=== PATIENT | male | born 1945 | race Caucasian/White ===

== ENCOUNTER 2018-12-06 07:23 | Day surgery (SDC) | payer MEDICARE, BC ==
[~2018-12-06 07:23] MED LIST: Acetaminophen TAB* 325 MG PO PRN
[2018-12-06] MEDS ORDERED: Midazolam* 1 MG/ML 2 ML VIAL (2 MG) ONE (08:48)
[2018-12-06 09:33] VITALS: BP 118/61
[2018-12-06] MEDS ORDERED: Ketorolac 0.5% OPHTH (NF) 0.5 % 5 ML BTL ONE (10:26)
[2018-12-06] MEDS ORDERED: Povidone Iodine 5% OPTH* 30 ML BTL ONE (10:26)
[2018-12-06] MEDS ORDERED: Neomycin/Polymy/Dex OPHTH.OIN* 3.5 GM ONE (10:26)
[2018-12-06] MEDS ORDERED: Lidocaine 1%* 5 ML VIAL ONE (10:26)
[2018-12-06] MEDS ORDERED: Tropicamide 1% OPTH.SOL* BTL ONE (10:26)
[2018-12-06] MEDS ORDERED: acetaZOLAMIDE TAB* 250 MG ONE (10:26)
[2018-12-06] MEDS ORDERED: Phenylephrine 2.5% OPTH.SOL* 2 ML BTL ONE (10:26)
[2018-12-06] MEDS ORDERED: Tetracaine 0.5% OPTH.SOL 4 ML* 1 DROP BTL ONE (10:26)
[2018-12-06] MEDS ORDERED: Cyclopentolate 1% OPTH.SOL* 2 ML BTL ONE (10:26)
--- NOTE | 2018-12-06 10:45 | OP ---
DATE OF OPERATION: 12/06/18 - [facility] DATE OF : 41 SURGEON: William Scherer MD ANESTHESIA: Monitored anesthesia care. PREOPERATIVE DIAGNOSIS: Cataract, left eye. POSTOPERATIVE DIAGNOSIS: Cataract, left eye. OPERATIVE PROCEDURE: Extracapsular cataract extraction of the left eye with intraocular lens implant. IMPLANT: SN60WF 22.5 diopter lens to the left eye. COMPLICATIONS: None. DESCRIPTION OF PROCEDURE: The patient was given phenylephrine 2.5 % and cyclopentolate 1% eye drops to the operative eye in the preoperative area. The patient was taken to the operating room where a time-out was taken to identify the correct patient, site, and side of surgery. The patient's left eye was prepped and draped in the usual sterile fashion with 5% Betadine. A second time- out was taken to verify the correct patient, side, and site of surgery, as well as the correct lens implant. A lid speculum was placed to the left eye. A 1mm paracentesis blade was used to make a clear corneal incision. Preservative-free 1% lidocaine was injected into the anterior chamber. DisCoVisc was then injected into the anterior chamber. A 2.75 mm keratome blade was used to make a triplanar incision. A cystotome initiated a capsulorrhexis, which was completed with Utrata forceps in a continuous and curvilinear manner. Hydrodissection of the lens was performed with BSS on a cannula. The lens could be spun in a capsular bag. The phacoemulsification handpiece was used with a divide-and- conquer technique to remove the nucleus. The I/A handpiece then removed the residual cortical lens material. DisCoVisc was injected to inflate the capsular bag. The planned SN60WF 22.5 Diopter lens was injected into the capsular bag. The residual DisCoVisc was removed from the eye with the I/A handpiece. The corneal incisions were hydrated and no leaks occurred at physiologic pressure around 20 mmHg per palpation. The lid speculum was removed and drapes were removed. Maxitrol ointment was placed to the surface of the operative eye. An adhesive patch and shield was then placed on the operative eye. The patient was taken to the postoperative area in stable condition. [id number]/[facility] #: [id number] MTDD
== END 2018-12-06 09:40 | disposition home or self-care (01) ==
LOC: OREAST 07:23
PROVIDERS: ATTEND Student in an Organized Health Care Education/Training Program
DX: H25.12 Age-related nuclear cataract, left eye (principal); I10 Essential (primary) hypertension; E78.00 Pure hypercholesterolemia, unspecified; Z87.891 Personal history of nicotine dependence; I48.91 Unspecified atrial fibrillation; Z79.01 Long term (current) use of anticoagulants; E78.2 Mixed hyperlipidemia; I35.0 Nonrheumatic aortic (valve) stenosis; I25.10 Atherosclerotic heart disease of native coronary artery without angina pectoris; M19.90 Unspecified osteoarthritis, unspecified site; J45.909 Unspecified asthma, uncomplicated
CPT/HCPCS: A9270-GY; J2250; V2632

== ENCOUNTER 2018-12-13 06:15 | Day surgery (SDC) | payer MEDICARE, BC ==
[2018-12-13] MEDS ORDERED: Midazolam* 1 MG/ML 2 ML VIAL (2 MG) ONE (07:29)
[2018-12-13 08:08] VITALS: BP 121/57
[2018-12-13] MEDS ORDERED: Lidocaine 1%* 5 ML VIAL ONE ×2 (08:11→14:09)
[2018-12-13] MEDS ORDERED: Ketorolac 0.5% OPHTH (NF) 0.5 % 5 ML BTL ONE (08:11)
[2018-12-13] MEDS ORDERED: Phenylephrine 2.5% OPTH.SOL* 2 ML BTL ONE (08:11)
[2018-12-13] MEDS ORDERED: Neomycin/Polymy/Dex OPHTH.OIN* 3.5 GM ONE (08:11)
[2018-12-13] MEDS ORDERED: Tropicamide 1% OPTH.SOL* BTL ONE (08:11)
[2018-12-13] MEDS ORDERED: Tetracaine 0.5% OPTH.SOL 4 ML* 1 DROP BTL ONE (08:11)
[2018-12-13] MEDS ORDERED: acetaZOLAMIDE TAB* 250 MG ONE (08:11)
[2018-12-13] MEDS ORDERED: Povidone Iodine 5% OPTH* 30 ML BTL ONE (08:11)
[2018-12-13] MEDS ORDERED: Cyclopentolate 1% OPTH.SOL* 2 ML BTL ONE (08:11)
--- NOTE | 2018-12-13 08:22 | OP ---
DATE OF OPERATION: 12/13/18 - [facility] DATE OF : 41 SURGEON: William Scherer MD ANESTHESIA: Monitored anesthesia care. PREOPERATIVE DIAGNOSIS: Cataract, right eye. POSTOPERATIVE DIAGNOSIS: Cataract, right eye. OPERATIVE PROCEDURE: Extracapsular cataract extraction of the right eye with intraocular lens implant. IMPLANT: SN60WF 23.0 diopter lens to the right eye. COMPLICATIONS: None. DESCRIPTION OF PROCEDURE: The patient was given phenylephrine 2.5 % and cyclopentolate 1% eye drops to the operative eye in the preoperative area. The patient was taken to the operating room where a time-out was taken to identify the correct patient, site, and side of surgery. The patient's right eye was prepped and draped in the usual sterile fashion with 5% Betadine. A second time- out was taken to verify the correct patient, side, and site of surgery, as well as the correct lens implant. A lid speculum was placed to the right eye. A 1mm paracentesis blade was used to make a clear corneal incision. Preservative-free 1% lidocaine was injected into the anterior chamber. DisCoVisc was then injected into the anterior chamber. A 2.75 mm keratome blade was used to make a triplanar incision. A cystotome initiated a capsulorrhexis, which was completed with Utrata forceps in a continuous and curvilinear manner. Hydrodissection of the lens was performed with BSS on a cannula. The lens could be spun in a capsular bag. The phacoemulsification handpiece was used with a divide-and- conquer technique to remove the nucleus. The I/A handpiece then removed the residual cortical lens material. DisCoVisc was injected to inflate the capsular bag. The planned SN60WF 23.0 diopter lens was injected into the capsular bag. The residual DisCoVisc was removed from the eye with the I/A handpiece. The corneal incisions were hydrated and no leaks occurred at physiologic pressure around 20 mmHg per palpation. The lid speculum was removed and drapes were removed. Maxitrol ointment was placed to the surface of the operative eye. An adhesive patch and shield was then placed on the operative eye. The patient was taken to the post-operative area in stable condition. [id number]/[facility] #: [id number] [facility]
== END 2018-12-13 08:12 | disposition home or self-care (01) ==
LOC: OREAST 06:15
PROVIDERS: ATTEND Student in an Organized Health Care Education/Training Program
DX: H25.11 Age-related nuclear cataract, right eye (principal); Z87.891 Personal history of nicotine dependence; I10 Essential (primary) hypertension; E78.00 Pure hypercholesterolemia, unspecified; I25.10 Atherosclerotic heart disease of native coronary artery without angina pectoris
CPT/HCPCS: A9270-GY; J2250; V2632

== ENCOUNTER 2019-01-25 18:47 | Inpatient (IN) | payer MEDICARE, BC ==
--- NOTE | 2019-01-25 19:09 | ED ---
Shortness of Breath - HPI Summary HPI Summary: A 73 y/o M presents to ED with c/o sudden-onset SOB onset [id number]. He says he was walking his dog and all of sudden got SOB. Associated sx: weakness, cough. He has had pedal edema for a few weeks. Denies fever, n/v/d, sore throat. He is on O2 at bedside, which he says is helping. He is not on home O2. 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 Denies CHF, COPD, mesothelioma. 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 He sees Dr. Nickerson, pulmonary. - History of Current Complaint Chief Complaint: EDShortnessOfBreath Hx Obtained From: Patient Onset/Duration: Sudden Onset, Still Present Timing: Constant Current Severity: Moderate Dyspnea At: Rest Alleviating Factors: Oxygen - Allergy/Home Medications Allergies/Adverse Reactions: Allergies Allergy/AdvReac Type Severity Reaction Status Date / Time atorvastatin Allergy Intermediate Muscle Ache Verified 12/13/18 06:35 gemfibrozil AdvReac Intermediate Muscle Ache Verified 12/13/18 06:35 PMH/Surg Hx/FS Hx/Imm Hx Previously Healthy: No Endocrine/Hematology History: Reports: Hx Anticoagulant Therapy Denies: Hx Diabetes, Hx Thyroid Disease Cardiovascular History: Reports: Hx Angina, Hx Coronary Artery Disease, Hx Hypercholesterolemia, Hx Hypertension - CONTROL WITH MEDS, Other Cardiovascular Problems/Disorders - CHOLESTEROL CONTROL WITH MEDS Denies: Hx Pacemaker/ICD Respiratory History: Reports: Hx Asthma - 1 ACUTE EPISODE THIS SPRING RELATED TO DUST, Other Respiratory Problems/Disorders Denies: Hx Chronic Obstructive Pulmonary Disease (COPD) GI History: Reports: Hx Gastroesophageal Reflux Disease - ,very seldom History: Reports: Other Problems/Disorders - HX OF BPH, ACCORDING TO H&P Denies: Hx Renal Disease Sensory History: Reports: Hx Cataracts - both eyes, Hx Contacts or Glasses - READING GLASSES Denies: Hx Hearing Aid Opthamlomology History: Reports: Hx Cataracts - both eyes, Hx Contacts or Glasses - READING GLASSES Neurological History: Denies: Hx Dementia, Hx Seizures Psychiatric History: Reports: Hx Anxiety - CONTROL OF MED Denies: Hx Substance Abuse - Surgical History Surgery Procedure, Year, and Place: left knee scoping, [place] rt shoulder =may 2016 for fx. 1969'[place]COPY[place] [facility] [place]OTAL [place]NEE REPLACEMENT, [facility]. 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 left endarectomy at [facility] 10/11/18 Hx Anesthesia Reactions: No - Immunization History Date of Tetanus Vaccine: 2 YEARS AGO Infectious Disease History: No Infectious Disease History: Denies: Hx Clostridium Difficile, Hx Hepatitis, Hx Human Immunodeficiency Virus (HIV), Hx of Known/Suspected MRSA, Hx Shingles, Hx Tuberculosis, Hx Known/ Suspected VRE, Hx Known/Suspected VRSA, History Other Infectious Disease, Traveled Outside the [place] in Last 30 Days - Family History Known Family History: Positive: Cardiac Disease - CAD - Social History Occupation: Retired Lives: With Family Alcohol Use: Daily Alcohol Amount: 1-2 BEERS Substance Use Type: Reports: None Smoking Status (MU): Former Smoker Type: Cigarettes Amount Used/How Often: 1/2 PPD Have You Smoked in the Last Year: No Review of Systems Negative: Fever Negative: Sore Throat Positive: Shortness Of Breath, Cough Negative: Vomiting, Diarrhea, Nausea Positive: Weakness All Other Systems Reviewed And Are Negative: Yes Physical Exam - Summary Physical Exam Summary: Constitutional: Well-developed, Well-nourished, Alert. (-) Distressed Skin: Warm, Dry HENT: Normocephalic; Atraumatic Eyes: Conjunctiva normal Neck: Musculoskeletal ROM normal neck. (-) JVD, (-) Stridor, (-) Tracheal deviation Cardio: Rhythm regular, rate normal, Heart sounds normal; Intact distal pulses; The pedal pulses are 2+ and symmetric. Radial pulses are 2+ and symmetric. (-) Murmur Pulmonary/Chest wall: (-) Wheezes, Coarse crackles on Left. Abd: Soft, (-) tenderness, (-) Distension, (-) Guarding, (-) Rebound Musculoskeletal: 2+ pitting edema in bilat LE Lymph: (-) Cervical adenopathy Neuro: Alert, Oriented x3 Psych: Mood and affect Normal Triage Information Reviewed: Yes Vital Signs On Initial Exam: Initial Vitals Temp Pulse Resp BP Pulse Ox 98.7 F 153 20 126/55 60 01/25/19 18:51 01/25/19 18:51 01/25/19 18:51 01/25/19 18:51 01/25/19 18:51 Vital Signs Reviewed: Yes Diagnostics - Vital Signs Vital Signs Temp Pulse Resp BP Pulse Ox 01/25/19 18:51 98.7 F 153 20 126/55 60 - Laboratory Result Diagrams: 01/25/19 19:34 01/25/19 19:34 Lab Statement: Any lab studies that have been ordered have been reviewed, and results considered in the medical decision making process. - Radiology CXR Radiology Interpretation Completed By: ED Physician Summary of Radiographic Findings: R perihiler nodular lesion, likely asbestos, otherwise unremarkable. - CT CHEST/THORAX CTA CT Interpretation Completed By: Radiologist Summary of CT Findings: IMPRESSION: 1. Multifocal pneumonia. 2. No pulmonary emboli. 3. Right adrenal adenoma. 4. Cholelithiasis. ED provider has reviewed this report. - EKG 1919 EKG Rhythm: Atrial Fibrillation - at 108 bpm Summary of EKG Findings: Atrial fib at 108 bpm, ST depressed in V4-V5. Overall atrial fibrillation at 108 bpm. Re-Evaluation - Re-Evaluation 1 Re-Evaluation Time: 19:34 Change: Improved 2 Re-Evaluation Time: 21:03 Change: Improved Comment: Breathing better, feeling improved. Course/Dx - Course Course Of Treatment: Pt is a 73 y/o M presenting with sudden-onset SOB onset [id number] while walking his dog. Associated sx: weakness, cough. He has had pedal edema for a few weeks. He is on O2 at bedside, which he says is helping. 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 Denies CHF, COPD, mesothelioma. 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 He sees Dr. Nickerson, pulmonary. EKG shows overall atrial fibrillation at 108 bpm. Critical lab values: lactic acid: 2.4. CXR shows a R perihiler nodular lesion, likely asbestos, otherwise unremarkable. Chest/Thorax CTA shows "1. Multifocal pneumonia. 2. No pulmonary emboli. 3. Right adrenal adenoma. 4. Cholelithiasis.". Pt given Azithromycin, Ceftriaxone, Mg Sulfate in ED. Consulted with Dr. Sahni, hospitalist, who will admit patient. - Diagnoses Provider Diagnoses: PNA (pneumonia) - Physician Notifications Discussed Care of Patient With: Addison Sahni - hospitalist Time Discussed With Above Provider: 22:00 - Critical Care Time Critical Care Time: 30-74 min - 45 mins CCT Discharge - Sign-Out/Discharge Documenting (check all that apply): Patient Departure - ADMIT All imaging exams completed and their final reports reviewed: Yes Patient Received Moderate/Deep Sedation with Procedure: No - Discharge Plan Condition: Improved Disposition: ADMITTED TO [facility] - Billing Disposition and Condition Condition: IMPROVED Disposition: Admitted to [facility] - Attestation Statements Document Initiated by Scribe: Yes Documenting Scribe: Rizwana Madrigal Provider For Whom Scribe is Documenting (Include Credential): Dr. Gertrude Marinelli MD Scribe Attestation: Rizwana Conte scribed for Dr. Gertrude Marinelli MD on at 2322. Scribe Documentation Reviewed: Yes Provider Attestation: The documentation as recorded by the Rizwana yip accurately reflects the service I personally performed and the decisions made by me, Dr. Gertrude Marinelli MD Status of Scribe Document: Viewed
--- OUTSIDE RECORDS SUMMARY | 2019-01-25 19:27 | XMS REPORT | Continuity of Care Document ---
:1945 External Reference #:[id number] Author Name RoseJosephine Care Team Providers Name Role Phone Biju Collins MD Primary Care Physician Unavailable Payers Date Identification Numbers Payment Provider Subscriber Effective: 2008 Policy Number: [id number] Medicare Leo Ortega PayID: [id number] [address] [place] [address] Policy Number: [id number] [facility] Leo Ortega Group Name: [id number] [address] [address] PayID: [id number] [place] [id number] Advance Directives Description No Information Available Problems Date Description Provider Status Onset: 03/17/2017 Coronary atherosclerosis Biju Collins M.D.,BETINA Active Note: abnormal stress/myoview 03/24, suspect CAD Onset: 06/09/2018 Carotid artery stenosis Biju Collins M.D.,BETINA Active Note: LT CEA Onset: 12/22/2007 Mixed hyperlipidemia Carley Mcnair M.D., FACP Onset: 12/22/2007 Benign essential hypertension Carley Mcnair M.D., FACP Onset: 12/04/2008 Osteoarthritis of knee Carley Mcnair M.D.,BETINA Onset: 07/02/2009 Benign neoplasm of adrenal gland Carley Mcnair M.D.,BETINA Note: right Onset: 07/02/2009 Microscopic hematuria Carley Mcnair M.D.,FACP Onset: 03/04/2012 Pure hypercholesterolemia Carley Figueroa M.D. Onset: 01/04/2013 Generalized anxiety disorder Karen Chandler N.P. Active Onset: 02/05/2016 Asthma without status asthmaticus Carley Mcnair M.D.,FACP Onset: 02/05/2016 Asbestos-induced pleural plaque Carley Mcnair M.D.,FACP Onset: 02/19/2018 Knee pain Ganesh Shipman MD Active Onset: 02/19/2018 Arthroplasty of knee Ganesh Shipman MD Active Onset: 03/01/2018 Periprosthetic osteolysis Karina Bhardwaj M.D. 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 Recreational Drug Use Denies Drug Use Tobacco Use Start: Unknown End: Patient is a former Unknown smoker Smoking Status Reviewed: 01/17/19 Patient is a former smoker Exercise Type/Frequency Exercises regularly walks outside most days, weather permitting. uses indoor bicycle if unable to walk. Walks 2 dogs as well. Exercise Limitations Limited Due To Right Knee Pain Allergies, Adverse Reactions, Alerts Date Description Reaction Status Severity Comments 05/03/2008 Gemfibrozil Active muscle aches in legs 07/28/2013 Lipitor myalgias Active Medications Medication Date Status Form Strength Qnty SIG Indications Ordering Provider Eliquis 08/13/20 Active Tablets 5mg 180ta 1 by Fili 18 bs melvi Childress, twice a M.D. day - restarted 11/17/18 by surgeon Amlodipine 05/18/20 Active Tablets 10mg 90tab 1 tabs by Fili Besylate 18 s melvi Childress, daily in M.D. in the morning Shingrix 05/18/20 Active Suspension 50mcg 2unit 0.5 Biju 18 Rec s millilite Kaila Collins, rs M.D.,FACP intramusc ular now and 2-3 months later repeat Received 1st injection Crestor 05/01/20 Active Tablets 5mg 90tab 1 by Biju 17 s mouth Kaila Collins, every M.D.,FACP evening Nitroglycerin 04/01/20 Active Patches 0.2mg/HR 90uni apply one R94.30 Fili 16 24HR ts to chest barbara Harvey in M.DRochelle the morning and remove prior to bedtime Aspirin 07/09/[address] 81mg 90tab 1 po qd Fili 10 solis Childress M.D. Folic Acid Active Tablets 800mcg 30tab 1 po qd Unknown 00 s Ventolin HFA Active Aerosol 108(90Bas as needed Unknown 00 e) mcg/Act Lubricant Eye Active Solution 0.4-0.3% 1 gtt Unknown Drops 00 each eye qd as needed Citalopram Active Tablets 10mg 90tab take one Biju Hydrobromide 00 s tablet by Kaila Collins, mouth M.D.,FACP once daily Doxazosin Active Tablets 4mg 90tab 1 by I10 Biju Mesylate 00 s melvi Collins, every day M.D.,FACP Vitamin D 00/00/00 Active Capsules 2000Unit 1 by Unknown (Ergocalcifero 00 mouth l) every day Pravastatin 04/30/20 Hx Tablets 10mg 1 by Fili Sodium 17 - mouth F. Mauser, 05/01/20 every day M.D. 17 Pravastatin 03/30/20 Hx Tablets 20mg 1 tablet Fili Sodium 17 - by mouth F. Mauser, 03/30/20 once M.D. 17 daily at bedtime Pravastatin 03/30/20 Hx Tablets 20mg 90tab 1 tablet Fili Sodium 17 - s by mouth F. Mauser, 04/30/20 once M.D. 17 daily at bedtime Medrol 09/04/20 Hx TBPK 4mg 21uni take as S42.201D Ganesh 16 - ts directed MD Umberto 10/09/20 by 16 packaging Azithromycin 06/17/20 Hx Tablets 250mg 6tabs 2 tabs by J20.9 Jah 16 - mouth on Maldivian, TURNER OFF 06/24/20 day 1; 1 16 tab by mouth every day on days 2-5 Cephalexin 05/20/20 Hx Capsules 500mg 28cap 1 by Ann 16 - s mouth Bordoni, 05/27/20 four TURNER OFF 16 times a day for 7 days Oxycodone-Acet 05/14/20 Hx Tablets 5-325mg 60tab 1 or 2 by S42.201D Dirk aminophen 16 - s mouth Jesus, 06/03/20 every 4 M.D. 16 hours as needed pain Metoprolol 04/01/20 Hx Tablets ER 25mg 45tab Take R94.30 Biju Succinate ER 16 - 24HR s One-Half D. [place], 09/12/20 Tablet By Chrystal,FACP 18 Mouth Once Daily In The Evening Metoprolol 01/21/20 Hx Tablets ER 25mg 30tab Take Lambert Succinate ER 16 - 24HR s One-Half Dillon, 03/11/20 Tablet By Chrystal 16 Mouth 1/2 of a 25 mg tablet on 02/27/16 and 02/28 and 03/02 and then discontin ue. Avapro 08/07/20 Hx Tablets 150mg 90tab 1 by Fili 14 - s mouth F. Mauser, 01/15/20 every day M.D. 16 Lisinopril 07/28/20 Hx Tablets 20mg 1 tab PO Fili 14 - bid F. Mauser, 07/28/20 M.D. 14 Benicar 07/28/20 Hx Tablets 20mg 30tab 1 by Fili 14 - s mouth F. Mauser, 08/06/20 every day M.D. 14 Triamcinolone 11/14/19 Hx Cream 0.1% 80g apply qd 300.02 Biju Acetonide 14 - prn Kaila Collins, 07/27/20 M.D.,FACP 14 Turmeric 07/28/20 Hx Capsules 400mg 1 po qd Other 13 - Ordering 02/26/20 Provider 16 Co Q-10 07/28/20 Hx Capsules 100mg 1 po qd Other 13 - Ordering 01/01/20 Provider 15 Glucosamine 07/28/20 Hx Capsules 500mg 2 po qd Other 13 - Ordering 11/14/19 Provider 14 Pravastatin 07/28/20 Hx Tablets 10mg 90tab take Biju Sodium 13 - s tablet by Kaila Collins, 03/30/20 mouth M.D.,FACP 17 once daily Citalopram 03/02/20 Hx Tablets 10mg 90tab take one 296.82 Biju Hydrobromide 13 - s tablet by Kaila Collins, 06/03/20 mouth M.D.,FACP 16 every day Pravastatin 02/25/20 Hx Tablets 10mg 90tab 1/2 po Fili Sodium 13 - s qd Kirk. Monroe, 07/28/20 M.D. 13 Lisinopril 02/25/20 Hx Tablets 10mg 180ta 2 po bid Fili 13 - bs Zoie Childress, 07/28/20 M.D. 14 Pravachol 12/29/19 Hx Tablets 10mg 100ta 1/2 po qd Fili 13 - bs Zoie Janeuselyudmila, 07/28/20 M.D. 13 Lipitor 09/13/20 Hx Tablets 10mg 90tab 1/2 tab Fili 12 - s po qhs Zoie Childress, 12/29/19 M.D. 13 Toprol XL 09/03/20 Hx Tablets ER 25mg 45tab 1/2 by Lambert 12 - 24HR s mouth Dillon, 02/26/20 every day M.D. 16 Norvasc 09/03/20 Hx Tablets 5mg 180ta 2 tabs by Biju Arbams - bs mouth D. [place], 05/18/20 daily M.Kaila,FACP 18 Celexa 08/18/20 Hx Tablets 10mg 90tab 1qd - 296.82 Biju 12 - s Take One D. [place], 03/02/20 Tablet By Chrystal,FACP 13 Mouth Every Day Toprol XL 03/22/20 Hx Tablets ER 25mg 90tab 1 po qd Fili 12 - 24HR s F. Buckuselyudmila, 09/03/20 M.D. 12 Toprol XL 03/04/20 Hx Tablets ER 25mg 100ta 1/2 po qd Fili 12 - 24HR bs Zoie Childress, 03/22/20 M.D. 12 Norvasc 11/18/19 Hx Tablets 10mg 100ta 1 po qd Fili 12 - bs FRochelle Childress, 09/03/20 M.D. 12 Lisinopril 10/27/20 Hx Tablets 20mg 90tab 1/2 tab Fili 11 - s po qd F. Mauselyudmila, 02/25/20 M.D. 13 Lipitor 10/23/20 Hx Tablets 20mg 90tab one tab Fili 11 - s po qhs FRochelle Childress, 09/13/20 hold as M.D. 12 of 09.03.12 Amlodipine 10/23/20 Hx Tablets 2.5mg 200ta 3 po qd 401.1 Fili Besylate 11 - bs F. Mauselyudmila, 11/18/19 M.D. 12 Toprol XL 10/23/20 Hx Tablets ER 50mg 100ta 1/2 po qd Fili 11 - 24HR bs Zoie Childress, 03/04/20 M.D. 12 Amlodipine 04/09/20 Hx Tablets 2.5mg 90tab 1 po qd 401.1 Biju Besdarion 11 - s Jimbo. Ainsley, 10/23/20 M.D.,FACP 11 Citalopram 04/09/20 Hx Tablets 10mg 90tab Take One 296.82 Biju Hydrobromide 11 - s Tablet By Kaila Collins, 07/01/20 Mouth MJose,FACP 12 Every Day Celexa 12/16/19 Hx Tablets 10mg 90tab 1qd - 296.82 Biju 11 - s Take One Kaila Collins, 04/09/20 Tablet By Chrystal,FACP 11 Mouth Every Day Finasteride 10/08/20 Hx Tablets 5mg 90tab Take One Biju 10 - s Tablet By Kaila Collins, 07/28/20 Mouth MJose,FACP 13 Every Day Toprol XL 08/19/20 Hx Tablets ER 50mg 90tab 1 po qd Fili 10 - 24HR s Zoie Childress, 10/23/20 MRochelleDRochelle 11 Toprol XL 08/06/20 Hx Tablets ER 25mg 180ta 2 po qd Fili 10 - 24HR bs Zoie Childress, 08/19/20 MJose 10 Avodart 07/09/20 Hx Capsules 0.5mg 1 po qd Biju 10 - Kaila Collins, 10/08/20 Chyrstal,FACP 10 Norvasc 07/09/20 Hx Tablets 2.5mg 4tabs 2 po qd Fili 10 - The Day Zoie Childress, 04/09/20 Before M.DRochelle 11 And The Day Of The Stress Test Lisinopril/Hyd 03/30/20 Hx Tablets 20-12.5mg 90tab Take One Biju rochlorothiazi 10 - s Tablet By Moses 10/27/20 Mouth MJose,FACP 11 Every Day Iron 01/19/20 Hx Tablets 65mg 90tab 1 po qd Fili 09 - s Zoie Childress, Unknown Bernadette.DRochelle Toprol XL 12/12/19 Hx TB24 25mg 90uni 1qd - Biju 09 - ts Take One Kaila Collins, 08/06/20 Tablet By Chrystal,FACP 10 Mouth Every Day Prilosec OTC 12/04/[address] 20mg 30tab 1 po qd Biju 09 - s Kaila Collins, 01/19/20 M.D.,FACP 09 Citalopram 12/04/19 Hx Tablets 10mg 90tab 1 po qd 296.82 Biju Hydrobromide 09 - s DRochelle Collins, 12/16/19 M.D.,FACP 11 Mobic 09/18/20 Hx Tablets 15mg 30tab 1 qd prn 719.46 Biju 08 - s pain D. [place], 01/19/20 M.D.,FACP 09 Vicodin 09/18/20 Hx Tablets 5-500mg 45tab 1 q 4-6 719.46 Biju 08 - s hours prn D. Ainsley, 12/04/19 M.D.,FACP 09 Simcor 05/22/20 Hx Tablets ER 1000-20 90tab 1 po qhs 272.2 Biju 08 - 24HR s Kaila Collins, 05/25/20 M.D.,FACP 08 Aspirin 05/03/[address] 325mg 30tab 1 PO qd Fili 08 - s FRochelle Childress, 01/19/20 M.D. 09 Naprosyn 05/03/20 Hx Tablets 500mg 1 PO bid Biju 08 - prn D. Ainsley, 05/03/20 M.D.,FACP 08 Glucosamine 05/03/20 Hx Capsules 500mg 1 PO bid Fili 08 - FRochelle Childress, 07/09/20 M.D. 10 Fish Oil 05/03/20 Hx Capsules 1000mg 90cap 1 PO bid Fili 08 - s FRochelle Childress, 07/01/20 M.D. 12 Vitamins E 05/03/20 Hx tablet qod Fili 08 - F. Buckuselyudmila, 01/19/20 M.D. 09 Folic Acid 05/03/20 Hx Capsules 1 PO qd Fili 08 - FRochelle Childress, 07/09/20 M.D. 10 Calcium 05/03/20 Hx Tablets 1 PO qd Fili 08 - F. Buckuser, 01/19/20 M.D. 09 Niaspan 03/21/20 Hx Tablets ER 1000mg 90tab 1qd - 272.2 Biju 08 - s Take One DRochelle Collins, 04/09/20 Tablet By Chrystal,FACP 11 Mouth Every Day Niaspan 12/22/19 Hx Tablets ER 500mg 90tab 1 po qhs 272.2 Biju 08 - s Kaila Collins, 03/21/20 M.D.,FACP 08 Simvastatin 12/22/19 Hx Tablets 20mg 90tab Take One 272.2 Biju 08 - s Tablet By Kaila Collins, 10/23/20 Mouth AT M.D.,FACP 11 Bedtime Doxazosin 12/22/19 Hx Tablets 2mg 90tab Take One I10 Mario Mesylate 08 - s Tablet By Vazquez, 10/14/20 Mouth M.D. 18 Twice Daily Avodart 12/13/19 Hx 0.500Each 90uni 1qd - Biju 08 - ts Take One Kaila Collins, 07/09/20 Capsule M.D.,FACP 10 By Mouth Every Day Lisinopril/Hyd Hx Tablets 20-12.5 90tab 1 PO qd Biju hardenlorothiazi 00 - s Kaila Collins, de 03/30/20 M.D.,FACP 10 Cardura Hx Tablets 1mg 401.1 Biju 00 - Kaila Collins, 12/22/19 M.D.,FACP 08 Naprosyn Hx Tablets 500mg 1 PO 3X Biju 00 - Weekly Kaila Collins, 05/03/20 M.D.,FACP 08 Aggrenox Hx Caps ER 25-200mg 1 PO bid Biju 00 - 12HR Kaila Collins, 12/22/19 M.D.,FACP 08 Vytorin Hx Tablets 10-20mg 1 PO qd 272.2 Biju 00 Marv Collins, 12/22/19 M.D.,FACP 08 Glucosamine Hx Capsules 500mg 2 po bid Unknown - 03/04/20 12 Vitamin D Hx Capsules 1000Unit 30cap po qd Unknown 00 - s during 12/28/19 winter 19 months Pravastatin Hx Tablets 10mg 90tab 1/2 po Qutaybeh Sodium 00 - s qd S. 02/25/20 Maghaydah, 13 M.D. Fish Oil Hx Capsules 1000mg 90cap 1 PO bid Unknown 00 - s 11/14/19 14 Prednisone Hx Tablets 50mg Unknown - 02/25/20 16 Tamiflu Hx Capsules 75mg Unknown - 01/16/20 16 Irbesartan Hx Tablets 150mg 45tab take 1/2 Biju 00 - s tablet by Kaila Collins, 05/18/20 mouth M.DRochelle,FACP 18 once daily Acetaminophen Hx Tablets 325mg 2 tablets Unknown 00 - by mouth 10/14/20 every 6 18 hours as needed for pain/feve r Plavix Hx Tablets 75mg 1 by Unknown 00 - mouth 11/16/19 every day 19 (for 9 days Hospital D/C) Immunizations CPT Code Status Date Vaccine Reaction Lot # [id number] Given 08/04/2018 Influenza Virus Vaccine, [id number] Quadrivalent, Split, Preservative Free 30895 Given 09/10/2017 Influenza Virus Vaccine, [id number] Quadrivalent, Split, Preservative Free 76296 Given 09/04/2016 Influ Virus Vaccine, no immediate reaction [id number] Quadrivalent, Split Virus, noted .. [place] [address] Given 03/11/2016 Pneumococcal Conjugate [id number] Vaccine 13 Valent For Intramuscular Use 34345 Given 08/29/2015 Influenza Virus Vaccine, [id number] Quadrivalent, Split, Preservative Free 23998 Given 09/13/2014 Flu Vaccine Split Virus [id number] Preservative Free For Indiv 3Yr Older 42466 Given 09/19/2013 Flu Vaccine Split Virus Preservative Free For Indiv 3Yr Older [id number] Given 09/17/2012 Fluvirin Im 3Yrs And Older [id number] 85772 Given 07/01/2012 Tdap - [id number] Tetanus/Diptheria/Acellula r Pertussis 93319 Given 12/10/2009 Administration Swine Flu Shot 45395 Given 12/10/2009 Influenza Virus Vaccine, [id number] Pandemic Formulation 14294 Given 08/29/2009 Influenza Virus 3Yrs & [id number] Over 27184 Given 07/02/2009 Pneumonia Vaccine [id number] 06997 Given 08/15/2008 Influenza Virus 3Yrs & [id number] Over 32198 Given 12/22/2007 Zoster (Zostavax) 17422 Given 12/22/2007 Zoster (Zostavax) 26941 Given 12/22/2007 Zoster (Zostavax) [id number] 83888 Given 09/13/2007 Influenza Virus 3Yrs & Over 64346 Given 09/13/2007 Influenza Virus 3Yrs & Over 22908 Given 09/13/2007 Influenza Virus 3Yrs & [id number] Over Vital Signs Date Vital Result Comment 01/17/2019 8:52am Height 66.5 inches 5'6.50" Weight 182.25 lb Heart Rate 92 /min BP Systolic Sitting 142 mmHg BP Diastolic Sitting 78 mmHg Respiratory Rate 14 /min O2 % BldC Oximetry 99 % BMI (Body Mass Index) 29.0 kg/m2 12/29/2018 1:06pm Height 66.5 inches 5'6.50" Weight 179.12 lb with shoes Heart Rate 64 /min BP Systolic Sitting 140 mmHg left arm BP Diastolic Sitting 72 mmHg left arm BP Systolic Standing 150 mmHg left arm BP Diastolic Standing 78 mmHg left arm BMI (Body Mass Index) 28.5 kg/m2 Ejection Fraction 60-65% Echocardiogram 09/10/2018 11/26/2018 11:00am Height 66.5 inches 5'6.50" Weight 179.00 lb Heart Rate 75 /min BP Systolic 139 mmHg BP Diastolic 75 mmHg Body Temperature 98.0 F oral O2 % BldC Oximetry 99 % BMI (Body Mass Index) 28.5 kg/m2 10/14/2018 3:00pm Height 65.75 inches 5'5.75" Weight 174.00 lb Heart Rate 93 /min BP Systolic Sitting 126 mmHg BP Diastolic Sitting 78 mmHg Body Temperature 97.8 F O2 % BldC Oximetry 98 % BMI (Body Mass Index) 28.3 kg/m2 09/16/2018 9:29am Height 65.75 inches 5'5.75" Weight 175.00 lb with shoes Heart Rate 88 /min BP Systolic Sitting 156 mmHg BP Diastolic Sitting 88 mmHg BP Systolic Standing 142 mmHg la repeat sitting BP Diastolic Standing 72 mmHg la repeat sitting BMI (Body Mass Index) 28.5 kg/m2 Ejection Fraction 60-65% echocardiogram 09/10/18 08/12/2018 2:18pm Height 65.75 inches 5'5.75" Weight 175.38 lb with shoes Heart Rate 60 /min BP Systolic Sitting 120 mmHg Left arm BP Diastolic Sitting 78 mmHg Left arm BMI (Body Mass Index) 28.5 kg/m2 Ejection Fraction 55-60% stress echo 03/03/18 07/19/2018 8:31am Height 65.75 inches 5'5.75" Weight 177.00 lb Heart Rate 56 /min BP Systolic Sitting 118 mmHg BP Diastolic Sitting 68 mmHg Respiratory Rate 14 /min O2 % BldC Oximetry 98 % BMI (Body Mass Index) 28.8 kg/m2 05/18/2018 4:27pm Height 65.75 inches 5'5.75" Weight 169.00 lb Heart Rate 63 /min BP Systolic Sitting 146 mmHg BP Diastolic Sitting 70 mmHg BP Systolic Recheck 146 mmHg BP Diastolic Recheck 80 mmHg Body Temperature 97.6 F O2 % BldC Oximetry 98 % BMI (Body Mass Index) 27.5 kg/m2 03/01/2018 8:42am Height 67 inches 5'7" Weight 170.00 lb BP Systolic 146 mmHg BP Diastolic 76 mmHg Body Temperature 97.8 F Pain Level 4 BMI (Body Mass Index) 26.6 kg/m2 02/22/2018 7:55am Height 67 inches 5'7" Weight 170.00 lb Heart Rate 60 /min BP Systolic 138 mmHg BP Diastolic 82 mmHg BMI (Body Mass Index) 26.6 kg/m2 02/19/2018 8:23am Height 66 inches 5'6" Weight 171.00 lb Heart Rate 78 /min BP Systolic 130 mmHg BP Diastolic 74 mmHg Respiratory Rate 12 /min Body Temperature 97.5 F Pain Level 4 BMI (Body Mass Index) 27.6 kg/m2 12/29/2017 1:07pm Height 66 inches 5'6" Weight 175.00 lb with shoes Heart Rate 60 /min BP Systolic Sitting 130 mmHg Lue reg cuff BP Diastolic Sitting 70 mmHg Lue reg cuff BP Systolic Standing 136 mmHg Lue reg cuff BP Diastolic Standing 78 mmHg Lue reg cuff Respiratory Rate 16 /min BMI (Body Mass Index) 28.2 kg/m2 Ejection Fraction 55-60% date 03/20/16 echo 11/24/2017 10:58am Height 66 inches 5'6" Weight 177.12 lb with shoes Heart Rate 68 /min BP Systolic Sitting 148 mmHg LA, l cuff BP Diastolic Sitting 74 mmHg LA, l cuff BMI (Body Mass Index) 28.6 kg/m2 Ejection Fraction 60%-65% stress test 06/01/17 03/30/2017 2:27pm Height 66 inches 5'6" Weight 179.50 lb w/shoes Heart Rate 62 /min BP Systolic Sitting 122 mmHg LA reg cuff BP Diastolic Sitting 80 mmHg LA reg cuff BMI (Body Mass Index) 29.0 kg/m2 Ejection Fraction 55-60% Echo 03/20/16 03/17/2017 8:55am Height 66 inches 5'6" Weight 178.00 lb Heart Rate 68 /min BP Systolic 124 mmHg BP Diastolic 70 mmHg O2 % BldC Oximetry 98 % BMI (Body Mass Index) 28.7 kg/m2 01/28/2017 10:24am Height 67 inches 5'7" Weight 170.00 lb Heart Rate 62 /min BP Systolic 132 mmHg BP Diastolic 70 mmHg Respiratory Rate 14 /min O2 % BldC Oximetry 98 % BMI (Body Mass Index) 26.6 kg/m2 01/01/2017 2:29pm Height 67 inches 5'7" Weight 170.00 lb Respiratory Rate 16 /min Pain Level 3 BMI (Body Mass Index) 26.6 kg/m2 11/04/2016 9:12am Height 67 inches 5'7" Weight 170.00 lb Respiratory Rate 16 /min Pain Level 0 BMI (Body Mass Index) 26.6 kg/m2 10/22/2016 9:34am Height 67 inches 5'7" Weight 170.00 lb Heart Rate 78 /min BP Systolic 128 mmHg BP Diastolic 78 mmHg Respiratory Rate 14 /min O2 % BldC Oximetry 98 % BMI (Body Mass Index) 26.6 kg/m2 09/04/2016 8:44am Height 67 inches 5'7" Weight 170.00 lb Respiratory Rate 16 /min Pain Level 0 BMI (Body Mass Index) 26.6 kg/m2 07/11/2016 8:53am Height 67 inches 5'7" Weight 170.00 lb w/ shoes Heart Rate 64 /min reg BP Systolic Sitting 140 mmHg Rue, reg cuff BP Diastolic Sitting 76 mmHg Rue, reg cuff BP Systolic Standing 136 mmHg Rue BP Diastolic Standing 76 mmHg Rue Respiratory Rate 16 /min BMI (Body Mass Index) 26.6 kg/m2 Ejection Fraction 55-60% as of 03/20/16 echo 07/04/2016 9:57am Height 67 inches 5'7" Weight 171.00 lb Pain Level 2 BMI (Body Mass Index) 26.8 kg/m2 06/25/2016 12:49pm Height 67 inches 5'7" Weight 171.75 lb with shoes Heart Rate 64 /min BP Systolic Sitting 160 mmHg La reg cuff BP Diastolic Sitting 90 mmHg La reg cuff Respiratory Rate 18 /min BMI (Body Mass Index) 26.9 kg/m2 Ejection Fraction 55-60% date 03/20/16 ECHO 06/17/2016 1:10pm Height 67 inches 5'7" Weight 171.19 lb Heart Rate 64 /min BP Systolic 118 mmHg BP Diastolic 72 mmHg Body Temperature 98.0 F O2 % BldC Oximetry 94 % BMI (Body Mass Index) 26.8 kg/m2 06/10/2016 11:35am Height 67 inches 5'7" Weight 173.00 lb Heart Rate 64 /min Respiratory Rate 16 /min Body Temperature 97.2 F Pain Level 3 BMI (Body Mass Index) 27.1 kg/m2 06/03/2016 10:52am Weight 173.50 lb Heart Rate 63 /min BP Systolic 160 mmHg BP Diastolic 60 mmHg Body Temperature 98.4 F O2 % BldC Oximetry 99 % 05/16/2016 3:23pm Weight 174.00 lb Heart Rate 75 /min BP Systolic Sitting 138 mmHg BP Diastolic Sitting 76 mmHg O2 % BldC Oximetry 98 % 05/16/2016 1:32pm Height 67 inches 5'7" Weight 178.00 lb with sandals Heart Rate 60 /min BP Systolic Sitting 140 mmHg LA reg cuff BP Diastolic Sitting 70 mmHg LA reg cuff BP Systolic Standing 134 mmHg LA reg cuff BP Diastolic Standing 66 mmHg LA reg cuff Respiratory Rate 16 /min BMI (Body Mass Index) 27.9 kg/m2 05/15/2016 10:00am Height 67 inches 5'7" Weight 180.00 lb Pain Level 6 BMI (Body Mass Index) 28.2 kg/m2 05/14/2016 1:19pm Height 67 inches 5'7" Weight 175.00 lb Heart Rate 67 /min BP Systolic 125 mmHg BP Diastolic 70 mmHg BMI (Body Mass Index) 27.4 kg/m2 05/13/2016 3:34pm Height 67 inches 5'7" Weight 175.00 lb Heart Rate 75 /min BP Systolic 116 mmHg BP Diastolic 74 mmHg BMI (Body Mass Index) 27.4 kg/m2 04/21/2016 11:28am Height 66 inches 5'6" Weight 177.25 lb Heart Rate 71 /min BP Systolic 170 mmHg BP Diastolic 98 mmHg BP Systolic Sitting 170 mmHg BP Diastolic Sitting 90 mmHg Respiratory Rate 14 /min O2 % BldC Oximetry 98 % BMI (Body Mass Index) 28.6 kg/m2 04/15/2016 1:57pm Height 66 inches 5'6" Weight 178.00 lb w/shoes Heart Rate 58 /min BP Systolic Sitting 150 mmHg LA reg cuff BP Diastolic Sitting 82 mmHg LA reg cuff BMI (Body Mass Index) 28.7 kg/m2 Ejection Fraction 55-60% Echo 03/20/16 04/01/2016 8:09am Height 66 inches 5'6" Weight 178.00 lb Heart Rate 76 /min BP Systolic Sitting 142 mmHg Ra reg cuff BP Diastolic Sitting 74 mmHg Ra reg cuff BP Systolic Standing 140 mmHg BP Diastolic Standing 76 mmHg Respiratory Rate 15 /min BMI (Body Mass Index) 28.7 kg/m2 Ejection Fraction 55-60% 03/20/16 03/11/2016 1:42pm Height 66 inches 5'6" Weight 177.00 lb Heart Rate 74 /min BP Systolic Sitting 128 mmHg BP Diastolic Sitting 84 mmHg Respiratory Rate 14 /min Body Temperature 98.4 F O2 % BldC Oximetry 98 % BMI (Body Mass Index) 28.6 kg/m2 02/26/2016 8:46am Height 66 inches 5'6" Weight 176.25 lb with shoes Heart Rate 60 /min BP Systolic 158 mmHg LA reg cuff BP Diastolic 82 mmHg LA reg cuff BMI (Body Mass Index) 28.4 kg/m2 Ejection Fraction 55% - 60% Echo 02/19/15 01/16/2016 3:44pm Height 66 inches 5'6" Weight 175.00 lb Heart Rate 74 /min BP Systolic Sitting 130 mmHg BP Diastolic Sitting 80 mmHg O2 % BldC Oximetry 92 % BMI (Body Mass Index) 28.2 kg/m2 01/14/2016 11:38am Height 66 inches 5'6" Weight 175.00 lb Heart Rate 77 /min BP Systolic Sitting 152 mmHg BP Diastolic Sitting 80 mmHg Body Temperature 97.2 F O2 % BldC Oximetry 96 % BMI (Body Mass Index) 28.2 kg/m2 03/05/2015 8:20am Height 66 inches 5'6" Weight 175.00 lb w/shoes Heart Rate 74 /min BP Systolic Sitting 150 mmHg LA reg cuff BP Diastolic Sitting 78 mmHg LA reg cuff BP Systolic Standing 139 mmHg repeat sitting BP Diastolic Standing 79 mmHg repeat sitting Respiratory Rate 12 /min BMI (Body Mass Index) 28.2 kg/m2 Ejection Fraction 55-60 echo 08/26/13 01/01/2015 9:26am Height 66 inches 5'6" Weight 178.50 lb Heart Rate 70 /min BP Systolic Sitting 134 mmHg BP Diastolic Sitting 78 mmHg Body Temperature 96.6 F O2 % BldC Oximetry 99 % BMI (Body Mass Index) 28.8 kg/m2 08/31/2014 11:36am Height 66 inches 5'6" Weight 172.25 lb Heart Rate 66 /min BP Systolic 148 mmHg Pt home cuff BP Diastolic 88 mmHg Pt home cuff BP Systolic Sitting 142 mmHg LA reg cuff BP Diastolic Sitting 72 mmHg LA reg cuff BMI (Body Mass Index) 27.8 kg/m2 07/28/2014 2:14pm Height 66 inches 5'6" Weight 172.75 lb Heart Rate 72 /min BP Systolic 182 mmHg LA reg BP Diastolic 80 mmHg LA reg BMI (Body Mass Index) 27.9 kg/m2 11/14/2013 8:18am Height 66 inches 5'6" Weight 176.50 lb Heart Rate 82 /min BP Systolic Sitting 164 mmHg BP Diastolic Sitting 88 mmHg BMI (Body Mass Index) 28.5 kg/m2 07/28/2013 3:14pm Height 67 inches 5'7" Weight 170.00 lb Heart Rate 52 /min BP Systolic 142 mmHg BP Diastolic 82 mmHg Respiratory Rate 16 /min BMI (Body Mass Index) 26.6 kg/m2 01/04/2013 9:11am Height 67 inches 5'7" Weight 175.75 lb Heart Rate 82 /min BP Systolic Sitting 130 mmHg BP Diastolic Sitting 72 mmHg BMI (Body Mass Index) 27.5 kg/m2 12/29/2012 11:57am Height 67 inches 5'7" Weight 173.00 lb Heart Rate 60 /min BP Systolic 150 mmHg BP Diastolic 82 mmHg BMI (Body Mass Index) 27.1 kg/m2 09/03/2012 3:22pm Height 67 inches 5'7" Weight 167.25 lb Heart Rate 76 /min Regular BP Systolic Sitting 150 mmHg BP Diastolic Sitting 82 mmHg BMI (Body Mass Index) 26.2 kg/m2 07/01/2012 8:18am Height 67 inches 5'7" Weight 172.00 lb Heart Rate 60 /min BP Systolic Sitting 116 mmHg BP Diastolic Sitting 78 mmHg Respiratory Rate 16 /min Body Temperature 97.8 F lt ear BMI (Body Mass Index) 26.9 kg/m2 03/04/2012 3:14pm Height 67 inches 5'7" Weight 180.00 lb Heart Rate 58 /min BP Systolic Sitting 142 mmHg L home unit-148/88 BP Diastolic Sitting 80 mmHg L home unit-148/88 BMI (Body Mass Index) 28.2 kg/m2 03/04/2012 3:10pm Height 67 inches 5'7" Weight 180.00 lb BMI (Body Mass Index) 28.2 kg/m2 10/23/2011 1:14pm Height 67 inches 5'7" Weight 178.00 lb Heart Rate 54 /min BP Systolic Sitting 148 mmHg BP Diastolic Sitting 82 mmHg BMI (Body Mass Index) 27.9 kg/m2 06/09/2011 9:02am Weight 170.00 lb Heart Rate 74 /min BP Systolic Sitting 128 mmHg BP Diastolic Sitting 60 mmHg 04/09/2011 2:02pm Height 67.25 inches 5'7.25" Weight 171.00 lb Heart Rate 62 /min BP Systolic Sitting 160 mmHg BP Diastolic Sitting 84 mmHg BMI (Body Mass Index) 26.6 kg/m2 07/09/2010 9:31am Height 67.25 inches 5'7.25" Weight 180.00 lb Heart Rate 69 /min BP Systolic 180 mmHg BP Diastolic 80 mmHg Respiratory Rate 16 /min BMI (Body Mass Index) 28.0 kg/m2 01/30/2010 3:25pm Height 67.25 inches 5'7.25" Weight 182.00 lb Heart Rate 76 /min BP Systolic 166 mmHg BP Diastolic 84 mmHg Respiratory Rate 16 /min BMI (Body Mass Index) 28.3 kg/m2 07/02/2009 8:44am Height 67 inches 5'7" Weight 174.00 lb Heart Rate 68 /min BP Systolic Sitting 134 mmHg BP Diastolic Sitting 82 mmHg Body Temperature 98.4 F BMI (Body Mass Index) 27.2 kg/m2 03/13/2009 2:28pm Height 67 inches 5'7" Weight 178.00 lb Heart Rate 68 /min BP Systolic Standing 180 mmHg BP Diastolic Standing 84 mmHg BMI (Body Mass Index) 27.9 kg/m2 03/05/2009 1:01pm Height 67 inches 5'7" Weight 153.00 lb Heart Rate 76 /min BP Systolic Sitting 144 mmHg BP Diastolic Sitting 64 mmHg BMI (Body Mass Index) 24.0 kg/m2 01/18/2009 9:23am Weight 168.00 lb Heart Rate 66 /min BP Systolic Sitting 180 mmHg BP Diastolic Sitting 80 mmHg Respiratory Rate 16 /min 12/04/2008 11:46am Height 67 inches 5'7" Weight 179.00 lb Heart Rate 76 /min BP Systolic Sitting 168 mmHg BP Diastolic Sitting 82 mmHg BMI (Body Mass Index) 28.0 kg/m2 09/18/2008 8:29am Height 67 inches 5'7" Weight 182.00 lb Heart Rate 68 /min BP Systolic Sitting 196 mmHg BP Diastolic Sitting 100 mmHg BMI (Body Mass Index) 28.5 kg/m2 05/22/2008 8:59am Height 67 inches 5'7" Weight 176.00 lb Heart Rate 76 /min BP Systolic Sitting 142 mmHg BP Diastolic Sitting 90 mmHg BMI (Body Mass Index) 27.6 kg/m2 05/03/2008 1:32pm Height 67 inches 5'7" Weight 177.00 lb Heart Rate 70 /min BP Systolic Sitting 210 mmHg left arm, right arm 200/100 BP Diastolic Sitting 100 mmHg left arm, right arm 200/100 BP Systolic Standing 190 mmHg 10 minutes later: 200/100 BP Diastolic Standing 100 mmHg 10 minutes later: 200/100 BMI (Body Mass Index) 27.7 kg/m2 03/21/2008 11:32am Height 67 inches 5'7" Weight 179.00 lb Heart Rate 78 /min BP Systolic Sitting 140 mmHg BP Diastolic Sitting 88 mmHg BMI (Body Mass Index) 28.0 kg/m2 03/20/2008 8:54am Height 67 inches 5'7" Weight 179.00 lb Heart Rate 78 /min BP Systolic Sitting 140 mmHg BP Diastolic Sitting 88 mmHg BMI (Body Mass Index) 28.0 kg/m2 12/22/2007 3:06pm Height 67 inches 5'7" Weight 177.00 lb Heart Rate 74 /min BP Systolic Sitting 162 mmHg BP Diastolic Sitting 80 mmHg Respiratory Rate 20 /min Body Temperature 98.6 F oral BMI (Body Mass Index) 27.7 kg/m2 Results Test Date Facility Test Result H/L Range Note CBC Auto Diff 01/03/2019 [facility] White Blood 7.9 10^3/uL N 3.5-10.[address] [place] [address] [phone] Red Blood Count 4.50 10^6/uL N 4.00-5.40 Hemoglobin 14.6 g/dL N 14.0-18.0 Hematocrit 43 % N 42-52 Mean Corpuscular Volume 95 fL High 80-94 Mean Corpuscular Hemoglobin 33 pg High 27-31 Mean Corpuscular HGB Conc 34 g/dL N 31-36 Red Cell Distribution Width 14 % N 10.5-15 Platelet Count 229 10^3/uL N 150-450 Mean Platelet Volume 8.9 fL N 7.4-10.4 Abs Neutrophils 5.5 10^3/uL N 1.5-7.7 Abs Lymphocytes 1.3 10^3/uL N 1.0-4.8 Abs Monocytes 0.8 10^3/uL N 0-0.8 Abs Eosinophils 0.2 10^3/uL N 0-0.6 Abs Basophils 0.1 10^3/uL N 0-0.2 Abs Nucleated RBC 0 10^3/uL Granulocyte % 70.2 % Lymphocyte % 16.6 % Monocyte % 9.8 % Eosinophil % 2.5 % Basophil % 0.9 % Nucleated Red Blood Cells % 0.1 Lipid Panel - 01/03/2019 [facility] Creatine 123 U/L N 10-[address] Kinase(CK) [place] [address] [phone] Comp Metabolic 01/03/2019 [facility] Sodium 137 N 135-[address] mmol/[place] [address] [phone] Potassium 4.3 mmol/L N 3.5-5.0 Chloride 101 mmol/L N 101-111 Co2 Carbon Dioxide 29 mmol/L N 22-32 Anion Gap 7 mmol/L N 2-11 Glucose 87 mg/dL N 70-100 Blood Urea Nitrogen 8 mg/dL N 6-24 Creatinine 0.83 mg/dL N 0.67-1.17 BUN/Creatinine Ratio 9.6 N 8-20 Calcium 9.4 mg/dL N 8.6-10.3 Total Protein 7.4 g/dL N 6.4-8.9 Albumin 4.3 g/dL N 3.2-5.2 Globulin 3.1 g/dL N 2-4 Albumin/Globulin Ratio 1.4 N 1-3 Total Bilirubin 1.40 mg/dL High 0.2-1.0 Alkaline Phosphatase 88 U/L N 34-104 Alt 18 U/L N 7-52 Ast 24 U/L N 13-39 Egfr Non- 90.3 >60 Egfr 109.3 >60 1 Lipid Profile 01/03/2019 [facility] Triglycerides 81 mg/dL 2 (Trig/Chol/HDL) [address] [place] [address] [phone] Cholesterol 115 mg/dL 3 HDL Cholesterol 38.2 mg/dL 4 LDL Cholesterol 61 mg/dL 5 Laboratory test 01/03/2019 [facility] B-Type 222 pg/mL High <= [address] [place] [address] Peptide BNP [phone] Magnesium 1.9 mg/dL N 1.9-2.7 TSH (Thyroid Stim Horm) 3.60 mcIU/mL N 0.34-5.60 PSA Diagnostic 0.974 ng/mL 0-4.0 6 CBC Auto Diff 02/19/2018 [facility] White Blood 5.8 10^3/uL N 3.5-10.[address] [place] [address] [phone] Red Blood Count 4.54 10^6/uL N 4.0-5.4 Hemoglobin 14.9 g/dL N 14.0-18.0 Hematocrit 43 % N 42-52 Mean Corpuscular Volume 95 fL High 80-94 Mean Corpuscular Hemoglobin 33 pg High 27-31 Mean Corpuscular HGB Conc 35 g/dL N 31-36 Red Cell Distribution Width 13 % N 10.5-15 Platelet Count 207 10^3/uL N 150-450 Mean Platelet Volume 8.4 um3 N 7.4-10.4 Abs Neutrophils 4.6 10^3/uL N 1.5-7.7 Abs Lymphocytes 0.7 10^3/uL Low 1.0-4.8 Abs Monocytes 0.4 10^3/uL N 0-0.8 Abs Eosinophils 0.1 10^3/uL N 0-0.6 Abs Basophils 0 10^3/uL N 0-0.2 Abs Nucleated RBC 0 10^3/uL Granulocyte % 78.2 % N 38-83 Lymphocyte % 12.5 % Low 25-47 Monocyte % 7.3 % High 0-7 Eosinophil % 1.2 % N 0-6 Basophil % 0.8 % N 0-2 Nucleated Red Blood Cells % 0.1 Laboratory test 02/19/2018 [facility] Erythrocyte Sed 20 mm/Hr N 0-[address] [place] [address] [phone] C Reactive Protein 2.00 mg/L N < 5.00 7 Basic Metabolic 01/22/2018 [facility] Sodium 130 mmol/L Low 133-[address] [place] [address] [phone] Potassium 4.1 mmol/L N 3.5-5.0 Chloride 97 mmol/L Low 101-111 Co2 Carbon Dioxide 26 mmol/L N 22-32 Anion Gap 7 mmol/L N 2-11 Glucose 101 mg/dL High 70-100 Blood Urea Nitrogen 11 mg/dL N 6-24 Creatinine 0.94 mg/dL N 0.67-1.17 BUN/Creatinine Ratio 11.7 N 8-20 Calcium 9.3 mg/dL N 8.6-10.3 Egfr Non- 78.4 >60 Egfr 100.9 >60 8 Basic Metabolic 12/23/2017 [facility] Sodium 129 mmol/L Low 133-[address] [place] [address] [phone] Potassium 4.4 mmol/L N 3.5-5.0 Chloride 98 mmol/L Low 101-111 Co2 Carbon Dioxide 24 mmol/L N 22-32 Anion Gap 7 mmol/L N 2-11 Glucose 100 mg/dL N 70-100 Blood Urea Nitrogen 9 mg/dL N 6-24 Creatinine 0.78 mg/dL N 0.67-1.17 BUN/Creatinine Ratio 11.5 N 8-20 Calcium 9.1 mg/dL N 8.6-10.3 Egfr Non- 97.3 >60 Egfr 125.1 >60 9 CBC Auto Diff 11/27/2017 [facility] White Blood 5.2 10^3/uL N 3.5-10.[address] [place] [address] [phone] Red Blood Count 4.05 10^6/uL N 4.0-5.4 Hemoglobin 13.7 g/dL Low 14.0-18.0 Hematocrit 39 % Low 42-52 Mean Corpuscular Volume 95 fL High 80-94 Mean Corpuscular Hemoglobin 34 pg High 27-31 Mean Corpuscular HGB Conc 36 g/dL N 31-36 Red Cell Distribution Width 13 % N 10.5-15 Platelet Count 222 10^3/uL N 150-450 Mean Platelet Volume 8 um3 N 7.4-10.4 Abs Neutrophils 3.4 10^3/uL N 1.5-7.7 Abs Lymphocytes 0.8 10^3/uL Low 1.0-4.8 Abs Monocytes 0.8 10^3/uL N 0-0.8 Abs Eosinophils 0.2 10^3/uL N 0-0.6 Abs Basophils 0.1 10^3/uL N 0-0.2 Abs Nucleated RBC 0 10^3/uL Granulocyte % 65.3 % N 38-83 Lymphocyte % 15.4 % Low 25-47 Monocyte % 14.4 % High 1-9 Eosinophil % 3.8 % N 0-6 Basophil % 1.1 % N 0-2 Nucleated Red Blood Cells % 0.1 Lipid Panel - 11/27/2017 [facility] Creatine 105 U/L N 10-223 [address] Kinase(CK) [place] [address] [phone] Comp Metabolic 11/27/2017 [facility] Sodium 131 Low 133-[address] mmol/[place] [address] [phone] Potassium 4.4 mmol/L N 3.5-5.0 Chloride 99 mmol/L Low 101-111 Co2 Carbon Dioxide 28 mmol/L N 22-32 Anion Gap 4 mmol/L N 2-11 Glucose 94 mg/dL N 70-100 Blood Urea Nitrogen 9 mg/dL N 6-24 Creatinine 0.79 mg/dL N 0.67-1.17 BUN/Creatinine Ratio 11.4 N 8-20 Calcium 9.2 mg/dL N 8.6-10.3 Total Protein 7.3 g/dL N 6.4-8.9 Albumin 4.3 g/dL N 3.2-5.2 Globulin 3.0 g/dL N 2-4 Albumin/Globulin Ratio 1.4 N 1-3 Total Bilirubin 2.20 mg/dL High 0.2-1.0 Alkaline Phosphatase 98 U/L N 34-104 Alt 22 U/L N 7-52 Ast 25 U/L N 13-39 Egfr Non- 95.9 >60 Egfr 123.3 >60 11 Lipid Profile 11/27/2017 [facility] Triglycerides 88 mg/dL 12 (Trig/Chol/HDL) [address] [place] [address] [phone] Cholesterol 101 mg/dL 13 HDL Cholesterol 31.8 mg/dL 14 LDL Cholesterol 52 mg/dL 15 Laboratory test 09/10/2017 [facility] PSA Screening 0.751 ng/mL N 0-4.0 16 finding [address] [place] [address] [phone] Lipid Profile 05/29/2017 [facility] Triglycerides 80 mg/dL N 17 (Trig/Chol/HDL) [address] [place] [address] [phone] Cholesterol 97 mg/dL N 18 HDL Cholesterol 32.2 mg/dL N 19 LDL Cholesterol 49 mg/dL N 20 Comp Metabolic Panel 05/29/2017 [facility] Sodium 131 mmol/L Low 133-145 [address] [place] [address] [phone] Potassium 4.2 mmol/L N 3.5-5.0 Chloride 99 mmol/L Low 101-111 Co2 Carbon Dioxide 25 mmol/L N 22-32 Anion Gap 7 mmol/L N 2-11 Glucose 121 mg/dL High 70-100 Blood Urea Nitrogen 11 mg/dL N 6-24 Creatinine 0.84 mg/dL N 0.67-1.17 BUN/Creatinine Ratio 13.1 N 8-20 Calcium 8.9 mg/dL N 8.6-10.3 Total Protein 7.0 g/dL N 6.4-8.9 Albumin 4.0 g/dL N 3.2-5.2 Globulin 3.0 g/dL N 2-4 Albumin/Globulin Ratio 1.3 N 1-3 Total Bilirubin 1.30 mg/dL High 0.2-1.0 Alkaline Phosphatase 85 U/L N 34-104 Alt 19 U/L N 7-52 Ast 26 U/L N 13-39 Egfr Non- 89.3 N >60 Egfr 114.9 N >60 21 Lipid Panel - 05/29/2017 [facility] Creatine 197 U/L N 10-[address] Kinase(CK) [place] [address] [phone] Lipid Panel - 12/11/2016 [facility] Creatine 118 U/L N 10-223 [address] Kinase(CK) [place] [address] [phone] Comp Metabolic 12/11/2016 [facility] Sodium 132 Low 133-[address] mmol/[place] [address] [phone] Potassium 4.0 mmol/L N 3.5-5.0 Chloride 99 mmol/L Low 101-111 Co2 Carbon Dioxide 28 mmol/L N 22-32 Anion Gap 5 mmol/L N 2-11 Glucose 94 mg/dL N 70-100 Blood Urea Nitrogen 8 mg/dL N 6-24 Creatinine 0.86 mg/dL N 0.67-1.17 BUN/Creatinine Ratio 9.3 N 8-20 Calcium 9.0 mg/dL N 8.6-10.3 Total Protein 7.5 g/dL N 6.4-8.9 Albumin 4.3 g/dL N 3.2-5.2 Globulin 3.2 g/dL N 2-4 Albumin/Globulin Ratio 1.3 N 1-3 Total Bilirubin 1.20 mg/dL High 0.2-1.0 Alkaline Phosphatase 85 U/L N 34-104 Alt 18 U/L N 7-52 Ast 23 U/L N 13-39 Egfr Non- 87.2 N >60 Egfr 112.1 N >60 23 Lipid Profile 12/11/2016 [facility] Triglycerides 86 mg/dL N 24 (Trig/Chol/HDL) [address] [place] [address] [phone] Cholesterol 148 mg/dL N 25 HDL Cholesterol 37.6 mg/dL N 26 LDL Cholesterol 93 mg/dL N 27 CBC Auto Diff 12/11/2016 [facility] White Blood 6.9 10^3/uL N 3.5-10.[address] [place] [address] [phone] Red Blood Count 4.39 10^6/uL N 4.0-5.4 Hemoglobin 14.7 g/dL N 14.0-18.0 Hematocrit 42 % N 42-52 Mean Corpuscular Volume 96 fL High 80-94 Mean Corpuscular Hemoglobin 33 pg High 27-31 Mean Corpuscular HGB Conc 35 g/dL N 31-36 Red Cell Distribution Width 13 % N 10.5-15 Platelet Count 214 10^3/uL N 150-450 Mean Platelet Volume 9 um3 N 7.4-10.4 Abs Neutrophils 4.6 10^3/uL N 1.5-7.7 Abs Lymphocytes 1.3 10^3/uL N 1.0-4.8 Abs Monocytes 0.6 10^3/uL N 0-0.8 Abs Eosinophils 0.2 10^3/uL N 0-0.6 Abs Basophils 0.1 10^3/uL N 0-0.2 Abs Nucleated RBC 0.01 10^3/uL N Granulocyte % 67.4 % N 38-83 Lymphocyte % 19.0 % Low 25-47 Monocyte % 8.9 % N 1-9 Eosinophil % 3.6 % N 0-6 Basophil % 1.1 % N 0-2 Nucleated Red Blood Cells % 0.1 N Basic Metabolic 06/17/2016 [facility] Sodium 132 mmol/L Low 133-[address] [place] [address] [phone] Potassium 4.1 mmol/L N 3.5-5.0 Chloride 99 mmol/L Low 101-111 Co2 Carbon Dioxide 25 mmol/L N 22-32 Anion Gap 8 mmol/L N 2-11 Glucose 99 mg/dL N 70-100 Blood Urea Nitrogen 21 mg/dL N 6-24 Creatinine 1.17 mg/dL N 0.67-1.17 BUN/Creatinine Ratio 17.9 N 8-20 Calcium 8.9 mg/dL N 8.6-10.3 Egfr Non- 61.1 N >60 Egfr 78.6 N >60 28 Laboratory test 06/17/2016 [facility] Osmolality 277 mOsm/kg N 275 - [address] Serum [address] [place] [address] [phone] CBC Auto Diff 06/17/2016 [facility] White Blood 8.8 10^3/uL N 3.5-10.[address] [place] [address] [phone] Red Blood Count 3.78 10^6/uL Low 4.0-5.4 Hemoglobin 12.4 g/dL Low 14.0-18.0 Hematocrit 37 % Low 42-52 Mean Corpuscular Volume 97 fL High 80-94 Mean Corpuscular Hemoglobin 33 pg High 27-31 Mean Corpuscular HGB Conc 34 g/dL N 31-36 Red Cell Distribution Width 14 % N 10.5-15 Platelet Count 173 10^3/uL N 150-450 Mean Platelet Volume 10 um3 N 7.4-10.4 Abs Neutrophils 7.9 10^3/uL High 1.5-7.7 Abs Lymphocytes 0.3 10^3/uL Low 1.0-4.8 Abs Monocytes 0.5 10^3/uL N 0-0.8 Abs Eosinophils 0 10^3/uL N 0-0.6 Abs Basophils 0 10^3/uL N 0-0.2 Abs Nucleated RBC 0.01 10^3/uL N Granulocyte % 90.1 % High 38-83 Lymphocyte % 3.5 % Low 25-47 Monocyte % 5.8 % N 1-9 Eosinophil % 0.1 % N 0-6 Basophil % 0.5 % N 0-2 Nucleated Red Blood Cells % 0.1 N Laboratory test 05/21/2016 [facility] Methylmalonic 0.22 N <= 0.40 [address] Acid Mma nmol/[place] [address] [phone] Homocysteine 13 mcmol/L N 31 Haptoglobin 202 mg/dL Abnormal 30 - 200 32 Laboratory test 05/19/2016 [facility] HIV (1&2) Nonreactive N Nonreactive finding [address] [place] [address] [phone] Hepatitis C Antibody Nonreactive N Nonreactive CBC Auto Diff 05/16/2016 [facility] White Blood 7.8 10^3/uL N 3.5-10.[address] [place] [address] [phone] Red Blood Count 3.32 10^6/uL Low 4.0-5.4 Hemoglobin 11.0 g/dL Low 14.0-18.0 Hematocrit 32 % Low 42-52 Mean Corpuscular Volume 97 fL High 80-94 Mean Corpuscular Hemoglobin 33 pg High 27-31 Mean Corpuscular HGB Conc 34 g/dL N 31-36 Red Cell Distribution Width 13 % N 10.5-15 Platelet Count 183 10^3/uL N 150-450 Mean Platelet Volume 9 um3 N 7.4-10.4 Abs Neutrophils 6.3 10^3/uL N 1.5-7.7 Abs Lymphocytes 0.8 10^3/uL Low 1.0-4.8 Abs Monocytes 0.7 10^3/uL N 0-0.8 Abs Eosinophils 0 10^3/uL N 0-0.6 Abs Basophils 0 10^3/uL N 0-0.2 Abs Nucleated RBC 0 10^3/uL N Granulocyte % 80.7 % N 38-83 Lymphocyte % 9.9 % Low 25-47 Monocyte % 8.3 % N 1-9 Eosinophil % 0.5 % N 0-6 Basophil % 0.6 % N 0-2 Nucleated Red Blood Cells % 0 N Comp Metabolic Panel 05/16/2016 [facility] Sodium 131 mmol/L Low 133-[address] [place] [address] [phone] Potassium 4.4 mmol/L N 3.5-5.0 Chloride 95 mmol/L Low 101-111 Co2 Carbon Dioxide 30 mmol/L N 22-32 Anion Gap 6 mmol/L N 2-11 Glucose 137 mg/dL High 70-100 Blood Urea Nitrogen 17 mg/dL N 6-24 Creatinine 0.95 mg/dL N 0.67-1.17 BUN/Creatinine Ratio 17.9 N 8-20 Calcium 8.8 mg/dL N 8.6-10.3 Total Protein 6.8 g/dL N 6.4-8.9 Albumin 3.8 g/dL N 3.2-5.2 Globulin 3.0 g/dL N 2-4 Albumin/Globulin Ratio 1.3 N 1-3 Total Bilirubin 2.20 mg/dL High 0.2-1.0 Alkaline Phosphatase 69 U/L N 34-104 Alt 19 U/L N 7-52 Ast 27 U/L N 13-39 Egfr Non- 77.7 N >60 Egfr 99.9 N >60 33 Inr/Protime 05/16/2016 [facility] Inr 0.98 N 0.89-1.[address] [place] [address] [phone] Type & Screen 05/16/2016 [facility] Patient Blood A Positive [address] [place] [address] [phone] Antibody Screen NEGATIVE N Order 03/20/2016 [facility] Echocardiogram <pending > [address] [place] [address] [phone] Retic Count 02/28/2016 [facility] Retic Count 1.9 % High 0.5- 1 [address] [place] [address] [phone] Corrected Retic Count 1.7 % High 0.5-1.5 Maturation Factor Retic 1.0 N Retic Index 1.70 N Mean Retic Volume 113.0 N Immature Retic Fraction 0.39 N RBC Retic Count 4.14 10^6/uL Low 4.6-6.2 Hematocrit for Retic CNT 41 % Low 42-52 Laboratory test 02/28/2016 [facility] Ferritin 201.8 ng/mL N 24-336 finding [address] [place] [address] [phone] Vitamin B12 357 pg/mL N 180-914 34 Iron & Iron Binding 02/28/2016 [facility] Iron 76 g/dL N 50- 212 [address] [place] [address] [phone] Unsaturated Iron Binding 322 g/dL N Total Iron Binding Capacity 398 g/dL N 250-450 % Iron Saturation 19 % N 15-55 Laboratory test 01/15/2016 [facility] PSA Screening 0.853 N 0- 4.0 35 finding 101 [facility] ng/[place] [address] [phone] Lipid Panel - 01/15/2016 [facility] Creatine 59 U/L N 10-223 36 J[facility] [address] Kinase(CK) [place] [address] [phone] Comp Metabolic 01/15/2016 [facility] Sodium 130 mmol/L Low 133 -145 Panel [address] [place] [address] [phone] Potassium 4.5 mmol/L N 3.5-5.0 Chloride 96 mmol/L Low 101-111 Co2 Carbon Dioxide 26 mmol/L N 22-32 Anion Gap 8 mmol/L N 2-11 Glucose 109 mg/dL High 70-100 Blood Urea Nitrogen 11 mg/dL N 6-24 Creatinine 0.74 mg/dL N 0.67-1.17 BUN/Creatinine Ratio 14.9 N 8-20 Calcium 9.2 mg/dL N 8.6-10.3 Total Protein 7.6 g/dL N 6.4-8.9 Albumin 4.5 g/dL N 3.2-5.2 Globulin 3.1 g/dL N 2-4 Albumin/Globulin Ratio 1.5 N 1-3 Total Bilirubin 1.00 mg/dL N 0.2-1.0 Alkaline Phosphatase 81 U/L N 34-104 Alt 20 U/L N 7-52 Ast 20 U/L N 13-39 Egfr Non- 104.0 N >60 Egfr 133.7 N >60 37 Lipid Profile 01/15/2016 [facility] Triglycerides 133 mg/dL N 38 (Trig/Chol/HDL) [address] [place] [address] [phone] Cholesterol 140 mg/dL N 39 HDL Cholesterol 28.2 mg/dL N 40 LDL Cholesterol 85 mg/dL N 41 CBC Auto Diff 01/15/2016 [facility] White Blood 7.2 10^3/uL N 3.5-10.[address] [place] [address] [phone] Red Blood Count 4.17 10^6/uL N 4.0-5.4 Hemoglobin 14.1 g/dL N 14.0-18.0 Hematocrit 40 % Low 42-52 Mean Corpuscular Volume 97 fL High 80-94 Mean Corpuscular Hemoglobin 34 pg High 27-31 Mean Corpuscular HGB Conc 35 g/dL N 31-36 Red Cell Distribution Width 12 % N 10.5-15 Platelet Count 212 10^3/uL N 150-450 Mean Platelet Volume 8 um3 N 7.4-10.4 Abs Neutrophils 5.7 10^3/uL N 1.5-7.7 Abs Lymphocytes 0.9 10^3/uL Low 1.0-4.8 Abs Monocytes 0.6 10^3/uL N 0-0.8 Abs Eosinophils 0 10^3/uL N 0-0.6 Abs Basophils 0 10^3/uL N 0-0.2 Abs Nucleated RBC 0.01 10^3/uL N Granulocyte % 79.9 % N 38-83 Lymphocyte % 12.0 % Low 25-47 Monocyte % 7.9 % N 1-9 Eosinophil % 0.1 % N 0-6 Basophil % 0.1 % N 0-2 Nucleated Red Blood Cells % 0.1 N Surgical 02/19/2015 [facility] S RUN DATE: [address] 02/21/ <[place] [address] NOTE> [phone] CBC Auto Diff 08/15/2014 White Blood 6.2 10^3/uL N 4.8-10. 43 Count 8 Red Blood Count 4.11 10^6/uL N 4.0-5.4 Hemoglobin 14.4 g/dL N 14.0-18.0 Hematocrit 41 % Low 42-52 Mean Corpuscular Volume 99 fL High 80-94 Mean Corpuscular Hemoglobin 35 pg High 27-31 Mean Corpuscular HGB Conc 36 g/dL N 31-36 Red Cell Distribution Width 12 % N 10.5-15 Platelet Count 216 10^3/uL N 150-450 Mean Platelet Volume 8 um3 N 7.4-10.4 Abs Neutrophils 4.3 10^3/uL N 1.5-7.7 Abs Lymphocytes 1.1 10^3/uL N 1.0-4.8 Abs Monocytes 0.6 10^3/uL N 0-0.8 Abs Eosinophils 0.3 10^3/uL N 0-0.6 Abs Basophils 0.1 10^3/uL N 0-0.2 Abs Nucleated RBC 0 10^3/uL N Granulocyte % 68.7 % N 38-83 Lymphocyte % 17.2 % Low 25-47 Monocyte % 9.1 % High 1-9 Eosinophil % 4.0 % N 0-6 Basophil % 1.0 % N 0-2 Nucleated Red Blood Cells % 0.1 N Lipid Panel - JFM 08/15/2014 Creatine Kinase 82 U/L N 10-223 44 Comp Metabolic Panel 08/15/2014 Sodium 131 mmol/L Low 133-145 Potassium 4.2 mmol/L N 3.7-5.6 Chloride 96 mmol/L Low 101-111 Co2 Carbon Dioxide 29 mmol/L N 22-32 Anion Gap 6 mmol/L N 2-11 Glucose 97 mg/dL N 70-100 Blood Urea Nitrogen 10 mg/dL N 6-24 Creatinine 0.94 mg/dL N 0.67-1.17 BUN/Creatinine Ratio 10.6 N 8-20 Calcium 8.9 mg/dL N 8.6-10.3 Total Protein 7.2 g/dL N 6.4-8.9 Albumin 4.2 g/dL N 3.2-5.2 Globulin 3.0 g/dL N 2-4 Albumin/Globulin Ratio 1.4 N 1-3 Total Bilirubin 1.20 mg/dL High 0.2-1.0 Alkaline Phosphatase 77 U/L N 34-104 Alt 24 U/L N 7-52 Ast 27 U/L N 13-39 Egfr Non- 79.1 N >60 Egfr 101.7 N >60 45 Lipid Profile (Trig/Chol/HDL) 08/15/2014 Triglycerides 131 mg/dL N 46 Cholesterol 132 mg/dL N 47 HDL Cholesterol 38.1 mg/dL N 48 LDL Cholesterol 68 mg/dL N 49 Laboratory test finding 08/15/2014 TSH (Thyroid 3.40 IU/mL N 0.34-5.60 50 Stimulating Horm) PSA Screening 0.802 ng/mL N 0-4.0 51 Basic Metabolic 09/30/2013 [facility] Sodium 132 mmol/L Low 133-145 Panel [address] [place] [address] [phone] Potassium 4.0 mmol/L 3.5-5.0 Chloride 102 mmol/L 101-111 Co2 Carbon Dioxide 26.0 mmol/L 22-32 Anion Gap 4.0 mmol/L 2-11 Glucose 127 mg/dL High 70-100 Blood Urea Nitrogen 10 mg/dL 6-24 Creatinine 1.10 mg/dL 0.50-1.40 BUN/Creatinine Ratio 9.1 8-20 Calcium 9.1 mg/dL 8.1-9.9 Egfr Non- 66.2 >60 Egfr 85.1 >60 52 Laboratory test 08/31/2013 [facility] PSA Screening 0.62 ng/mL 0-4.[address] [place] [address] [phone] Comp Metabolic 08/31/2013 [facility] Sodium 131 mmol/L Low 133 -[address] [place] [address] [phone] Potassium 4.5 mmol/L 3.5-5.0 Chloride 99 mmol/L Low 101-111 Co2 Carbon Dioxide 27.0 mmol/L 22-32 Anion Gap 5.0 mmol/L 2-11 Glucose 86 mg/dL 70-100 Blood Urea Nitrogen 6 mg/dL 6-24 Creatinine 0.70 mg/dL 0.50-1.40 BUN/Creatinine Ratio 8.6 8-20 Calcium 8.9 mg/dL 8.1-9.9 Total Protein 6.9 g/dL 6.2-8.1 Albumin 4.0 g/dL 3.2-5.2 Globulin 2.9 g/dL 2-4 Albumin/Globulin Ratio 1.4 1-3 Total Bilirubin 1.1 mg/dL 0.4-1.5 Alkaline Phosphatase 80 U/L 30-110 Alt 26 U/L 14-54 Ast 31 U/L 12-42 Egfr Non- 111.5 >60 Egfr 143.4 >60 53 Lipid Profile 08/31/2013 [facility] Triglycerides 166 mg/dL 40-200 (Trig/Chol/HDL) [address] [place] [address] [phone] Cholesterol 146 mg/dL Less than 200 HDL Cholesterol 33 mg/dL Low 40-60 54 Cholesterol/HDL Ratio 4.4 Average 1-4.44 LDL Cholesterol 79.8 Less Than 100 55 Laboratory test 08/31/2013 [facility] Creatine 150 U/L 0-[address] [place] [address] [phone] CBC Auto Diff 08/31/2013 [facility] White Blood 7.0 4.8-10.[address] Count 10^3/[place] [address] [phone] Red Blood Count 4.30 10^6/uL 4.0-5.4 Hemoglobin 14.6 g/dL 14.0-18.0 Hematocrit 43 % 42-52 Mean Corpuscular Volume 99 fL High 80-94 Mean Corpuscular Hemoglobin 34 pg High 27-31 Mean Corpuscular HGB Conc 34 g/dL 31-36 Red Cell Distribution Width 13 % 10.5-15 Platelet Count 201 10^3/uL 150-450 Mean Platelet Volume 8 um3 7.4-10.4 Abs Neutrophils 4.3 10^3/uL 1.5-7.7 Abs Lymphocytes 1.4 10^3/uL 1.0-4.8 Abs Monocytes 0.7 10^3/uL 0-0.8 Abs Eosinophils 0.5 10^3/uL 0-0.6 Abs Basophils 0.1 10^3/uL 0-0.2 Abs Nucleated RBC 0.01 10^3/uL Granulocyte % 61.8 % 38-83 Lymphocyte % 20.3 % Low 25-47 Monocyte % 9.9 % High 1-9 Eosinophil % 7.0 % High 0-6 Basophil % 1.0 % 0-2 Nucleated Red Blood Cells % 0.1 Lipid Profile 02/17/2013 [facility] Triglycerides 88 mg/dL 40 -200 (Trig/Chol/HDL) [address] [place] [address] [phone] Cholesterol 170 mg/dL Less than 200 HDL Cholesterol 39 mg/dL Low 40-60 57 Cholesterol/HDL Ratio 4.4 Average 1-4.44 LDL Cholesterol 113.4 mg/dL High Less Than 100 58 Comp Metabolic Panel 02/17/2013 [facility] Sodium 134 mmol/L 133-145 [address] [place] [address] [phone] Potassium 4.3 mmol/L 3.5-5.0 Chloride 100 mmol/L Low 101-111 Co2 Carbon Dioxide 27.0 mmol/L 22-32 Anion Gap 7.0 mmol/L 2-11 Glucose 92 mg/dL 70-100 Blood Urea Nitrogen 7 mg/dL 6-24 Creatinine 0.70 mg/dL 0.50-1.40 BUN/Creatinine Ratio 10.0 8-20 Calcium 9.5 mg/dL 8.1-9.9 Total Protein 7.5 g/dL 6.2-8.1 Albumin 4.0 g/dL 3.2-5.2 Globulin 3.5 g/dL 2-4 Albumin/Globulin Ratio 1.1 1-3 Total Bilirubin 1.4 mg/dL 0.4-1.5 Alkaline Phosphatase 100 U/L 30-110 Alt 26 U/L 14-54 Ast 32 U/L 12-42 Egfr Non- 111.8 >60 Egfr 143.8 >60 59 Lipid Panel - 02/17/2013 [facility] Creatine Kinase 96 U/L 0- 200 [address] [place] [address] [phone] CBC With 01/04/2013 [facility] White Blood 7.0 4.8-10.8 Manual Diff [address] Count 10^3/[place] [address] [phone] Red Blood Count 4.40 10^6/uL 4.0-5.4 Hemoglobin 14.0 g/dL 14.0-18.0 Hematocrit 41 % Low 42-52 Mean Corpuscular Volume 93 fL 80-94 Mean Corpuscular Hemoglobin 32 pg High 27-31 Mean Corpuscular HGB Conc 34 g/dL 31-36 Red Cell Distribution Width 15 % 10.5-15 Platelet Count 217 10^3/uL 150-450 Mean Platelet Volume 8 um3 7.4-10.4 Abs Neutrophils 5.1 10^3/uL 1.5-7.7 Abs Lymphocytes 1.0 10^3/uL 1.0-4.8 Abs Monocytes 0.7 10^3/uL 0-0.8 Abs Eosinophils 0.2 10^3/uL 0-0.6 Abs Basophils 0.1 10^3/uL 0-0.2 Abs Nucleated RBC 0.01 10^3/uL Neutrophil % 74 % 38-83 Band % 1 % 0-8 Lymphocytes % 17 % Low 25-47 Monocytes % 4 % 0-13 Eosinophils % 3 % 0-6 Reactive Lymph % 1 % 0-6 RBC Morphology Normal Normal Basic Metabolic Panel 01/04/2013 [facility] Sodium 133 mmol/L 133-[address] [place] [address] [phone] Potassium 4.3 mmol/L 3.5-5.0 Chloride 99 mmol/L Low 101-111 Co2 Carbon Dioxide 27.0 mmol/L 22-32 Anion Gap 7.0 mmol/L 2-11 Glucose 94 mg/dL 70-100 Blood Urea Nitrogen 9 mg/dL 6-24 Creatinine 0.70 mg/dL 0.50-1.40 BUN/Creatinine Ratio 12.9 8-20 Calcium 9.1 mg/dL 8.1-9.9 Egfr Non- 111.8 >60 Egfr 143.8 >60 61 Laboratory test 11/05/2012 [facility] TSH (Thyroid 2.54 0.34- 5.[address] Stimulating Horm) miu/[place] [address] [phone] Lipid Profile 11/05/2012 [facility] Triglycerides 101 mg/dL 40-200 (Trig/Chol/HDL) [address] [place] [address] [phone] Cholesterol 126 mg/dL Less than 200 HDL Cholesterol 32 mg/dL Low 40-60 62 Cholesterol/HDL Ratio 3.9 Average 1-4.44 LDL Cholesterol 73.8 mg/dL Less Than 100 63 Comp Metabolic Panel 11/05/2012 [facility] Sodium 135 mmol/L 133-[address] [place] [address] [phone] Potassium 4.3 mmol/L 3.5-5.0 Chloride 100 mmol/L Low 101-111 Co2 Carbon Dioxide 28.0 mmol/L 22-32 Anion Gap 7.0 mmol/L 2-11 Glucose 91 mg/dL 70-100 Blood Urea Nitrogen 7 mg/dL 6-24 Creatinine 0.70 mg/dL 0.50-1.40 BUN/Creatinine Ratio 10.0 8-20 Calcium 9.2 mg/dL 8.1-9.9 Total Protein 7.1 g/dL 6.2-8.1 Albumin 3.8 g/dL 3.2-5.2 Globulin 3.3 g/dL 2-4 Albumin/Globulin Ratio 1.2 1-3 Total Bilirubin 1.0 mg/dL 0.4-1.5 Alkaline Phosphatase 106 U/L 30-110 Alt 37 U/L 14-54 Ast 41 U/L 12-42 Egfr Non- 111.8 >60 Egfr 143.8 >60 64 Lipid Panel - 11/05/2012 [facility] Creatine Kinase 89 U/L 0- [address] [place] [address] [phone] Laboratory test 11/05/2012 [facility] PSA Diagnostic 0.41 0- 4.[address] ng/[place] [address] [phone] Comp Metabolic 06/25/2012 [facility] Sodium 133 Low 135-[address] mmol/[place] [address] [phone] Potassium 4.3 mmol/L 3.5-5.0 Chloride 100 mmol/L Low 101-111 Co2 (Carbon Dioxide) 27.0 mmol/L 22-32 Anion Gap 6.0 mmol/L 2-11 66 Glucose 87 mg/dL 70-100 BUN 9 mg/dL 6-24 Creatinine 0.9 mg/dL 0.50-1.40 One Over Creatinine 1.11 BUN/Creatinine Ratio 10.0 8-20 Calcium 9.1 mg/dL 8.1-9.9 Total Protein 7.4 GM/DL 6.2-8.1 Albumin 4.1 GM/DL 3.2-5.2 Globulin 3.3 GM/DL 2-4 Albumin/Globulin Ratio 1.2 1-3 Bilirubin Total 1.7 mg/dL High 0.4-1.5 67 Alkaline Phosphatase 91 U/L 39-117 Alt (SGPT) 25 U/L 17-63 Ast (Sgot) 33 U/L 12-42 eGFR Non- 83.7 > 60 eGFR 107.6 > 60 68 Lipid Profile 06/25/2012 [facility] Triglyceride 156 mg/dL 40 -200 (Trig/Chol/HDL) [address] [place] [address] [phone] Cholesterol 122 mg/dL Less Than 200 69 High Density Lipoprotein 35 mg/dL Low 40-60 70 Cholesterol/HDL Ratio 3.49 AVERAGE 1-4.97 Low Density Lipoprotein 56 mg/dL Less Than 100 71 Laboratory test 06/25/2012 [facility] CPK (Creatine 190 U/L 0 -[address] Kinase) [place] [address] [phone] Comp Metabolic 12/19/2011 [facility] Sodium 133 Low 135-[address] mmol/[place] [address] [phone] Potassium 4.3 mmol/L 3.5-5.0 Chloride 98 mmol/L Low 101-111 Co2 (Carbon Dioxide) 30.0 mmol/L 22-32 Anion Gap 5.0 mmol/L 2-11 72 Glucose 102 mg/dL High 70-100 BUN 14 mg/dL 6-24 Creatinine 1.0 mg/dL 0.50-1.40 One Over Creatinine 1.00 BUN/Creatinine Ratio 14.0 8-20 Calcium 9.0 mg/dL 8.1-9.9 Total Protein 7.1 GM/DL 6.2-8.1 Albumin 3.9 GM/DL 3.2-5.2 Globulin 3.2 GM/DL 2-4 Albumin/Globulin Ratio 1.2 1-3 Bilirubin Total 1.4 mg/dL 0.4-1.5 73 Alkaline Phosphatase 89 U/L 39-117 Alt (SGPT) 46 U/L 17-63 Ast (Sgot) 37 U/L 12-42 eGFR Non- 74.3 > 60 eGFR 95.6 > 60 74 Lipid Profile 12/19/2011 [facility] Triglyceride 116 mg/dL 40 -200 (Trig/Chol/HDL) [address] [place] [address] [phone] Cholesterol 114 mg/dL Less Than 200 75 High Density Lipoprotein 29 mg/dL Low 40-60 76 Cholesterol/HDL Ratio 3.93 AVERAGE 1-4.97 Low Density Lipoprotein 62 mg/dL Less Than 100 77 Laboratory test 12/19/2011 [facility] CPK (Creatine 137 U/L 0 -[address] Kinase) [place] [address] [phone] TSH 2.12 MIU/ML 0.34-5.60 CBC Auto Diff 12/19/2011 [facility] White Blood 7.6 CUMM 4.8- 10.[address] [place] [address] [phone] Red Cell Count 3.93 CUMM Low 4.6-6.2 Hemoglobin 13.6 g/dL Low 14.0-18.0 Hematocrit 38 % Low 42-52 Mean Corpuscular Volume 98 um3 High 80-94 Mean Corpuscular Hemoglob 35 pg High 27-31 Mean Corpuscular HGB Cone 36 g/dL 32-36 Redcell Distribution WDTH 13 % 10.5-15 Platelet Count 258 CUMM 150-450 Mean Platelet Volume 7.8 um3 7.4-10.4 Gran % 71.3 % 38-83 Lymph % 16.6 % Low 25-47 Mononuclear % 7.8 % 1-9 Eosinophil % 3.7 % 0-6 Basophil % 0.6 % 0-2 Abs Lymphs 1.3 1.0-4.8 Abs Mononuclear 0.6 0-0.8 Absolute Neutrophil Count 5.4 1.5-7.7 Abs Eosinophils 0.3 0-0.6 Abs Basophils 0 0-0.2 78 Iron & Iron Binding 12/19/2011 [facility] Iron Total 116 g/dL 45-182 [address]acity [address] [place] [address] [phone] Unsaturated Iron Binding 254 g/dL Total Iron Binding Capacity 370 g/dL 250-450 % Iron Saturation 31 % 15-55 Laboratory test 12/19/2011 [facility] Vitamin B12 371 pg/mL 180-914 finding [address] [place] [address] [phone] Folic Acid 23.9 NG/ML See Below 79 Basic Metabolic Panel 11/12/2011 [facility] Sodium 135 mmol/L 135-145 [address] [place] [address] [phone] Potassium 4.1 mmol/L 3.5-5.0 Chloride 99 mmol/L Low 101-111 Co2 (Carbon Dioxide) 29.0 mmol/L 22-32 Anion Gap 7.0 mmol/L 2-11 80 Glucose 115 mg/dL High 70-100 BUN 13 mg/dL 6-24 Creatinine 1.0 mg/dL 0.50-1.40 One Over Creatinine 1.00 BUN/Creatinine Ratio 13.0 8-20 Calcium 9.1 mg/dL 8.1-9.9 eGFR Non- 74.3 > 60 eGFR 95.6 > 60 81 Urinalysis W/Microscopic 11/01/2011 [facility] Ua Color LOY Yellow [address] [place] [address] [phone] Appearance-Urine CLEAR Clear Specific Elizabeth-Ur 1.028 1.010-1.030 Esterase-Urine NEGATIVE Negative Nitrite NEGATIVE Negative [id number] NEGATIVE Negative Protein-Urine 1+ Abnormal Negative PH-Urine 7.5 5-9 Blood-Urine NEGATIVE Negative Ketones-Urine NEGATIVE Negative Bilirubin-Ur NEGATIVE Negative Glucose-Urine NEGATIVE Negative WBC-Urine RARE 0-5 RBC-Urine 3-6 0-2 Mucus Urine SMALL None Epith Cells-Ur RARE None Bacteria-Urine RARE None Amorphous Sed-U FEW None Lipid Profile 10/24/2011 [facility] Triglyceride 111 mg/dL 40 -200 (Trig/Chol/HDL) [address] [place] [address] [phone] Cholesterol 134 mg/dL Less Than 200 82 High Density Lipoprotein 35 mg/dL Low 40-60 83 Cholesterol/HDL Ratio 3.83 AVERAGE 1-4.97 Low Density Lipoprotein 77 mg/dL Less Than 100 84 Laboratory test 10/24/2011 [facility] CPK (Creatine 141 U/L 0 -[address] Kinase) [place] [address] [phone] TSH 2.30 MIU/ML 0.34-5.60 Comp Metabolic Panel 10/24/2011 [facility] Sodium 128 mmol/L Low 135-[address] [place] [address] [phone] Potassium 4.0 mmol/L 3.5-5.0 Chloride 92 mmol/L Low 101-111 Co2 (Carbon Dioxide) 31.0 mmol/L 22-32 Anion Gap 5.0 mmol/L 2-11 85 Glucose 102 mg/dL High 70-100 BUN 11 mg/dL 6-24 Creatinine 0.8 mg/dL 0.50-1.40 One Over Creatinine 1.25 BUN/Creatinine Ratio 13.8 8-20 Calcium 9.1 mg/dL 8.1-9.9 Total Protein 7.6 GM/DL 6.2-8.1 Albumin 4.2 GM/DL 3.2-5.2 Globulin 3.4 GM/DL 2-4 Albumin/Globulin Ratio 1.2 1-3 Bilirubin Total 2.0 mg/dL High 0.4-1.5 86 Alkaline Phosphatase 69 U/L 39-117 Alt (SGPT) 26 U/L 17-63 Ast (Sgot) 33 U/L 12-42 eGFR Non- 96.1 > 60 eGFR 123.6 > 60 87 CBC Auto Diff 10/24/2011 [facility] White Blood 6.6 CUMM 4.8- 10.[address] [place] [address] [phone] Red Cell Count 4.16 CUMM Low 4.6-6.2 Hemoglobin 14.4 g/dL 14.0-18.0 Hematocrit 40 % Low 42-52 Mean Corpuscular Volume 97 um3 High 80-94 Mean Corpuscular Hemoglob 35 pg High 27-31 Mean Corpuscular HGB Cone 36 g/dL 32-36 Redcell Distribution WDTH 12 % 10.5-15 Platelet Count 192 CUMM 150-450 Mean Platelet Volume 8.8 um3 7.4-10.4 Gran % 70.8 % 38-83 Lymph % 16.8 % Low 25-47 Mononuclear % 8.3 % 1-9 Eosinophil % 3.4 % 0-6 Basophil % 0.7 % 0-2 Abs Lymphs 1.1 1.0-4.8 Abs Mononuclear 0.5 0-0.8 Absolute Neutrophil Count 4.7 1.5-7.7 Abs Eosinophils 0.2 0-0.6 Abs Basophils 0 0-0.2 88 Lipid Panel 06/05/2011 [facility] Triglyceride 82 mg/dL 40- 200 [address] [place] [address] [phone] Cholesterol 126 mg/dL Less Than 200 89 High Density Lipoprotein 37 mg/dL Low 40-60 90 Cholesterol/HDL Ratio 3.41 AVERAGE 1-4.97 Low Density Lipoprotein 73 mg/dL Less Than 100 91 Comp Metabolic Panel 06/05/2011 [facility] Sodium 131 mmol/L Low 135-145 [address] [place] [address] [phone] Potassium 4.3 mmol/L 3.5-5.0 Chloride 98 mmol/L Low 101-111 Co2 (Carbon Dioxide) 29.0 mmol/L 22-32 Anion Gap 4.0 mmol/L 2-11 92 Glucose 101 mg/dL High 70-100 BUN 10 mg/dL 6-24 Creatinine 0.90 mg/dL 0.50-1.40 One Over Creatinine 1.10 BUN/Creatinine Ratio 11.1 8-20 Calcium 9.3 mg/dL 8.1-9.9 Total Protein 7.2 GM/DL 6.2-8.1 Albumin 4.2 GM/DL 3.2-5.2 Globulin 3.0 GM/DL 2-4 Albumin/Globulin Ratio 1.4 1-3 Bilirubin Total 1.7 mg/dL High 0.4-1.5 93 Alkaline Phosphatase 72 U/L 39-117 Alt (SGPT) 34 U/L 17-63 Ast (Sgot) 40 U/L 12-42 eGFR Non- 83.9 > 60 eGFR 107.9 > 60 94 Laboratory test 06/05/2011 [facility] CPK (Creatine 204 U/L High 0-[address] Kinase) [place] [address] [phone] Laboratory test 03/21/2011 [facility] Bilirubin 0.3 0.1-0.5 95 finding 101 [facility] Direct mg/[place] [address] [phone] Indirect Bilirubin 1.7 mg/dL High 0.3-1.0 96 Lipid Profile 03/21/2011 [facility] Triglyceride 60 mg/dL 40- 200 (Trig/Chol/HDL) [address] [place] [address] [phone] Cholesterol 133 mg/dL Less Than 200 97 High Density Lipoprotein 42 mg/dL 40-60 98 Cholesterol/HDL Ratio 3.17 AVERAGE 1-4.97 Low Density Lipoprotein 79 mg/dL Less Than 100 99 Comp Metabolic Panel 03/21/2011 [facility] Sodium 129 mmol/L Low 135-[address] [place] [address] [phone] Potassium 4.0 mmol/L 3.5-5.0 Chloride 94 mmol/L Low 101-111 Co2 (Carbon Dioxide) 29.0 mmol/L 22-32 Anion Gap 6.0 mmol/L 2-11 100 Glucose 92 mg/dL 70-100 BUN 11 mg/dL 6-24 Creatinine 0.80 mg/dL 0.50-1.40 One Over Creatinine 1.20 BUN/Creatinine Ratio 13.8 8-20 Calcium 9.0 mg/dL 8.1-9.9 Total Protein 7.1 GM/DL 6.2-8.1 Albumin 4.2 GM/DL 3.2-5.2 Globulin 2.9 GM/DL 2-4 Albumin/Globulin Ratio 1.4 1-3 Bilirubin Total 2.0 mg/dL High 0.4-1.5 101 Alkaline Phosphatase 73 U/L 39-117 Alt (SGPT) 32 U/L 17-63 Ast (Sgot) 42 U/L 12-42 eGFR Non- 96.4 > 60 eGFR 124.0 > 60 102 Lipid Panel - 03/21/2011 [facility] CPK (Creatine 262 U/L High 0-[address] Kinase) [place] [address] [phone] Comp Metabolic 07/23/2010 [facility] Sodium 133 Low 135-[address] mmol/[place] [address] [phone] Potassium 4.4 mmol/L 3.5-5.0 Chloride 99 mmol/L Low 101-111 Co2 (Carbon Dioxide) 30.0 mmol/L 22-32 Anion Gap 4.0 mmol/L 2-11 103 Glucose 121 mg/dL High 70-100 104 BUN 18 mg/dL 6-24 Creatinine 1.10 mg/dL 0.50-1.40 One Over Creatinine 0.90 BUN/Creatinine Ratio 16.4 8-20 Calcium 9.0 mg/dL 8.1-9.9 Total Protein 6.5 GM/DL 6.2-8.1 Albumin 4.2 GM/DL 3.2-5.2 Globulin 2.3 GM/DL 2-4 Albumin/Globulin Ratio 1.8 1-3 Bilirubin Total 1.9 mg/dL High 0.4-1.5 105 Alkaline Phosphatase 62 U/L 39-117 Alt (SGPT) 24 U/L 17-63 Ast (Sgot) 29 U/L 12-42 eGFR Non- 71.0 > 60 eGFR 85.9 > 60 106 Lipid Profile 07/23/2010 [facility] Triglyceride 88 mg/dL 40- 200 (Trig/Chol/HDL) [address] [place] [address] [phone] Cholesterol 121 mg/dL Less Than 200 107 High Density Lipoprotein 34 mg/dL Low 40-60 108 Cholesterol/HDL Ratio 3.56 AVERAGE 1-4.97 Low Density Lipoprotein 69 mg/dL Less Than 100 109 Laboratory test 07/23/2010 [facility] CPK (Creatine 103 U/L 0 -[address] Kinase) [place] [address] [phone] CBC With 07/23/2010 [facility] White Blood 7.4 CUMM 4.8-10.8 Electronic Diff [address] [place] [address] [phone] Red Cell Count 4.08 CUMM Low 4.6-6.2 Hemoglobin 14.3 g/dL 14.0-18.0 Hematocrit 40 % Low 42-52 Mean Corpuscular Volume 98 um3 High 80-94 Mean Corpuscular Hemoglob 35 pg High 27-31 Mean Corpuscular HGB Cone 36 g/dL 32-36 Redcell Distribution WDTH 13 % 10.5-15 Platelet Count 205 CUMM 150-450 Mean Platelet Volume 7.4 um3 7.4-10.4 Gran % 74.3 % 38-83 Lymph % 15.6 % Low 25-47 Mononuclear % 7.0 % 1-9 Eosinophil % 2.8 % 0-6 Basophil % 0.3 % 0-2 Abs Lymphs 1.2 1.0-4.8 Abs Mononuclear 0.5 0-0.8 Absolute Neutrophil Count 5.5 1.5-7.7 Abs Eosinophils 0.2 0-0.6 Abs Basophils 0 0-0.2 110 Basic Metabolic 01/22/2010 [facility] Sodium 130 mmol/L Low 135-145 Panel [address] [place] [address] [phone] Potassium 4.7 mmol/L 3.5-5.0 Chloride 97 mmol/L Low 101-111 Co2 (Carbon Dioxide) 29.0 mmol/L 22-32 Anion Gap 4.0 mmol/L 2-11 111 Glucose 104 mg/dL High 70-100 112 BUN 11 mg/dL 6-24 Creatinine 0.80 mg/dL 0.50-1.40 One Over Creatinine 1.20 BUN/Creatinine Ratio 13.8 8-20 Calcium 9.2 mg/dL 8.1-9.9 113 eGFR Non- 102.8 > 60 eGFR 124.4 > 60 114 Lipid Profile 01/22/2010 [facility] Triglyceride 57 mg/dL 40- 200 (Trig/Chol/HDL) [address] [place] [address] [phone] Cholesterol 123 mg/dL Less Than 200 115 High Density Lipoprotein 36 mg/dL Low 40-60 116 Cholesterol/HDL Ratio 3.42 AVERAGE 1-4.97 Low Density Lipoprotein 76 mg/dL Less Than 100 117 Laboratory test 01/22/2010 [facility] CPK (Creatine 125 U/L 0 -[address] Kinase) [place] [address] [phone] Basic Metabolic 08/06/2009 [facility] Sodium 133 Low 135-[address] mmol/[place] [address] [phone] Potassium 4.6 mmol/L 3.5-5.0 Chloride 100 mmol/L Low 101-111 Co2 (Carbon Dioxide) 28.0 mmol/L 22-32 Anion Gap 5.0 mmol/L 2-11 118 Glucose 90 mg/dL 70-100 119 BUN 7 mg/dL 6-24 Creatinine 0.90 mg/dL 0.50-1.40 One Over Creatinine 1.10 BUN/Creatinine Ratio 7.8 Low 8-20 Calcium 9.3 mg/dL 8.1-9.9 120 eGFR Non- 89.7 > 60 eGFR 108.6 > 60 121 Urinalysis W/Microscopic Stat 06/24/2009 [facility] Ua Color YELLOW [address] [place] [address] [phone] Appearance-Urine CLEAR Specific Elizabeth-Ur 1.016 1.010-1.030 Esterase-Urine NEGATIVE Negative Nitrite NEGATIVE Negative [id number] POSITIVE Negative Protein-Urine NEGATIVE Negative PH-Urine 6.0 5-9 Blood-Urine 2+ Abnormal Negative Ketones-Urine NEGATIVE Negative Bilirubin-Ur NEGATIVE Negative Glucose-Urine NEGATIVE Negative WBC-Urine 0-2 0-5 RBC-Urine 0-2 0-2 Mucus Urine SMALL Ua Stat 06/24/2009 [facility] Ua Color YELLOW [address] [place] [address] [phone] Appearance-Urine CLEAR Specific Elizabeth-Ur 1.016 1.010-1.030 Esterase-Urine NEGATIVE Negative Nitrite NEGATIVE Negative [id number] POSITIVE Negative Protein-Urine NEGATIVE Negative PH-Urine 6.0 5-9 Blood-Urine 2+ Abnormal Negative Ketones-Urine NEGATIVE Negative Bilirubin-Ur NEGATIVE Negative Glucose-Urine NEGATIVE Negative CBC With Manual 06/24/2009 [facility] White Blood 9.4 CUMM 4.8-10.[address] [place] [address] [phone] Red Cell Count 4.21 CUMM Low 4.6-6.2 Hemoglobin 14.5 g/dL 14.0-18.0 Hematocrit 41 % Low 42-52 Mean Corpuscular Volume 97 um3 High 80-94 Mean Corpuscular Hemoglob 35 pg High 27-31 Mean Corpuscular HGB Cone 36 g/dL 32-36 Redcell Distribution WDTH 14 % 10.5-15 Platelet Count 211 CUMM 150-450 Mean Platelet Volume 7.1 um3 Low 7.4-10.4 Polysegmented Neutrophil 90 % High 38-83 Band Neutrophil 7 % 0-8 Lymphocyte 1 % Low 25-47 Monocyte 1 % 0-13 Basophil 1 % 0-2 Absolute Neutrophil Count 9.1 Anisocytosis SLIGHT CMP Panel Stat 06/24/2009 [facility] Sodium 123 mmol/L Low 135 -[address] [place] [address] [phone] Potassium 3.9 mmol/L 3.5-5.0 Chloride 88 mmol/L Low 101-111 Co2 (Carbon Dioxide) 25.0 mmol/L 22-32 Anion Gap 10.0 mmol/L 2-11 122 Glucose 118 mg/dL High 70-100 123 BUN 11 mg/dL 6-24 Creatinine 1.00 mg/dL 0.50-1.40 One Over Creatinine 1.00 BUN/Creatinine Ratio 11.0 8-20 Calcium 9.1 mg/dL 8.1-9.9 124 Total Protein 8.5 GM/DL High 6.2-8.1 Albumin 4.5 GM/DL 3.2-5.2 Globulin 4.0 GM/DL 2-4 Albumin/Globulin Ratio 1.1 1-3 Bilirubin Total 2.5 mg/dL High 0.4-1.5 125 Alkaline Phosphatase 113 U/L 39-117 Alt (SGPT) 34 U/L 17-63 Ast (Sgot) 43 U/L High 12-42 eGFR Non- 79.5 > 60 eGFR 96.1 > 60 126 Bcaer-2 06/24/2009 [facility] Clindamycin 1 I [address] [place] [address] [phone] Ciprofloxacin <=0.5 S Erythromycin 4 I Nitrofurantoin <=16 S Gentamicin <=0.5 S Levofloxacin 0.25 S Linezolid 4 S Oxacillin 0.5 S Rifampin <=0.5 S Trimeth-Sulfa <=10 S Tetracycline <=1 S Tigecycline <=0.12 S Vancomycin 1 S Anaerobic 06/24/2009 [facility] Anaerobic NG5 128 Culture Bottle [address] Culture Bottle [place], [place] [id number] [phone] Laboratory test 06/24/2009 [facility] Aerobic Culture GPC [address] Bottle CL^[place] [address] POS <SEE [phone] NOTE> Laboratory test 03/15/2009 [facility] CPK (Creatine 113 U/L 0 -[address] Kinase) [place], [place] [id number] [phone] Basic Metabolic 03/15/2009 [facility] Sodium 132 Low 135-[address] mmol/L 5 [place] [address] [phone] Potassium 4.3 mmol/L 3.5-5.0 Chloride 98 mmol/L Low 101-111 Co2 (Carbon Dioxide) 29.0 mmol/L 22-32 Anion Gap 5.0 mmol/L 2-11 130 Glucose 65 mg/dL Low 70-100 131 BUN 14 mg/dL 6-24 Creatinine 0.80 mg/dL 0.50-1.40 One Over Creatinine 1.20 BUN/Creatinine Ratio 17.5 8-20 Calcium 9.2 mg/dL 8.1-9.9 132 Laboratory test 03/15/2009 [facility] Magnesium 2.0 mg/dL 1.7 -2.[address] [place] [address] [phone] Basic Metabolic 11/27/2008 [facility] Sodium 133 mmol/L Low 135-[address] [place] [address] [phone] Potassium 4.4 mmol/L 3.5-5.0 Chloride 100 mmol/L Low 101-235 Co2 (Carbon Dioxide) 27.0 mmol/L 22-32 Anion Gap 6.0 mmol/L 2-11 133 Glucose 105 mg/dL High 70-100 134 BUN 11 mg/dL 6-24 Creatinine 1.00 mg/dL 0.50-1.40 One Over Creatinine 1.00 BUN/Creatinine Ratio 11.0 8-20 Calcium 9.1 mg/dL 8.1-9.9 135 Lipid Profile 11/27/2008 [facility] Triglyceride 79 mg/dL 40- 200 (Trig/Chol/HDL) [address] [place] [address] [phone] Cholesterol 123 mg/dL Less Than 200 136 High Density Lipoprotein 36 mg/dL Low 40-60 137 Cholesterol/HDL Ratio 3.42 AVERAGE 1-4.97 Low Density Lipoprotein 71 mg/dL Less Than 100 138 Laboratory test 11/27/2008 [facility] PSA Screening 0.33 NG/ML 0-4 [address] [place] [address] [phone] CBC With 11/20/2008 [facility] White Blood 10.3 CUMM 4.8- 10.8 Electronic Diff [address] [place] [address] [phone] Red Cell Count 4.48 CUMM Low 4.6-6.2 Hemoglobin 15.1 g/dL 14.0-18.0 Hematocrit 43 % 42-52 Mean Corpuscular Volume 96 um3 High 80-94 Mean Corpuscular Hemoglob 34 pg High 27-31 Mean Corpuscular HGB Cone 35 g/dL 32-36 Redcell Distribution WDTH 12 % 10.5-15 Platelet Count 246 CUMM 150-450 Mean Platelet Volume 7.4 um3 7.4-10.4 Gran % 72.1 % 38-83 Lymph % 13.1 % Low 25-47 Mononuclear % 7.6 % 1-9 Eosinophil % 6.7 % High 0-6 Basophil % 0.5 % 0-2 Abs Lymphs 1.3 1.0-4.8 Abs Mononuclear 0.8 0-0.8 Absolute Neutrophil Count 7.4 1.5-7.7 Abs Eosinophils 0.7 High 0-0.6 Abs Basophils 0.1 0-0.2 Laboratory test 11/20/2008 [facility] BNP Evaluatr 60.87 pg/mL 7.5-[address] [place] [address] [phone] P33S 11/20/2008 [facility] Sodium 131 mmol/L Low 135-[address] [place] [address] [phone] Potassium 3.9 mmol/L 3.5-5.0 Chloride 97 mmol/L Low 101-111 Co2 (Carbon Dioxide) 26.0 mmol/L 22-32 Anion Gap 8.0 mmol/L 2-11 140 Glucose 123 mg/dL High 70-100 141 BUN 16 mg/dL 6-24 Creatinine 0.90 mg/dL 0.50-1.40 One Over Creatinine 1.10 BUN/Creatinine Ratio 17.8 8-20 Calcium 9.4 mg/dL 8.1-9.9 142 Total Protein 7.3 GM/DL 6.2-8.1 Albumin 4.3 GM/DL 3.2-5.2 Globulin 3.0 GM/DL 2-4 Albumin/Globulin Ratio 1.4 1-3 Bilirubin Total 1.2 mg/dL 0.4-1.5 Alkaline Phosphatase 76 U/L 39-117 Alt (SGPT) 31 U/L 17-63 Ast (Sgot) 42 U/L 12-42 Laboratory test 11/20/2008 [facility] Troponin-I (TnI) 0.01 NG/ ML 0-0.06 143 finding [address] [place] [address] [phone] Lipid Profile 04/27/2008 [facility] Triglyceride 79 mg/dL 40- 200 144 (Trig/Chol/HDL) [address] [place] [address] [phone] Cholesterol 117 mg/dL Less Than 200 145 High Density Lipoprotein 34 mg/dL Low 40-60 146 Cholesterol/HDL Ratio 3.44 AVERAGE 1-4.97 Low Density Lipoprotein 67 mg/dL Less Than 100 147 Laboratory test 04/27/2008 [facility] CPK (Creatine 141 U/L 0 -200 finding Kinase) [place] [address] [phone] Basic Metabolic 04/27/2008 [facility] Sodium 135 135-145 Panel 101 mmol/L [place], [place] [id number] [phone] Potassium 4.7 mmol/L 3.5-5.0 Chloride 101 mmol/L 101-111 Co2 (Carbon Dioxide) 29.0 mmol/L 22-32 Anion Gap 5.0 mmol/L 2-11 148 Glucose 104 mg/dL 70-105 BUN 15 mg/dL 6-24 Creatinine 1.0 mg/dL 0.5-1.4 One Over Creatinine 1.00 BUN/Creatinine Ratio 15.0 8-20 Calcium 8.6 mg/dL 8.1-9.9 149 Liver Function 04/27/2008 [facility] Total Protein 7.0 GM/DL 6.2-8.[address] [place] [address] [phone] Albumin 3.9 GM/DL 3.2-5.2 Globulin 3.1 GM/DL 2-4 Albumin/Globulin Ratio 1.3 1-3 Bilirubin Total 1.3 mg/dL 0.4-1.5 Bilirubin Direct 0.2 mg/dL 0.1-0.5 Indirect Bilirubin 1.1 mg/dL High 0.1-0.75 Alkaline Phosphatase 84 U/L 39-117 Alt (SGPT) 28 U/L 17-63 Ast (Sgot) 30 U/L 12-42 Comp Metabolic Panel 03/15/2008 [facility] Sodium 130 mmol/L Low 135-[address] [place] [address] [phone] Potassium 4.6 mmol/L 3.5-5.0 Chloride 96 mmol/L Low 101-111 Co2 (Carbon Dioxide) 28.0 mmol/L 22-32 Anion Gap 6.0 mmol/L 2-11 150 Glucose 103 mg/dL 70-105 BUN 22 mg/dL 6-24 Creatinine 1.0 mg/dL 0.5-1.4 One Over Creatinine 1.00 BUN/Creatinine Ratio 22.0 High 8-20 Calcium 9.0 mg/dL 8.7-10.2 Total Protein 7.6 GM/DL 6.2-8.1 Albumin 4.2 GM/DL 3.2-5.2 Globulin 3.4 GM/DL 2-4 Albumin/Globulin Ratio 1.2 1-3 Bilirubin Total 2.2 mg/dL High 0.4-1.5 Alkaline Phosphatase 80 U/L 39-117 Alt (SGPT) 26 U/L 17-63 Ast (Sgot) 34 U/L 12-42 Lipid Panel - 03/15/2008 [facility] CPK (Creatine 213 U/L High 0-[address] Kin[place]) [place] [address] [phone] Lipid Profile 03/15/2008 [facility] Triglyceride 92 mg/dL 40- 200 (Trig/Chol/HD [address]) [place] [address] [phone] Cholesterol 143 mg/dL Less Than 200 151 High Density Lipoprotein 35 mg/dL Low 40-60 152 Cholesterol/HDL Ratio 4.09 AVERAGE 1-4.97 Low Density Lipoprotein 90 mg/dL Less Than 100 153 Laboratory test 10/27/2007 [facility] PSA Screening 0.29 NG/ML 0-[address] [place] [address] [phone] Homocysteine 12 umol/L () 155 Lipid Profile 10/27/2007 [facility] Cholesterol/HDL 3.13 1- 4.97 (Trig/Chol/HDL) [address] [place] [address] [phone] Cholesterol 100 mg/dL Less Than 200 156 Triglyceride 80 mg/dL 40-200 High Density Lipoprotein 32 mg/dL Low 40-60 157 Low Density Lipoprotein 52 mg/dL Less Than 100 158 Liver Function 10/27/2007 [facility] Albumin/Globulin Ratio 1.5 1-[address] [place] [address] [phone] Albumin 4.2 GM/DL 3.2-5.2 Alkaline Phosphatase 64 U/L 39-117 Alt (SGPT) 30 U/L 17-63 Ast (Sgot) 30 U/L 12-42 Bilirubin Direct 0.3 mg/dL 0.1-0.5 Globulin 2.8 GM/DL 2-4 Indirect Bilirubin 1.7 mg/dL High 0.1-0.75 Bilirubin Total 2.0 mg/dL High 0.4-1.5 Total Protein 7.0 GM/DL 6.2-8.1 Basic Metabolic 10/27/2007 [facility] One Over Creatinine 1.[address] [place] [address] [phone] Anion Gap 7.0 mmol/L 2-11 159 BUN 9 mg/dL 6-24 Calcium 9.3 mg/dL 8.7-10.2 Chloride 100 mmol/L Low 101-111 Co2 (Carbon Dioxide) 28.0 mmol/L 22-32 Glucose 92 mg/dL 70-105 Potassium 4.4 mmol/L 3.5-5.0 Sodium 135 mmol/L 135-145 BUN/Creatinine Ratio 9.0 8-20 Creatinine 1.0 mg/dL 0.5-1.4 Laboratory test 10/27/2007 [facility] CPK (Creatine 142 U/L 0 -[address] Kinase) [place] [address] [phone] Lipid Profile 07/21/2007 [facility] Cholesterol 165 Less Than 160 (Trig/Chol/HDL) [address] mg/dL 200 [place] [address] [phone] Triglyceride 48 mg/dL 40-200 High Density Lipoprotein 32 mg/dL Low 40-60 161 Low Density Lipoprotein 123 mg/dL High Less Than 100 162 Cholesterol/HDL Ratio 5.16 AVERAGE High 1-4.97 Liver Function 07/21/2007 [facility] Albumin/Globulin Ratio 1.4 1-[address] [place] [address] [phone] Albumin 4.1 GM/DL 3.2-5.2 Alkaline Phosphatase 79 U/L 39-117 Alt (SGPT) 20 U/L 17-63 Ast (Sgot) 29 U/L 12-42 Bilirubin Direct 0.2 mg/dL 0.1-0.5 Globulin 3.0 GM/DL 2-4 Indirect Bilirubin 1.6 mg/dL High 0.1-0.75 Bilirubin Total 1.8 mg/dL High 0.4-1.5 Total Protein 7.1 GM/DL 6.2-8.1 Basic Metabolic 07/21/2007 [facility] One Over Creatinine 1.11 Panel [address] [place] [address] [phone] Anion Gap 5.0 mmol/L 2-11 163 BUN 12 mg/dL 6-24 Calcium 8.2 mg/dL Low 8.7-10.2 Chloride 97 mmol/L Low 101-111 Co2 (Carbon Dioxide) 26.0 mmol/L 22-32 Glucose 95 mg/dL 70-105 Potassium 4.6 mmol/L 3.5-5.0 Sodium 128 mmol/L Low 135-145 BUN/Creatinine Ratio 13.3 8-20 Creatinine 0.9 mg/dL 0.5-1.4 Laboratory test 07/21/2007 [facility] CPK (Creatine 160 U/L 0 -[address] Kin[place]) [place] [address] [phone] 1 Because ethnic data is not always readily available, this report includes an eGFR for both -Americans and non- Americans. The National Kidney Disease Education Program (NKDEP) does not endorse the use of the MDRD equation for patients that are not between the ages of 18 and 70, are , have extremes of body size, muscle mass, or nutritional status, or are non- or non-. According to the National Kidney Foundation, irrespective of diagnosis, the stage of the disease is based on the level of kidney function: Stage Description GFR(mL/min/1.73 m(2)) 1 Kidney damage with normal or decreased GFR 90 2 Kidney damage with mild decrease in GFR 60-89 3 Moderate decrease in GFR 30-59 4 Severe decrease in GFR 15-29 5 Kidney failure <15 (or dialysis) 2 Desirable: <150 Borderline High: 150-199 High: 200-499 Very High: >500 3 Desirable: <200 Borderline High: 200-239 High: >239 4 Low: <40 Desirable: 40-60 High: >60 5 Desirable: <100 Near Optimal: 100-129 Borderline High: 130-159 High: 160-189 Very High: >189 6 Serum levels of PSA measured using the [employer] D[employer] immunoassay should not be interpreted as absolute evidence of the presence or absence of disease. The PSA value should be used in conjunction with other pertinent clinical diagnostic procedures. The values obtained with different assay methods or kits cannot be used interchangeably. 7 Acute inflammation: >10.00 8 Because ethnic data is not always readily available, this report includes an eGFR for both -Americans and non- Americans. The National Kidney Disease Education Program (NKDEP) does not endorse the use of the MDRD equation for patients that are not between the ages of 18 and 70, are , have extremes of body size, muscle mass, or nutritional status, or are non- or non-. According to the National Kidney Foundation, irrespective of diagnosis, the stage of the disease is based on the level of kidney function: Stage Description GFR(mL/min/1.73 m(2)) 1 Kidney damage with normal or decreased GFR 90 2 Kidney damage with mild decrease in GFR 60-89 3 Moderate decrease in GFR 30-59 4 Severe decrease in GFR 15-29 5 Kidney failure <15 (or dialysis) 9 Because ethnic data is not always readily available, this report includes an eGFR for both -Americans and non- Americans. The National Kidney Disease Education Program (NKDEP) does not endorse the use of the MDRD equation for patients that are not between the ages of 18 and 70, are , have extremes of body size, muscle mass, or nutritional status, or are non- or non-. According to the National Kidney Foundation, irrespective of diagnosis, the stage of the disease is based on the level of kidney function: Stage Description GFR(mL/min/1.73 m(2)) 1 Kidney damage with normal or decreased GFR 90 2 Kidney damage with mild decrease in GFR 60-89 3 Moderate decrease in GFR 30-59 4 Severe decrease in GFR 15-29 5 Kidney failure <15 (or dialysis) 10 FASTING Copy Result to: OSORIO COLLINS ([id number]) 11 Because ethnic data is not always readily available, this report includes an eGFR for both -Americans and non- Americans. The National Kidney Disease Education Program (NKDEP) does not endorse the use of the MDRD equation for patients that are not between the ages of 18 and 70, are , have extremes of body size, muscle mass, or nutritional status, or are non- or non-. According to the National Kidney Foundation, irrespective of diagnosis, the stage of the disease is based on the level of kidney function: Stage Description GFR(mL/min/1.73 m(2)) 1 Kidney damage with normal or decreased GFR 90 2 Kidney damage with mild decrease in GFR 60-89 3 Moderate decrease in GFR 30-59 4 Severe decrease in GFR 15-29 5 Kidney failure <15 (or dialysis) 12 Desirable: <150 Borderline High: 150-199 High: 200-499 Very High: >500 13 Desirable: <200 Borderline High: 200-239 High: >239 14 Low: <40 Desirable: 40-60 High: >60 15 Desirable: <100 Near Optimal: 100-129 Borderline High: 130-159 High: 160-189 Very High: >189 16 Serum levels of PSA measured using the [employer] DXI Hybritech immunoassay should not be interpreted as absolute evidence of the presence or absence of disease. The PSA value should be used in conjunction with other pertinent clinical diagnostic procedures. The values obtained with different assay methods or kits cannot be used interchangeably. 17 Desirable <150 Borderline high 150-199 High 200-499 Very High >500 18 Desirable <200 Borderline high 200-239 High >239 19 Low <40 Desirable: 40-60 High: >60 20 Desirable: <100 mg/dL Near Optimal: 100-129 mg/dL Borderline High: 130-159 mg/dL High: 160-189 mg/dL Very High: >189 mg/dL 21 Because ethnic data is not always readily available, this report includes an eGFR for both -Americans and non- Americans. The National Kidney Disease Education Program (NKDEP) does not endorse the use of the MDRD equation for patients that are not between the ages of 18 and 70, are , have extremes of body size, muscle mass, or nutritional status, or are non- or non-. According to the National Kidney Foundation, irrespective of diagnosis, the stage of the disease is based on the level of kidney function: Stage Description GFR(mL/min/1.73 m(2)) 1 Kidney damage with normal or decreased GFR 90 2 Kidney damage with mild decrease in GFR 60-89 3 Moderate decrease in GFR 30-59 4 Severe decrease in GFR 15-29 5 Kidney failure <15 (or dialysis) 22 FASTING cc pmd 23 Because ethnic data is not always readily available, this report includes an eGFR for both -Americans and non- Americans. The National Kidney Disease Education Program (NKDEP) does not endorse the use of the MDRD equation for patients that are not between the ages of 18 and 70, are , have extremes of body size, muscle mass, or nutritional status, or are non- or non-. According to the National Kidney Foundation, irrespective of diagnosis, the stage of the disease is based on the level of kidney function: Stage Description GFR(mL/min/1.73 m(2)) 1 Kidney damage with normal or decreased GFR 90 2 Kidney damage with mild decrease in GFR 60-89 3 Moderate decrease in GFR 30-59 4 Severe decrease in GFR 15-29 5 Kidney failure <15 (or dialysis) 24 Desirable <150 Borderline high 150-199 High 200-499 Very High >500 25 Desirable <200 Borderline high 200-239 High >239 26 Low <40 Desirable: 40-60 High: >60 27 Desirable: <100 mg/dL Near Optimal: 100-129 mg/dL Borderline High: 130-159 mg/dL High: 160-189 mg/dL Very High: >189 mg/dL 28 Because ethnic data is not always readily available, this report includes an eGFR for both -Americans and non- Americans. The National Kidney Disease Education Program (NKDEP) does not endorse the use of the MDRD equation for patients that are not between the ages of 18 and 70, are , have extremes of body size, muscle mass, or nutritional status, or are non- or non-. According to the National Kidney Foundation, irrespective of diagnosis, the stage of the disease is based on the level of kidney function: Stage Description GFR(mL/min/1.73 m(2)) 1 Kidney damage with normal or decreased GFR 90 2 Kidney damage with mild decrease in GFR 60-89 3 Moderate decrease in GFR 30-59 4 Severe decrease in GFR 15-29 5 Kidney failure <15 (or dialysis) 29 Test Performed by: [place] [address] Customer Support Coordinator: Andi Mendosa II, M.D., Ph.D. 30 Test Performed by: [place] [address] Customer Support Coordinator: Andi Mendosa II, M.D., Ph.D. 31 REFERENCE VALUE <=13 (Fasting) Test Performed by: [place] [address] Customer Support Coordinator: Andi Mendosa II, M.D., Ph.D. 32 Test Performed by: [place] [address] Customer Support Coordinator: Andi Mendosa II, M.D., Ph.D. 33 Because ethnic data is not always readily available, this report includes an eGFR for both -Americans and non- Americans. The National Kidney Disease Education Program (NKDEP) does not endorse the use of the MDRD equation for patients that are not between the ages of 18 and 70, are , have extremes of body size, muscle mass, or nutritional status, or are non- or non-. According to the National Kidney Foundation, irrespective of diagnosis, the stage of the disease is based on the level of kidney function: Stage Description GFR(mL/min/1.73 m(2)) 1 Kidney damage with normal or decreased GFR 90 2 Kidney damage with mild decrease in GFR 60-89 3 Moderate decrease in GFR 30-59 4 Severe decrease in GFR 15-29 5 Kidney failure <15 (or dialysis) 34 Normal Range 180 to 914 Indeterminate Range 145 to 180 Deficient Range <145 35 Serum levels of PSA measured using the [employer] D[employer] immunoassay should not be interpreted as absolute evidence of the presence or absence of disease. The PSA value should be used in conjunction with other pertinent clinical diagnostic procedures. The values obtained with different assay methods or kits cannot be used interchangeably. 36 FASTING cc pmd 37 Because ethnic data is not always readily available, this report includes an eGFR for both -Americans and non- Americans. The National Kidney Disease Education Program (NKDEP) does not endorse the use of the MDRD equation for patients that are not between the ages of 18 and 70, are , have extremes of body size, muscle mass, or nutritional status, or are non- or non-. According to the National Kidney Foundation, irrespective of diagnosis, the stage of the disease is based on the level of kidney function: Stage Description GFR(mL/min/1.73 m(2)) 1 Kidney damage with normal or decreased GFR 90 2 Kidney damage with mild decrease in GFR 60-89 3 Moderate decrease in GFR 30-59 4 Severe decrease in GFR 15-29 5 Kidney failure <15 (or dialysis) 38 Desirable <150 Borderline high 150-199 High 200-499 Very High >500 39 Desirable <200 Borderline high 200-239 High >239 40 Low <40 Desirable: 40-60 High: >60 41 Desirable: <100 mg/dL Near Optimal: 100-129 mg/dL Borderline High: 130-159 mg/dL High: 160-189 mg/dL Very High: >189 mg/dL 42 RUN DATE: 02/21/15 [facility] LAB LIVE PAGE 1 RUN TIME: [address] [place] [id number] Specimen Inquiry Name: LEO ORTEGA : [address]: Malachi Oliveira MD Acct: [id number] Unit: [id number] AGE: 69 Location: [facility] Re02/19/15 SEX: M Status: REG REF SPEC: [id number] DESTINY: 02/19/15-[address] [facility] [address]: Malachi Oliveira MD REQ: [id number] RECD: 02/19/15 STATUS: SEAN ESPINAL DR: Biju Collins MD _ ORDERED: LEVEL IV FINAL DIAGNOSIS Colon, rectum, biopsies: -- Tubular adenoma. -- No high grade dysplasia or malignancy. -- Hyperplastic polyps. CLINICAL HISTORY Screening colonoscopy POST-OPERATIVE DIAGNOSIS Screening colonoscopy into terminal ileum, prep good - diffuse diverticulosis , 2 small polyps removed GROSS DESCRIPTION The specimen is received in formalin labeled, Biopsy Rectal Polyps, and consists of three karimi irregular soft tissue fragments ranging from 0.2 x 0.2 x 0.1 cm to 0.5 x 0.4 x 0.2 cm, which are submitted entirely in one cassette. Signed (signature on file) Ann Warren MD 1051 END OF REPORT * ML=Testing performed at Main Lab DEPARTMENT OF PATHOLOGY, [address] [place] [address] Jovan Olivares M.D. Director [facility] # [id number] 43 FASTING~fasting cc pmd in 2-4 weeks 44 FASTING fasting cc pmd in 2-4 weeks 45 Because ethnic data is not always readily available, this report includes an eGFR for both -Americans and non- Americans. The National Kidney Disease Education Program (NKDEP) does not endorse the use of the MDRD equation for patients that are not between the ages of 18 and 70, are , have extremes of body size, muscle mass, or nutritional status, or are non- or non-. According to the National Kidney Foundation, irrespective of diagnosis, the stage of the disease is based on the level of kidney function: Stage Description GFR(mL/min/1.73 m(2)) 1 Kidney damage with normal or decreased GFR 90 2 Kidney damage with mild decrease in GFR 60-89 3 Moderate decrease in GFR 30-59 4 Severe decrease in GFR 15-29 5 Kidney failure <15 (or dialysis) 46 Desirable <150 Borderline high 150-199 High 200-499 Very High >500 47 Desirable <200 Borderline high 200-239 High >239 48 Low <40 Desirable: 40-60 High: >60 49 Desirable <100 Near Optimal 100-129 Borderline high 130-159 High 160-189 Very High >189 50 FASTING fasting cc pmd in 2-4 weeks 51 Serum levels of PSA measured using the [employer] DXI Hybritech immunoassay should not be interpreted as absolute evidence of the presence or absence of disease. The PSA value should be used in conjunction with other pertinent clinical diagnostic procedures. The values obtained with different assay methods or kits cannot be used interchangeably. 52 Because ethnic data is not always readily available, this report includes an eGFR for both -Americans and non- Americans. The National Kidney Disease Education Program (NKDEP) does not endorse the use of the MDRD equation for patients that are not between the ages of 18 and 70, are , have extremes of body size, muscle mass, or nutritional status, or are non- or non-. According to the National Kidney Foundation, irrespective of diagnosis, the stage of the disease is based on the level of kidney function: Stage Description GFR(mL/min/1.73 m(2)) 1 Kidney damage with normal or decreased GFR 90 2 Kidney damage with mild decrease in GFR 60-89 3 Moderate decrease in GFR 30-59 4 Severe decrease in GFR 15-29 5 Kidney failure <15 (or dialysis) 53 Because ethnic data is not always readily available, this report includes an eGFR for both -Americans and non- Americans. The National Kidney Disease Education Program (NKDEP) does not endorse the use of the MDRD equation for patients that are not between the ages of 18 and 70, are , have extremes of body size, muscle mass, or nutritional status, or are non- or non-. According to the National Kidney Foundation, irrespective of diagnosis, the stage of the disease is based on the level of kidney function: Stage Description GFR(mL/min/1.73 m(2)) 1 Kidney damage with normal or decreased GFR 90 2 Kidney damage with mild decrease in GFR 60-89 3 Moderate decrease in GFR 30-59 4 Severe decrease in GFR 15-29 5 Kidney failure <15 (or dialysis) 54 HDL Interpretation: Undesirable: High Risk: Less than 40 mg/dL Desirable: Low Risk: Greater than 60 mg/dL 55 LDL Interpretation: Low Risk Optimal Level: LDL Less than 100 mg/dL Near or Above Optimal: LDL 100-129 mg/dL Borderline High Risk: LDL 130-159 mg/dL High Risk: LDL 160-189 mg/dL Very High Risk: LDL Greater than 189 mg/dL 56 labs to be drawn around 08/27/13 57 HDL Interpretation: Undesirable: High Risk: Less than 40 MG/DL Desirable: Low Risk: Greater than 60 MG/DL 58 LDL Interpretation: Low Risk Optimal Level: LDL Less than 100 MG/DL Near or Above Optimal: LDL 100-129 MG/DL Borderline High Risk: LDL 130-159 MG/DL High Risk: LDL 160-189 MG/DL Very High Risk: LDL Greater than 189 MG/DL 59 Because ethnic data is not always readily available, this report includes an eGFR for both -Americans and non- Americans. The National Kidney Disease Education Program (NKDEP) does not endorse the use of the MDRD equation for patients that are not between the ages of 18 and 70, are , have extremes of body size, muscle mass, or nutritional status, or are non- or non-. According to the National Kidney Foundation, irrespective of diagnosis, the stage of the disease is based on the level of kidney function: Stage Description GFR(mL/min/1.73 m(2)) 1 Kidney damage with normal or decreased GFR 90 2 Kidney damage with mild decrease in GFR 60-89 3 Moderate decrease in GFR 30-59 4 Severe decrease in GFR 15-29 5 Kidney failure <15 (or dialysis) 60 PT IS FASTING 61 Because ethnic data is not always readily available, this report includes an eGFR for both -Americans and non- Americans. The National Kidney Disease Education Program (NKDEP) does not endorse the use of the MDRD equation for patients that are not between the ages of 18 and 70, are , have extremes of body size, muscle mass, or nutritional status, or are non- or non-. According to the National Kidney Foundation, irrespective of diagnosis, the stage of the disease is based on the level of kidney function: Stage Description GFR(mL/min/1.73 m(2)) 1 Kidney damage with normal or decreased GFR 90 2 Kidney damage with mild decrease in GFR 60-89 3 Moderate decrease in GFR 30-59 4 Severe decrease in GFR 15-29 5 Kidney failure <15 (or dialysis) 62 HDL Interpretation: Undesirable: High Risk: Less than 40 MG/DL Desirable: Low Risk: Greater than 60 MG/DL 63 LDL Interpretation: Low Risk Optimal Level: LDL Less than 100 MG/DL Near or Above Optimal: LDL 100-129 MG/DL Borderline High Risk: LDL 130-159 MG/DL High Risk: LDL 160-189 MG/DL Very High Risk: LDL Greater than 189 MG/DL 64 Because ethnic data is not always readily available, this report includes an eGFR for both -Americans and non- Americans. The National Kidney Disease Education Program (NKDEP) does not endorse the use of the MDRD equation for patients that are not between the ages of 18 and 70, are , have extremes of body size, muscle mass, or nutritional status, or are non- or non-. According to the National Kidney Foundation, irrespective of diagnosis, the stage of the disease is based on the level of kidney function: Stage Description GFR(mL/min/1.73 m(2)) 1 Kidney damage with normal or decreased GFR 90 2 Kidney damage with mild decrease in GFR 60-89 3 Moderate decrease in GFR 30-59 4 Severe decrease in GFR 15-29 5 Kidney failure <15 (or dialysis) 65 Serum levels of PSA measured using the [employer] immunoassay should not be interpreted as absolute evidence of the presence or absence of disease. The PSA value should be used in conjunction with other pertinent clinical diagnostic procedures. A PSA value in the range of 0.1 to 0.6 ng/ml is indeterminate if being used as an indicator of recurrent or residual disease. The values obtained with different assay methods or kits cannot be used interchangeably. 66 Anion gap measurement may be of limited value in the presence of any alkalosis, especially in a combined acid base disorder. . 67 A metabolite of Naproxen, O-desmethylnaproxen, has been shown to interfere with the Jendrassik-Olvin method for measuring total bilirubin. Samples from patients who have taken Naproxen have shown spurious elevation in total bilirubin levels. 68 Because ethnic data is not always readily available, this report includes an eGFR for both -Americans and non- Americans. The National Kidney Disease Education Program (NKDEP) does not endorse the use of the MDRD equation for patients that are not between the ages of 18 and 70, are , have extremes of body size, muscle mass, or nutritional status, or are non- or non-. According to the National Kidney Foundation, irrespective of diagnosis, the stage of the disease is based on the level of kidney function: Stage Description GFR(mL/min/1.73 m(2)) 1 Kidney damage with normal or decreased GFR 90 2 Kidney damage with mild decrease in GFR 60-89 3 Moderate decrease in GFR 30-59 4 Severe decrease in GFR 15-29 5 Kidney failure <15 (or dialysis) 69 CHOLESTEROL INTERPRETATION: Desirable: Less than 200 MG/DL Borderline-High Risk: 200-239 MG/DL High-Risk: 240 MG/DL and over 70 HDL INTERPRETATION: Undesirable: High Risk: Less than 40 MG/DL Desirable: Low Risk: Greater than 60 MG/DL 71 LDL INTERPRETATION: Low Risk Optimal Level: LDL Less than 100 MG/DL Near or Above Optimal: LDL 100-129 MG/DL Borderline High Risk: LDL 130-159 MG/DL High Risk: LDL 160-189 MG/DL Very High Risk: LDL Greater than 189 MG/DL 72 Anion gap measurement may be of limited value in the presence of any alkalosis, especially in a combined acid base disorder. . 73 A metabolite of Naproxen, O-desmethylnaproxen, has been shown to interfere with the [place] method for measuring total bilirubin. Samples from patients who have taken Naproxen have shown spurious elevation in total bilirubin levels. 74 Because ethnic data is not always readily available, this report includes an eGFR for both -Americans and non- Americans. The National Kidney Disease Education Program (NKDEP) does not endorse the use of the MDRD equation for patients that are not between the ages of 18 and 70, are , have extremes of body size, muscle mass, or nutritional status, or are non- or non-. According to the National Kidney Foundation, irrespective of diagnosis, the stage of the disease is based on the level of kidney function: Stage Description GFR(mL/min/1.73 m(2)) 1 Kidney damage with normal or decreased GFR 90 2 Kidney damage with mild decrease in GFR 60-89 3 Moderate decrease in GFR 30-59 4 Severe decrease in GFR 15-29 5 Kidney failure <15 (or dialysis) 75 CHOLESTEROL INTERPRETATION: Desirable: Less than 200 MG/DL Borderline-High Risk: 200-239 MG/DL High-Risk: 240 MG/DL and over 76 HDL INTERPRETATION: Undesirable: High Risk: Less than 40 MG/DL Desirable: Low Risk: Greater than 60 MG/DL 77 LDL INTERPRETATION: Low Risk Optimal Level: LDL Less than 100 MG/DL Near or Above Optimal: LDL 100-129 MG/DL Borderline High Risk: LDL 130-159 MG/DL High Risk: LDL 160-189 MG/DL Very High Risk: LDL Greater than 189 MG/DL 78 Lymphopenia % 79 Please note: New reference range, effective 10/30/11 NORMAL REFERENCE RANGE: GREATER THAN 4.1 NG/ML 80 Anion gap measurement may be of limited value in the presence of any alkalosis, especially in a combined acid base disorder. . 81 Because ethnic data is not always readily available, this report includes an eGFR for both -Americans and non- Americans. The National Kidney Disease Education Program (NKDEP) does not endorse the use of the MDRD equation for patients that are not between the ages of 18 and 70, are , have extremes of body size, muscle mass, or nutritional status, or are non- or non-. According to the National Kidney Foundation, irrespective of diagnosis, the stage of the disease is based on the level of kidney function: Stage Description GFR(mL/min/1.73 m(2)) 1 Kidney damage with normal or decreased GFR 90 2 Kidney damage with mild decrease in GFR 60-89 3 Moderate decrease in GFR 30-59 4 Severe decrease in GFR 15-29 5 Kidney failure <15 (or dialysis) 82 CHOLESTEROL INTERPRETATION: Desirable: Less than 200 MG/DL Borderline-High Risk: 200-239 MG/DL High-Risk: 240 MG/DL and over 83 HDL INTERPRETATION: Undesirable: High Risk: Less than 40 MG/DL Desirable: Low Risk: Greater than 60 MG/DL 84 LDL INTERPRETATION: Low Risk Optimal Level: LDL Less than 100 MG/DL Near or Above Optimal: LDL 100-129 MG/DL Borderline High Risk: LDL 130-159 MG/DL High Risk: LDL 160-189 MG/DL Very High Risk: LDL Greater than 189 MG/DL 85 Anion gap measurement may be of limited value in the presence of any alkalosis, especially in a combined acid base disorder. . 86 A metabolite of Naproxen, O-desmethylnaproxen, has been shown to interfere with the [place] method for measuring total bilirubin. Samples from patients who have taken Naproxen have shown spurious elevation in total bilirubin levels. 87 Because ethnic data is not always readily available, this report includes an eGFR for both -Americans and non- Americans. The National Kidney Disease Education Program (NKDEP) does not endorse the use of the MDRD equation for patients that are not between the ages of 18 and 70, are , have extremes of body size, muscle mass, or nutritional status, or are non- or non-. According to the National Kidney Foundation, irrespective of diagnosis, the stage of the disease is based on the level of kidney function: Stage Description GFR(mL/min/1.73 m(2)) 1 Kidney damage with normal or decreased GFR 90 2 Kidney damage with mild decrease in GFR 60-89 3 Moderate decrease in GFR 30-59 4 Severe decrease in GFR 15-29 5 Kidney failure <15 (or dialysis) 88 Lymphopenia % 89 CHOLESTEROL INTERPRETATION: Desirable: Less than 200 MG/DL Borderline-High Risk: 200-239 MG/DL High-Risk: 240 MG/DL and over 90 HDL INTERPRETATION: Undesirable: High Risk: Less than 40 MG/DL Desirable: Low Risk: Greater than 60 MG/DL 91 LDL INTERPRETATION: Low Risk Optimal Level: LDL Less than 100 MG/DL Near or Above Optimal: LDL 100-129 MG/DL Borderline High Risk: LDL 130-159 MG/DL High Risk: LDL 160-189 MG/DL Very High Risk: LDL Greater than 189 MG/DL 92 Anion gap measurement may be of limited value in the presence of any alkalosis, especially in a combined acid base disorder. . 93 A metabolite of Naproxen, O-desmethylnaproxen, has been shown to interfere with the [place] method for measuring total bilirubin. Samples from patients who have taken Naproxen have shown spurious elevation in total bilirubin levels. 94 Because ethnic data is not always readily available, this report includes an eGFR for both -Americans and non- Americans. The National Kidney Disease Education Program (NKDEP) does not endorse the use of the MDRD equation for patients that are not between the ages of 18 and 70, are , have extremes of body size, muscle mass, or nutritional status, or are non- or non-. According to the National Kidney Foundation, irrespective of diagnosis, the stage of the disease is based on the level of kidney function: Stage Description GFR(mL/min/1.73 m(2)) 1 Kidney damage with normal or decreased GFR 90 2 Kidney damage with mild decrease in GFR 60-89 3 Moderate decrease in GFR 30-59 4 Severe decrease in GFR 15-29 5 Kidney failure <15 (or dialysis) 95 TOTAL BILIRUBIN=2.0 96 TOTAL BILIRUBIN=2.0 Please note updated reference range, effective 05/30/10 97 CHOLESTEROL INTERPRETATION: Desirable: Less than 200 MG/DL Borderline-High Risk: 200-239 MG/DL High-Risk: 240 MG/DL and over 98 HDL INTERPRETATION: Undesirable: High Risk: Less than 40 MG/DL Desirable: Low Risk: Greater than 60 MG/DL 99 LDL INTERPRETATION: Low Risk Optimal Level: LDL Less than 100 MG/DL Near or Above Optimal: LDL 100-129 MG/DL Borderline High Risk: LDL 130-159 MG/DL High Risk: LDL 160-189 MG/DL Very High Risk: LDL Greater than 189 MG/DL 100 Anion gap measurement may be of limited value in the presence of any alkalosis, especially in a combined acid base disorder. . 101 A metabolite of Naproxen, O-desmethylnaproxen, has been shown to interfere with the [place] method for measuring total bilirubin. Samples from patients who have taken Naproxen have shown spurious elevation in total bilirubin levels. 102 Because ethnic data is not always readily available, this report includes an eGFR for both -Americans and non- Americans. The National Kidney Disease Education Program (NKDEP) does not endorse the use of the MDRD equation for patients that are not between the ages of 18 and 70, are , have extremes of body size, muscle mass, or nutritional status, or are non- or non-. According to the National Kidney Foundation, irrespective of diagnosis, the stage of the disease is based on the level of kidney function: Stage Description GFR(mL/min/1.73 m(2)) 1 Kidney damage with normal or decreased GFR 90 2 Kidney damage with mild decrease in GFR 60-89 3 Moderate decrease in GFR 30-59 4 Severe decrease in GFR 15-29 5 Kidney failure <15 (or dialysis) 103 Anion gap measurement may be of limited value in the presence of any alkalosis, especially in a combined acid base disorder. . 104 Note change in reference range as of 06/29/08. The change was based on recommendations from the [place] [employer]. 105 A metabolite of Naproxen, O-desmethylnaproxen, has been shown to interfere with the [place] method for measuring total bilirubin. Samples from patients who have taken Naproxen have shown spurious elevation in total bilirubin levels. 106 Because ethnic data is not always readily available, this report includes an eGFR for both -Americans and non- Americans. The National Kidney Disease Education Program (NKDEP) does not endorse the use of the MDRD equation for patients that are not between the ages of 18 and 70, are , have extremes of body size, muscle mass, or nutritional status, or are non- or non-. According to the National Kidney Foundation, irrespective of diagnosis, the stage of the disease is based on the level of kidney function: Stage Description GFR(mL/min/1.73 m(2)) 1 Kidney damage with normal or decreased GFR 90 2 Kidney damage with mild decrease in GFR 60-89 3 Moderate decrease in GFR 30-59 4 Severe decrease in GFR 15-29 5 Kidney failure <15 (or dialysis) 107 CHOLESTEROL INTERPRETATION: Desirable: Less than 200 MG/DL Borderline-High Risk: 200-239 MG/DL High-Risk: 240 MG/DL and over 108 HDL INTERPRETATION: Undesirable: High Risk: Less than 40 MG/DL Desirable: Low Risk: Greater than 60 MG/DL 109 LDL INTERPRETATION: Low Risk Optimal Level: LDL Less than 100 MG/DL Near or Above Optimal: LDL 100-129 MG/DL Borderline High Risk: LDL 130-159 MG/DL High Risk: LDL 160-189 MG/DL Very High Risk: LDL Greater than 189 MG/DL 110 Lymphopenia % H H Check Failed 111 Anion gap measurement may be of limited value in the presence of any alkalosis, especially in a combined acid base disorder. . 112 Note change in reference range as of 06/29/08. The change was based on recommendations from the [place] [employer]. 113 Please note change in reference range effective 08 . 114 Because ethnic data is not always readily available, this report includes an eGFR for both -Americans and non- Americans. The National Kidney Disease Education Program (NKDEP) does not endorse the use of the MDRD equation for patients that are not between the ages of 18 and 70, are , have extremes of body size, muscle mass, or nutritional status, or are non- or non-. According to the National Kidney Foundation, irrespective of diagnosis, the stage of the disease is based on the level of kidney function: Stage Description GFR(mL/min/1.73 m(2)) 1 Kidney damage with normal or decreased GFR 90 2 Kidney damage with mild decrease in GFR 60-89 3 Moderate decrease in GFR 30-59 4 Severe decrease in GFR 15-29 5 Kidney failure <15 (or dialysis) 115 CHOLESTEROL INTERPRETATION: Desirable: Less than 200 MG/DL Borderline-High Risk: 200-239 MG/DL High-Risk: 240 MG/DL and over 116 HDL INTERPRETATION: Undesirable: High Risk: Less than 40 MG/DL Desirable: Low Risk: Greater than 60 MG/DL 117 LDL INTERPRETATION: Low Risk Optimal Level: LDL Less than 100 MG/DL Near or Above Optimal: LDL 100-129 MG/DL Borderline High Risk: LDL 130-159 MG/DL High Risk: LDL 160-189 MG/DL Very High Risk: LDL Greater than 189 MG/DL 118 Anion gap measurement may be of limited value in the presence of any alkalosis, especially in a combined acid base disorder. . 119 Note change in reference range as of 06/29/08. The change was based on recommendations from the [place] [employer]. 120 Please note change in reference range effective 08 . 121 Because ethnic data is not always readily available, this report includes an eGFR for both -Americans and non- Americans. The National Kidney Disease Education Program (NKDEP) does not endorse the use of the MDRD equation for patients that are not between the ages of 18 and 70, are , have extremes of body size, muscle mass, or nutritional status, or are non- or non-. According to the National Kidney Foundation, irrespective of diagnosis, the stage of the disease is based on the level of kidney function: Stage Description GFR(mL/min/1.73 m(2)) 1 Kidney damage with normal or decreased GFR 90 2 Kidney damage with mild decrease in GFR 60-89 3 Moderate decrease in GFR 30-59 4 Severe decrease in GFR 15-29 5 Kidney failure <15 (or dialysis) 122 Anion gap measurement may be of limited value in the presence of any alkalosis, especially in a combined acid base disorder. . 123 Note change in reference range as of 06/29/08. The change was based on recommendations from the [place] [employer]. 124 Please note change in reference range effective 08 . 125 A metabolite of Naproxen, O-desmethylnaproxen, has been shown to interfere with the [place] method for measuring total bilirubin. Samples from patients who have taken Naproxen have shown spurious elevation in total bilirubin levels. 126 Because ethnic data is not always readily available, this report includes an eGFR for both -Americans and non- Americans. The National Kidney Disease Education Program (NKDEP) does not endorse the use of the MDRD equation for patients that are not between the ages of 18 and 70, are , have extremes of body size, muscle mass, or nutritional status, or are non- or non-. According to the National Kidney Foundation, irrespective of diagnosis, the stage of the disease is based on the level of kidney function: Stage Description GFR(mL/min/1.73 m(2)) 1 Kidney damage with normal or decreased GFR 90 2 Kidney damage with mild decrease in GFR 60-89 3 Moderate decrease in GFR 30-59 4 Severe decrease in GFR 15-29 5 Kidney failure <15 (or dialysis) 127 VERBAL TO DARCY/ED BY RKP at 0830 on 06/25/09. Results read back accurately. 128 NO GROWTH AFTER 5 DAYS 129 STAPHYLOCOCCUS AUREUS 130 Anion gap measurement may be of limited value in the presence of any alkalosis, especially in a combined acid base disorder. . 131 Note change in reference range as of 06/29/08. The change was based on recommendations from the [place] [employer]. 132 Please note change in reference range effective 08 . 133 Anion gap measurement may be of limited value in the presence of any alkalosis, especially in a combined acid base disorder. . 134 Note change in reference range as of 06/29/08. The change was based on recommendations from the [place] [employer]. 135 Please note change in reference range effective 08 . 136 CHOLESTEROL INTERPRETATION: Desirable: Less than 200 MG/DL Borderline-High Risk: 200-239 MG/DL High-Risk: 240 MG/DL and over 137 HDL INTERPRETATION: Undesirable: High Risk: Less than 40 MG/DL Desirable: Low Risk: Greater than 60 MG/DL 138 LDL INTERPRETATION: Low Risk Optimal Level: LDL Less than 100 MG/DL Near or Above Optimal: LDL 100-129 MG/DL Borderline High Risk: LDL 130-159 MG/DL High Risk: LDL 160-189 MG/DL Very High Risk: LDL Greater than 189 MG/DL 139 * SERUM LEVELS OF PSA MEASURED USING THE [employer] ACCESS HYBRITECH IMMUNOASSAY SHOULD NOT BE INTERPRETED ABSOLUTE EVIDENCE OF THE PRESENCE OR ABSENCE OF DISEASE. THE PSA VALUE SHOULD BE USED IN CONJUNCTION WITH OTHER PERTINENT CLINICAL DIAGNOSTIC PROCEDURES. A PSA value in the range of 0.1 to 0.6 ng/ml is indeterminate if being used as an indicator of recurrent or residual disease. . 140 Anion gap measurement may be of limited value in the presence of any alkalosis, especially in a combined acid base disorder. . 141 Note change in reference range as of 06/29/08. The change was based on recommendations from the [place] [employer]. 142 Please note change in reference range effective 08 . 143 New Reference Range and Interpretation effective 08/12/02 TnI (ng/ml) INTERPRETATION <0.06 ng/ml NOT SUPPORTIVE OF DIAGNOSIS OF HI 0.06 - 0.50 ng/ml INDETERMINATE: SUGGEST SERIAL STUDIES IF CLINICALLY INDICATED. > 0.5 ng/ml CONSISTENT WITH DIAGNOSIS OF HI . 144 FASTING 145 CHOLESTEROL INTERPRETATION: Desirable: Less than 200 MG/DL Borderline-High Risk: 200-239 MG/DL High-Risk: 240 MG/DL and over 146 HDL INTERPRETATION: Undesirable: High Risk: Less than 40 MG/DL Desirable: Low Risk: Greater than 60 MG/DL 147 LDL INTERPRETATION: Low Risk Optimal Level: LDL Less than 100 MG/DL Near or Above Optimal: LDL 100-129 MG/DL Borderline High Risk: LDL 130-159 MG/DL High Risk: LDL 160-189 MG/DL Very High Risk: LDL Greater than 189 MG/DL 148 Anion gap measurement may be of limited value in the presence of any alkalosis, especially in a combined acid base disorder. . 149 Please note change in reference range effective 08 . 150 Anion gap measurement may be of limited value in the presence of any alkalosis, especially in a combined acid base disorder. . 151 CHOLESTEROL INTERPRETATION: Desirable: Less than 200 MG/DL Borderline-High Risk: 200-239 MG/DL High-Risk: 240 MG/DL and over 152 HDL INTERPRETATION: Undesirable: High Risk: Less than 40 MG/DL Desirable: Low Risk: Greater than 60 MG/DL 153 LDL INTERPRETATION: Low Risk Optimal Level: LDL Less than 100 MG/DL Near or Above Optimal: LDL 100-129 MG/DL Borderline High Risk: LDL 130-159 MG/DL High Risk: LDL 160-189 MG/DL Very High Risk: LDL Greater than 189 MG/DL 154 * SERUM LEVELS OF PSA MEASURED USING THE [employer] ACCESS HYBRITECH IMMUNOASSAY SHOULD NOT BE INTERPRETED ABSOLUTE EVIDENCE OF THE PRESENCE OR ABSENCE OF DISEASE. THE PSA VALUE SHOULD BE USED IN CONJUNCTION WITH OTHER PERTINENT CLINICAL DIAGNOSTIC PROCEDURES. A PSA value in the range of 0.1 to 0.6 ng/ml is indeterminate if being used as an indicator of recurrent or residual disease. . 155 -- REFERENCE VALUE -- <=13 (Fasting) Test Performed by: [facility] of Lab Med [facility] Pathology [address] [place] [address] Customer Support Coordinator: Jas Shay III, M.D. 156 Classification: Desirable . 157 Classification: Low . 158 CALCULATED LDL APPROXIMATES THE VALUE OF A DIRECT LDL MEASUREMENT. Classification: Optimal Level . 159 Anion gap measurement may be of limited value in the presence of any alkalosis, especially in a combined acid base disorder. . 160 Classification: Desirable . 161 Classification: Low . 162 CALCULATED LDL APPROXIMATES THE VALUE OF A DIRECT LDL MEASUREMENT. Classification: Near or above optimal . 163 Anion gap measurement may be of limited value in the presence of any alkalosis, especially in a combined acid base disorder. . Procedures Date Code Description Status 12/29/2018 52715 EKG Tracing & Interpretation Completed 11/24/2018 [id number] Diabetic Retinal Eye Exam Completed 09/16/2018 83119 EKG Tracing & Interpretation Completed 09/16/2018 26245 Holter Monitor Review (24 hr)dr review & interp only Completed 09/14/2018 15891 ECG Monitor/Recording W/Visual Superimposition Completed Scanning 09/14/2018 48151 ECG Monitor/Recording W/Visual Superimposition Completed Scanning 09/10/2018 24664 ECHO Transthoracic, Real-Time 2D With Doppler And Completed Color Flow 09/10/2018 32992 ECHO Transthoracic, Real-Time 2D With Doppler And Completed Color Flow 08/12/2018 09897 EKG Tracing & Interpretation Completed 03/03/2018 58791 ECHO Stress Test Incl Perf Contiuous ekg Monitoring Completed W/Phys Superv 01/06/2018 51018 ECHO Transthoracic, Real-Time 2D With Doppler And Completed Color Flow 01/06/2018 62305 ECHO Transthoracic, Real-Time 2D With Doppler And Completed Color Flow 11/24/2017 42954 EKG Tracing & Interpretation Completed 06/01/2017 31718 ECHO Stress Test Incl Perf Contiuous ekg Monitoring Completed W/Phys Superv 06/01/2017 25784 ECHO Stress Test Incl Perf Contiuous ekg Monitoring Completed W/Phys Superv 03/30/2017 40518 EKG Tracing & Interpretation Completed 06/25/2016 92320 EKG Tracing & Interpretation Completed 05/19/2016 85105 Open TX Proximal Humeral FX Incl Fixation When Completed Performed 05/19/2016 89169 Open TX Proximal Humeral FX Incl Fixation When Completed Performed 05/16/2016 81115 EKG Tracing & Interpretation Completed 03/28/2016 46614 Treadmill Interp/Report Only Completed 03/28/2016 94441 Stress Test Supervsn W/Out I/R Completed 03/20/2016 01063 ECHO Transthoracic, Real-Time 2D With Doppler And Completed Color Flow 02/26/2016 92328 EKG Tracing & Interpretation Completed 02/01/2016 03087 Diffusing Capacity Completed 02/01/2016 50647 Plethysmography Determination Lung Volumes & Per Completed Airway Resist 02/01/2016 18699 Pulmonary Function><Bronchodil Completed 03/05/2015 27495 EKG Tracing & Interpretation Completed 02/19/2015 [id number] Colonoscopy Completed 07/28/2014 03971 EKG Tracing & Interpretation Completed 08/26/2013 18089 ECHO Transthoracic, Real-Time 2D With Doppler And Completed Color Flow 07/28/2013 11465 EKG Tracing & Interpretation Completed 12/29/2012 86904 EKG Tracing & Interpretation Completed 09/03/2012 35448 EKG Tracing & Interpretation Completed 03/04/2012 62283 EKG Tracing & Interpretation Completed 10/23/2011 78438 EKG Tracing & Interpretation Completed 08/02/2010 63757 Treadmill Interp/Report Only Completed 08/02/2010 14347 Stress Test Supervsn W/Out I/R Completed 07/09/2010 84446 EKG Tracing & Interpretation Completed 01/18/2009 76774 EKG Tracing & Interpretation Completed 06/12/2008 76530 Color Doppler Completed 06/12/2008 72063 Color Doppler Completed 06/12/2008 57820 Pulse Doppler & Continuous Wave Completed 06/12/2008 36714 Pulse Doppler & Continuous Wave Completed 06/12/2008 60884 Pulse Doppler & Continuous Wave Completed 06/12/2008 11685 Echocardiogram Completed 06/12/2008 91938 Echocardiogram Completed 05/15/2008 33989 Stress Test Supervsn W/Out I/R Completed 05/15/2008 03189 Treadmill Interp/Report Only Completed 05/15/2008 80129 Treadmill Interp/Report Only Completed 05/03/2008 78122 EKG Tracing & Interpretation Completed 11/10/2006 78025 Color Flow Doppler/Interp & Reprt Completed 11/10/2006 75554 Echocardiography, Transesophageal, Real Time W/Image Completed 2D W/W/O M-M 11/10/2006 54515 Echocardiography, Transesophageal, Real Time W/Image Completed 2D W/W/O M-M 11/04/2006 00577 Color Doppler Completed 11/04/2006 88211 Color Doppler Completed 11/04/2006 49822 Pulse Doppler & Continuous Wave Completed 11/04/2006 17910 Echocardiogram Completed 11/04/2006 33474 Echocardiogram Completed 09/09/2004 [id number] Colonoscopy Completed Encounters Type Date Location Provider Dx Diagnosis Office Visit 12/29/2018 [facility] Fili Lino I10 Essential ( primary) 1:30p Chrystal Childress hypertension 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 I48.2 Chronic atrial fibrillation I35.0 Nonrheumatic aortic (valve) stenosis I34.0 Nonrheumatic mitral (valve) insufficiency E78.00 Pure hypercholesterolemia, unspecified R06.00 Dyspnea, unspecified Office Visit 11/26/2018 10:40a [facility] Emmanuel Reginald, Z01.818 Encounter for other Medicine - TURNER OFF preprocedural Pilot examination H26.9 Unspecified cataract I10 Essential (primary) hypertension 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 I48.91 Unspecified atrial fibrillation Office Visit 10/14/2018 3:00p [facility] Internal Biju Bright I65.22 Occlusion and Maria Del Rosario Collins M.D.,FACP stenosis of left [address] carotid artery I10 Essential (primary) hypertension Office Visit 09/16/2018 9:40a [place] Fili Lino I34.0 Nonrheumatic mitral Cardiology Chrystal Childress (valve) insufficiency I48.91 Unspecified atrial fibrillation E78.00 Pure hypercholesterolemia, unspecified 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 Office Visit 08/12/2018 2:00p [facility] Fili Lino I65.23 Occlusion and Chrystal Childress stenosis of bilateral carotid arteries E78.00 Pure hypercholesterolemia, unspecified I10 Essential (primary) hypertension I48.0 Paroxysmal atrial fibrillation 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 Office Visit 07/19/2018 9:00a Pulmonology And Mansi J98.4 Other disorders [facility] Liya of lung [facility] J45.909 Unspecified asthma, uncomplicated 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 prosthetic heart valve 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 I10 Essential (primary) hypertension E78.00 Pure hypercholesterolemia, unspecified I35.0 Nonrheumatic aortic (valve) stenosis Office Visit 11/24/2017 11:00a [facility] Fili Lino I25.10 Athscl heart Chrystal Childress disease of [place] coronary artery w/o ang pctrs I10 Essential (primary) hypertension E78.00 Pure hypercholesterolemia, unspecified R94.31 Abnormal electrocardiogram [ECG] [EKG] I35.0 Nonrheumatic aortic (valve) stenosis Office Visit 03/30/2017 2:20p [facility] Fili Lino I10 Essential (primary) Chrystal Childress hypertension 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 E78.00 Pure hypercholesterolemia, unspecified Office Visit 01/28/2017 Pulmonology And Mansi J45.909 Unspecified asthma , 10:45a Sleep Services Of MD Liya uncomplicated Plastics Repairer 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 humerus, subs for fx w routn heal Z09 Encntr for f/u exam aft trtmt for cond oth than malig neoplm Z87.81 Personal history of (healed) traumatic fracture Office Visit 11/04/2016 9:30a Orthopedic Ganesh Shipman, S42.201D Unsp fx upper Services Of end of r C.M.A. 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 for fx w routn heal Office Visit 07/11/2016 [facility] Tere Ash, I10 Essential 9:15a Cardiology Of [place] (primary) [facility] hypertension 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 D64.9 Anemia, unspecified Office Visit 06/25/2016 1:00p [facility] Fili Lino I10 Essential (primary) Chrystal Childress hypertension D64.9 Anemia, unspecified 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 Office Visit 06/17/2016 1:00p [facility] Internal aJh Easton, J20.9 Acute bronchitis, Medicine - [place] TURNER OFF unspecified Rd Office Visit 06/03/2016 11:10a [facility] Biju Bright D64.9 Anemia, Medicine - [place], unspecified Pilot Chrystal,FACP E87.1 Hypo-osmolality and hyponatremia Office Visit 05/16/2016 3:20p [facility] Internal Emmanuel Montelongo, Z01.818 Encounter for other Medicine - TURNER OFF preprocedural Pilot examination S42.201A Unsp fracture of upper end of right humerus, init I10 Essential (primary) hypertension J45.909 Unspecified asthma, uncomplicated 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 neck of right humerus, init S42.251A Disp fx of greater tuberosity of right humerus, init W16.622A Jump/div in natrl body of wtr strk botm cause oth inj, init Office Visit 05/13/2016 3:20p Orthopedic Nathanael Lee, W16.622A Jump/div in Services Of Chrystal barney body of Vinod wtr strk botm cause oth inj, init S42.291A Oth disp fx of upper end of right humerus, init for clos fx Office Visit 04/21/2016 11:30a Pulmonology And Mansi J92.0 Pleural plaque Sleep Services Of MD Liya with presence Plastics Repairer of asbestos J45.909 Unspecified asthma, uncomplicated Office Visit 04/15/2016 2:00p [facility] Tere Ash, I10 Essential (primary) [place] hypertension R94.30 Abnormal result of cardiovascular function study, unsp E78.0 Pure hypercholesterolemia Office Visit 04/01/2016 8:30a [facility] Tere Ash, I10 Essential (primary) Of Plastics Repairer [place] hypertension R94.30 Abnormal result of cardiovascular function study, unsp R06.00 Dyspnea, unspecified E78.0 Pure hypercholesterolemia Office Visit 03/11/2016 1:20p [facility] Internal Biju Bright Z00.00 Encntr for Maria Del Rosario Collins M.D.,FACP general adult Pilot medical exam w/o abnormal findings I10 Essential (primary) hypertension J45.20 Mild intermittent asthma, uncomplicated D64.9 Anemia, unspecified Z23 Encounter for immunization Office Visit 02/26/2016 9:00a [facility] Fili Lino R06.00 Dyspnea, Chrystal Childress unspecified 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 E78.0 Pure hypercholesterolemia I10 Essential (primary) hypertension R01.1 Cardiac murmur, unspecified Office Visit 01/16/2016 4:00p [facility] Internal Bjiu Bright J92.0 Pleural plaque Maria Del Rosario Collins M.D.,FACP with presence Rd of asbestos R06.02 Shortness of breath D50.8 Other iron deficiency anemias Office Visit 01/14/2016 11:50a [facility] Internal Biju Bright R91.1 Solitary Maria Del Rosario Collins M.D.,FACP pulmonary nodule Rd J11.00 Flu due to unidentified flu virus w unsp type of pneumonia Office 03/05/2015 [place] Fili Lino 272.0 Hypercholesterolemia Pure Visit 8:40a Cardiology Chrystal Childress 401.1 Hypertension Benign Office Visit 08/31/2014 11:30a [facility] GABRIEL Cali 424.0 Mitral Valve Disorder 424.2 Tricuspid Valve Disorder Spec as Nonrheumatic 401.1 Hypertension Benign Office Visit 07/28/2014 2:00p [facility] Fili Lino 401.1 Hypertension Chrystal Childress Benign 300.02 Anxiety Disorder Generalized 424.0 Mitral Valve Disorder 424.2 Tricuspid Valve Disorder Spec as Nonrheumatic 272.0 Hypercholesterolemia Pure Office Visit 11/14/2013 8:30a [facility] Internal Biju Bright V70.0 Examination Medicine Marv Collins M.D.,[facility] Routine AT Health Care Facility 401.1 Hypertension Benign 300.02 Anxiety Disorder Generalized 433.10 Occlusion & Stenosis Carotid Artery W/O Cerebral Infarction Office Visit 07/28/2013 2:40p [facility] Fili Lino 401.1 Natividad Childress M.D. Benign 272.0 Hypercholesterolemia Pure 440.0 Atherosclerosis Aorta Office Visit 01/04/2013 9:00a [facility] Internal Karen Chandler, V72.84 Examination Medicine - N.P. Preoperative Pilot Unspec 401.1 Hypertension Benign 272.0 Hypercholesterolemia Pure 433.10 Occlusion & Stenosis Carotid Artery W/O Cerebral Infarction 300.02 Anxiety Disorder Generalized Office Visit 12/29/2012 11:40a [facility] Fili Lino 401.1 Natividad Childress M.D. Benign 272.0 Hypercholesterolemia Pure Office Visit 09/03/2012 3:20p [facility] Fili Lino 401.1 Natividad Childress M.D. Benign 272.0 Hypercholesterolemia Pure 780.4 Dizziness & Giddiness Office Visit 08/06/2012 11:00a [facility] Nurse Visit 401.1 Hypertension Benign cc Office Visit 07/01/2012 8:30a [facility] Internal Biju Bright V70.0 Examination [facility] Maria Del Rosario Collins, Medical Routine AT [facility] 433.10 Occlusion & Stenosis Carotid Artery W/O Cerebral Infarction 401.1 Hypertension Benign 272.0 Hypercholesterolemia Pure 790.21 Impaired Fasting Glucose 300.02 Anxiety Disorder Generalized V06.1 Exegsuipag-Zmuddjk-Mgqjgxul Combined (DTaP) Office 03/04/2012 [place] Fili Lino 272.0 Hypercholesterolemia Pure Visit 3:40p Cardiology Chrystal Childress 401.1 Hypertension Benign Office Visit 10/23/2011 1:40p [facility] Fili Lino 401.1 Hypertension Chrystal Childress Benign 272.0 Hypercholesterolemia Pure Office Visit 06/09/2011 9:00a DO Not Use Plastics Repairer Karen Chandler, 401.1 Hypertension AT [facility] Benign 599.72 Microscopic Hematuria 433.10 Occlusion & Stenosis Carotid Artery W/O Cerebral Infarction Office Visit 04/09/2011 2:00p DO Not Use Plastics Repairer iBju Bright V70.0 Examination AT Howard Collins M.D.,FACP General Medical Routine AT Health Care Facility 401.1 Hypertension Benign 433.10 Occlusion & Stenosis Carotid Artery W/O Cerebral Infarction 599.72 Microscopic Hematuria Office Visit 07/09/2010 9:00a [facility] Fili Lino 401.1 Hypertension Chrystal Childress Benign 729.5 Pain In Limb 440.0 Atherosclerosis Aorta Office Visit 01/30/2010 3:00p DO Not Use Plastics Repairer Biju Bright 790.21 Impaired AT Albanymary Collins M.D.,FAC Fasting Glucose 276.1 Hyposmolality & Or Hyponatremia 401.1 Hypertension Benign 433.11 Occlusion & Stenosis Carotid Artery Cerebral Infarction Office Visit 07/02/2009 DO Not Use Plastics Repairer Biju Bright 482.49 Staphylococcus 8:40a AT Howard Collins M.D.,FAC Pneumonia 401.1 Hypertension Benign 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 276.1 Hyposmolality & Or Hyponatremia 599.72 Microscopic Hematuria V03.82 Streptococcus Pneumoniae Vaccination Spec Other Office Visit 03/13/2009 2:40p DO Not Use Plastics Repairer AT Biju Collins, 729.5 Pain In Limb Albanymary Jarrell,FACP 728.88 Rhabdomyolysis Office Visit 03/05/2009 1:00p DO Not Use Plastics Repairer Nancy Ramirez PA 733.99 Bone & Cartilage AT [facility] Disorder Other 401.1 Hypertension Benign 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 Office Visit 01/18/2009 9:20a [facility] Fili Lino 401.1 Hypertension Chrystal Childress Benign 272.2 Hyperlipidemia Mixed 440.0 Atherosclerosis Aorta Office Visit 09/18/2008 DO Not Use Nancy Ramirez PA 719.46 Pain Joint Lower 8:30a Plastics Repairer AT [facility] Office Visit 05/22/2008 DO Not Use Biju Collins, 401.1 Hypertension 9:20a Plastics Repairer AT Chrystal,[facility] Benign [facility] 272.2 Hyperlipidemia Mixed Office Visit 05/03/2008 1:40p [facility] Fili Lino 401.0 Hypertension Chrystal Childress Malignant 272.2 Hyperlipidemia Mixed 440.0 Atherosclerosis Aorta Office Visit 03/21/2008 DO Not Use Plastics Repairer Nancy Ramirez PA 272.2 Hyperlipidemia Mixed 9:00a AT [facility] 401.1 Hypertension Benign 440.0 Atherosclerosis Aorta Office Visit 12/22/2007 3:00p DO Not Use Greg Bright V70.0 Examination AT [facility] Chrystal Collins,[facility] General Medical Routine AT Health Care Facility 433.10 Occlusion & Stenosis Carotid Artery W/O Cerebral Infarction 272.2 Hyperlipidemia Mixed 401.1 Hypertension Benign V05.8 Single Disease Spec Other Vaccination & Inoculation Plan of Treatment Future Appointment(s):02/11/2019 8:30 am - Fili Childress M.D. at [facility]05/23/2019 1:40 pm - Ronna Borges MD at [facility] Internal Medicine [facility]01/17/2019 - Mansi Nickerson MDJ43.9 Emphysema, unspecifiedFollow up:1 year , CT chest itlwsV04.4 Other disorders of lungJ45.20 Mild intermittent asthma, uncomplicated
--- OUTSIDE RECORDS SUMMARY | 2019-01-25 19:28 | XMS REPORT | Continuity of Care Document ---
:1945 External Reference #:[id number] Author Name William Scherer M.D. Address [address] [facility] [address] Care Team Providers Name Role Phone Tung Schmitz M.D. Primary Care Physician Unavailable Payers Date Identification Numbers Payment Provider Subscriber Policy Number: [id number] Medicare - NGS Karson Ortega PayID: [id number] [place] [address] Policy Number: [id number] [facility] Karson Jordan PayID: [id number] [place] [address] Advance Directives Description No Information Available Problems Date Description Provider Status Onset: Essential hypertension Active Onset: Hypercholesterolemia Active Onset: Anxiety Active Onset: Vitamin D deficiency Active Onset: 09/03/2017 Nuclear senile cataract William Scherer M.D. Active Onset: 09/03/2017 Chronic allergic conjunctivitis William Scherer M.D. Active Onset: 09/03/2017 Tear film insufficiency William Scherer M.D. Active Onset: 09/03/2017 Trichiasis of left eye William Scherer M.D. 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 eye one times a day, start the day before surgery Prednisolone 12/01/ Active Suspension 1% 10ml 1 drops William Acetate 2019 right eye Mayai, one times M.D. a day. taper as directed Eliquis 11/23/ Active Tablets 5mg 2 tablet Unknown 2019 daily Olopatadine HCL 09/03/ Active Solution 0.1% 10ml use one H10.45 William 2016 drop to Niesha, both M.D. eyes, once a day when itchy Norvasc / Active Tablets 5mg 2 tablets Unknown 0000 daily Irbesartan / Active Tablets 150mg Unknown 0000 Doxazosin / Active Tablets 4mg 1 tablet Unknown Mesylate 0000 daily Rosuvastatin / Active Tablets 5mg Unknown Calcium 0000 Citalopram / Active Tablets 10mg Unknown Hydrobromide 0000 Aspirin / Active Tablets DR 81mg Unknown 0000 Folic Acid / Active Tablets 800mcg Unknown 0000 Nitroglycerin / Active Capsules ER 2mg Unknown ER 0000 Vitamin D3 / Active Capsules 2000Unit 1 tablet Unknown 0000 daily in the winter Vigamox 12/01/ Hx Solution 0.5% 3ml one drop William 2018 - left eye Niesha, 12/17/ three M.D. 2019 times a day, start the day before surgery Toprol XL / Hx Tablets ER 5mg Unknown 0000 - 24HR 2018 Clear Eyes / Hx Solution 0.012-0.2- Unknown Seasonal Relief 0000 - 0.25% 2018 Immunizations Description No Information Available Vital Signs Description No Information Available Results Description No Information Available Procedures Date Code Description Status 12/13/2018 24697 Extracapsular Cataract Extraction W/Intraocular Lens Completed 12/06/2018 95993 Extracapsular Cataract Extraction W/Intraocular Lens Completed 12/01/2018 86399 Ophthalmic Biometry Completed 12/01/2018 92887 Ophthalmic Biometry Completed 12/01/2018 23454 Est Patient Intermediate Exam Completed 11/24/2018 67181 Est Patient Comprehensive Exam Completed 09/03/2017 86098 Determination Of Refractive State Completed 09/03/2017 14604 New Patient Comprehensive Exam Completed Encounters Description No Information Available Plan of Treatment 12/28/2018 - William Scherer M.D.Z96.1 Presence of intraocular lensComments: Smoking can increase the risk of developing or worsening any eye related disease , as well as affect your overall health. If you are a smoker, we strongly recommend that you quit.If you are not a smoker, we strongly recommend that you do not start. Your lens implant looks stable in both eyes at this time. You should be done, or almost done with your drops at this time according to your surgical calendar. I have given you a prescription for glasses. If you have any questions, please feel free to call our office at .Follow up: 1 Year Follow Up DFE You can expect to have your eyes dilated at your next visit. If Dr. Scherer orders any additional testing, it may require extra time. We recommend that you bring sunglasses, as dilation drops often make you light sensitive until they wear off. We always recommend you bring someone to drive you home if you are uncomfortable driving with your eyes dilated. If you have any questions before your next visit, feel free to call our office at [phone].
--- OUTSIDE RECORDS SUMMARY | 2019-01-25 19:28 | XMS REPORT | Continuity of Care Document ---
:1945 External Reference #:[id number] Author Name DarshanRex roberts Care Team Providers Name Role Phone Biju Collins MD Primary Care Physician Unavailable Payers Date Identification Numbers Payment Provider Subscriber Effective: 2008 Policy Number: [id number] Medicare Leo Ortega PayID: [id number] [address] [place] [address] Policy Number: [id number] [facility] Leo Ortega Group Name: [id number] [address] [address] PayID: [id number] [place] [address] Advance Directives Description No Information Available Problems [...] right Onset: 07/02/2009 Microscopic hematuria Carley Mcnair M.D., FACP Onset: 03/04/2012 Pure hypercholesterolemia Carley Figueroa M.D. 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 Recreational Drug Use Denies Drug Use Tobacco Use Start: Unknown End: Patient is a former Unknown smoker Smoking Status Reviewed: 12/29/18 Patient is a former smoker Exercise Type/Frequency [...] 08/13/20 Active Tablets 5mg 180ta 1 by Fiil Villegas bs melvi Childress, twice a M.D. day [...] one Biju Hydrobromide 00 s tablet by aKila Collins, mouth M.D.,FACP once daily Doxazosin Active Tablets 4mg 90tab 1 by I10 Biju Mesylate 00 s mouth Kaila Collins, every day M.D.,FACP Vitamin D Active Capsules 2000Unit 1 by Unknown (Ergocalcifero [...] by J20.9 Jah 16 - mouth on Georgian, SPECIMEN COLLECTOR 06/24/20 day 1; 1 16 tab by mouth every day on days 2-5 Cephalexin 05/20/20 Hx Capsules 500mg 28cap 1 by Ann 16 - s mouth Bordoni, 05/27/20 four SPECIMEN COLLECTOR 16 times a day for 7 days Oxycodone-Acet 05/14/20 Hx Tablets 5-325mg 60tab 1 or 2 by S42.201D Dirk aminophen 16 - s mouth Jesus, 06/03/20 every 4 M.D. 16 hours as needed pain Metoprolol 04/01/20 Hx Tablets ER 25mg 45tab Take R94.30 Biju Succinate ER 16 - 24HR s One-Half D. Tignall, 09/12/20 Tablet By Chrystal,FACP 18 Mouth Once [...] tab PO Fili 14 - bid F. Monroe, 07/28/20 M.D. 14 Benicar 07/28/20 Hx Tablets 20mg 30tab 1 by Fili 14 - s mouth FRochelle Childress, 08/06/20 every day M.D. 14 Triamcinolone 11/14/19 [...] po Fili Sodium 13 - s qd Zoie Childress, 07/28/20 M.D. 13 Lisinopril 02/25/20 Hx Tablets 10mg 180ta 2 po bid Fili 13 - bs Zoie Childress, 07/28/20 M.D. 14 Pravachol 12/29/19 Hx Tablets 10mg 100ta 1/2 po qd Fili 13 - bs Zoie Childress, 07/28/20 M.D. 13 Lipitor 09/13/20 Hx Tablets 10mg 90tab 1/2 tab Fili 12 - s po qhs Zoie Childress, 12/29/19 M.D. 13 Toprol XL 09/03/20 Hx Tablets ER 25mg 45tab 1/2 by Lambert 12 - 24HR s mouth Dillon, 02/26/20 every day M.D. 16 Norvasc 09/03/20 Hx Tablets 5mg 180ta 2 tabs by Biju 12 - bs mouth D. Tignall, 05/18/20 daily M.Kaila,FACP 18 Celexa 08/18/20 Hx Tablets 10mg 90tab 1qd - 296.82 Biju 12 - s Take One D. Tignall, 03/02/20 Tablet By Chrystal,FACP 13 Mouth Every Day Toprol XL 03/22/20 Hx Tablets ER 25mg 90tab 1 po qd Fili 12 - 24HR s Zoie Childress, 09/03/20 M.D. 12 Toprol XL 03/04/20 Hx [...] tab Fili 11 - s po qhs Zoie Childress, 09/13/20 hold as M.D. 12 of 09.03.12 Amlodipine 10/23/20 Hx Tablets 2.5mg 200ta 3 po qd 401.1 Fili Besylate 11 - bs FRochelle Mauselyudmila, 11/18/19 M.D. 12 Toprol XL 10/23/20 Hx Tablets ER 50mg 100ta 1/2 po qd Fili 11 - 24HR bs Zoie Childress, 03/04/20 M.D. 12 Amlodipine 04/09/20 Hx Tablets 2.5mg 90tab 1 po qd 401.1 Biju Besdarion 11 - s Kaila Collins, 10/23/20 M.D.,FACP 11 Citalopram 06/01/20 Hx Tablets 10mg 90tab Take One 296.82 [...] s Tablet By Kaila Collins, 07/28/20 Mouth Chrystal,FACP 13 Every Day Toprol XL 08/19/20 Hx Tablets ER 50mg 90tab 1 po qd Fili 10 - 24HR s Zoie Childress, 10/23/20 M.DRochelle 11 Toprol XL 08/06/20 Hx Tablets ER 25mg 180ta 2 po qd Fili 10 - 24HR bs Zoie Childress, 08/19/20 M.DRochelle 10 Avodart 07/09/20 Hx Capsules 0.5mg 1 po qd Biju 10 - Kaila Collins, 10/08/20 Chrystal,FACP 10 Norvasc 07/09/20 Hx Tablets 2.5mg 4tabs 2 po qd Fili 10 - The Day Zoie Childress, 04/09/20 Before M.DRochelle 11 And The Day Of The Stress Test Lisinopril/Hyd 03/30/20 Hx Tablets 20-12.5mg 90tab Take One Biju rochlorothiazi 10 - s Tablet By Moses 10/27/20 Mouth M.Kaila,FACP 11 Every Day Iron 01/19/20 Hx Tablets [...] 719.46 Biju 08 - s pain D. Tignall, 01/19/20 M.D.,FACP 09 Vicodin 09/18/20 Hx Tablets 5-500mg 45tab 1 q 4-6 719.46 Biju 08 - s hours prn D. Ainsley, 12/04/19 M.D.,FACP 09 Simcor 05/22/20 Hx Tablets ER 1000-20 90tab 1 po qhs 272.2 Biju 08 - 24HR s Kaila Collins, 05/25/20 M.D.,FACP 08 Aspirin 05/03/[address] 325mg 30tab 1 PO qd Fili 08 - s Zoie Childress, 01/19/20 M.D. 09 Naprosyn 05/03/20 Hx Tablets 500mg 1 PO bid Biju 08 - prn Kaila Collins, 05/03/20 M.D.,FACP 08 Glucosamine 05/03/20 Hx Capsules 500mg 1 PO bid Fili 08 - FRochelle Childress, 07/09/20 M.D. 10 Fish Oil 05/03/20 Hx Capsules 1000mg 90cap 1 PO bid Fili 08 - s Zoie Childress, 07/01/20 M.D. 12 Vitamins E 05/03/20 Hx tablet qod Fili - FRochelle Childress, 01/19/20 M.D. 09 Folic Acid 05/03/20 Hx Capsules 1 PO qd Fili 08 - FRochelle Childress, 07/09/20 M.D. 10 Calcium 05/03/20 Hx Tablets 1 PO qd Fili 08 - FRochelle Childress, 01/19/20 M.D. 09 Niaspan 03/21/20 Hx Tablets [...] Hx Tablets 2mg 90tab Take One I10 [place] Mesylate 08 - s Tablet By Vazquez, 10/14/20 Mouth M.D. 18 Twice Daily Avodart 12/13/19 Hx 0.500Each 90uni 1qd - Biju 08 - ts Take One Kaila Collins, 07/09/20 Capsule M.D.,FACP 10 By Mouth Every Day Lisinopril/Hyd Hx Tablets 20-12.5 90tab 1 PO qd Biju rochlorothiazi 00 - s Kaila Collins, de 03/30/20 [...] Sodium 00 - s qd S. 02/25/20 Magharichard, 13 M.D. Fish Oil Hx Capsules 1000mg [...] Code Status Date Vaccine Reaction Lot # [id number] Given 08/04/2018 Influenza Virus Vaccine, [id number] Quadrivalent, Split, Preservative Free 95628 Given 09/10/2017 Influenza Virus Vaccine, [id number] Quadrivalent, Split, Preservative Free 28720 Given 09/04/2016 Influ Virus Vaccine, no immediate reaction [id number] Quadrivalent, Split Virus, noted [place] [address] Given 03/11/2016 Pneumococcal Conjugate [id number] Vaccine 13 Valent For Intramuscular Use 38014 Given 08/29/2015 Influenza Virus Vaccine, [id number] Quadrivalent, Split, Preservative Free 17149 Given 09/13/2014 Flu Vaccine Split Virus [id number] Preservative Free For Indiv 3Yr Older 53038 Given 09/19/2013 Flu Vaccine Split Virus Preservative Free For Indiv 3Yr Older Q2037 Given 09/17/2012 Fluvirin Im 3Yrs And Older [id number] 99905 Given 07/01/2012 Tdap - [id number] Tetanus/Diptheria/Acellula r Pertussis 41828 Given 12/10/2009 Administration Swine Flu Shot 76285 Given 12/10/2009 Influenza Virus Vaccine, [id number] Pandemic Formulation 83699 Given 08/29/2009 Influenza Virus 3Yrs & [id number] Over 00993 Given 07/02/2009 Pneumonia Vaccine [id number] 15246 Given 08/15/2008 Influenza Virus 3Yrs & [id number] Over 08442 Given 12/22/2007 Zoster (Zostavax) 02893 Given 12/22/2007 Zoster (Zostavax) 48297 Given 12/22/2007 Zoster (Zostavax) [id number] 14639 Given 09/13/2007 Influenza Virus 3Yrs & Over 62201 Given 09/13/2007 Influenza Virus 3Yrs & Over 21460 Given 09/13/2007 Influenza Virus 3Yrs & [id number] Over Vital Signs Date Vital Result Comment 12/29/2018 1:06pm Height 66.5 inches 5'6.50" Weight [...] Result H/L Range Note CBC Auto Diff 02/19/2018 [facility] White Blood 5.8 10^3/uL N 3.5-10.[address] [place] [address] [phone] Red Blood Count 4.54 10^6/uL N 4.0-5.4 [...] Blood Cells % 0.1 Laboratory test 02/19/2018 [facility] Erythrocyte Sed 20 mm/Hr N 0-[address] [place] [address] [phone] C Reactive Protein 2.00 mg/L N < 5.00 1 Basic Metabolic 01/22/2018 [facility] Sodium 130 mmol/L Low 133-[address] [place] [address] [phone] Potassium 4.1 mmol/L N 3.5-5.0 Chloride 97 mmol/L Low 101-111 Co2 Carbon Dioxide 26 mmol/L N 22-32 Anion Gap 7 mmol/L N 2-11 Glucose 101 mg/dL High 70-100 Blood Urea Nitrogen 11 mg/dL N 6-24 Creatinine 0.94 mg/dL N 0.67-1.17 BUN/Creatinine Ratio 11.7 N 8-20 Calcium 9.3 mg/dL N 8.6-10.3 Egfr Non- 78.4 >60 Egfr 100.9 >60 2 Basic Metabolic 12/23/2017 [facility] Sodium 129 mmol/L Low 133-[address] [place] [address] [phone] Potassium 4.4 mmol/L N 3.5-5.0 Chloride 98 mmol/L Low 101-111 Co2 Carbon Dioxide 24 mmol/L N 22-32 Anion Gap 7 mmol/L N 2-11 Glucose 100 mg/dL N 70-100 Blood Urea Nitrogen 9 mg/dL N 6-24 Creatinine 0.78 mg/dL N 0.67-1.17 BUN/Creatinine Ratio 11.5 N 8-20 Calcium 9.1 mg/dL N 8.6-10.3 Egfr Non- 97.3 >60 Egfr 125.1 >60 3 Lipid Profile 11/27/2017 [facility] Triglycerides 88 mg/dL 4 (Trig/Chol/HDL) [address] [place] [address] [phone] Cholesterol 101 mg/dL 5 HDL Cholesterol 31.8 mg/dL 6 LDL Cholesterol 52 mg/dL 7 Comp Metabolic Panel 11/27/2017 [facility] Sodium 131 mmol/L Low 133-145 [address] [place] [address] [phone] Potassium 4.4 mmol/L N 3.5-5.0 Chloride 99 [...] Egfr Non- 95.9 >60 Egfr 123.3 >60 8 Lipid Panel - 11/27/2017 [facility] Creatine 105 U/L N 10-223 [address] Kinase(CK) [place] [address] [phone] CBC Auto Diff 11/27/2017 [facility] White Blood Count 5.2 N 3.5-10.[address] 10^3/[place] [address] [phone] Red Blood Count 4.05 10^6/uL N 4.0-5.4 [...] Red Blood Cells % 0.1 Laboratory test 09/10/2017 [facility] PSA Screening 0.751 ng/mL N 0-4.[address] [place] [address] [phone] Lipid Profile 05/29/2017 [facility] Triglycerides 80 mg/dL N 11 (Trig/Chol/HDL) [address] [place] [address] [phone] Cholesterol 97 mg/dL N 12 HDL Cholesterol 32.2 mg/dL N 13 LDL Cholesterol 49 mg/dL N 14 Comp Metabolic Panel 05/29/2017 [facility] Sodium 131 mmol/L Low 133-[address] [place] [address] [phone] Potassium 4.2 mmol/L N 3.5-5.0 Chloride 99 [...] 89.3 N >60 Egfr 114.9 N >60 15 Lipid Panel - 05/29/2017 [facility] Creatine 197 U/L N 10-[address] Kinase(CK) [place] [address] [phone] Lipid Panel - 12/11/2016 [facility] Creatine 118 U/L N 10-223 [address] Kinase(CK) [place] [address] [phone] Comp Metabolic 12/11/2016 [facility] Sodium 132 Low 133-[address] mmol/[place] [address] [phone] Potassium 4.0 mmol/L N 3.5-5.0 Chloride 99 [...] 87.2 N >60 Egfr 112.1 N >60 17 Lipid Profile 12/11/2016 [facility] Triglycerides 86 mg/dL N 18 (Trig/Chol/HDL) [address] [place] [address] [phone] Cholesterol 148 mg/dL N 19 HDL Cholesterol 37.6 mg/dL N 20 LDL Cholesterol 93 mg/dL N 21 CBC Auto Diff 12/11/2016 [facility] White Blood 6.9 10^3/uL N 3.5-10.[address] [place] [address] [phone] Red Blood Count 4.39 10^6/uL N 4.0-5.4 [...] Cells % 0.1 N Basic Metabolic 06/17/2016 [facility] Sodium 132 mmol/L Low 133-[address] [place] [address] [phone] Potassium 4.1 mmol/L N 3.5-5.0 Chloride 99 mmol/L Low 101-111 Co2 Carbon Dioxide 25 mmol/L N 22-32 Anion Gap 8 mmol/L N 2-11 Glucose 99 mg/dL N 70-100 Blood Urea Nitrogen 21 mg/dL N 6-24 Creatinine 1.17 mg/dL N 0.67-1.17 BUN/Creatinine Ratio 17.9 N 8-20 Calcium 8.9 mg/dL N 8.6-10.3 Egfr Non- 61.1 N >60 Egfr 78.6 N >60 22 Laboratory test 06/17/2016 [facility] Osmolality 277 mOsm/kg N 275 - [address] Serum [address] [place] [address] [phone] CBC Auto Diff 06/17/2016 [facility] White Blood 8.8 10^3/uL N 3.5-10.[address] [place] [address] [phone] Red Blood Count 3.78 10^6/uL Low 4.0-5.4 [...] Cells % 0.1 N Laboratory test 05/21/2016 [facility] Methylmalonic 0.22 N <= 0.40 [address] Acid Mma nmol/[place] [address] [phone] Homocysteine 13 mcmol/L N 25 Haptoglobin 202 mg/dL Abnormal 30 - 200 26 Laboratory test 05/19/2016 [facility] HIV (1&2) Nonreactive N Nonreactive finding [address] [place] [address] [phone] Hepatitis C Antibody Nonreactive N Nonreactive Type & Screen 05/16/2016 [facility] Patient Blood Type A Positive N [address] [place] [address] [phone] Antibody Screen NEGATIVE N Inr/Protime 05/16/2016 [facility] Inr 0.98 N 0.89-1.[address] [place] [address] [phone] CBC Auto Diff 05/16/2016 [facility] White Blood 7.8 10^3/uL N 3.5-10.[address] [place] [address] [phone] Red Blood Count 3.32 10^6/uL Low 4.0-5.4 [...] % 0 N Comp Metabolic Panel 05/16/2016 [facility] Sodium 131 mmol/L Low 133-[address] [place] [address] [phone] Potassium 4.4 mmol/L N 3.5-5.0 Chloride 95 [...] 77.7 N >60 Egfr 99.9 N >60 27 Order 03/20/2016 [facility] Echocardiogram <pending > [address] [place] [address] [phone] Iron & Iron 02/28/2016 [facility] Iron 76 g/dL N 50-[address] 2 [place] [address] [phone] Unsaturated Iron Binding 322 g/dL N Total Iron Binding Capacity 398 g/dL N 250-450 % Iron Saturation 19 % N 15-55 Laboratory test 02/28/2016 [facility] Ferritin 201.8 ng/mL N 24-[address] [place] [address] [phone] Vitamin B12 357 pg/mL N 180-914 28 Retic Count 02/28/2016 [facility] Retic Count 1.9 % High 0.5- 1.[address] [place] [address] [phone] Corrected Retic Count 1.7 % High 0.5-1.5 Maturation Factor Retic 1.0 N Retic Index 1.70 N Mean Retic Volume 113.0 N Immature Retic Fraction 0.39 N RBC Retic Count 4.14 10^6/uL Low 4.6-6.2 Hematocrit for Retic CNT 41 % Low 42-52 Lipid Panel - 01/15/2016 [facility] Creatine 59 U/L N 10-223 [address] Kinase([place]) [place] [address] [phone] Laboratory test 01/15/2016 [facility] PSA Screening 0.853 N 0- 4.0 [address] ng/[place] [address] [phone] Comp Metabolic 01/15/2016 [facility] Sodium 130 Low 133-[address] mmol/[place] [address] [phone] Potassium 4.5 mmol/L N 3.5-5.0 Chloride 96 [...] 104.0 N >60 Egfr 133.7 N >60 31 Lipid Profile 01/15/2016 [facility] Triglycerides 133 mg/dL N 32 (Trig/Chol/HDL) [address] [place] [address] [phone] Cholesterol 140 mg/dL N 33 HDL Cholesterol 28.2 mg/dL N 34 LDL Cholesterol 85 mg/dL N 35 CBC Auto Diff 01/15/2016 [facility] White Blood 7.2 10^3/uL N 3.5-10.[address] [place] [address] [phone] Red Blood Count 4.17 10^6/uL N 4.0-5.4 [...] Blood Cells % 0.1 N Surgical 02/19/2015 [facility] S RUN DATE: [address] 02/21/ <[place] [address] NOTE> [phone] Laboratory test 08/15/2014 TSH (Thyroid 3.40 IU/mL N 0.34- 37, 38 finding Stimulating 5.60 Horm) PSA Screening 0.802 ng/mL N 0-4.0 39 Lipid Profile (Trig/Chol/HDL) 08/15/2014 Triglycerides 131 mg/dL N 40 Cholesterol 132 mg/dL N 41 HDL Cholesterol 38.1 mg/dL N 42 LDL Cholesterol 68 mg/dL N 43 Comp Metabolic Panel 08/15/2014 Sodium 131 mmol/L [...] 79.1 N >60 Egfr 101.7 N >60 44 Lipid Panel - [facility] 08/15/2014 Creatine Kinase 82 U/L N 10-223 45 CBC Auto Diff 08/15/2014 White Blood Count 6.2 10^3/uL N 4.8-10.8 Red Blood Count 4.11 10^6/uL N 4.0-5.4 [...] Blood Cells % 0.1 N Basic Metabolic 09/30/2013 [facility] Sodium 132 mmol/L Low 133-[address] [place] [address] [phone] Potassium 4.0 mmol/L 3.5-5.0 Chloride 102 mmol/L 101-111 Co2 Carbon Dioxide 26.0 mmol/L 22-32 Anion Gap 4.0 mmol/L 2-11 Glucose 127 mg/dL High 70-100 Blood Urea Nitrogen 10 mg/dL 6-24 Creatinine 1.10 mg/dL 0.50-1.40 BUN/Creatinine Ratio 9.1 8-20 Calcium 9.1 mg/dL 8.1-9.9 Egfr Non- 66.2 >60 Egfr 85.1 >60 46 Laboratory test 08/31/2013 [facility] PSA Screening 0.62 ng/mL 0-4.0 finding [address] [place] [address] [phone] Comp Metabolic 08/31/2013 [facility] Sodium 131 mmol/L Low 133 -145 Panel [address] [place] [address] [phone] Potassium 4.5 mmol/L 3.5-5.0 Chloride 99 mmol/L [...] Egfr Non- 111.5 >60 Egfr 143.4 >60 47 Lipid Profile 08/31/2013 [facility] Triglycerides 166 mg/dL 40-200 (Trig/Chol/HDL) [address] [place] [address] [phone] Cholesterol 146 mg/dL Less than 200 HDL Cholesterol 33 mg/dL Low 40-60 48 Cholesterol/HDL Ratio 4.4 Average 1-4.44 LDL Cholesterol 79.8 Less Than 100 49 Laboratory test 08/31/2013 [facility] Creatine 150 U/L 0-200 [address] Kinase [place], [place] [address] [phone] CBC Auto Diff 08/31/2013 [facility] White Blood 7.0 4.8-10.[address] Count 10^3/[place] [address] [phone] Red Blood Count 4.30 10^6/uL 4.0-5.4 Hemoglobin [...] Blood Cells % 0.1 Lipid Panel - 02/17/2013 [facility] Creatine Kinase 96 U/L 0- 200 [address] [place] [address] [phone] Comp Metabolic 02/17/2013 [facility] Sodium 134 133-[address] mmol/[place] [address] [phone] Potassium 4.3 mmol/L 3.5-5.0 Chloride 100 mmol/L [...] Egfr Non- 111.8 >60 Egfr 143.8 >60 52 Lipid Profile 02/17/2013 [facility] Triglycerides 88 mg/dL 40 -200 (Trig/Chol/HDL) [address] [place] [address] [phone] Cholesterol 170 mg/dL Less than 200 HDL Cholesterol 39 mg/dL Low 40-60 53 Cholesterol/HDL Ratio 4.4 Average 1-4.44 LDL Cholesterol 113.4 mg/dL High Less Than 100 54 CBC With 01/04/2013 [facility] White Blood 7.0 10^3/uL 4.8- 10.8 Manual Diff [address] [place] [address] [phone] Red Blood Count 4.40 10^6/uL 4.0-5.4 Hemoglobin [...] Morphology Normal Normal Basic Metabolic Panel 01/04/2013 [facility] Sodium 133 mmol/L 133-145 [address] [place] [address] [phone] Potassium 4.3 mmol/L 3.5-5.0 Chloride 99 mmol/L Low 101-111 Co2 Carbon Dioxide 27.0 mmol/L 22-32 Anion Gap 7.0 mmol/L 2-11 Glucose 94 mg/dL 70-100 Blood Urea Nitrogen 9 mg/dL 6-24 Creatinine 0.70 mg/dL 0.50-1.40 BUN/Creatinine Ratio 12.9 8-20 Calcium 9.1 mg/dL 8.1-9.9 Egfr Non- 111.8 >60 Egfr 143.8 >60 55 Laboratory test 11/05/2012 [facility] PSA Diagnostic 0.41 ng/mL 0-4.0 56 finding [address] [place] [address] [phone] Lipid Panel - 11/05/2012 [facility] Creatine Kinase 89 U/L 0- 200 JFM [address] [place] [address] [phone] Comp Metabolic 11/05/2012 [facility] Sodium 135 mmol/L 133- 145 Panel [address] [place] [address] [phone] Potassium 4.3 mmol/L 3.5-5.0 Chloride 100 mmol/L [...] Egfr Non- 111.8 >60 Egfr 143.8 >60 57 Lipid Profile 11/05/2012 [facility] Triglycerides 101 mg/dL 40-200 (Trig/Chol/HDL) [address] [place] [address] [phone] Cholesterol 126 mg/dL Less than 200 HDL Cholesterol 32 mg/dL Low 40-60 58 Cholesterol/HDL Ratio 3.9 Average 1-4.44 LDL Cholesterol 73.8 mg/dL Less Than 100 59 Laboratory test 11/05/2012 [facility] TSH (Thyroid 2.54 0.34- 5.[address] Stimulating miu/[place] [address] Horm) [phone] Laboratory test 06/25/2012 [facility] CPK (Creatine 190 U/L 0 -200 finding [facility] Kinase) [place], [place] [phone] Lipid Profile 06/25/2012 [facility] Triglyceride 156 mg/dL 40 -200 (Trig/Chol/HDL) [address] [place], [place] [phone] Cholesterol 122 mg/dL Less Than 200 60 High Density Lipoprotein 35 mg/dL Low 40-60 61 Cholesterol/HDL Ratio 3.49 AVERAGE 1-4.97 Low Density Lipoprotein 56 mg/dL Less Than 100 62 Comp Metabolic Panel 06/25/2012 [facility] Sodium 133 mmol/L Low 135-145 [address] [place], [place] [phone] Potassium 4.3 mmol/L 3.5-5.0 Chloride 100 mmol/L Low 101-111 Co2 (Carbon Dioxide) 27.0 mmol/L 22-32 Anion Gap 6.0 mmol/L 2-11 63 Glucose 87 mg/dL 70-100 BUN 9 mg/dL 6-24 Creatinine 0.9 mg/dL 0.50-1.40 One Over Creatinine 1.11 BUN/Creatinine Ratio 10.0 8-20 Calcium 9.1 mg/dL 8.1-9.9 Total Protein 7.4 GM/DL 6.2-8.1 Albumin 4.1 GM/DL 3.2-5.2 Globulin 3.3 GM/DL 2-4 Albumin/Globulin Ratio 1.2 1-3 Bilirubin Total 1.7 mg/dL High 0.4-1.5 64 Alkaline Phosphatase 91 U/L 39-117 Alt (SGPT) 25 U/L 17-63 Ast (Sgot) 33 U/L 12-42 eGFR Non- 83.7 > 60 eGFR 107.6 > 60 65 Laboratory test 12/19/2011 [facility] Vitamin B12 371 pg/mL 180-[address] [place] [address] [phone] Folic Acid 23.9 NG/ML See Below 66 Iron & Iron Binding 12/19/2011 [facility] Iron Total 116 g/dL 45-[address] [place] [address] [phone] Unsaturated Iron Binding 254 g/dL Total Iron Binding Capacity 370 g/dL 250-450 % Iron Saturation 31 % 15-55 CBC Auto Diff 12/19/2011 [facility] White Blood 7.6 CUMM 4.8- 10.[address] [place] [address] [phone] Red Cell Count 3.93 CUMM Low 4.6-6.2 [...] Eosinophils 0.3 0-0.6 Abs Basophils 0 0-0.2 67 Laboratory test 12/19/2011 [facility] CPK (Creatine 137 U/L 0 -[address] Kinase) [place] [address] [phone] TSH 2.12 MIU/ML 0.34-5.60 Lipid Profile 12/19/2011 [facility] Triglyceride 116 mg/dL 40 -200 (Trig/Chol/HDL) [address] [place] [address] [phone] Cholesterol 114 mg/dL Less Than 200 68 High Density Lipoprotein 29 mg/dL Low 40-60 69 Cholesterol/HDL Ratio 3.93 AVERAGE 1-4.97 Low Density Lipoprotein 62 mg/dL Less Than 100 70 Comp Metabolic Panel 12/19/2011 [facility] Sodium 133 mmol/L Low 135-145 [address] [place] [address] [phone] Potassium 4.3 mmol/L 3.5-5.0 Chloride 98 mmol/L Low 101-111 Co2 (Carbon Dioxide) 30.0 mmol/L 22-32 Anion Gap 5.0 mmol/L 2-11 71 Glucose 102 mg/dL High 70-100 BUN 14 mg/dL 6-24 Creatinine 1.0 mg/dL 0.50-1.40 One Over Creatinine 1.00 BUN/Creatinine Ratio 14.0 8-20 Calcium 9.0 mg/dL 8.1-9.9 Total Protein 7.1 GM/DL 6.2-8.1 Albumin 3.9 GM/DL 3.2-5.2 Globulin 3.2 GM/DL 2-4 Albumin/Globulin Ratio 1.2 1-3 Bilirubin Total 1.4 mg/dL 0.4-1.5 72 Alkaline Phosphatase 89 U/L 39-117 Alt (SGPT) 46 U/L 17-63 Ast (Sgot) 37 U/L 12-42 eGFR Non- 74.3 > 60 eGFR 95.6 > 60 73 Basic Metabolic Panel 11/12/2011 [facility] Sodium 135 mmol/L 135-145 [address] [place] [address] [phone] Potassium 4.1 mmol/L 3.5-5.0 Chloride 99 mmol/L Low 101-111 Co2 (Carbon Dioxide) 29.0 mmol/L 22-32 Anion Gap 7.0 mmol/L 2-11 74 Glucose 115 mg/dL High 70-100 BUN 13 mg/dL 6-24 Creatinine 1.0 mg/dL 0.50-1.40 One Over Creatinine 1.00 BUN/Creatinine Ratio 13.0 8-20 Calcium 9.1 mg/dL 8.1-9.9 eGFR Non- 74.3 > 60 eGFR 95.6 > 60 75 Urinalysis W/Microscopic 11/01/2011 [facility] Ua Color LOY Yellow [address] [place] [address] [phone] Appearance-Urine CLEAR Clear Specific [place]-Ur 1.028 1.010-1.030 Esterase-Urine NEGATIVE Negative Nitrite NEGATIVE Negative Imvqguamvevg-Ij-LDS NEGATIVE Negative Protein-Urine 1+ Abnormal Negative PH-Urine 7.5 5-9 Blood-Urine NEGATIVE Negative Ketones-Urine NEGATIVE Negative Bilirubin-Ur NEGATIVE Negative Glucose-Urine NEGATIVE Negative WBC-Urine RARE 0-5 RBC-Urine 3-6 0-2 Mucus Urine SMALL None Epith Cells-Ur RARE None Bacteria-Urine RARE None Amorphous Sed-U FEW None Comp Metabolic Panel 10/24/2011 [facility] Sodium 128 mmol/L Low 135-145 [address] [place] [address] [phone] Potassium 4.0 mmol/L 3.5-5.0 Chloride 92 mmol/L Low 101-111 Co2 (Carbon Dioxide) 31.0 mmol/L 22-32 Anion Gap 5.0 mmol/L 2-11 76 Glucose 102 mg/dL High 70-100 BUN 11 mg/dL 6-24 Creatinine 0.8 mg/dL 0.50-1.40 One Over Creatinine 1.25 BUN/Creatinine Ratio 13.8 8-20 Calcium 9.1 mg/dL 8.1-9.9 Total Protein 7.6 GM/DL 6.2-8.1 Albumin 4.2 GM/DL 3.2-5.2 Globulin 3.4 GM/DL 2-4 Albumin/Globulin Ratio 1.2 1-3 Bilirubin Total 2.0 mg/dL High 0.4-1.5 77 Alkaline Phosphatase 69 U/L 39-117 Alt (SGPT) 26 U/L 17-63 Ast (Sgot) 33 U/L 12-42 eGFR Non- 96.1 > 60 eGFR 123.6 > 60 78 Lipid Profile 10/24/2011 [facility] Triglyceride 111 mg/dL 40 -200 (Trig/Chol/HDL) [address] [place] [address] [phone] Cholesterol 134 mg/dL Less Than 200 79 High Density Lipoprotein 35 mg/dL Low 40-60 80 Cholesterol/HDL Ratio 3.83 AVERAGE 1-4.97 Low Density Lipoprotein 77 mg/dL Less Than 100 81 Laboratory test 10/24/2011 [facility] CPK (Creatine 141 U/L 0 -[address] [place]) [place] [address] [phone] TSH 2.30 MIU/ML 0.34-5.60 CBC Auto Diff 10/24/2011 [facility] White Blood 6.6 CUMM 4.8- 10.[address] [place] [address] [phone] Red Cell Count 4.16 CUMM Low 4.6-6.2 [...] Eosinophils 0.2 0-0.6 Abs Basophils 0 0-0.2 82 Laboratory test 06/05/2011 [facility] CPK (Creatine 204 U/L High 0-[address] [place]) [place] [address] [phone] Lipid Panel 06/05/2011 [facility] Triglyceride 82 mg/dL 40- [address] [place] [address] [phone] Cholesterol 126 mg/dL Less Than 200 83 High Density Lipoprotein 37 mg/dL Low 40-60 84 Cholesterol/HDL Ratio 3.41 AVERAGE 1-4.97 Low Density Lipoprotein 73 mg/dL Less Than 100 85 Comp Metabolic Panel 06/05/2011 [facility] Sodium 131 mmol/L Low 135-[address] [place] [address] [phone] Potassium 4.3 mmol/L 3.5-5.0 Chloride 98 mmol/L Low 101-111 Co2 (Carbon Dioxide) 29.0 mmol/L 22-32 Anion Gap 4.0 mmol/L 2-11 86 Glucose 101 mg/dL High 70-100 BUN 10 mg/dL 6-24 Creatinine 0.90 mg/dL 0.50-1.40 One Over Creatinine 1.10 BUN/Creatinine Ratio 11.1 8-20 Calcium 9.3 mg/dL 8.1-9.9 Total Protein 7.2 GM/DL 6.2-8.1 Albumin 4.2 GM/DL 3.2-5.2 Globulin 3.0 GM/DL 2-4 Albumin/Globulin Ratio 1.4 1-3 Bilirubin Total 1.7 mg/dL High 0.4-1.5 87 Alkaline Phosphatase 72 U/L 39-117 Alt (SGPT) 34 U/L 17-63 Ast (Sgot) 40 U/L 12-42 eGFR Non- 83.9 > 60 eGFR 107.9 > 60 88 Lipid Panel - 03/21/2011 [facility] CPK (Creatine 262 U/L High 0-[address] Kinase) [place] [address] [phone] Comp Metabolic 03/21/2011 [facility] Sodium 129 Low 135-[address] mmol/[place] [address] [phone] Potassium 4.0 mmol/L 3.5-5.0 Chloride 94 mmol/L Low 101-111 Co2 (Carbon Dioxide) 29.0 mmol/L 22-32 Anion Gap 6.0 mmol/L 2-11 89 Glucose 92 mg/dL 70-100 BUN 11 mg/dL 6-24 Creatinine 0.80 mg/dL 0.50-1.40 One Over Creatinine 1.20 BUN/Creatinine Ratio 13.8 8-20 Calcium 9.0 mg/dL 8.1-9.9 Total Protein 7.1 GM/DL 6.2-8.1 Albumin 4.2 GM/DL 3.2-5.2 Globulin 2.9 GM/DL 2-4 Albumin/Globulin Ratio 1.4 1-3 Bilirubin Total 2.0 mg/dL High 0.4-1.5 90 Alkaline Phosphatase 73 U/L 39-117 Alt (SGPT) 32 U/L 17-63 Ast (Sgot) 42 U/L 12-42 eGFR Non- 96.4 > 60 eGFR 124.0 > 60 91 Lipid Profile 03/21/2011 [facility] Triglyceride 60 mg/dL 40- 200 (Trig/Chol/HDL) [address] [place] [address] [phone] Cholesterol 133 mg/dL Less Than 200 92 High Density Lipoprotein 42 mg/dL 40-60 93 Cholesterol/HDL Ratio 3.17 AVERAGE 1-4.97 Low Density Lipoprotein 79 mg/dL Less Than 100 94 Laboratory test 03/21/2011 [facility] Bilirubin 0.3 mg/dL 0.1 -0.5 95 finding 101 [facility] [place] [address] [phone] Indirect Bilirubin 1.7 mg/dL High 0.3-1.0 96 Comp Metabolic Panel 07/23/2010 [facility] Sodium 133 mmol/L Low 135-145 [address] [place] [address] [phone] Potassium 4.4 mmol/L 3.5-5.0 Chloride 99 mmol/L Low 101-111 Co2 (Carbon Dioxide) 30.0 mmol/L 22-32 Anion Gap 4.0 mmol/L 2-11 97 Glucose 121 mg/dL High 70-100 98 BUN 18 mg/dL 6-24 Creatinine 1.10 mg/dL 0.50-1.40 One Over Creatinine 0.90 BUN/Creatinine Ratio 16.4 8-20 Calcium 9.0 mg/dL 8.1-9.9 Total Protein 6.5 GM/DL 6.2-8.1 Albumin 4.2 GM/DL 3.2-5.2 Globulin 2.3 GM/DL 2-4 Albumin/Globulin Ratio 1.8 1-3 Bilirubin Total 1.9 mg/dL High 0.4-1.5 99 Alkaline Phosphatase 62 U/L 39-117 Alt (SGPT) 24 U/L 17-63 Ast (Sgot) 29 U/L 12-42 eGFR Non- 71.0 > 60 eGFR 85.9 > 60 100 Lipid Profile 07/23/2010 [facility] Triglyceride 88 mg/dL 40- 200 (Trig/Chol/HDL) 101 [facility] [place] [address] [phone] Cholesterol 121 mg/dL Less Than 200 101 High Density Lipoprotein 34 mg/dL Low 40-60 102 Cholesterol/HDL Ratio 3.56 AVERAGE 1-4.97 Low Density Lipoprotein 69 mg/dL Less Than 100 103 Laboratory test 07/23/2010 [facility] CPK (Creatine 103 U/L 0 -[address] Kin[place]) [place] [address] [phone] CBC With 07/23/2010 [facility] White Blood 7.4 CUMM 4.8-10.8 Electronic Diff [address] [place] [address] [phone] Red Cell Count 4.08 CUMM Low 4.6-6.2 [...] Eosinophils 0.2 0-0.6 Abs Basophils 0 0-0.2 104 Basic Metabolic 01/22/2010 [facility] Sodium 130 mmol/L Low 135-[address] [place] [address] [phone] Potassium 4.7 mmol/L 3.5-5.0 Chloride 97 mmol/L Low 101-111 Co2 (Carbon Dioxide) 29.0 mmol/L 22-32 Anion Gap 4.0 mmol/L 2-11 105 Glucose 104 mg/dL High 70-100 106 BUN 11 mg/dL 6-24 Creatinine 0.80 mg/dL 0.50-1.40 One Over Creatinine 1.20 BUN/Creatinine Ratio 13.8 8-20 Calcium 9.2 mg/dL 8.1-9.9 107 eGFR Non- 102.8 > 60 eGFR 124.4 > 60 108 Lipid Profile 01/22/2010 [facility] Triglyceride 57 mg/dL 40- 200 (Trig/Chol/HDL) [address] [place] [address] [phone] Cholesterol 123 mg/dL Less Than 200 109 High Density Lipoprotein 36 mg/dL Low 40-60 110 Cholesterol/HDL Ratio 3.42 AVERAGE 1-4.97 Low Density Lipoprotein 76 mg/dL Less Than 100 111 Laboratory test 01/22/2010 [facility] CPK (Creatine 125 U/L 0 -[address] Kin[place]) [place] [address] [phone] Basic Metabolic 08/06/2009 [facility] Sodium 133 Low 135-[address] mmol/[place] [address] [phone] Potassium 4.6 mmol/L 3.5-5.0 Chloride 100 mmol/L Low 101-111 Co2 (Carbon Dioxide) 28.0 mmol/L 22-32 Anion Gap 5.0 mmol/L 2-11 112 Glucose 90 mg/dL 70-100 113 BUN 7 mg/dL 6-24 Creatinine 0.90 mg/dL 0.50-1.40 One Over Creatinine 1.10 BUN/Creatinine Ratio 7.8 Low 8-20 Calcium 9.3 mg/dL 8.1-9.9 114 eGFR Non- 89.7 > 60 eGFR 108.6 > 60 115 Ua Stat 06/24/2009 [facility] Ua Color YELLOW [address] [place] [address] [phone] Appearance-Urine CLEAR Specific [place]-Ur 1.016 1.010-1.030 Esterase-Urine NEGATIVE Negative Nitrite NEGATIVE Negative [id number] POSITIVE Negative Protein-Urine NEGATIVE Negative PH-Urine 6.0 5-9 Blood-Urine 2+ Abnormal Negative Ketones-Urine NEGATIVE Negative Bilirubin-Ur NEGATIVE Negative Glucose-Urine NEGATIVE Negative Urinalysis W/Microscopic Stat 06/24/2009 [facility] Ua Color [place]LLOW [address] [place] [address] [phone] Appearance-Urine CLEAR Specific [place]-Ur 1.016 1.010-1.030 Esterase-Urine NEGATIVE Negative Nitrite NEGATIVE Negative Aekfkkqycifo-Rt-HYU POSITIVE Negative Protein-Urine NEGATIVE Negative PH-Urine 6.0 5-9 Blood-Urine 2+ Abnormal Negative Ketones-Urine NEGATIVE Negative Bilirubin-Ur NEGATIVE Negative Glucose-Urine NEGATIVE Negative WBC-Urine 0-2 0-5 RBC-Urine 0-2 0-2 Mucus Urine SMALL Laboratory test 06/24/2009 [facility] Aerobic Culture GPC CL^ GRAM 116, [address] Bottle [place] [address] NOTE> [phone] Anaerobic 06/24/2009 [facility] Anaerobic NG5 118 Culture Bottle [address] [place] [address] [phone] Bcaer-2 06/24/2009 [facility] Clindamycin [address] [place] [address] [phone] Ciprofloxacin <=0.5 S Erythromycin 4 I Nitrofurantoin <=16 S Gentamicin <=0.5 S Levofloxacin 0.25 S Linezolid 4 S Oxacillin 0.5 S Rifampin <=0.5 S Trimeth-Sulfa <=10 S Tetracycline <=1 S Tigecycline <=0.12 S Vancomycin 1 S CBC With Manual 06/24/2009 [facility] White Blood 9.4 CUMM 4.8-10.8 Diff Stat [address] [place] [address] [phone] Red Cell Count 4.21 CUMM Low 4.6-6.2 [...] 9.1 Anisocytosis SLIGHT CMP Panel Stat 06/24/2009 [facility] Sodium 123 mmol/L Low 135 -[address] [place] [address] [phone] Potassium 3.9 mmol/L 3.5-5.0 Chloride 88 mmol/L Low 101-111 Co2 (Carbon Dioxide) 25.0 mmol/L 22-32 Anion Gap 10.0 mmol/L 2-11 119 Glucose 118 mg/dL High 70-100 120 BUN 11 mg/dL 6-24 Creatinine 1.00 mg/dL 0.50-1.40 One Over Creatinine 1.00 BUN/Creatinine Ratio 11.0 8-20 Calcium 9.1 mg/dL 8.1-9.9 121 Total Protein 8.5 GM/DL High 6.2-8.1 Albumin 4.5 GM/DL 3.2-5.2 Globulin 4.0 GM/DL 2-4 Albumin/Globulin Ratio 1.1 1-3 Bilirubin Total 2.5 mg/dL High 0.4-1.5 122 Alkaline Phosphatase 113 U/L 39-117 Alt (SGPT) 34 U/L 17-63 Ast (Sgot) 43 U/L High 12-42 eGFR Non- 79.5 > 60 eGFR 96.1 > 60 123 Basic Metabolic 03/15/2009 [facility] Sodium 132 mmol/L Low 135-145 Panel [address] [place] [address] [phone] Potassium 4.3 mmol/L 3.5-5.0 Chloride 98 mmol/L Low 101-111 Co2 (Carbon Dioxide) 29.0 mmol/L 22-32 Anion Gap 5.0 mmol/L 2-11 124 Glucose 65 mg/dL Low 70-100 125 BUN 14 mg/dL 6-24 Creatinine 0.80 mg/dL 0.50-1.40 One Over Creatinine 1.20 BUN/Creatinine Ratio 17.5 8-20 Calcium 9.2 mg/dL 8.1-9.9 126 Laboratory test 03/15/2009 [facility] CPK (Creatine 113 U/L 0 -200 finding [address] [facility] [place]ase) [place] [address] [phone] Laboratory test 03/15/2009 [facility] Magnesium 2.0 mg/dL 1.7 -2.6 finding [address] [place] [address] [phone] Basic Metabolic 11/27/2008 [facility] Sodium 133 Low 135-[address] mmol/[place] [address] [phone] Potassium 4.4 mmol/L 3.5-5.0 Chloride 100 mmol/L Low 101-111 Co2 (Carbon Dioxide) 27.0 mmol/L 22-32 Anion Gap 6.0 mmol/L 2-11 127 Glucose 105 mg/dL High 70-100 128 BUN 11 mg/dL 6-24 Creatinine 1.00 mg/dL 0.50-1.40 One Over Creatinine 1.00 BUN/Creatinine Ratio 11.0 8-20 Calcium 9.1 mg/dL 8.1-9.9 129 Lipid Profile 11/27/2008 [facility] Triglyceride 79 mg/dL 40- 200 (Trig/Chol/HDL) [address] [place] [address] [phone] Cholesterol 123 mg/dL Less Than 200 130 High Density Lipoprotein 36 mg/dL Low 40-60 131 Cholesterol/HDL Ratio 3.42 AVERAGE 1-4.97 Low Density Lipoprotein 71 mg/dL Less Than 100 132 Laboratory test 11/27/2008 [facility] PSA Screening 0.33 NG/ML 0-4 [address] [place] [address] [phone] CBC With 11/20/2008 [facility] White Blood 10.3 CUMM 4.8- 10.8 Electronic Diff [address] [place] [address] [phone] Red Cell Count 4.48 CUMM Low 4.6-6.2 [...] Abs Basophils 0.1 0-0.2 Laboratory test 11/20/2008 [facility] BNP Evaluatr 60.87 pg/mL 7.5-100 finding [address] [place] [address] [phone] P33S 11/20/2008 [facility] Sodium 131 mmol/L Low 135-145 [place] [address] [phone] Potassium 3.9 mmol/L 3.5-5.0 Chloride 97 mmol/L Low 101-111 Co2 (Carbon Dioxide) 26.0 mmol/L 22-32 Anion Gap 8.0 mmol/L 2-11 134 Glucose 123 mg/dL High 70-100 135 BUN 16 mg/dL 6-24 Creatinine 0.90 mg/dL 0.50-1.40 One Over Creatinine 1.10 BUN/Creatinine Ratio 17.8 8-20 Calcium 9.4 mg/dL 8.1-9.9 136 Total Protein 7.3 GM/DL 6.2-8.1 Albumin 4.3 GM/DL 3.2-5.2 Globulin 3.0 GM/DL 2-4 Albumin/Globulin Ratio 1.4 1-3 Bilirubin Total 1.2 mg/dL 0.4-1.5 Alkaline Phosphatase 76 U/L 39-117 Alt (SGPT) 31 U/L 17-63 Ast (Sgot) 42 U/L 12-42 Laboratory test 11/20/2008 [facility] Troponin-I 0.01 NG/ML 0 -0.06 137 finding 101 (TnI) [place] [address] [phone] Liver Function 04/27/2008 [facility] Total Protein 7.0 GM/DL 6.2-8.[address] [place] [address] [phone] Albumin 3.9 GM/DL 3.2-5.2 Globulin 3.1 GM/DL 2-4 Albumin/Globulin Ratio 1.3 1-3 Bilirubin Total 1.3 mg/dL 0.4-1.5 Bilirubin Direct 0.2 mg/dL 0.1-0.5 Indirect Bilirubin 1.1 mg/dL High 0.1-0.75 Alkaline Phosphatase 84 U/L 39-117 Alt (SGPT) 28 U/L 17-63 Ast (Sgot) 30 U/L 12-42 Lipid Profile 04/27/2008 [facility] Triglyceride 79 mg/dL 40- 200 (Trig/Chol/HDL) [address] [place] [address] [phone] Cholesterol 117 mg/dL Less Than 200 139 High Density Lipoprotein 34 mg/dL Low 40-60 140 Cholesterol/HDL Ratio 3.44 AVERAGE 1-4.97 Low Density Lipoprotein 67 mg/dL Less Than 100 141 Laboratory test 04/27/2008 [facility] CPK (Creatine 141 U/L 0 -[address] Kin[place]) [place] [address] [phone] Basic Metabolic 04/27/2008 [facility] Sodium 135 135-[address] mmol/[place] [address] [phone] Potassium 4.7 mmol/L 3.5-5.0 Chloride 101 mmol/L 101-111 Co2 (Carbon Dioxide) 29.0 mmol/L 22-32 Anion Gap 5.0 mmol/L 2-11 142 Glucose 104 mg/dL 70-105 BUN 15 mg/dL 6-24 Creatinine 1.0 mg/dL 0.5-1.4 One Over Creatinine 1.00 BUN/Creatinine Ratio 15.0 8-20 Calcium 8.6 mg/dL 8.1-9.9 143 Lipid Panel - 03/15/2008 [facility] CPK (Creatine 213 U/L High 0-[address] Kin[place]) [place] [address] [phone] Comp Metabolic 03/15/2008 [facility] Sodium 130 Low 135-[address] mmol/[place] [address] [phone] Potassium 4.6 mmol/L 3.5-5.0 Chloride 96 mmol/L Low 101-111 Co2 (Carbon Dioxide) 28.0 mmol/L 22-32 Anion Gap 6.0 mmol/L 2-11 144 Glucose 103 mg/dL 70-105 BUN 22 mg/dL [...] 17-63 Ast (Sgot) 34 U/L 12-42 Lipid Profile 03/15/2008 [facility] Triglyceride 92 mg/dL 40- 200 (Trig/Chol/HDL) [address] [place] [address] [phone] Cholesterol 143 mg/dL Less Than 200 145 High Density Lipoprotein 35 mg/dL Low 40-60 146 Cholesterol/HDL Ratio 4.09 AVERAGE 1-4.97 Low Density Lipoprotein 90 mg/dL Less Than 100 147 Laboratory test 10/27/2007 [facility] CPK (Creatine 142 U/L 0 -[address] Kinase) [place] [address] [phone] Basic Metabolic 10/27/2007 [facility] One Over 1.[address] [place] [address] [phone] Anion Gap 7.0 mmol/L 2-11 148 BUN 9 mg/dL 6-24 Calcium 9.3 mg/dL 8.7-10.2 Chloride 100 mmol/L Low 101-111 Co2 (Carbon Dioxide) 28.0 mmol/L 22-32 Glucose 92 mg/dL 70-105 Potassium 4.4 mmol/L 3.5-5.0 Sodium 135 mmol/L 135-145 BUN/Creatinine Ratio 9.0 8-20 Creatinine 1.0 mg/dL 0.5-1.4 Liver Function 10/27/2007 [facility] Albumin/Globulin Ratio 1.5 1-[address] [place] [address] [phone] Albumin 4.2 GM/DL 3.2-5.2 Alkaline Phosphatase 64 U/L 39-117 Alt (SGPT) 30 U/L 17-63 Ast (Sgot) 30 U/L 12-42 Bilirubin Direct 0.3 mg/dL 0.1-0.5 Globulin 2.8 GM/DL 2-4 Indirect Bilirubin 1.7 mg/dL High 0.1-0.75 Bilirubin Total 2.0 mg/dL High 0.4-1.5 Total Protein 7.0 GM/DL 6.2-8.1 Lipid Profile 10/27/2007 [facility] Cholesterol/HDL 3.13 1- 4.97 (Trig/Chol/HDL) [address] Ratio AVERAGE [place], [place] [phone] Cholesterol 100 mg/dL Less Than 200 149 Triglyceride 80 mg/dL 40-200 High Density Lipoprotein 32 mg/dL Low 40-60 150 Low Density Lipoprotein 52 mg/dL Less Than 100 151 Laboratory test 10/27/2007 [facility] PSA Screening 0.29 NG/ML 0-4 [address] [place], [place] [address] [phone] Homocysteine 12 umol/L () 153 Lipid Profile 07/21/2007 [facility] Cholesterol 165 mg/dL Less 154 (Trig/Chol/HDL) [address] Than 200 [place], [place] [address] [phone] Triglyceride 48 mg/dL 40-200 High Density Lipoprotein 32 mg/dL Low 40-60 155 Low Density Lipoprotein 123 mg/dL High Less Than 100 156 Cholesterol/HDL Ratio 5.16 AVERAGE High 1-4.97 Liver Function 07/21/2007 [facility] Albumin/Globulin Ratio 1.4 1-[address] [place], [place] [phone] Albumin 4.1 GM/DL 3.2-5.2 Alkaline Phosphatase 79 U/L 39-117 Alt (SGPT) 20 U/L 17-63 Ast (Sgot) 29 U/L 12-42 Bilirubin Direct 0.2 mg/dL 0.1-0.5 Globulin 3.0 GM/DL 2-4 Indirect Bilirubin 1.6 mg/dL High 0.1-0.75 Bilirubin Total 1.8 mg/dL High 0.4-1.5 Total Protein 7.1 GM/DL 6.2-8.1 Laboratory test 07/21/2007 [facility] CPK (Creatine 160 U/L 0 -[address] Kin[place]) [place] [address] [phone] Basic Metabolic 07/21/2007 [facility] One Over 1.[address] [place] [address] [phone] Anion Gap 5.0 mmol/L 2-11 157 BUN 12 mg/dL 6-24 Calcium 8.2 mg/dL Low 8.7-10.2 Chloride 97 mmol/L Low 101-111 Co2 (Carbon Dioxide) 26.0 mmol/L 22-32 Glucose 95 mg/dL 70-105 Potassium 4.6 mmol/L 3.5-5.0 Sodium 128 mmol/L Low 135-145 BUN/Creatinine Ratio 13.3 8-20 Creatinine 0.9 mg/dL 0.5-1.4 1 Acute inflammation: >10.00 2 Because ethnic data is not always readily [...] 15-29 5 Kidney failure <15 (or dialysis) 3 Because ethnic data is not always readily [...] 15-29 5 Kidney failure <15 (or dialysis) 4 Desirable: <150 Borderline High: 150-199 High: 200-499 Very High: >500 5 Desirable: <200 Borderline High: 200-239 High: >239 6 Low: <40 Desirable: 40-60 High: >60 7 Desirable: <100 Near Optimal: 100-129 Borderline High: 130-159 High: 160-189 Very High: >189 8 Because ethnic data is not always [...] 5 Kidney failure <15 (or dialysis) 9 FASTING Copy Result to: OSORIO COLLINS ([id number]) 10 Serum levels of PSA measured using the [employer] DXI Hybritech immunoassay should not be interpreted as absolute evidence of the presence or absence of disease. The PSA value should be used in conjunction with other pertinent clinical diagnostic procedures. The values obtained with different assay methods or kits cannot be used interchangeably. 11 Desirable <150 Borderline high 150-199 High 200-499 Very High >500 12 Desirable <200 Borderline high 200-239 High >239 13 Low <40 Desirable: 40-60 High: >60 14 Desirable: <100 mg/dL Near Optimal: 100-129 mg/dL Borderline High: 130-159 mg/dL High: 160-189 mg/dL Very High: >189 mg/dL 15 Because ethnic data is not always readily [...] 15-29 5 Kidney failure <15 (or dialysis) 16 FASTING cc pmd 17 Because ethnic data is not always readily [...] 15-29 5 Kidney failure <15 (or dialysis) 18 Desirable <150 Borderline high 150-199 High 200-499 Very High >500 19 Desirable <200 Borderline high 200-239 High >239 20 Low <40 Desirable: 40-60 High: >60 21 Desirable: <100 mg/dL Near Optimal: 100-129 mg/dL Borderline High: 130-159 mg/dL High: 160-189 mg/dL Very High: >189 mg/dL 22 Because ethnic data is not always readily [...] 15-29 5 Kidney failure <15 (or dialysis) 23 Test Performed by: [place] [address] Zoning Engineer: Andi Mendosa II, M.D., Ph.D. 24 Test Performed by: [place] [address] [employer]oning Engineer: Andi Mendosa II, M.D., Ph.D. 25 REFERENCE VALUE <=13 (Fasting) Test Performed by: [place] [address] Zoning Engineer: Andi Mendosa II, M.D., Ph.D. 26 Test Performed by: [place] [address] Zoning Engineer: Andi Mendosa II, M.D., Ph.D. 27 Because ethnic data is not always readily [...] 15-29 5 Kidney failure <15 (or dialysis) 28 Normal Range 180 to 914 Indeterminate Range 145 to 180 Deficient Range <145 29 FASTING cc pmd 30 Serum levels of PSA measured using the [employer] DXI Hybritech immunoassay should not be interpreted as absolute evidence of the presence or absence of disease. The PSA value should be used in conjunction with other pertinent clinical diagnostic procedures. The values obtained with different assay methods or kits cannot be used interchangeably. 31 Because ethnic data is not always readily [...] 15-29 5 Kidney failure <15 (or dialysis) 32 Desirable <150 Borderline high 150-199 High 200-499 Very High >500 33 Desirable <200 Borderline high 200-239 High >239 34 Low <40 Desirable: 40-60 High: >60 35 Desirable: <100 mg/dL Near Optimal: 100-129 mg/dL Borderline High: 130-159 mg/dL High: 160-189 mg/dL Very High: >189 mg/dL 36 RUN DATE: 02/21/15 [facility] LAB LIVE PAGE 1 RUN TIME: 1051 [address] [place], [place] [address] Specimen Inquiry Name: LEO ORTEGA Bernadette : [address]: Malachi Oliveira MD Acct: [id number] Unit: [id number] AGE: 69 Location: [facility] Re02/19/15 SEX: M Status: REG REF SPEC: [id number] DESTINY: 02/19/15-12[address] [facility] [address]: Malachi Oliveira MD REQ: [id number] RECD: 02/19/15 STATUS: SEAN ESPINAL DR: Biju [...] performed at Main Lab DEPARTMENT OF PATHOLOGY, [address] [place] [address] Jovan Olivares M.D. Director [facility] # [id number] 37 FASTING~fasting cc pmd in 2-4 weeks 38 FASTING fasting cc pmd in 2-4 weeks 39 Serum levels of PSA measured using the [employer] DXI Hybritech immunoassay should not be interpreted as absolute evidence of the presence or absence of disease. The PSA value should be used in conjunction with other pertinent clinical diagnostic procedures. The values obtained with different assay methods or kits cannot be used interchangeably. 40 Desirable <150 Borderline high 150-199 High 200-499 Very High >500 41 Desirable <200 Borderline high 200-239 High >239 42 Low <40 Desirable: 40-60 High: >60 43 Desirable <100 Near Optimal 100-129 Borderline high 130-159 High 160-189 Very High >189 44 Because ethnic data is not always readily [...] 15-29 5 Kidney failure <15 (or dialysis) 45 FASTING fasting cc pmd in 2-4 weeks 46 Because ethnic data is not always readily [...] 15-29 5 Kidney failure <15 (or dialysis) 47 Because ethnic data is not always readily [...] 15-29 5 Kidney failure <15 (or dialysis) 48 HDL Interpretation: Undesirable: High Risk: Less than 40 mg/dL Desirable: Low Risk: Greater than 60 mg/dL 49 LDL Interpretation: Low Risk Optimal Level: LDL Less than 100 mg/dL Near or Above Optimal: LDL 100-129 mg/dL Borderline High Risk: LDL 130-159 mg/dL High Risk: LDL 160-189 mg/dL Very High Risk: LDL Greater than 189 mg/dL 50 labs to be drawn around 08/27/13 51 PT IS FASTING 52 Because ethnic data is not always [...] 5 Kidney failure <15 (or dialysis) 53 HDL Interpretation: Undesirable: High Risk: Less than 40 MG/DL Desirable: Low Risk: Greater than 60 MG/DL 54 LDL Interpretation: Low Risk Optimal Level: LDL Less than 100 MG/DL Near or Above Optimal: LDL 100-129 MG/DL Borderline High Risk: LDL 130-159 MG/DL High Risk: LDL 160-189 MG/DL Very High Risk: LDL Greater than 189 MG/DL 55 Because ethnic data is not always readily [...] 15-29 5 Kidney failure <15 (or dialysis) 56 Serum levels of PSA measured using the [employer] DXI Hybritech immunoassay should not be interpreted [...] methods or kits cannot be used interchangeably. 57 Because ethnic data is not always readily [...] 15-29 5 Kidney failure <15 (or dialysis) 58 HDL Interpretation: Undesirable: High Risk: Less than 40 MG/DL Desirable: Low Risk: Greater than 60 MG/DL 59 LDL Interpretation: Low Risk Optimal Level: LDL Less than 100 MG/DL Near or Above Optimal: LDL 100-129 MG/DL Borderline High Risk: LDL 130-159 MG/DL High Risk: LDL 160-189 MG/DL Very High Risk: LDL Greater than 189 MG/DL 60 CHOLESTEROL INTERPRETATION: Desirable: Less than 200 MG/DL Borderline-High Risk: 200-239 MG/DL High-Risk: 240 MG/DL and over 61 HDL INTERPRETATION: Undesirable: High Risk: Less than 40 MG/DL Desirable: Low Risk: Greater than 60 MG/DL 62 LDL INTERPRETATION: Low Risk Optimal Level: LDL Less than 100 MG/DL Near or Above Optimal: LDL 100-129 MG/DL Borderline High Risk: LDL 130-159 MG/DL High Risk: LDL 160-189 MG/DL Very High Risk: LDL Greater than 189 MG/DL 63 Anion gap measurement may be of limited value in the presence of any alkalosis, especially in a combined acid base disorder. . 64 A metabolite of Naproxen, O-desmethylnaproxen, has been shown to interfere with the Jendrassik-Olvin method for measuring total bilirubin. Samples from patients who have taken Naproxen have shown spurious elevation in total bilirubin levels. 65 Because ethnic data is not always readily [...] 15-29 5 Kidney failure <15 (or dialysis) 66 Please note: New reference range, effective 10/30/11 NORMAL REFERENCE RANGE: GREATER THAN 4.1 NG/ML 67 Lymphopenia % 68 CHOLESTEROL INTERPRETATION: Desirable: Less than 200 MG/DL Borderline-High Risk: 200-239 MG/DL High-Risk: 240 MG/DL and over 69 HDL INTERPRETATION: Undesirable: High Risk: Less than 40 MG/DL Desirable: Low Risk: Greater than 60 MG/DL 70 LDL INTERPRETATION: Low Risk Optimal Level: LDL Less than 100 MG/DL Near or Above Optimal: LDL 100-129 MG/DL Borderline High Risk: LDL 130-159 MG/DL High Risk: LDL 160-189 MG/DL Very High Risk: LDL Greater than 189 MG/DL 71 Anion gap measurement may be of limited value in the presence of any alkalosis, especially in a combined acid base disorder. . 72 A metabolite of Naproxen, O-desmethylnaproxen, has been shown to interfere with the Jendrassik-Hartleton method for measuring total bilirubin. Samples from patients who have taken Naproxen have shown spurious elevation in total bilirubin levels. 73 Because ethnic data is not always readily [...] 15-29 5 Kidney failure <15 (or dialysis) 74 Anion gap measurement may be of limited value in the presence of any alkalosis, especially in a combined acid base disorder. . 75 Because ethnic data is not always readily [...] 15-29 5 Kidney failure <15 (or dialysis) 76 Anion gap measurement may be of limited value in the presence of any alkalosis, especially in a combined acid base disorder. . 77 A metabolite of Naproxen, O-desmethylnaproxen, has been shown to interfere with the Jendrassik-Olvin method for measuring total bilirubin. Samples from patients who have taken Naproxen have shown spurious elevation in total bilirubin levels. 78 Because ethnic data is not always readily [...] 15-29 5 Kidney failure <15 (or dialysis) 79 CHOLESTEROL INTERPRETATION: Desirable: Less than 200 MG/DL Borderline-High Risk: 200-239 MG/DL High-Risk: 240 MG/DL and over 80 HDL INTERPRETATION: Undesirable: High Risk: Less than 40 MG/DL Desirable: Low Risk: Greater than 60 MG/DL 81 LDL INTERPRETATION: Low Risk Optimal Level: LDL Less than 100 MG/DL Near or Above Optimal: LDL 100-129 MG/DL Borderline High Risk: LDL 130-159 MG/DL High Risk: LDL 160-189 MG/DL Very High Risk: LDL Greater than 189 MG/DL 82 Lymphopenia % 83 CHOLESTEROL INTERPRETATION: Desirable: Less than 200 MG/DL Borderline-High Risk: 200-239 MG/DL High-Risk: 240 MG/DL and over 84 HDL INTERPRETATION: Undesirable: High Risk: Less than 40 MG/DL Desirable: Low Risk: Greater than 60 MG/DL 85 LDL INTERPRETATION: Low Risk Optimal Level: LDL Less than 100 MG/DL Near or Above Optimal: LDL 100-129 MG/DL Borderline High Risk: LDL 130-159 MG/DL High Risk: LDL 160-189 MG/DL Very High Risk: LDL Greater than 189 MG/DL 86 Anion gap measurement may be of limited value in the presence of any alkalosis, especially in a combined acid base disorder. . 87 A metabolite of Naproxen, O-desmethylnaproxen, has been shown to interfere with the Jendrassik-Hartleton method for measuring total bilirubin. Samples from patients who have taken Naproxen have shown spurious elevation in total bilirubin levels. 88 Because ethnic data is not always readily [...] 15-29 5 Kidney failure <15 (or dialysis) 89 Anion gap measurement may be of limited value in the presence of any alkalosis, especially in a combined acid base disorder. . 90 A metabolite of Naproxen, O-desmethylnaproxen, has been shown to interfere with the Jendrassik-Hartleton method for measuring total bilirubin. Samples from patients who have taken Naproxen have shown spurious elevation in total bilirubin levels. 91 Because ethnic data is not always readily [...] 15-29 5 Kidney failure <15 (or dialysis) 92 CHOLESTEROL INTERPRETATION: Desirable: Less than 200 MG/DL Borderline-High Risk: 200-239 MG/DL High-Risk: 240 MG/DL and over 93 HDL INTERPRETATION: Undesirable: High Risk: Less than 40 MG/DL Desirable: Low Risk: Greater than 60 MG/DL 94 LDL INTERPRETATION: Low Risk Optimal Level: LDL Less than 100 MG/DL Near or Above Optimal: LDL 100-129 MG/DL Borderline High Risk: LDL 130-159 MG/DL High Risk: LDL 160-189 MG/DL Very High Risk: LDL Greater than 189 MG/DL 95 TOTAL BILIRUBIN=2.0 96 TOTAL BILIRUBIN=2.0 Please note updated reference range, effective 05/30/10 97 Anion gap measurement may be of limited value in the presence of any alkalosis, especially in a combined acid base disorder. . 98 Note change in reference range as of 06/29/08. The change was based on recommendations from the [place] [employer]. 99 A metabolite of Naproxen, O-desmethylnaproxen, has been shown to interfere with the Jendrassik-Olvin method for measuring total bilirubin. Samples from patients who have taken Naproxen have shown spurious elevation in total bilirubin levels. 100 Because ethnic data is not always readily [...] 15-29 5 Kidney failure <15 (or dialysis) 101 CHOLESTEROL INTERPRETATION: Desirable: Less than 200 MG/DL Borderline-High Risk: 200-239 MG/DL High-Risk: 240 MG/DL and over 102 HDL INTERPRETATION: Undesirable: High Risk: Less than 40 MG/DL Desirable: Low Risk: Greater than 60 MG/DL 103 LDL INTERPRETATION: Low Risk Optimal Level: LDL Less than 100 MG/DL Near or Above Optimal: LDL 100-129 MG/DL Borderline High Risk: LDL 130-159 MG/DL High Risk: LDL 160-189 MG/DL Very High Risk: LDL Greater than 189 MG/DL 104 Lymphopenia % H H Check Failed 105 Anion gap measurement may be of limited value in the presence of any alkalosis, especially in a combined acid base disorder. . 106 Note change in reference range as of 06/29/08. The change was based on recommendations from the [place] [employer]. 107 Please note change in reference range effective 08 . 108 Because ethnic data is not always readily [...] 15-29 5 Kidney failure <15 (or dialysis) 109 CHOLESTEROL INTERPRETATION: Desirable: Less than 200 MG/DL Borderline-High Risk: 200-239 MG/DL High-Risk: 240 MG/DL and over 110 HDL INTERPRETATION: Undesirable: High Risk: Less than 40 MG/DL Desirable: Low Risk: Greater than 60 MG/DL 111 LDL INTERPRETATION: Low Risk Optimal Level: LDL Less than 100 MG/DL Near or Above Optimal: LDL 100-129 MG/DL Borderline High Risk: LDL 130-159 MG/DL High Risk: LDL 160-189 MG/DL Very High Risk: LDL Greater than 189 MG/DL 112 Anion gap measurement may be of limited value in the presence of any alkalosis, especially in a combined acid base disorder. . 113 Note change in reference range as of 06/29/08. The change was based on recommendations from the [place] [employer]. 114 Please note change in reference range effective 08 . 115 Because ethnic data is not always readily [...] 15-29 5 Kidney failure <15 (or dialysis) 116 VERBAL TO DARCY/ED BY RKP at 0830 on 06/25/09. Results read back accurately. 117 STAPHYLOCOCCUS AUREUS 118 NO GROWTH AFTER 5 DAYS 119 Anion gap measurement may be of limited value in the presence of any alkalosis, especially in a combined acid base disorder. . 120 Note change in reference range as of 06/29/08. The change was based on recommendations from the [place] [employer]. 121 Please note change in reference range effective 08 . 122 A metabolite of Naproxen, O-desmethylnaproxen, has been shown to interfere with the Jendrassik-Olvin method for measuring total bilirubin. Samples from patients who have taken Naproxen have shown spurious elevation in total bilirubin levels. 123 Because ethnic data is not always readily [...] 15-29 5 Kidney failure <15 (or dialysis) 124 Anion gap measurement may be of limited value in the presence of any alkalosis, especially in a combined acid base disorder. . 125 Note change in reference range as of 06/29/08. The change was based on recommendations from the [place] [employer]. 126 Please note change in reference range effective 08 . 127 Anion gap measurement may be of limited value in the presence of any alkalosis, especially in a combined acid base disorder. . 128 Note change in reference range as of 06/29/08. The change was based on recommendations from the [place] [employer]. 129 Please note change in reference range effective 08 . 130 CHOLESTEROL INTERPRETATION: Desirable: Less than 200 MG/DL Borderline-High Risk: 200-239 MG/DL High-Risk: 240 MG/DL and over 131 HDL INTERPRETATION: Undesirable: High Risk: Less than 40 MG/DL Desirable: Low Risk: Greater than 60 MG/DL 132 LDL INTERPRETATION: Low Risk Optimal Level: LDL Less than 100 MG/DL Near or Above Optimal: LDL 100-129 MG/DL Borderline High Risk: LDL 130-159 MG/DL High Risk: LDL 160-189 MG/DL Very High Risk: LDL Greater than 189 MG/DL 133 * SERUM LEVELS OF PSA MEASURED USING THE [employer] ACCESS HYBRITECH IMMUNOASSAY SHOULD NOT BE INTERPRETED ABSOLUTE EVIDENCE OF THE PRESENCE OR ABSENCE OF DISEASE. THE PSA VALUE SHOULD BE USED IN CONJUNCTION WITH OTHER PERTINENT CLINICAL DIAGNOSTIC PROCEDURES. A PSA value in the range of 0.1 to 0.6 ng/ml is indeterminate if being used as an indicator of recurrent or residual disease. . 134 Anion gap measurement may be of limited value in the presence of any alkalosis, especially in a combined acid base disorder. . 135 Note change in reference range as of 06/29/08. The change was based on recommendations from the [place] [employer]. 136 Please note change in reference range effective 08 . 137 New Reference Range and Interpretation effective 08/12/02 TnI (ng/ml) INTERPRETATION <0.06 ng/ml NOT SUPPORTIVE OF DIAGNOSIS OF ME 0.06 - 0.50 ng/ml INDETERMINATE: SUGGEST SERIAL STUDIES IF CLINICALLY INDICATED. > 0.5 ng/ml CONSISTENT WITH DIAGNOSIS OF ME . 138 FASTING 139 CHOLESTEROL INTERPRETATION: Desirable: Less than 200 MG/DL Borderline-High Risk: 200-239 MG/DL High-Risk: 240 MG/DL and over 140 HDL INTERPRETATION: Undesirable: High Risk: Less than 40 MG/DL Desirable: Low Risk: Greater than 60 MG/DL 141 LDL INTERPRETATION: Low Risk Optimal Level: LDL Less than 100 MG/DL Near or Above Optimal: LDL 100-129 MG/DL Borderline High Risk: LDL 130-159 MG/DL High Risk: LDL 160-189 MG/DL Very High Risk: LDL Greater than 189 MG/DL 142 Anion gap measurement may be of limited value in the presence of any alkalosis, especially in a combined acid base disorder. . 143 Please note change in reference range effective 08 . 144 Anion gap measurement may be of limited value in the presence of any alkalosis, especially in a combined acid base disorder. . 145 CHOLESTEROL INTERPRETATION: Desirable: Less than 200 [...] a combined acid base disorder. . 149 Classification: Desirable . 150 Classification: Low . 151 CALCULATED LDL APPROXIMATES THE VALUE OF A DIRECT LDL MEASUREMENT. Classification: Optimal Level . 152 * SERUM LEVELS OF PSA MEASURED USING THE SUJATHA ARNOLDO ACCESS HYBRITECH IMMUNOASSAY SHOULD NOT BE INTERPRETED ABSOLUTE EVIDENCE OF THE PRESENCE OR ABSENCE OF DISEASE. THE PSA VALUE SHOULD BE USED IN CONJUNCTION WITH OTHER PERTINENT CLINICAL DIAGNOSTIC PROCEDURES. A PSA value in the range of 0.1 to 0.6 ng/ml is indeterminate if being used as an indicator of recurrent or residual disease. . 153 -- REFERENCE VALUE -- <=13 (Fasting) Test Performed by: [facility] D[facility] of Lab Med and Pathology [address] [place] [address] Zoning Engineer: Jas Shay III, M.D. 154 Classification: Desirable . 155 Classification: Low . 156 CALCULATED LDL APPROXIMATES THE VALUE OF A DIRECT LDL MEASUREMENT. Classification: Near or above optimal . 157 Anion gap measurement may be of limited value in the presence of any alkalosis, especially in a combined acid base disorder. . Procedures Date Code Description Status 12/29/2018 39110 EKG Tracing & Interpretation Completed 11/24/2018 [id number] Diabetic Retinal Eye Exam Completed 09/16/2018 90805 EKG Tracing & Interpretation Completed 09/16/2018 67265 Holter Monitor Review (24 hr)dr review & interp only Completed 09/14/2018 20934 ECG Monitor/Recording W/Visual Superimposition Completed Scanning 09/14/2018 28788 ECG Monitor/Recording W/Visual Superimposition Completed Scanning 09/10/2018 69603 ECHO Transthoracic, Real-Time 2D With Doppler And Completed Color Flow 09/10/2018 61417 ECHO Transthoracic, Real-Time 2D With Doppler And Completed Color Flow 08/12/2018 79810 EKG Tracing & Interpretation Completed 03/03/2018 29769 ECHO Stress Test Incl Perf Contiuous ekg Monitoring Completed W/Phys Superv 01/06/2018 51352 ECHO Transthoracic, Real-Time 2D With Doppler And Completed Color Flow 01/06/2018 10306 ECHO Transthoracic, Real-Time 2D With Doppler And Completed Color Flow 11/24/2017 46424 EKG Tracing & Interpretation Completed 06/01/2017 70988 ECHO Stress Test Incl Perf Contiuous ekg Monitoring Completed W/Phys Superv 06/01/2017 25418 ECHO Stress Test Incl Perf Contiuous ekg Monitoring Completed W/Phys Superv 03/30/2017 77610 EKG Tracing & Interpretation Completed 06/25/2016 81069 EKG Tracing & Interpretation Completed 05/19/2016 94787 Open TX Proximal Humeral FX Incl Fixation When Completed Performed 05/19/2016 20945 Open TX Proximal Humeral FX Incl Fixation When Completed Performed 05/16/2016 50433 EKG Tracing & Interpretation Completed 03/28/2016 68634 Treadmill Interp/Report Only Completed 03/28/2016 58898 Stress Test Supervsn W/Out I/R Completed 03/20/2016 88073 ECHO Transthoracic, Real-Time 2D With Doppler And Completed Color Flow 02/26/2016 88346 EKG Tracing & Interpretation Completed 02/01/2016 50668 Diffusing Capacity Completed 02/01/2016 32061 Plethysmography Determination Lung Volumes & Per Completed Airway Resist 02/01/2016 28355 Pulmonary Function><Bronchodil Completed 03/05/2015 03499 EKG Tracing & Interpretation Completed 02/19/2015 [id number] Colonoscopy Completed 07/28/2014 73166 EKG Tracing & Interpretation Completed 08/26/2013 53096 ECHO Transthoracic, Real-Time 2D With Doppler And Completed Color Flow 07/28/2013 78498 EKG Tracing & Interpretation Completed 12/29/2012 01962 EKG Tracing & Interpretation Completed 09/03/2012 11142 EKG Tracing & Interpretation Completed 03/04/2012 87773 EKG Tracing & Interpretation Completed 10/23/2011 66483 EKG Tracing & Interpretation Completed 08/02/2010 40096 Treadmill Interp/Report Only Completed 08/02/2010 46130 Stress Test Supervsn W/Out I/R Completed 07/09/2010 46966 EKG Tracing & Interpretation Completed 01/18/2009 59255 EKG Tracing & Interpretation Completed 06/12/2008 44233 Color Doppler Completed 06/12/2008 30123 Color Doppler Completed 06/12/2008 05536 Pulse Doppler & Continuous Wave Completed 06/12/2008 87494 Pulse Doppler & Continuous Wave Completed 06/12/2008 20007 Pulse Doppler & Continuous Wave Completed 06/12/2008 98048 Echocardiogram Completed 06/12/2008 88973 Echocardiogram Completed 05/15/2008 07843 Stress Test Supervsn W/Out I/R Completed 05/15/2008 89874 Treadmill Interp/Report Only Completed 05/15/2008 53196 Treadmill Interp/Report Only Completed 05/03/2008 82005 EKG Tracing & Interpretation Completed 11/10/2006 47528 Color Flow Doppler/Interp & Reprt Completed 11/10/2006 85309 Echocardiography, Transesophageal, Real Time W/Image Completed 2D W/W/O M-M 11/10/2006 47404 Echocardiography, Transesophageal, Real Time W/Image Completed 2D W/W/O M-M 11/04/2006 00836 Color Doppler Completed 11/04/2006 91548 Color Doppler Completed 11/04/2006 09018 Pulse Doppler & Continuous Wave Completed 11/04/2006 33083 Echocardiogram Completed 11/04/2006 60325 Echocardiogram Completed 09/09/2004 19110963 Colonoscopy Completed Encounters Type Date Location Provider Dx Diagnosis Office Visit 12/29/2018 [facility] Fili Lino I10 Essential ( primary) 1:30p Chrystal Childress hypertension I25.10 Athscl heart disease of [place] coronary artery w/o ang pctrs I48.2 Chronic atrial fibrillation I35.0 Nonrheumatic aortic (valve) stenosis I34.0 Nonrheumatic mitral (valve) insufficiency E78.00 Pure hypercholesterolemia, unspecified R06.00 Dyspnea, unspecified Office Visit 11/26/2018 10:40a [facility] Internal Emmanuel Montelongo, Z01.818 Encounter for other Medicine - SPECIMEN COLLECTOR preprocedural [place] examination H26.9 Unspecified cataract I10 Essential (primary) hypertension I25.10 Athscl heart disease of [place] coronary artery w/o ang pctrs I48.91 Unspecified atrial fibrillation Office Visit 10/14/2018 3:00p [facility] Internal Biju Bright I65.22 Occlusion and Medicine - Chrystal Collins,FACP stenosis of left [address] carotid artery I10 Essential (primary) hypertension Office Visit 09/16/2018 9:40a [facility] F[facility] Lino I34.0 Nonrheumatic mitral Cardiology Chrystal Childress (valve) insufficiency I48.91 Unspecified atrial fibrillation E78.00 Pure hypercholesterolemia, unspecified 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 Office Visit 08/12/2018 2:00p [facility] Fili Lino I65.23 Occlusion and Chrystal Childress stenosis of bilateral carotid arteries E78.00 Pure hypercholesterolemia, unspecified I10 Essential (primary) hypertension I48.0 Paroxysmal atrial fibrillation I25.10 Athscl heart disease of [place] coronary artery w/o ang pctrs Office Visit 07/19/2018 9:00a Pulmonology And Mansi J98.4 Other disorders Sleep Services Of MD Liya of lung Dental Aide J45.909 Unspecified asthma, uncomplicated 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 Office Visit 03/01/2018 9:15a Orthopedic Karina Bhardwaj, Z96.651 Presence of right Services Of [place] artificial knee C.MRochelleARochelle joint M25.561 Pain in right knee M25.461 Effusion, right knee 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 I10 Essential (primary) hypertension E78.00 Pure hypercholesterolemia, unspecified I35.0 Nonrheumatic aortic (valve) stenosis Office Visit 11/24/2017 11:00a [facility] Fili Lino I25.10 Athscl heart Chrystal Childress disease of [place] coronary artery w/o ang pctrs I10 Essential (primary) hypertension E78.00 Pure hypercholesterolemia, unspecified R94.31 Abnormal electrocardiogram [ECG] [EKG] I35.0 Nonrheumatic aortic (valve) stenosis Office Visit 03/30/2017 2:20p [facility] Fili Lino I10 Essential (primary) Chrystal Childress hypertension I25.10 Athscl heart disease of [place] coronary artery w/o ang pctrs E78.00 Pure hypercholesterolemia, unspecified Office Visit 01/28/2017 Pulmonology And Mansi J45.909 Unspecified asthma , 10:45a [facility] uncomplicated Dental Aide 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 for fx w routn heal Office Visit 07/11/2016 Claudia Ash, I10 Essential 9:15a Cardiology Of [place] (primary) [facility] hypertension I25.10 Athscl heart disease of [place] coronary artery w/o ang pctrs D64.9 Anemia, unspecified Office Visit 06/25/2016 1:00p [facility] Fili Lino I10 Essential (primary) Chrystal Childress hypertension D64.9 Anemia, unspecified I25.10 Athscl heart disease of [place] coronary artery w/o ang pctrs Office Visit 06/17/2016 1:00p [facility] Internal Jah Georgian, J20.9 Acute bronchitis, Medicine - [place] SPECIMEN COLLECTOR unspecified Rd Office Visit 06/03/2016 11:10a [facility] Internal Biju Bright D64.9 Anemia, Medicine - [place], unspecified Glendy Jarrell,FACP E87.1 Hypo-osmolality and hyponatremia Office Visit 05/16/2016 3:20p [facility] Internal Emmanuel Montelongo, Z01.818 Encounter for other Medicine - SPECIMEN COLLECTOR preprocedural [place] examination S42.201A Unsp fracture of upper end of right humerus, init I10 Essential (primary) hypertension J45.909 Unspecified asthma, uncomplicated 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 wtr strk botm cause oth inj, init S42.291A Oth disp fx of upper end of right humerus, init for clos fx Office Visit 04/21/2016 11:30a Pulmonology And Mansi J92.0 Pleural plaque Sleep Services Of [facility] with presence Dental Aide of asbestos J45.909 Unspecified asthma, uncomplicated Office Visit 04/15/2016 2:00p [facility] Tere Ash, I10 Essential (primary) [place] hypertension R94.30 Abnormal result of cardiovascular function study, unsp E78.0 Pure hypercholesterolemia Office Visit 04/01/2016 8:30a [facility] Tere Ash, I10 Essential (primary) Of [facility] GABRIEL hypertension R94.30 Abnormal result of cardiovascular function study, [facility] R06.00 Dyspnea, unspecified E78.0 Pure hypercholesterolemia Office Visit 03/11/2016 1:20p [facility] Internal Biju Bright Z00.00 Encntr for Maria Del Rosario Collins M.D.,FACP general [facility] medical exam w/o abnormal findings I10 Essential (primary) hypertension J45.20 Mild intermittent asthma, uncomplicated D64.9 Anemia, unspecified Z23 Encounter for immunization Office Visit 02/26/2016 9:00a [facility] Fili Lino R06.00 Dyspnea, Chrystal Childress unspecified 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 E78.0 Pure hypercholesterolemia I10 Essential (primary) hypertension R01.1 Cardiac murmur, unspecified Office Visit 01/16/2016 4:00p [facility] Osman Bright J92.0 Pleural plaque Maria Del Rosario Collins M.D.,FAC with presence Rd of asbestos R06.02 Shortness of breath D50.8 Other iron deficiency anemias Office Visit 01/14/2016 11:50a [facility] Internal Biju Brihgt R91.1 Solitary Maria Del Rosario Collins M.D.,[facility] pulmonary nodule Rd J11.00 Flu due to unidentified flu virus w [facility] type of pneumonia Office 03/05/2015 [facility] F[facility] Lino 272.0 Hypercholesterolemia Pure Visit 8:40a Cardiology Chrystal Childress 401.1 Hypertension Benign Office Visit 08/31/2014 11:30a [facility] GABRIEL Cali 424.0 Mitral Valve Disorder 424.2 Tricuspid Valve Disorder Spec as Nonrheumatic 401.1 Hypertension Benign Office Visit 07/28/2014 2:00p [facility] Fili Lino 401.1 Hypertension Chrystal Childress Benign 300.02 Anxiety Disorder Generalized 424.0 Mitral Valve Disorder 424.2 Tricuspid Valve Disorder Spec as Nonrheumatic 272.0 Hypercholesterolemia Pure Office Visit 11/14/2013 8:30a [facility] Internal Biju Bright V70.0 Examination [facility] M.D.,[facility] Routine AT Health Care Facility 401.1 Hypertension Benign 300.02 Anxiety Disorder Generalized 433.10 Occlusion & Stenosis Carotid Artery W/O Cerebral Infarction Office Visit 07/28/2013 2:40p [facility] Fili Lino 401.1 Hypertension Chrystal Childress Benign 272.0 Hypercholesterolemia Pure 440.0 Atherosclerosis Aorta Office Visit 01/04/2013 9:00a [facility] Internal Karen Chandler, V72.84 Examination Medicine - N.P. Preoperative [place] Unspec 401.1 Hypertension Benign 272.0 Hypercholesterolemia Pure 433.10 Occlusion & Stenosis Carotid Artery W/O Cerebral Infarction 300.02 Anxiety Disorder Generalized Office Visit 12/29/2012 11:40a [facility] Fili Lino 401.1 Hypertension Chrystal Childress Benign 272.0 Hypercholesterolemia Pure Office Visit 09/03/2012 3:20p [facility] Fili Lino 401.1 Hypertension Chrystal Childress Benign 272.0 Hypercholesterolemia Pure 780.4 Dizziness & Giddiness Office Visit 08/06/2012 11:00a [facility] Nurse Visit 401.1 Hypertension Benign cc Office Visit 07/01/2012 8:30a [facility] Internal Biju Bright V70.0 Examination General Medicine [facility], Medical Routine AT [facility] 433.10 Occlusion & Stenosis Carotid Artery W/O Cerebral Infarction 401.1 Hypertension Benign 272.0 Hypercholesterolemia Pure 790.21 Impaired Fasting Glucose 300.02 Anxiety Disorder Generalized 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 401.1 Hypertension Benign Office Visit 10/23/2011 1:40p [facility] Fili Lino 401.1 Hypertension Chrystal Childress Benign 272.0 Hypercholesterolemia Pure Office Visit 06/09/2011 9:00a DO Not Use Greg [place], 401.1 Hypertension AT [facility] Benign 599.72 Microscopic Hematuria 433.10 Occlusion & Stenosis Carotid Artery W/O Cerebral Infarction Office Visit 04/09/2011 2:00p DO Not Use Greg Bright V70.0 Examination AT [facility] Chrystal Collins,[facility] General Medical Routine AT Health Care Facility 401.1 Hypertension Benign 433.10 Occlusion & Stenosis Carotid Artery W/O Cerebral Infarction 599.72 Microscopic Hematuria Office Visit 07/09/2010 9:00a [facility] Fili Lino 401.1 Hypertension Chrystal Childress Benign 729.5 Pain In Limb 440.0 Atherosclerosis Aorta Office Visit 01/30/2010 3:00p DO Not Use Dental Aide Biju Bright 790.21 Impaired AT [facility] Chrystal Collins,[facility] Fasting Glucose 276.1 Hyposmolality & Or Hyponatremia 401.1 Hypertension Benign 433.11 Occlusion & Stenosis Carotid Artery Cerebral Infarction Office Visit 07/02/2009 DO Not Use Dental Aide Biju Bright 482.49 Staphylococcus 8:40a AT [facility] Chrystal Collins,[facility] Pneumonia 401.1 Hypertension Benign 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 276.1 Hyposmolality & Or Hyponatremia 599.72 Microscopic Hematuria V03.82 Streptococcus Pneumoniae Vaccination Spec Other Office Visit 03/13/2009 2:40p DO Not Use Dental Aide AT Biju Collins, 729.5 Pain In Limb [facility] Chrystal,FACP 728.88 Rhabdomyolysis Office Visit 03/05/2009 1:00p DO Not Use Dental Aide Nancy Ramirez PA 733.99 Bone & Cartilage AT [facility] Disorder Other 401.1 Hypertension Benign 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 Office Visit 01/18/2009 9:20a [facility] Fili Lino 401.1 Hypertension Chrystal Childress Benign 272.2 Hyperlipidemia Mixed 440.0 Atherosclerosis Aorta Office Visit 09/18/2008 DO Not Use Nancy Ramirez PA 719.46 Pain Joint Lower 8:30a Dental Aide AT Leg [facility] Office Visit 05/22/2008 DO Not Use Biju Collins, 401.1 Hypertension 9:20a Dental Aide AT Jose,[facility] Benign [facility] 272.2 Hyperlipidemia Mixed Office Visit 05/03/2008 1:40p [facility] Fili Lino 401.0 Hypertension Chrystal Childress Malignant 272.2 Hyperlipidemia Mixed 440.0 Atherosclerosis Aorta Office Visit 03/21/2008 DO Not Use Dental Aide Nancy Ramirez PA 272.2 Hyperlipidemia Mixed 9:00a AT [facility] 401.1 Hypertension Benign 440.0 Atherosclerosis Aorta Office Visit 12/22/2007 3:00p DO Not Use [facility] Biju Bright V70.0 Examination AT Howard Collins M.D.,FACP General Medical Routine AT Health Care Facility 433.10 Occlusion & Stenosis Carotid Artery W/O Cerebral Infarction 272.2 Hyperlipidemia Mixed 401.1 Hypertension Benign V05.8 Single Disease Spec Other Vaccination & Inoculation Plan of Treatment Future Appointment(s):02/11/2019 8:30 am - Fili Childress M.D. at [facility]05/23/2019 1:40 pm - Ronna Borges MD at [facility] Internal Medicine - [address]01/12/2019 2:00 pm - Biju Collins M.D.,FACP [facility]17/2019 9:15 am - Mansi Nickerson MD at [facility]12/29/2018 - Fili Childress M.D.I10 Essential (primary ) fxxmanregcynC06.10 Atherosclerotic heart disease of [place] coronary artery withFollow up:ov 6mI48.2 Chronic atrial cwgjzevskuneT71.0 Nonrheumatic aortic ( valve) xsgpcbioM59.0 Nonrheumatic mitral (valve) xafqfvhazmtcyM16.00 Pure hypercholesterolemia, falvfjvixruA49.00 Dyspnea, unspecifiedNew Orders:Stress Test, Exercise Nuclear, Ordered: 12/29/18
[2019-01-25 19:50] LABS: ABS Basophils 0 10^3/ul (0-0.2); ABS Eosinophils 0.1 10^3/ul (0-0.6); ABS Lymphocytes 0.7 10^3/ul (1.0-4.8); ABS Monocytes 0.7 10^3/ul (0-0.8); ABS Nucleated RBC 0 10^3/ul; Eosinophil % 0.4 %; Hematocrit 44 % (36-46); Hemoglobin 14.5 g/dL (14.0-18.0); Lymphocyte % 4.7 %; Mean Corpuscular HGB Conc 33 g/dL (31-36); Mean Corpuscular Hemoglobin 32 pg (27-31); Mean Corpuscular Volume 95 fL (80-94); Mean Platelet Volume 7.9 fL (7.4-10.4); Nucleated Red Blood Cells % 0; Platelet Count 223 10^3/uL (150-450); Red Blood Count 4.56 10^6 /uL (4.18-5.48); Red Cell Distribution Width 14 % (10.5-15); White Blood Count 15.5 10^3/uL (3.5-10.8)
[2019-01-25 19:59] LABS: INR 1.01 (0.77-1.02)
[2019-01-25 20:01] LABS: Albumin 4.5 g/dL (3.2-5.2); Albumin/Globulin Ratio 1.4 (1-3); BUN/Creatinine Ratio 15.3 (8-20); EGFR African American 106.3 (>60); EGFR Non-African American 87.9 (>60); Globulin 3.2 g/dL (2-4); Magnesium 1.7 mg/dL (1.9-2.7); Potassium 3.9 mmol/L (3.5-5.0); Total Bilirubin 1.3 mg/dL (0.2-1.0); Total Protein 7.7 g/dL (6.4-8.9)
[2019-01-25] MEDS ORDERED: Iodixanol* (CONTRAST) 320 MG/ML 100 ML SDV IV ONE (20:47)
[2019-01-25] MEDS ORDERED: Magnesium Sulfate 1 GM IV* 1 GM/100 ML BAG IV ONE (21:01)
[2019-01-25] MEDS ORDERED: Azithromycin IV(*) 500 MG in NS 0.9% 250 ML* 250 ML IVPB ONE (21:49)
[2019-01-25] MEDS ORDERED: cefTRIAXone(*) 1 GM in NS 0.9% 50 ML* 50 ML IVPB ONE (21:49)
[2019-01-25] MEDS ORDERED: NS 0.9% 250 ML* 250 ML ONE (21:54)
[2019-01-25] MEDS ORDERED: Magnesium Sulfate 2 GM IV* 2 GM/50 ML BAG IVPB ONE (23:02)
[2019-01-25] MEDS ORDERED: Acetaminophen TAB* 325 MG PO PRN (23:02)
[2019-01-25] MEDS ORDERED: FOLIC ACID 800 MCG PO SCH (23:15)
[2019-01-25] MEDS ORDERED: Albuterol/Ipratropium NEB.SOL* Albuterol 2.5 MG/Ipratropium 0.5 MG 3 ML INH PRN (23:25)
[2019-01-25 23:29] LABS: Influenza A Molecular NEGATIVE (Negative); Influenza B Molecular NEGATIVE (Negative)
[2019-01-25 23:32] LABS: C Reactive Protein 2.97 mg/L (<8.01)
[2019-01-25] MEDS ORDERED: Folic Acid TAB* 1 MG PO SCH (23:45)
[2019-01-26] MEDS ORDERED: predniSONE TAB* 20 MG PO SCH ×2 (00:15→18:00)
[2019-01-26] MEDS: Aspirin EC TAB* 81 MG TAB.EC PO SCH ×2 (00:17→20:12)
[2019-01-26] MEDS: Citalopram TAB* 10 MG PO SCH ×2 (00:17→20:12)
[2019-01-26] MEDS: Apixaban* 5 MG TAB PO SCH ×3 (00:18→20:12)
[2019-01-26] MEDS: CMCS: Rosuvastatin (NF) 5 MG TAB PO SCH ×2 (00:18→21:24)
--- NOTE | 2019-01-26 01:36 | HP ---
HISTORY AND PHYSICAL: DATE OF ADMISSION: 01/25/19 ADMITTING PROVIDER: Addison Sahni MD PRIMARY CARE PROVIDER: Until recently Dr. Biju Schmitz. Plans to establish with Dr. Ronna Borges. OUTPATIENT PHARMACY OPERATIONS MANAGER: Dr. Fili Childress. OUTPATIENT ANTENNA ENGINEER: Dr. Mansi Nickerson. CHIEF COMPLAINT: Acute shortness of breath, coughing. 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 He has been in his usual state of health. At 4 p.m. the day of admission, he was out walking his dogs when he started to feel dyspneic on exertion - he found himself panting. He developed a nonproductive cough. Upon return from the walk, he sat down and he was evaluated by his daughter, Tiffanie, who is a family nurse practitioner who thought he had decreased breath sounds diffusely. He attempted to use his Ventolin inhaler, but it was over 2 years old and they are not sure if it was effective. He denies any fevers , sick contacts, or chest pains. He was referred to [facility] emergency room and was recorded Satting between 60% (EMR) and 71% (per ED physician Dr. Marinelli) on room air. He was put on oxy mask but still was sat'ing only 87% and then was placed on high flow nasal cannula to get up to sat'ing in the mid 90s. He got a CT chest angiogram, which did not show any signs of pulmonary embolism, but showed concern for multifocal pneumonia. He was referred to the hospitalist service for admission for acute hypoxic respiratory failure in setting of sepsis ( tachypnea, tachycardia, leukocytosis 15.5,lactic acidosis of 2.4) caused by bilateral pneumonia. His BNP was 206 had some trace lower extremity edema and crackles at the lower left lung so was not given sepsis 30cc/kg fluid bolus. He was in atrial fibrillation with heart rates in the mid 90s to low 100s. Blood pressure initially was 126/55, dipped down to low of 97/59 but has since improved again. Initially, he was afebrile but has since spiked a fever up to 101.6. Blood cultures were obtained and he was started on Ceftriaxone and Azithromycin. His weight has been gradually increasing and he has had no drenching night sweats. He had just been seen by Dr. Nickerson for 6-month followup the week prior (on 01/17/19) and there were no changes in medications - they reviewed recent CT chest from 12/28/18 with stable calcified pleural plaques, scarred rounded atelectasis. PAST MEDICAL HISTORY: Asthma, concern for asbestosis with bilateral pleural calcified plaques, had been stable on outpatient imaging. Hypertension, BPH, hyperlipidemia, GERD, OA, anxiety, depression, atrial fibrillation, CAD (never [facility]) and left severe carotid artery stenosis, status post CEA. PAST SURGICAL HISTORY: Includes left CAA 10/11/18 in [place], bilateral cataract disease within the last month, right knee surgery, right shoulder surgery. MEDICATIONS: Include: 1. Eliquis 5 mg p.o. b.i.d. 2. Amlodipine 5 mg at bedtime. 3. Crestor 5 mg at bedtime. 4. Nitroglycerin 0.2 mg patch per hour patch between a.m. and p.m. daily. 5. Doxazosin 4 mg p.o. at bedtime. 6. Citalopram 10 mg p.o. at bedtime. 7. Cholecalciferol 1000 units p.o. daily. 8. Aspirin 81 mg at bedtime. ALLERGIES: ATORVASTATIN, causes muscle aches; GEMFIBROZIL, causes muscle aches. FAMILY HISTORY: Mother of CVA at age 85. She also had leukemia and breast cancer. Father at age 49 of cerebral aneurysm and was an alcoholic. He has 3 sisters, 2 of them , one from an [place], the other one had breast cancer, mental retardation and aspiration. He has 3 brothers that are alive. SOCIAL HISTORY: The patient is a former smoker between ages 13 and 28, less than 1 pack per day. He does drink alcohol approximately 2 to 3 beers daily. Denies any history of alcohol withdrawal or seizures. Denies other drug use. 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 REVIEW OF SYSTEMS: Complete 14-point review of systems negative except as per HPI. PHYSICAL EXAMINATION GENERAL APPEARANCE: No acute distress but on Vapotherm. VITAL SIGNS: T-max now 101.6; heart rate initially 100; respiratory rate between 23 and 40; blood pressure initially 126/55, low of 97/59. He was sat' ing reportedly between 60% and 71% on room air, currently 98% on high flow nasal cannula HEENT: Normocephalic, atraumatic. Pupils are equal, round, and reactive to light. Extraocular motions are intact. No scleral icterus. NECK: Supple. No cervical lymphadenopathy. LUNGS: Reduced air exchange bilaterally and some fine crackles at the right> left base. No rhonchi. CARDIOVASCULAR: Irregularly irregular, tachycardic. No murmurs, rubs, or gallop. ABDOMEN: Soft, nontender, nondistended. EXTREMITIES: Warm, well perfused. Trace pitting edema bilaterally. NEUROLOGIC: Cranial nerves II through XII intact. Hip flexion 5/5. Dorsi and plantar flexion 5/5, hip strength 5/5. SKIN: No lesions, no rashes. DIAGNOSTIC STUDIES/LAB DATA: White count 15.5, hemoglobin 14.5, hematocrit 44 , platelets 223. INR 1.01. Sodium 133, potassium 3.9, chloride 98, carbon dioxide 24, BUN 13, creatinine 0.85, glucose 114, lactic acid 2.4, calcium 9.0, magnesium 1.7. Total bilirubin 1.30, AST 26, ALT 18, alk phos 86. Troponin 0.00 followed by 0.01. BNP 206. Total protein 7.7, albumin 4.5. Imaging: CT chest angiogram with contrast showed: 1. Multifocal pneumonia. 2. No pulmonary embolism. 3. Right adrenal adenoma (2.5 cm unchanged from prior study). 4. Cholelithiasis. EKG showed AFib, heart rate 108. No ST elevations or depressions. Normal axis , normal intervals, normal QRS. 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 1) acute hypoxic respiratory failure and sepsis secondary to bilateral pneumonia. We are adding on flu swab, obtain sputum cultures, strep and legionella urine antigens. We will follow up on blood cultures. Continue on ceftriaxone, azithromycin for now. Continue DuoNeb q.4 hours p.r.n. I am going to wait for his flu swab result and if it is negative, we will likely start him on some steroids given his reduced air exchange and history of asthma. Wean O2 as tolerated. 2) high blood pressure: I am going to hold his antihypertensives, the Cardura and the amlodipine in the setting of sepsis. He is normotensive here with one brief dip down. He does have modestly elevated BNP and some trace lower extremity edema. Therefore, he was not given sepsis fluid bolus of 30cc/kg. If he gets hypotensive then bolus of IVF indicated. His ECHO from 09/10/18 showed EF 60-65%, mild-mod TR, mod MR, mild-mod . 3) coronary artery disease, continue his aspirin. Of note, he was stopped off beta-blockers with history of bradycardia. Continue on his nitro patch and his Crestor or formulary substitute(though listed allergy to atorvastatin). 4) atrial fibrillation, continue Eliquis. telemetry. Replete Mg>2, K>4. 5) history of near daily alcohol use of 2-3 beers, continue his folic acid. Never history of seizures or withdrawals but if agitation develops or other signs of withdrawal then benzodiazapines would be indicated. 6) Vitamin D deficiency, continue his cholecalciferol. 7) anxiety and depression, continue his Celexa. He can eat a heart-healthy diet. He is a full code. Medical surrogate is his , Rosalie Ortega, who is at the bedside; also Tiffanie, his daughter, will assist. [id number]/[facility] #: [id number] [facility]
--- NOTE | 2019-01-26 02:10 | PN ---
Sepsis Event Evaluation Date of Evaluation: 01/26/19 Time of Evaluation: 02:00 Current Stage of Sepsis: Sepsis Vital Signs - Last 12 Hours: Vital Signs - 12 hr Temp Pulse Resp BP Pulse Ox 01/26/19 01:45 24 01/26/19 01:01 86 24 100 01/26/19 01:00 77 30 117/58 100 01/26/19 00:37 86 30 98 01/26/19 00:01 89 32 98 01/26/19 00:00 100.5 F 88 33 137/77 98 01/25/19 23:30 98 13 151/89 97 01/25/19 23:29 101.6 F 94 20 149/103 98 01/25/19 23:27 106 23 127/93 93 01/25/19 23:00 100.8 F 98 33 151/89 97 01/25/19 22:47 100 23 149/103 98 01/25/19 22:18 92 31 118/70 98 01/25/19 22:01 99 32 98 01/25/19 21:59 93 36 112/61 98 01/25/19 21:48 99 40 97/59 99 01/25/19 21:18 100 37 128/75 01/25/19 21:00 106 38 98 01/25/19 20:48 111 32 162/82 97 01/25/19 20:03 104 38 141/78 95 01/25/19 20:00 95 33 96 01/25/19 19:33 102 34 140/69 93 01/25/19 19:03 101 23 142/78 87 01/25/19 19:02 95 150 80 01/25/19 18:51 98.7 F 153 20 126/55 60 Lactic Acid: 01/25/19 01/25/19 19:34 23:40 Lactic Acid 2.4 H* 1.4 Exceptions to Standard of Care: no sepsis 30cc/kg IVF bolus given in setting of some lower extremity edema and elevated BNP - Cardiopulmonary Exam Capillary Refill: < or = to 5 seconds Respiratory: Symmetrical Chest Expansion and Respiratory Effort, - - fine crackles left base, moderately diminished air exchange biltaterally Cardiovascular: NL Sounds; No Murmurs; No JVD - Peripheral Pulse Exam Posterior Tibial Pulse: Bilateral Normal - Skin Exam Skin Exam: Normal Turgor - Alfred Coma Scale Best Eye Response: 4 - Spontaneous Best Motor Response: 6 - Obeys Commands Best Verbal Response: 5 - Oriented Coma Scale Total: 15 Assess/Plan/Problems-Billing Assessment:
[2019-01-26 04:55] LABS: Hematocrit 39 % (36-46); Mean Corpuscular HGB Conc 34 g/dL (31-36); Mean Corpuscular Hemoglobin 32 pg (27-31); Mean Corpuscular Volume 94 fL (80-94); Mean Platelet Volume 7.9 fL (7.4-10.4); Platelet Count 180 10^3/uL (150-450); Red Blood Count 4.12 10^6 /uL (4.18-5.48); Red Cell Distribution Width 14 % (10.5-15); White Blood Count 21.6 10^3/uL (3.5-10.8)
[2019-01-26 04:56] LABS: ABS Basophils 0 10^3/ul (0-0.2); ABS Eosinophils 0 10^3/ul (0-0.6); ABS Lymphocytes 0.3 10^3/ul (1.0-4.8); ABS Monocytes 0.4 10^3/ul (0-0.8); ABS Neutrophils 20.8 10^3/ul (1.5-7.7); ABS Nucleated RBC 0 10^3/ul; Eosinophil % 0.1 %; Lymphocyte % 1.4 %; Nucleated Red Blood Cells % 0
[2019-01-26 05:11] LABS: BUN/Creatinine Ratio 13.6 (8-20); Calcium 8.5 mg/dL (8.6-10.3); EGFR African American 112.4 (>60); EGFR Non-African American 92.9 (>60); Magnesium 2.2 mg/dL (1.9-2.7); Potassium 3.9 mmol/L (3.5-5.0)
[2019-01-26] MEDS: Nitroglycerin 0.2 MG/HR PATCH* (5 MG) TRANSDERM SCH (07:37)
[2019-01-26] MEDS: Cholecalciferol TAB* 1000 UNITS PO SCH (07:37)
--- NOTE | 2019-01-26 17:45 | PN ---
Subjective Interval History: Pt admitted to ICU overnight. He quickly experienced and improvement in dyspnea and was able to be transitioned from high-flow to GA on 6L. He states he feels much more comfortable. Objective Active Medications: Acetaminophen (Tylenol Tab*) 650 mg PO Q6H PRN PRN Reason: FEVER Last Admin: 01/25/19 23:15 Dose: 650 mg Albuterol/Ipratropium (Duoneb (Albuterol 2.5 Mg/Ipratropium 0.5 Mg)) 1 neb INH Q4H PRN PRN Reason: SOB/WHEEZING Apixaban (Eliquis*) 5 mg PO BID [facility] Last Admin: 01/26/19 07:37 Dose: 5 mg Aspirin (Aspirin Ec Tab*) 81 mg PO BEDTIME [facility] Last Admin: 01/26/19 00:17 Dose: 81 mg Cholecalciferol (Vitamin D Tab*) 1,000 units PO DAILY [facility] Last Admin: 01/26/19 07:37 Dose: 1,000 units Citalopram Hydrobromide (Celexa Tab*) 10 mg PO BEDTIME [facility] Last Admin: 01/26/19 00:17 Dose: 10 mg Folic Acid (Folvite Tab*) 1 mg PO BEDTIME [facility] Ceftriaxone Sodium 1 gm/ (Sodium Chloride) 50 mls @ 200 mls/hr IVPB Q24H [facility] Azithromycin 500 mg/ Sodium (Chloride) 250 mls @ 250 mls/hr IVPB Q24H [facility] Nitroglycerin (Nitroglycerin 5 Mg Patch*) 1 patch TRANSDERM QAM [facility] Last Admin: 01/26/19 07:37 Dose: 1 patch Pharmacy Profile Note (Nitro Patch/Oint Remove*) 1 note PATCH OFF 2100 [facility] Prednisone (Deltasone Tab*) 40 mg PO 0700 [facility] Rosuvastatin Calcium (Crestor (Nf)) 5 mg PO BEDTIME [facility]; Protocol Last Admin: 01/26/19 00:18 Dose: 5 mg Vital Signs - 8 hr 01/26/19 01/26/19 01/26/19 10:00 10:01 11:00 Temperature Pulse Rate 74 76 72 Respiratory 22 25 21 Rate Blood Pressure 107/61 122/56 (mmHg) O2 Sat by Pulse 97 97 96 Oximetry 01/26/19 01/26/19 01/26/19 12:00 13:00 13:02 Temperature 98 F Pulse Rate 64 86 74 Respiratory 23 24 23 Rate Blood Pressure 127/64 138/60 (mmHg) O2 Sat by Pulse 97 96 95 Oximetry 01/26/19 01/26/19 15:12 16:47 Temperature 97.4 F 98.7 F Pulse Rate 82 79 Respiratory 18 24 Rate Blood Pressure 128/59 142/59 (mmHg) O2 Sat by Pulse 97 99 Oximetry Oxygen Devices in Use Now: Nasal Cannula - 6L Appearance: mild respiratory distress, pleasant, speaking in full sentences, nontoxic Ears/Nose/Mouth/Throat: Mucous Membranes Moist Neck: NL Appearance and Movements; NL JVP Respiratory: - - reduced air movement, bibasilar crackles Cardiovascular: - - irregularly irregular Abdominal: NL Sounds; No Tenderness; No Distention Extremities: No Edema Result Diagrams: 01/26/19 04:45 01/26/19 04:45 Microbiology and Other Data: Microbiology 01/26/19 00:12 Legionella Urinary Antigen - Final Urine Negative Legionella Antigen Streptococcus pneumoniae Ag Screen - Final Negative S. pneumo Antigen 01/25/19 23:06 Nasal Screen MRSA (PCR) - Final Nasal Mrsa Not Detected 01/25/19 23:06 Influenza Types A,B Antigen - Final Nasopharyngeal Specimen received for Influenza A/B Molecular testing Assess/Plan/Problems-Billing 73M with asthma, suspected asbestosis (never biopsied) with calcified pleural plaques, afib on AC, HTN, BPH, anxiety/depression, presents with severe sepsis from multifocal pneumonia seen on CT. - Patient Problems (1) Pneumonia Comment: Presenting with cough, fevers, leukocytosis, hypoxia, lactate 2.4. Found with multifocal PNA on CT. Responding well to antibiotics. Flu negative. - cont IV abx for now - CTX/azithro (01/25 - ) - wean o2 as tolerated - f/u cultures (2) Asthma Comment: Likely having exacerbation from infection. Reports he never needs albuterol at home but has had exacerbation in the past. - cont prednisone burst - cont nebs prn - titrate off supplemental oxygen (3) Depression Comment: - cont home citalopram 10 (4) Atrial fibrillation Comment: - cont apixaban (5) Hypertension Comment: restart home amlodipine (6) Benign prostate hyperplasia Comment: restart home doxazosin
[2019-01-26] MEDS: amLODIPine TAB* 5 MG PO SCH (20:11)
[2019-01-26] MEDS: Folic Acid TAB* 1 MG PO SCH (20:12)
[2019-01-26] MEDS: Doxazosin TAB* 2 MG PO SCH (20:12)
[2019-01-26] MEDS ORDERED: cefTRIAXone(*) 1 GM in NS 0.9% 50 ML* 50 ML IVPB SCH (21:00)
[2019-01-26] MEDS: Nitro Patch/OINT Remove PATCH OFF SCH (21:25)
[2019-01-26] MEDS ORDERED: Azithromycin IV(*) 500 MG in NS 0.9% 250 ML* 250 ML IVPB SCH (21:30)
[2019-01-27 06:04] LABS: ABS Basophils 0.1 10^3/ul (0-0.2); ABS Eosinophils 0 10^3/ul (0-0.6); ABS Lymphocytes 0.8 10^3/ul (1.0-4.8); ABS Monocytes 0.8 10^3/ul (0-0.8); ABS Nucleated RBC 0 10^3/ul; Eosinophil % 0.2 %; Hematocrit 36 % (36-46); Hemoglobin 12.1 g/dL (14.0-18.0); Lymphocyte % 4.1 %; Mean Corpuscular HGB Conc 34 g/dL (31-36); Mean Corpuscular Hemoglobin 32 pg (27-31); Mean Corpuscular Volume 94 fL (80-94); Mean Platelet Volume 7.7 fL (7.4-10.4); Nucleated Red Blood Cells % 0; Platelet Count 167 10^3/uL (150-450); Red Blood Count 3.81 10^6 /uL (4.18-5.48); Red Cell Distribution Width 14 % (10.5-15); White Blood Count 18.7 10^3/uL (3.5-10.8)
[2019-01-27] MEDS: predniSONE TAB* 20 MG PO SCH (06:07)
[2019-01-27 06:33] LABS: BUN/Creatinine Ratio 19.4 (8-20); Calcium 8.5 mg/dL (8.6-10.3); EGFR African American 128.8 (>60); EGFR Non-African American 106.4 (>60); Magnesium 1.7 mg/dL (1.9-2.7); Potassium 3.7 mmol/L (3.5-5.0)
[2019-01-27] MEDS ORDERED: Magnesium Sulfate 2 GM IV* 2 GM/50 ML BAG IVPB ONE (08:08)
[2019-01-27] MEDS: Cholecalciferol TAB* 1000 UNITS PO SCH (08:50)
[2019-01-27] MEDS: Apixaban* 5 MG TAB PO SCH ×2 (08:50→21:06)
[2019-01-27] MEDS: Nitroglycerin 0.2 MG/HR PATCH* (5 MG) TRANSDERM SCH (08:50)
--- NOTE | 2019-01-27 17:06 | PN ---
Subjective Interval History: Pt feeling much better. notes he is near his baseline. Ask why this would happen - explained etiology of PNA. Pt motivated to get up and shower. On interview, was able to reduce NC O2 to 2 L with patient SaO2 96%. Unable to maintain good saturation on room air. RN reports she walked with pt and SaO2 reduced to 80s. Objective Active Medications: Acetaminophen (Tylenol Tab*) 650 mg PO Q6H PRN PRN Reason: FEVER Last Admin: 01/25/19 23:15 Dose: 650 mg Albuterol/Ipratropium (Duoneb (Albuterol 2.5 Mg/Ipratropium 0.5 Mg)) 1 neb INH Q4H PRN PRN Reason: SOB/WHEEZING Amlodipine Besylate (Norvasc Tab*) 5 mg PO BEDTIME [facility] Last Admin: 01/26/19 20:11 Dose: 5 mg Apixaban (Eliquis*) 5 mg PO BID [facility] Last Admin: 01/27/19 08:50 Dose: 5 mg Aspirin (Aspirin Ec Tab*) 81 mg PO BEDTIME [facility] Last Admin: 01/26/19 20:12 Dose: 81 mg Cholecalciferol (Vitamin D Tab*) 1,000 units PO DAILY [facility] Last Admin: 01/27/19 08:50 Dose: 1,000 units Citalopram Hydrobromide (Celexa Tab*) 10 mg PO BEDTIME [facility] Last Admin: 01/26/19 20:12 Dose: 10 mg Doxazosin Mesylate (Cardura Tab*) 4 mg PO BEDTIME [facility] Last Admin: 01/26/19 20:12 Dose: 4 mg Folic Acid (Folvite Tab*) 1 mg PO BEDTIME [facility] Last Admin: 01/26/19 20:12 Dose: 1 mg Ceftriaxone Sodium 1 gm/ (Sodium Chloride) 50 mls @ 200 mls/hr IVPB Q24H [facility] Last Admin: 01/26/19 20:14 Dose: 200 mls/hr Azithromycin 500 mg/ Sodium (Chloride) 250 mls @ 250 mls/hr IVPB Q24H [facility] Last Admin: 01/26/19 21:16 Dose: 250 mls/hr Nitroglycerin (Nitroglycerin 5 Mg Patch*) 1 patch TRANSDERM QAM [facility] Last Admin: 01/27/19 08:50 Dose: 1 patch Pharmacy Profile Note (Nitro Patch/Oint Remove*) 1 note PATCH OFF 2100 [facility] Last Admin: 01/26/19 21:25 Dose: 1 ea Prednisone (Deltasone Tab*) 40 mg PO 0700 [facility] Last Admin: 01/27/19 06:07 Dose: 40 mg Rosuvastatin Calcium (Crestor (Nf)) 5 mg PO BEDTIME [facility]; Protocol Last Admin: 01/26/19 21:24 Dose: 5 mg Vital Signs - 8 hr 01/27/19 01/27/19 11:31 16:40 Temperature 98.9 F 98 F Pulse Rate 80 80 Respiratory 16 20 Rate Blood Pressure 125/65 135/67 (mmHg) O2 Sat by Pulse 97 97 Oximetry Oxygen Devices in Use Now: Nasal Cannula - 2L Appearance: friendly and conversant, nontoxic, able to speak in full sentences Ears/Nose/Mouth/Throat: Mucous Membranes Moist Neck: NL Appearance and Movements; NL JVP Respiratory: - - wheezing improved, good air entry Cardiovascular: RRR Abdominal: No Hepatosplenomegaly Extremities: No Edema Neurological: Alert and Oriented x 3 Result Diagrams: 01/27/19 05:50 01/27/19 05:50 Microbiology and Other Data: Microbiology 01/26/19 00:12 Legionella Urinary Antigen - Final Urine Negative Legionella Antigen Streptococcus pneumoniae Ag Screen - Final Negative S. pneumo Antigen 01/25/19 23:06 Nasal Screen MRSA (PCR) - Final Nasal Mrsa Not Detected 01/25/19 23:06 Influenza Types A,B Antigen - Final Nasopharyngeal Specimen received for Influenza A/B Molecular testing Assess/Plan/Problems-Billing 73M with asthma, suspected asbestosis (never biopsied) with calcified pleural plaques, afib on AC, HTN, BPH, anxiety/depression, presents with severe sepsis from multifocal pneumonia seen on CT. - Patient Problems (1) Pneumonia Comment: Presenting with cough, fevers, leukocytosis, hypoxia, lactate 2.4. Found with multifocal PNA on CT. Responding well to antibiotics. Flu negative. - cont empiric coverage: CTX/azithro (01/25 - ) switch to PO today - wean o2 as tolerated, use IS - f/u cultures (2) Asthma Comment: Likely having exacerbation from infection. Reports he never needs albuterol at home but has had exacerbation in the past. - cont prednisone burst (01/26 - ) - cont nebs prn - titrate off supplemental oxygen (3) Depression Comment: - cont home citalopram 10 (4) Atrial fibrillation Comment: - cont apixaban (5) Hypertension Comment: restart home amlodipine (6) Benign prostate hyperplasia Comment: restart home doxazosin
[2019-01-27] MEDS ORDERED: Azithromycin TAB* 250 MG PO SCH (21:00)
[2019-01-27] MEDS: Folic Acid TAB* 1 MG PO SCH (21:06)
[2019-01-27] MEDS: Citalopram TAB* 10 MG PO SCH (21:06)
[2019-01-27] MEDS: Cefdinir cap* 300 MG CAP PO SCH (21:06)
[2019-01-27] MEDS: Doxazosin TAB* 2 MG PO SCH (21:06)
[2019-01-27] MEDS: Nitro Patch/OINT Remove PATCH OFF SCH (21:07)
[2019-01-27] MEDS: Aspirin EC TAB* 81 MG TAB.EC PO SCH (21:07)
[2019-01-27] MEDS: amLODIPine TAB* 5 MG PO SCH (21:07)
[2019-01-27] MEDS: CMCS: Rosuvastatin (NF) 5 MG TAB PO SCH (21:07)
[2019-01-28] MEDS: predniSONE TAB* 20 MG PO SCH (06:45)
[2019-01-28 07:47] LABS: ABS Basophils 0 10^3/ul (0-0.2); ABS Eosinophils 0 10^3/ul (0-0.6); ABS Lymphocytes 0.8 10^3/ul (1.0-4.8); ABS Monocytes 0.8 10^3/ul (0-0.8); ABS Neutrophils 12.3 10^3/ul (1.5-7.7); ABS Nucleated RBC 0 10^3/ul; Eosinophil % 0.3 %; Hematocrit 37 % (36-46); Hemoglobin 12.6 g/dL (14.0-18.0); Lymphocyte % 5.9 %; Mean Corpuscular HGB Conc 34 g/dL (31-36); Mean Corpuscular Hemoglobin 32 pg (27-31); Mean Corpuscular Volume 95 fL (80-94); Mean Platelet Volume 8.2 fL (7.4-10.4); Nucleated Red Blood Cells % 0; Platelet Count 191 10^3/uL (150-450); Red Blood Count 3.94 10^6 /uL (4.18-5.48); Red Cell Distribution Width 14 % (10.5-15)
[2019-01-28 08:02] LABS: BUN/Creatinine Ratio 20.9 (8-20); Calcium 8.6 mg/dL (8.6-10.3); EGFR African American 139.9 (>60); EGFR Non-African American 115.6 (>60); Magnesium 1.8 mg/dL (1.9-2.7); Potassium 3.4 mmol/L (3.5-5.0)
[2019-01-28] MEDS: Cefdinir cap* 300 MG CAP PO SCH (08:37)
[2019-01-28] MEDS: Apixaban* 5 MG TAB PO SCH (08:37)
[2019-01-28] MEDS: Cholecalciferol TAB* 1000 UNITS PO SCH (08:37)
[2019-01-28] MEDS: Nitroglycerin 0.2 MG/HR PATCH* (5 MG) TRANSDERM SCH (08:38)
[2019-01-28 11:15] VITALS: BP 131/58
== END 2019-01-28 17:15 | disposition home or self-care (01) | DRG 871 ==
LOC: ED 18:47 → ICU 22:30 → MED 01-26 08:49
PROVIDERS: ADMIT Internal Medicine; ATTEND Internal Medicine
DX: A41.9 Sepsis, unspecified organism (principal); J96.01 Acute respiratory failure with hypoxia; J18.8 Other pneumonia, unspecified organism; E87.2 Acidosis; J45.901 Unspecified asthma with (acute) exacerbation; J94.8 Other specified pleural conditions; I48.91 Unspecified atrial fibrillation; I10 Essential (primary) hypertension; N40.0 Benign prostatic hyperplasia without lower urinary tract symptoms; F41.9 Anxiety disorder, unspecified; F32.9 Major depressive disorder, single episode, unspecified; E78.5 Hyperlipidemia, unspecified; K21.9 Gastro-esophageal reflux disease without esophagitis; G47.33 Obstructive sleep apnea (adult) (pediatric); M19.90 Unspecified osteoarthritis, unspecified site; K80.20 Calculus of gallbladder without cholecystitis without obstruction; I25.10 Atherosclerotic heart disease of native coronary artery without angina pectoris; Z77.090 Contact with and (suspected) exposure to asbestos; Z79.01 Long term (current) use of anticoagulants; Z79.82 Long term (current) use of aspirin; Z79.899 Other long term (current) drug therapy; Z88.8 Allergy status to other drugs, medicaments and biological substances; Z82.3 Family history of stroke; Z80.3 Family history of malignant neoplasm of breast; Z80.6 Family history of leukemia; Z81.1 Family history of alcohol abuse and dependence; Z82.49 Family history of ischemic heart disease and other diseases of the circulatory system; Z87.891 Personal history of nicotine dependence; D35.01 Benign neoplasm of right adrenal gland; E55.9 Vitamin D deficiency, unspecified
CPT/HCPCS: 36415; 71045; 71275; 80048; 80053; 83605; 83735; 83880; 84484; 85025; 85610; 85730; 86140; 87040; 87641; 87899; 93005; 99285; A9270-GY; J0456; J0696; J3475; J7512; Q9967

== ENCOUNTER 2019-12-22 01:28 | Emergency (ER) | payer MEDICARE, BC ==
--- NOTE | 2019-12-22 01:50 | ED ---
HPI Febrile Illness - HPI Summary HPI Summary: This pt is a 74 Y/O M presenting to [facility] with a CC of a fever that is rated 101.8 F. He states that he had a recent fever one week ago that had resolved. He states that he saw Dr. Childress recently and had good blood results. He states that tonight he became nauseas with a fever and has had a productive cough. He denies any headaches, abdominal pains, vomiting, edema, SOB, and sore throat. He states that he has a PMHx of AFIB. He has no aggravating or alleviating factors. - History of Current Complaint Chief Complaint: EDFever Time Seen by Provider: 12/22/19 01:38 Hx Obtained From: Patient Onset/Duration: Started Hours Ago Timing: Constant Temperature: 38.8 C Current Severity: None Pain Intensity: 0 Pain Scale Used: 0-10 Numeric Aggravating Factors: Nothing Alleviating Factors: Nothing Associated Signs and Symptoms: Negative - headaches, abdominal pains, vomiting, edema, SOB, and sore throat, Cough, Nausea - Additional Pertinent History Primary Care Physician: [id number] - Allergy/Home Medications Allergies/Adverse Reactions: Allergies Allergy/AdvReac Type Severity Reaction Status Date / Time atorvastatin Allergy Intermediate Muscle Ache Verified 05/17/19 09:36 gemfibrozil AdvReac Intermediate Muscle Ache Verified 05/17/19 09:36 PMH/Surg Hx/FS Hx/Imm Hx Previously Healthy: Yes Endocrine/Hematology History: Reports: Hx Anticoagulant Therapy Denies: Hx Diabetes, Hx Thyroid Disease Cardiovascular History: Reports: Hx Angina, Hx Atrial Fibrillation, Hx Coronary Artery Disease, Hx Hypercholesterolemia, Hx Hypertension - CONTROL WITH MEDS, Other Cardiovascular Problems/Disorders - CHOLESTEROL CONTROL WITH MEDS, afib Denies: Hx Pacemaker/ICD Respiratory History: Reports: Hx Asthma - 1 ACUTE EPISODE THIS SPRING RELATED TO DUST, Other Respiratory Problems/Disorders - left lower quad for asbestos Denies: Hx Chronic Obstructive Pulmonary Disease (COPD) GI History: Reports: Hx Gastroesophageal Reflux Disease - ,very seldom History: Reports: Other Problems/Disorders - HX OF BPH, ACCORDING TO H&P Denies: Hx Renal Disease Sensory History: Reports: Hx Cataracts - both eyes Denies: Hx Contacts or Glasses, Hx Hearing Aid Opthamlomology History: Reports: Hx Cataracts - both eyes Denies: Hx Contacts or Glasses Neurological History: Denies: Hx Dementia, Hx Seizures Psychiatric History: Reports: Hx Anxiety - CONTROL OF MED Denies: Hx Substance Abuse - Surgical History Surgical History: Yes Surgery Procedure, Year, and Place: left knee scoping, [place] rt shoulder =may 2016 for fx. 1969'[place] RIGHT [place]COPY[place] [facility] [place]. 2007 RIGHT TOTAL KNEE REPLACEMENT, [facility]. 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 left endarectomy at [facility] 10/11/18 Hx Anesthesia Reactions: No - Immunization History Date of Tetanus Vaccine: 2 YEARS AGO Immunizations Up to Date: Yes Infectious Disease History: No Infectious Disease History: Denies: Hx Clostridium Difficile, Hx Hepatitis, Hx Human Immunodeficiency Virus (HIV), Hx of Known/Suspected MRSA, Hx Shingles, Hx Tuberculosis, Hx Known/ Suspected VRE, Hx Known/Suspected VRSA, History Other Infectious Disease, Traveled Outside the in Last 30 Days - Family History Known Family History: Positive: Cardiac Disease - CAD - Social History Occupation: Retired Lives: With Family Alcohol Use: Rare Alcohol Amount: 1-2/day beer,in winter less Hx Substance Use: No Substance Use Type: Reports: None Hx Tobacco Use: Yes Smoking Status (MU): Former Smoker Type: Cigarettes Amount Used/How Often: 1/2 PPD Have You Smoked in the Last Year: No Review of Systems Positive: Fever - 101.8 F Negative: Sore Throat Positive: Cough. Negative: Shortness Of Breath Positive: Nausea. Negative: Abdominal Pain, Vomiting Negative: Edema Negative: Headache All Other Systems Reviewed And Are Negative: Yes Physical Exam - Summary Physical Exam Summary: Appearance: Well-appearing, Well-nourished, lying in bed comfortably Skin: Warm, dry, no obvious rash Eyes: sclera anicteric, no conjunctival pallor ENT: mucous membranes moist, pharynx appears normal Neck: Supple, nontender Respiratory: Crackles at the right base, tachypnic Cardiovascular: Mild tachycardia noted with an irregular rhythm. No murmurs. Normal distal pulses in tibial and radial bilaterally. Abdomen: Soft, nontender, normal active bowel sounds present Musculoskeletal: Normal, Strength/ROM Intact Neurological: A&Ox3, awake and alert, mentation is normal, speech is fluent and appropriate Psychiatric: affect is normal, does not appear anxious or depressed Triage Information Reviewed: Yes Vital Signs On Initial Exam: Initial Vitals Temp Pulse Resp BP Pulse Ox 101.8 F 113 20 129/76 95 12/22/19 01:28 12/22/19 01:28 12/22/19 01:28 12/22/19 01:28 12/22/19 01:28 Vital Signs Reviewed: Yes Procedures - Sedation Patient Received Moderate/Deep Sedation with Procedure: No Diagnostics - Vital Signs Vital Signs Temp Pulse Resp BP Pulse Ox 12/22/19 01:28 101.8 F 113 20 129/76 95 - Laboratory Result Diagrams: 12/22/19 02:27 12/22/19 02:27 Lab Statement: Any lab studies that have been ordered have been reviewed, and results considered in the medical decision making process. - Radiology CXR Radiology Interpretation Completed By: ED Physician Summary of Radiographic Findings: No acute processes. Pending offical review. Course/Dx - Course Course Of Treatment: This pt is a 74 Y/O M presenting to [facility] with a CC of a fever that is rated 101.8 F. He states that he had a recent fever one week ago that had resolved. He states that he saw Dr. Childress recently and had good blood results. He states that tonight he became nauseas with a fever and has had a productive cough. He denies any headaches, abdominal pains, vomiting, edema, SOB , and sore throat. His PE found that he is currently tachypnic with crackles at the right base and has mild tachycardia with an irregular rhythm. This pt has abnormal laboratory values in WBC, RBC, Hgb, Hct, MCV, MCH, Urine blood, Urine Urobilinogen, Urine RBC, Hyaline casts, and Urine sperm. His CXR shows no acute processes. He states that he is feeling much better and will be discharged home with a Dx of PNA. - Diagnoses Provider Diagnoses: PNA (pneumonia) Discharge ED - Sign-Out/Discharge Documenting (check all that apply): Patient Departure - discharge - Discharge Plan Condition: Good Disposition: HOME Prescriptions: Amoxicillin/Clavulanate TAB* [Augmentin TAB 875*] 875 mg PO BID #20 tab Azithromyxin ULYSSES (NF) [Z-Ulysses (Zithromax) 250 mg tabs #6] 2 tab PO .TODAY, THEN 1 DAILY #6 tab Patient Education Materials: Pneumonia (ED) Referrals: Ronna Borges MD [Primary Care Provider] - Additional Instructions: I think we can safely treat your respiratory infection at home with oral antibiotics. Sometimes patients with this do get worse before they get better, so if that seems to be happening we want you to come back. - Billing Disposition and Condition Condition: GOOD Disposition: Home - Attestation Statements Document Initiated by Jacquelin: Yes Documenting Scribe: Eyal Spear Provider For Whom Jacquelin is Documenting (Include Credential): Kennedy Jane MD Scribe Attestation: IEyal, scribed for Kennedy Jane MD on 12/23/19 at 0358. Scribe Documentation Reviewed: Yes Provider Attestation: The documentation as recorded by the Eyal yip accurately reflects the service I personally performed and the decisions made by me, Kennedy Jane MD Status of Scribe Document: Viewed
[2019-12-22 02:14] LABS: Urine Appearance Clear; Urine Bilirubin Negative (Negative); Urine Blood 1+ (Negative); Urine Color Yellow; Urine Glucose Negative (Negative); Urine Ketones Negative (Negative); Urine Nitrite Negative (Negative); Urine Protein Negative (Negative); Urine Specific Gravity 1.015 (1.010-1.030); Urine Urobilinogen Positive (Negative)
[2019-12-22 02:19] LABS: Urine Bacteria Absent (Absent); Urine Red Blood Cell 2+(6-10/hpf) (Absent); Urine White Blood Cell Trace(0-5/hpf) (Absent)
[2019-12-22 02:28] LABS: Influenza A Molecular Negative (Negative); Influenza B Molecular Negative (Negative)
[2019-12-22] MEDS ORDERED: Acetaminophen TAB* 325 MG PO ONE (02:31)
[2019-12-22 02:38] LABS: Hematocrit 37 % (42-52); Hemoglobin 12.7 g/dL (14.0-18.0); Mean Corpuscular HGB Conc 34 g/dL (31-36); Mean Corpuscular Hemoglobin 33 pg (27-31); Mean Corpuscular Volume 95 fL (80-94); Mean Platelet Volume 7.5 fL (7.4-10.4); Platelet Count 248 10^3/uL (150-450); Red Blood Count 3.91 10^6 /uL (4.18-5.48); Red Cell Distribution Width 14 % (10-15); White Blood Count 13.5 10^3/uL (3.5-10.8)
[2019-12-22 02:44] LABS: Activated Partial Thrombo Time 26.7 seconds (26.0-38.0); INR 1.45 (0.82-1.09)
[2019-12-22 02:46] LABS: ABS Eosinophils 0.1 10^3/ul (0-0.6); ABS Lymphocytes 0.4 10^3/ul (1.0-4.8); ABS Monocytes 0.9 10^3/ul (0-0.8); ABS Neutrophils 12.1 10^3/ul (1.5-7.7); Eosinophil % 0.5 %; Lymphocyte % 3.1 %
[2019-12-22 02:50] LABS: Albumin 4.2 g/dL (3.2-5.2); Calcium 8.8 mg/dL (8.6-10.3); Potassium 3.7 mmol/L (3.5-5.0); Total Bilirubin 1.7 mg/dL (0.2-1.0)
[2019-12-22 02:56] LABS: Albumin/Globulin Ratio 1.1 (1-3); BUN/Creatinine Ratio 13.8 (8-20); EGFR African American 103.2 (>60); EGFR Non-African American 85.3 (>60); Globulin 3.7 g/dL (2-4); Total Protein 7.9 g/dL (6.4-8.9)
[2019-12-22 04:01] VITALS: BP 116/63
== END 2019-12-22 04:00 | disposition home or self-care (01) ==
LOC: ED 01:28
DX: J18.9 Pneumonia, unspecified organism (principal); I48.91 Unspecified atrial fibrillation; I25.10 Atherosclerotic heart disease of native coronary artery without angina pectoris; E78.00 Pure hypercholesterolemia, unspecified; I10 Essential (primary) hypertension; K21.9 Gastro-esophageal reflux disease without esophagitis; F41.9 Anxiety disorder, unspecified; Z96.651 Presence of right artificial knee joint; Z89.022 Acquired absence of left finger(s); Z87.891 Personal history of nicotine dependence; Z79.899 Other long term (current) drug therapy; Z88.8 Allergy status to other drugs, medicaments and biological substances
CPT/HCPCS: 36415; 71046; 80053; 81003; 81015; 83605; 84484; 85025; 85610; 85730; 87040; 87086; 99284; A9270-GY

== ENCOUNTER 2020-01-01 07:23 | Emergency (ER) | payer MEDICARE, BC ==
--- OUTSIDE RECORDS SUMMARY | 2020-01-01 07:28 | XMS REPORT | Continuity of Care Document ---
:1945 External Reference #:[id number] Author Name Emmanuel Montelongo NP (transmitted by agent of provider Kristen Felix) Address [address], [place] [address] Care Team Providers Name Role Phone Riley Chun MD - Urology Care Team Information Beamer Operator [phone] Mansi Nickerson MD - Pulmonary Care Team Information Beamer Operator Disease Ronna Borges M.D. - Family Medicine Care Team Information Beamer Operator [phone] Problems Active Problems Provider Date Coronary atherosclerosis Biju Schmitz M.D.,FACP Onset: 03/17/2017 Note: abnormal stress/myoview 03/24, suspect CAD Carotid artery stenosis Biju Schmitz M.D.,FACP Onset: 06/09/2018 Note: LT CEA Mixed hyperlipidemia Biju Schmitz M.D.,FACP Onset: 12/22/2007 Benign essential hypertension Biju Schmitz M.D.,FACP Onset: 12/22/2007 Osteoarthritis of knee Biju Schmitz M.D.,FACP Onset: 12/04/2008 Benign neoplasm of adrenal gland Biju Schmitz M.D.,FACP Onset: 2008 Note: right Microscopic hematuria Biju Schmitz M.D.,FACP Onset: 07/02/2009 Pure hypercholesterolemia Fili Childress M.D. Onset: 03/04/2012 Generalized anxiety disorder Karen Chandler, N.P. Onset: 01/04/2013 Asthma without status asthmaticus Biju Schmitz M.D.,FACP Onset: 2015 Asbestos-induced pleural plaque Biju Schmitz M.D.,FACP Onset: 2015 Knee pain Ganesh Shipman MD Onset: 02/19/2018 Arthroplasty of knee Ganesh Shipman MD Onset: 02/19/2018 Periprosthetic osteolysis Karina Bhardwaj M.D. Onset: 03/01/2018 Social History Type Date Description Comments Sex Unknown Cigarette Use Quit - Age 28 ETOH Use consumes 2-3 beers per During summer day months Recreational Drug Use Denies Drug Use Tobacco Use Start: Unknown End: Patient is a former Unknown smoker Smoking Status Reviewed: 12/27/19 Patient is a former smoker Exercise Type/Frequency Exercises regularly walks outside most days, weather permitting. uses indoor bicycle if unable to walk. Walks 3 dogs as well. Exercise Limitations Limited Due To Right Knee Pain Allergies, Adverse Reactions, Alerts Active Allergies Reaction Severity Comments Date Gemfibrozil muscle aches in legs 05/03/2008 Lipitor myalgias 07/28/2013 Medications Active Medications SIG Qnty Indications Ordering Date Provider Magnesium Oxide -MG 1 by mouth every day 90caps Carmela Desir, 2019 Supplement N.P. 400mg Capsules Nebulizer 1 unit nebulization 1units J45.20 Mansi Nickerson, 02/03/2019 Kit/Tubing/Mouthpiec every 4- 6 hours as MD davila needed Kit Levalbuterol HCL 1 unit daily and as 24ml J45.20 Mansi Nickerson, 2018 needed 0.63mg/3ML Nebulizer Eliquis 1 by mouth twice a 180tabs Carmela Desir, 08/13/2018 5mg Tablets day N.P. Amlodipine Besylate 1 tabs by mouth 90tabs Fili Lino 05/18/2018 daily in in the Chrystal Childress 10mg Tablets morning Shingrix 0.5 milliliters 2units Biju Bright 05/18/2018 50mcg intramuscular now Chrystal Schmitz,FACP Suspension Rec and 2-3 months later repeat Received 1st injection Crestor 1 by mouth every 90tabs Ronna Borges MD 05/01/2017 5mg Tablets evening Nitroglycerin apply one to chest 90units R94.30 Fili KirkRochelle 04/01/2016 wall in the morning Chrystal Childress 0.2mg/HR Patches and remove prior to 24HR bedtime Aspirin 1 po qd 90tabs Fili FRochelle 07/09/[address] Folic Acid 1 po qd 30tabs Unknown 800mcg Tablets Ventolin HFA as needed Unknown 108(90Base) mcg/Act Aerosol Lubricant Eye Drops 1 gtt each eye qd as Unknown needed 0.4-0.3% Solution Citalopram take one tablet by 90tabs Ronna Borges MD Hydrobromide mouth once daily 10mg Tablets Doxazosin Mesylate Take 1 Tablet By 90tabs I10 Ronna Borges MD Mouth Once Daily 4mg Tablets Vitamin D 1 by mouth every day Unknown (Ergocalciferol) 2000Unit Capsules Amoxicillin/Clavulan Take 1 Tablet By Unknown ate Potassium Mouth Twice Daily 875-125mg Tablets Azithromycin Take 2 Tablets By Unknown 250mg Mouth On Day 1 And Tablets Then Take 1 Tablet By Mouth Once A Day On Day 2 Through Day 5 Immunizations CPT Code Status Date Vaccine Reaction Lot # [id number] Given 08/30/2019 Influenza Virus Vaccine, [id number] Quadrivalent ([id number]), Derived From Cell 57572 Given 08/04/2018 Influenza Virus Vaccine, [id number] Quadrivalent, Split, Preservative Free 54076 Given 09/10/2017 Influenza Virus Vaccine, [id number] Quadrivalent, Split, Preservative Free 30591 Given 09/04/2016 Influ Virus Vaccine, no immediate reaction [id number] Quadrivalent, Split Virus, noted .. [place] [address] Given 03/11/2016 Pneumococcal Conjugate [id number] Vaccine 13 Valent For Intramuscular Use 85747 Given 08/29/2015 Influenza Virus Vaccine, [id number] Quadrivalent, Split, Preservative Free 02183 Given 09/13/2014 Flu Vaccine Split Virus [id number] Preservative Free For Indiv 3Yr Older 91124 Given 09/19/2013 Flu Vaccine Split Virus Preservative Free For Indiv 3Yr Older [id number] Given 09/17/2012 Fluvirin Im 3Yrs And Older [id number] 17052 Given 07/01/2012 Tdap - [id number] Tetanus/Diptheria/Acellula r Pertussis 09084 Given 12/10/2009 Administration Swine Flu Shot 44712 Given 12/10/2009 Influenza Virus Vaccine, [id number] Pandemic Formulation 60052 Given 08/29/2009 Influenza Virus 3Yrs & [id number] Over 31575 Given 07/02/2009 Pneumonia Vaccine [id number] 92021 Given 08/15/2008 Influenza Virus 3Yrs & [id number] Over 47311 Given 12/22/2007 Zoster (Zostavax) 41546 Given 12/22/2007 Zoster (Zostavax) 41488 Given 12/22/2007 Zoster (Zostavax) [id number] 81090 Given 09/13/2007 Influenza Virus 3Yrs & Over 94984 Given 09/13/2007 Influenza Virus 3Yrs & Over 59192 Given 09/13/2007 Influenza Virus 3Yrs & [id number] Over Vital Signs Date Vital Result Comment 12/27/2019 10:38am Height 66.5 inches 5'6.50" Weight 175.00 lb Heart Rate 92 /min BP Systolic 115 mmHg BP Diastolic 72 mmHg Body Temperature 96.4 F O2 % BldC Oximetry 99 % BMI (Body Mass Index) 27.8 kg/m2 08/30/2019 8:25am Height 66.5 inches 5'6.50" Weight 184.00 lb Heart Rate 67 /min BP Systolic Sitting 151 mmHg BP Diastolic Sitting 90 mmHg O2 % BldC Oximetry 98 % BMI (Body Mass Index) 29.3 kg/m2 Results Test Acquired Date Facility Test Result H/L Range Note Urinalysis Profile 12/22/2019 [facility] Urine Color Yellow [address] [place] [address] [phone] Urine Appearance Clear Urine Specific [place] 1.015 Normal 1.010-1.030 Urine pH 7.0 Normal 5-9 Urine Urobilinogen Positive Abnormal Negative Urine Ketones Negative Negative Urine Protein Negative Negative Urine Leukocytes Negative Negative Urine Blood 1+ Abnormal Negative Urine Nitrite Negative Negative Urine Bilirubin Negative Negative Urine Glucose Negative Negative Urine White Blood Cell Trace(0-5/hpf) Absent Urine Red Blood Cell 2+(6-10/hpf) Abnormal Absent Urine Bacteria Absent Absent Urine Hyaline Casts Present Abnormal Absent Urine Sperm Present Abnormal Absent Inr/Protime 12/22/2019 [facility] Inr 1.45 High 0.82-1.[address] [place] [address] [phone] Laboratory test 12/22/2019 [facility] Partial 26.7 Normal 26.0 -38.[address] [place] [address] Time PTT [phone] CBC Auto Diff 12/22/2019 [facility] White Blood 13.5 High 3.5- 10.[address] Count 10^3/[place] [address] [phone] Red Blood Count 3.91 10^6/uL Low 4.18-5.48 Hemoglobin 12.7 g/dL Low 14.0-18.0 Hematocrit 37 % Low 42-52 Mean Corpuscular Volume 95 fL High 80-94 Mean Corpuscular Hemoglobin 33 pg High 27-31 Mean Corpuscular HGB Conc 34 g/dL Normal 31-36 Red Cell Distribution Width 14 % Normal 10-15 Platelet Count 248 10^3/uL Normal 150-450 Mean Platelet Volume 7.5 fL Normal 7.4-10.4 Abs Neutrophils 12.1 10^3/uL High 1.5-7.7 Abs Lymphocytes 0.4 10^3/uL Low 1.0-4.8 Abs Monocytes 0.9 10^3/uL High 0-0.8 Abs Eosinophils 0.1 10^3/uL Normal 0-0.6 Abs Basophils 0.0 10^3/uL Normal 0-0.2 Abs Nucleated RBC 0.0 10^3/uL Granulocyte % 89.7 % Lymphocyte % 3.1 % Monocyte % 6.5 % Eosinophil % 0.5 % Basophil % 0.2 % Nucleated Red Blood Cells % 0.0 Influenza A & B 12/22/2019 [facility] Flu AB Disclaimer (SEE NOTE) [address] [place] [address] [phone] Influenza A Molecular Negative Negative Influenza B Molecular Negative Negative 3 Comp Metabolic Panel 12/22/2019 [facility] Sodium 129 mmol/L Low 135-[address] [place], [place] [id number] [phone] Potassium 3.7 mmol/L Normal 3.5-5.0 Chloride 98 mmol/L Low 101-111 Co2 Carbon Dioxide 21 mmol/L Low 22-32 Anion Gap 10 mmol/L Normal 2-11 Calcium 8.8 mg/dL Normal 8.6-10.3 Albumin 4.2 g/dL Normal 3.2-5.2 Total Bilirubin 1.70 mg/dL High 0.2-1.0 Glucose 119 mg/dL High 70-100 Blood Urea Nitrogen 12 mg/dL Normal 6-24 Creatinine 0.87 mg/dL Normal 0.67-1.17 BUN/Creatinine Ratio 13.8 Normal 8-20 Total Protein 7.9 g/dL Normal 6.4-8.9 Globulin 3.7 g/dL Normal 2-4 Albumin/Globulin Ratio 1.1 Normal 1-3 Alkaline Phosphatase 91 U/L Normal 34-104 Alt 44 U/L Normal 7-52 Ast 44 U/L High 13-39 Egfr Non- 85.3 >60 Egfr 103.2 >60 4 Laboratory test 12/22/2019 [facility] Troponin-I (TnI) 0.00 ng/ mL <0.[address] [place] [address] [phone] Lactic Acid 0.9 mmol/L Normal 0.5-2.0 6 Blood Culture SEE RESULT BELOW 7 Urine Culture And 12/22/2019 [facility] Urine Culture SEE RESULT [address] [place], [place] [id number] [phone] Laboratory test 12/19/2019 [facility] Magnesium 1.7 mg/dL Low 1.9-[address] [place], [place] [id number] [phone] PSA Diagnostic 0.884 ng/mL 0-4.0 10 Lipid Profile 12/19/2019 [facility] Triglycerides 80 mg/dL 11 (Trig/Chol/HDL) [place] [address] [phone] Cholesterol 104 mg/dL 12 HDL Cholesterol 29.7 mg/dL 13 LDL Cholesterol 58 mg/dL 14 Comp Metabolic 12/19/2019 [facility] Sodium 136 mmol/L Normal 135-[address] [place] [address] [phone] Potassium 3.8 mmol/L Normal 3.5-5.0 Chloride 101 mmol/L Normal 101-111 Co2 Carbon Dioxide 28 mmol/L Normal 22-32 Anion Gap 7 mmol/L Normal 2-11 Glucose 99 mg/dL Normal 70-100 Blood Urea Nitrogen 9 mg/dL Normal 6-24 Creatinine 0.93 mg/dL Normal 0.67-1.17 BUN/Creatinine Ratio 9.7 Normal 8-20 Calcium 8.7 mg/dL Normal 8.6-10.3 Total Protein 7.0 g/dL Normal 6.4-8.9 Albumin 3.9 g/dL Normal 3.2-5.2 Globulin 3.1 g/dL Normal 2-4 Albumin/Globulin Ratio 1.3 Normal 1-3 Total Bilirubin 1.00 mg/dL Normal 0.2-1.0 Alkaline Phosphatase 105 U/L High 34-104 Alt 46 U/L Normal 7-52 Ast 50 U/L High 13-39 Egfr Non- 79.0 >60 Egfr 95.6 >60 15 Lipid Panel 12/19/2019 [facility] Creatine 108 U/L Normal 10- 223 16 - J[facility] [address] Kinase(CK) [place] [address] [phone] CBC Auto 12/19/2019 [facility] White Blood 8.5 Normal 3.5- 10.[address] Count 10^3/[place] [address] [phone] Red Blood Count 4.27 10^6/uL Normal 4.18-5.48 Hemoglobin 14.0 g/dL Normal 14.0-18.0 Hematocrit 41 % Low 42-52 Mean Corpuscular Volume 96 fL High 80-94 Mean Corpuscular Hemoglobin 33 pg High 27-31 Mean Corpuscular HGB Conc 34 g/dL Normal 31-36 Red Cell Distribution Width 13 % Normal 10-15 Platelet Count 303 10^3/uL Normal 150-450 Mean Platelet Volume 8.2 fL Normal 7.4-10.4 Abs Neutrophils 5.9 10^3/uL Normal 1.5-7.7 Abs Lymphocytes 0.9 10^3/uL Low 1.0-4.8 Abs Monocytes 1.2 10^3/uL High 0-0.8 Abs Eosinophils 0.3 10^3/uL Normal 0-0.6 Abs Basophils 0.1 10^3/uL Normal 0-0.2 Abs Nucleated RBC 0.0 10^3/uL Granulocyte % 69.9 % Lymphocyte % 11.0 % Monocyte % 14.5 % Eosinophil % 3.8 % Basophil % 0.8 % Nucleated Red Blood Cells % 0.2 Basic Metabolic 08/19/2019 [facility] Sodium 138 mmol/L Normal 135-[address] [place] [address] [phone] Potassium 4.1 mmol/L Normal 3.5-5.0 Chloride 102 mmol/L Normal 101-111 Co2 Carbon Dioxide 29 mmol/L Normal 22-32 Anion Gap 7 mmol/L Normal 2-11 Glucose 95 mg/dL Normal 70-100 Blood Urea Nitrogen 12 mg/dL Normal 6-24 Creatinine 0.89 mg/dL Normal 0.67-1.17 BUN/Creatinine Ratio 13.5 Normal 8-20 Calcium 8.9 mg/dL Normal 8.6-10.3 Egfr Non- 83.1 >60 Egfr 100.6 >60 17 1 Standard intensity warfarin therapeutic range: 2.0-3.0 High intensity warfarin therapeutic range: 2.5-3.5 2 Suboptimal collection technique may reduce sensitivity of test. Refer to the [facility] Test Catalog for collection information: [email or web address] As with all diagnostic procedures, the laboratory results obtained should be used in conjunction with other clinical information available to the physician, including confirmation by another method, as applicable. 3 Kiln Car Repairer: [id number] 4 Because ethnic data is not always readily [...] 15-29 5 Kidney failure <15 (or dialysis) 5 Troponin-I testing on Plasma Separator Tubes (PST) has a known false positive rate of 0.20-0.40%. All positive troponins reflex immediately to secondary confirmatory testing. Using the [employer] DxI 800 Access Immunoassay systems, the 99th percentile upper reference limit was demonstrated to be < 0.03 ng/mL. 6 [facility] Severe Sepsis and Septic Shock Management Bundle Measure requires all lactic acids initially measuring >2.0 mmol/L be repeated. 7 SEE RESULT BELOW Name: LEO ORTEGA : [address]: Kennedy Jane MD Acct: [id number] Unit: [id number] AGE: 74 Location: ED Re12/22/19 SEX: M Status: DEP ER SPEC: [id number] DESTINY: 12/22/19 [facility] DR: Kennedy Jane MD REQ: [id number] RECD: 12/22/19 STATUS: MELIZA ESPINAL DR: Ronna Borges MD _ SOURCE: BLOOD,VENO SPDESC: ORDERED: Blood Cult Procedure Result Reported Site Aerobic Culture Bottle Preliminary 12/26/19- 233 ML No Growth Day 4 Anaerobic Culture Bottle Final 12/27/19- 231 ML No Growth Day 5 * ML - Main Lab . END OF REPORT DEPARTMENT OF PATHOLOGY, [address] [place] [address] Jovan Olivares M.D. Director [facility] # [id number] 8 SEE RESULT BELOW Name: ORTEGALEO : [address]: Kennedy Jane MD Acct: [id number] Unit: [id number] AGE: 74 Location: ED Re12/22/19 SEX: M Status: DEP ER SPEC: [id number] DESTINY: 12/22/19-0140 [facility] DR: Kennedy Jane MD REQ: [id number] RECD: 12/22/19 STATUS: XAVI ESPINAL DR: Ronna Borges MD _ SOURCE: URINE SPDESC: ORDERED: Urine Culture Procedure Result Reported Site Urine Culture Final 12/23/19- 911 ML No Growth (<1,000 CFU/mL) * ML - Main Lab . END OF REPORT DEPARTMENT OF PATHOLOGY, [address] [place] [address] Jovan Olivares M.D. Director [facility] # [id number] 9 FASTING beginning of december 19 Serum levels of PSA measured using the Sujatha Berne DXI Hybritech immunoassay should not be interpreted as absolute evidence of the presence or absence of disease. The PSA value should be used in conjunction with other pertinent clinical diagnostic procedures. The values obtained with different assay methods or kits cannot be used interchangeably. 11 Desirable: <150 Borderline High: 150-199 High: 200-499 Very High: >500 12 Desirable: <200 Borderline High: 200-239 High: >239 13 Low: <40 Desirable: 40-60 High: >60 14 Desirable: <100 Near Optimal: 100-129 Borderline High: 130-159 High: 160-189 Very High: >189 15 Because ethnic data is not always [...] Kidney failure <15 (or dialysis) 16 FASTING beginning december 26 Because ethnic data is not always readily [...] 15-29 5 Kidney failure <15 (or dialysis) Procedures Date Code Description Status 12/27/2019 09499 EKG Tracing & Interpretation Completed 07/22/2019 04890 EKG Tracing & Interpretation Completed 11/24/2018 [id number] Diabetic Retinal Eye Exam Completed 02/19/2015 [id number] Colonoscopy Completed 09/09/2004 30687504 Colonoscopy Completed Medical Devices Description No Information Available Encounters Type Date Location Provider Dx Diagnosis Office Visit 07/22/2019 [facility] Carmela Desir, I10 Essential ( primary) 10:00a N.P. hypertension I48.91 Unspecified atrial fibrillation I34.0 Nonrheumatic mitral (valve) insufficiency I35.0 Nonrheumatic aortic (valve) stenosis E78.00 Pure hypercholesterolemia, unspecified Assessments Date Code Description Provider 12/27/2019 J18.9 Pneumonia, unspecified organism Emmanuel Montelongo NP 12/27/2019 R79.9 Abnormal finding of blood chemistry, Emmanuel Montelongo NP unspecified 12/27/2019 R42 Dizziness and giddiness Emmanuel Montelongo NP 08/30/2019 Z00.00 Encounter for general adult medical Ronna Borges MD examination without abnormal findings 08/30/2019 I10 Essential (primary) hypertension Ronna Borges MD 08/30/2019 I48.91 Unspecified atrial fibrillation Ronna Borges MD 08/30/2019 Z23 Encounter for immunization Ronna Borges MD 07/22/2019 I48.91 Unspecified atrial fibrillation Drea Vincent M.D. 07/22/2019 I10 Essential (primary) hypertension Carmela Desir, N.P. 07/22/2019 I48.91 Unspecified atrial fibrillation Carmela Desir N.P. 07/22/2019 I34.0 Nonrheumatic mitral (valve) Carmela Desir N.P. insufficiency 07/22/2019 I35.0 Nonrheumatic aortic (valve) stenosis Carmela Desir N.P. 07/22/2019 E78.00 Pure hypercholesterolemia, unspecified Carmela Desir, N.P. Plan of Treatment Future Appointment(s):01/26/2020 2:00 pm - Fili Childress M.D. at [facility]09/04/2020 9:00 am - Ronna Borges MD at [facility] Internal Medicine - [facility]05/30/2020 9:15 am - Mansi Nickerson MD at [facility]12/27/2019 - Emmanuel Montelongo NPJ18.9 Pneumonia, unspecified organismComments:Complete the entire course of the Augmentin. If you have any worsening in cough, shortness of breath, or return of fever please let someone know.Follow up:f/u prn Has AWV in .9 Abnormal finding of blood chemistry, unspecifiedComments:Have the repeat bloodwork done next week.R42 Dizziness and giddinessComments:Your EKG remains stable. I have ordered the echocardiogram that we discussed.The episode of dizziness was likely related to low blood sugar and the fact that you had just had a bowel movement and a hotshower. Functional Status Description No Information Available Mental Status Description No Information Available Referrals Description No Information Available
[2020-01-01 07:37] VITALS: BP 131/71
--- NOTE | 2020-01-01 07:53 | UC ---
Cardiac HPI - HPI Summary HPI Summary: Mr. Ortega got up this morning and was using the toilet when he began to feel nauseated and faint. He vomited a couple of times. Shortly after that he developed left-sided chest pain/pressure. He went and sat down but the pain didn't seem to want to resolve. By the time he got here it had resolved. He did take an aspirin at home after the pain did not resolve quickly. He feels back to normal now. He was recently treated for pneumonia and his cough has resolved. He has a history of atrial fibrillation and had an echocardiogram last week which he does not know the result. His took his blood pressure during this episode and it was low. She doubted the cuff and used it on herself and it worked fine. - History of Current Complaint Chief Complaint: UCChestPain Stated Complaint: CHEST PAIN Time Seen by Provider: 01/01/20 07:41 Hx Obtained From: Patient, Family/Access Control Specialist Onset/Duration: Sudden Onset Timing: Constant Initial Severity: Moderate Current Severity: None Pain Intensity: 0 Chest Pain Location: Left Anterior Character: Heaviness, Pressure/Squeezing Aggravating Factor(s): Nothing Alleviating Factor(s): Other - Possibly aspirin Associated Signs & Symptoms: Positive: Negative, Chest Pain - Allergy/Home Medications Allergies/Adverse Reactions: Allergies Allergy/AdvReac Type Severity Reaction Status Date / Time atorvastatin Allergy Intermediate Muscle Ache Verified 01/01/20 07:37 gemfibrozil AdvReac Intermediate Muscle Ache Verified 01/01/20 07:37 Home Medications: Home Medications Aspirin EC TAB* [Ecotrin EC Low Dose 81 MG*] 81 mg PO DAILY #0 08/11/12 [ History Confirmed 01/01/20] Citalopram TAB* [Celexa TAB*] 10 mg PO DAILY 11/12/14 [History Confirmed ] Folic Acid 800 mcg PO DAILY 03/27/16 [History Confirmed 01/01/20] Apixaban* [Eliquis*] 5 mg PO BID 12/02/18 [History Confirmed 01/01/20] Nitroglycerin 0.2 MG/HR PATCH* [Nitroglycerin 5 MG PATCH*] 5 mg TRANSDERM QAM [History Confirmed 01/01/20] Rosuvastatin Calcium 5 mg PO BEDTIME 12/02/18 [History Confirmed 01/01/20] Amlodipine Besylate [Norvasc] 10 mg PO DAILY 04/28/19 [History Confirmed ] Doxazosin Mesylate 4 mg PO DAILY 04/28/19 [History Confirmed 01/01/20] Cholecalciferol (Vitamin D3) [Vitamin D3] 2,000 unit PO DAILY 04/29/19 [History Confirmed 01/01/20] Amoxicillin/Clavulanate TAB* [Augmentin TAB 875*] 875 mg PO BID #20 tab [Rx Confirmed 01/01/20] Azithromyxin LORENA (NF) [Z-Lorena (Zithromax) 250 mg tabs #6] 2 tab PO .TODAY, THEN 1 DAILY #6 tab 12/22/19 [Rx Confirmed 01/01/20] PMH/Surg Hx/FS Hx/Imm Hx Endocrine History: Dyslipidemia Cardiovascular History: Cardiac Disease, Hypertension, Atrial Fibrillation Respiratory History: Pneumonia Other History Of: Anticoagulant Therapy - Surgical History Surgical History: Yes Surgery Procedure, Year, and Place: left knee scoping, [place] rt shoulder =may 2016 for fx. 1969' [place] [facility] [place] TOTAL KNEE REPLACEMENT, [facility]. 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 left endarectomy at [facility] 10/11/18 - Family History Known Family History: Positive: Unknown, Cardiac Disease - CAD - Social History Alcohol Use: Rare Alcohol Amount: 1-2/day beer,in winter less Substance Use Type: None Smoking Status (MU): Former Smoker Type: Cigarettes Amount Used/How Often: 1/2 PPD Have You Smoked in the Last Year: No When Did the Patient Quit Smoking/Using Tobacco: 1975 - Immunization History Most Recent Influenza Vaccination: 2019 Most Recent Pneumonia Vaccination: 2011 Review of Systems All Other Systems Reviewed And Are Negative: Yes Constitutional: Positive: Negative Skin: Positive: Negative Respiratory: Positive: Cough - Almost gone Cardiovascular: Positive: Chest Pain Gastrointestinal: Positive: Vomiting Genitourinary: Positive: Negative Neurovascular: Positive: Negative Physical Exam - Summary Physical Exam Summary: He Is nontoxic in appearance with stable vitals Triage Information Reviewed: Yes Appearance: Well-Appearing, No Pain Distress Vital Signs: Initial Vital Signs Temp 98.0 F 01/01/20 07:27 Pulse 52 01/01/20 07:27 Resp 18 01/01/20 07:27 BP 131/71 01/01/20 07:27 Pulse Ox 100 01/01/20 07:27 Vital Signs Reviewed: Yes ENT Exam: Normal Respiratory Exam: Normal Cardiovascular: Positive: Other: - Irregularly irregular Abdominal Exam: Normal Musculoskeletal: Positive: No Edema - Assessment/Plan Course Of Treatment: Even prior to drawing labs he has a heart score of 5 and I recommended that he go immediately to the emergency department. He was not willing to be transported by ambulance as he feels completely improved. His is with him and she agreed to take him over. I reassured him that I would let the emergency department no that he was on the way. - Clinical Impression Provider Diagnosis: Chest pain Discharge ED - Sign-Out/Discharge Documenting (check all that apply): Patient Departure All imaging exams completed and their final reports reviewed: No Studies - Discharge Plan Condition: Stable Disposition: HOME-RECOMMEND TO ED Patient Education Materials: Chest Pain (ED) Referrals: Ronna Borges MD [Primary Care Provider] - Additional Instructions: Please go directly to the emergency department. You have a number of risk factors for your heart and you should be evaluated in the emergency department. If her chest pain returns or any other worrisome symptoms please machine tack puller and call 911. - Billing Disposition and Condition Condition: STABLE Disposition: Home-Recommend to ED
== END 2020-01-01 08:00 | disposition home health service (06) ==
LOC: UCEAST 07:23
DX: R07.9 Chest pain, unspecified (principal); I51.9 Heart disease, unspecified; E78.5 Hyperlipidemia, unspecified; R11.2 Nausea with vomiting, unspecified; I10 Essential (primary) hypertension; Z88.8 Allergy status to other drugs, medicaments and biological substances; Z79.01 Long term (current) use of anticoagulants; Z79.82 Long term (current) use of aspirin; Z79.899 Other long term (current) drug therapy; Z87.891 Personal history of nicotine dependence
CPT/HCPCS: 99212; G0463

== ENCOUNTER 2020-01-01 08:17 | Inpatient (IN) | payer MEDICARE, BC ==
[2020-01-01 08:36] LABS: ABS Eosinophils 0.2 10^3/ul (0-0.6); ABS Lymphocytes 0.6 10^3/ul (1.0-4.8); ABS Monocytes 0.7 10^3/ul (0-0.8); ABS Neutrophils 8.3 10^3/ul (1.5-7.7); Eosinophil % 2.5 %; Hematocrit 39 % (42-52); Hemoglobin 13.8 g/dL (14.0-18.0); Lymphocyte % 5.6 %; Mean Corpuscular HGB Conc 35 g/dL (31-36); Mean Corpuscular Hemoglobin 33 pg (27-31); Mean Corpuscular Volume 95 fL (80-94); Mean Platelet Volume 7.4 fL (7.4-10.4); Platelet Count 298 10^3/uL (150-450); Red Blood Count 4.14 10^6 /uL (4.18-5.48); Red Cell Distribution Width 13 % (10-15); White Blood Count 9.8 10^3/uL (3.5-10.8)
--- NOTE | 2020-01-01 08:44 | ED ---
HPI Chest Pain - HPI Summary HPI Summary: This patient is a 74-year-old male with a history of atrial fibrillation who [facility] with chest pressure. He states this morning around 6 AM he awoke to use the restroom. Upon getting off the toilet, he immediately felt nauseous and had 2 episodes of vomiting following. He was able to get downstairs and sit in the chair, nausea and vomiting resolved, however then he developed left-sided chest pressure. This is nonradiating. He also endorses diaphoresis during this time. He took a full 325 mg aspirin at home. He denied any shortness of breath during this time. He woke his and they took his blood pressure which was noted to be around 89/60 (per 's recall) and they went to [facility]. By the time he arrived to [facility], all of his symptoms had resolved. Denies any cough or congestion, but recently was DX with PNA last week from the ED. All these symptoms resolved following abx use. Patient takes baby aspirin daily and Eliquis for his atrial fibrillation. Last ECHO last week following his PNA dx. This was read as normal. Last EKG on file 01/25/19. Last stress test April 2019. No other significant cardiac hx. No caths, TX, stents. 5ppd smoking history, quit 50+ years ago Alcohol use in moderation. PCP/cardiology: Dr. Childress and Emmanuel Montelongo. - History of Current Complaint Chief Complaint: EDChestPainROMI Time Seen by Provider: 01/01/20 08:19 Hx Obtained From: Patient, Family/Ballet Master/Mistress, Medical Records Onset/Duration: Started Hours Ago Time of Onset: 06:00 Timing: Lasting Minutes Initial Severity: Moderate Current Severity: None Pain Intensity: 0 Pain Scale Used: 0-10 Numeric - 5 Chest Pain Location: Left Anterior Chest Pain Radiates: No Character: Pressure/Squeezing Aggravating Factor(s): Nothing Alleviating Factor(s): Other: - aspirin administered just prior to sxs resolution Associated Signs and Symptoms: Positive: Chest Pain, Diaphoresis, Nausea, Vomiting. Negative: Vision Changes, Anxiety, Recent Stress, Headaches, Numbness , Tingling - Risk Factors Pulmonary Embolism Risk Factors: Negative TAD Risk Factors: Negative AMI/ACS Risk Factors: Hypertension - Additional Pertinent History Primary Care Physician: [id number] - Allergy/Home Medications Allergies/Adverse Reactions: Allergies Allergy/AdvReac Type Severity Reaction Status Date / Time atorvastatin Allergy Intermediate Muscle Ache Verified 01/01/20 09:13 gemfibrozil AdvReac Intermediate Muscle Ache Verified 01/01/20 09:13 Home Medications: Home Medications Aspirin EC TAB* [Ecotrin EC Low Dose 81 MG*] 81 mg PO DAILY #0 08/11/12 [ History Confirmed 01/01/20] Citalopram TAB* [Celexa TAB*] 10 mg PO DAILY 11/12/14 [History Confirmed ] Folic Acid 800 mcg PO DAILY 03/27/16 [History Confirmed 01/01/20] Apixaban* [Eliquis*] 5 mg PO BID 12/02/18 [History Confirmed 01/01/20] Nitroglycerin 0.2 MG/HR PATCH* [Nitroglycerin 5 MG PATCH*] 5 mg TRANSDERM QAM [History Confirmed 01/01/20] Rosuvastatin Calcium 5 mg PO BEDTIME 12/02/18 [History Confirmed 01/01/20] Amlodipine Besylate [Norvasc] 10 mg PO DAILY 04/28/19 [History Confirmed ] Cholecalciferol (Vitamin D3) [Vitamin D3] 2,000 unit PO DAILY 04/29/19 [History Confirmed 01/01/20] PMH/Surg Hx/FS Hx/Imm Hx Previously Healthy: Yes Endocrine/Hematology History: Reports: Hx Anticoagulant Therapy Denies: Hx Diabetes, Hx Thyroid Disease Cardiovascular History: Reports: Hx Angina, Hx Atrial Fibrillation, Hx Coronary Artery Disease, Hx Hypercholesterolemia, Hx Hypertension - CONTROL WITH MEDS, Other Cardiovascular Problems/Disorders - CHOLESTEROL CONTROL WITH MEDS, afib Denies: Hx Pacemaker/ICD Respiratory History: Reports: Hx Asthma - 1 ACUTE EPISODE THIS SPRING RELATED TO DUST, Other Respiratory Problems/Disorders - left lower quad for asbestos Denies: Hx Chronic Obstructive Pulmonary Disease (COPD) GI History: Reports: Hx Gastroesophageal Reflux Disease - ,very seldom History: Reports: Other Problems/Disorders - HX OF BPH, ACCORDING TO H&P Denies: Hx Renal Disease Sensory History: Reports: Hx Cataracts - both eyes Denies: Hx Contacts or Glasses, Hx Hearing Aid Opthamlomology History: Reports: Hx Cataracts - both eyes Denies: Hx Contacts or Glasses Neurological History: Denies: Hx Dementia, Hx Seizures Psychiatric History: Reports: Hx Anxiety - CONTROL OF MED Denies: Hx Substance Abuse - Surgical History Surgery Procedure, Year, and Place: left knee scoping, [place] rt shoulder =may 2016 for fx. 1969'[place] [facility] [place] RIGHT TOTAL KNEE REPLACEMENT, [facility] [place]. 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 left endarectomy at [facility] [place] 10/11/18 Hx Anesthesia Reactions: No - Immunization History Date of Tetanus Vaccine: 2 YEARS AGO Hx Pertussis Vaccination: No Immunizations Up to Date: Yes Infectious Disease History: No Infectious Disease History: Denies: Hx Clostridium Difficile, Hx Hepatitis, Hx Human Immunodeficiency Virus (HIV), Hx of Known/Suspected MRSA, Hx Shingles, Hx Tuberculosis, Hx Known/ Suspected VRE, Hx Known/Suspected VRSA, History Other Infectious Disease, Traveled Outside the [place] in Last 30 Days - Family History Known Family History: Positive: Unknown, Cardiac Disease - CAD - Social History Occupation: Unemployed Lives: With Family Alcohol Use: Rare Alcohol Amount: 1-2/day beer,in winter less Hx Substance Use: No Substance Use Type: Reports: None Hx Tobacco Use: Yes Smoking Status (MU): Former Smoker Type: Cigarettes Amount Used/How Often: 1/2 PPD Have You Smoked in the Last Year: No Review of Systems Positive: Skin Diaphoresis. Negative: Fever, Chills, Fatigue Negative: Photophobia, Blurred Vision Positive: Chest Pain. Negative: Palpitations Negative: Shortness Of Breath, Cough Positive: Vomiting, Nausea. Negative: Abdominal Pain, Diarrhea Negative: Rash, Bruising Negative: Headache, Weakness, Paresthesia, Numbness, Syncope All Other Systems Reviewed And Are Negative: Yes Physical Exam Triage Information Reviewed: Yes Vital Signs On Initial Exam: Initial Vitals Temp Pulse Resp BP Pulse Ox 97.3 F 60 19 136/76 100 01/01/20 08:24 01/01/20 08:24 01/01/20 08:24 01/01/20 08:24 01/01/20 08:24 Vital Signs Reviewed: Yes Appearance: Positive: Well-Appearing, Well-Nourished Skin: Positive: Warm, Skin Color Reflects Adequate Perfusion Head/Face: Positive: Normal Head/Face Inspection Eyes: Positive: EOMI, PAPO, Conjunctiva Clear Neck: Positive: Supple, No Lymphadenopathy Respiratory/Lung Sounds: Positive: Clear to Auscultation, Breath Sounds Present Cardiovascular: Positive: IRR Musculoskeletal: Positive: Normal, Strength/ROM Intact Neurological: Positive: Speech Normal Psychiatric: Positive: Normal, Affect/Mood Appropriate AVPU Assessment: Alert - [place] Coma Scale Best Eye Response: 4 - Spontaneous Best Motor Response: 6 - Obeys Commands Best Verbal Response: 5 - Oriented Coma Scale Total: 15 Procedures - Sedation Patient Received Moderate/Deep Sedation with Procedure: No Diagnostics - Vital Signs Vital Signs Temp Pulse Resp BP Pulse Ox 01/01/20 08:24 97.3 F 60 19 136/76 100 - Laboratory Lab Results: Lab Results 01/01/20 Range/Units 08:27 WBC 9.8 (3.5-10.8) 10^3/uL RBC 4.14 L (4.18-5.48) 10^6 /uL Hgb 13.8 L (14.0-18.0) g/dL Hct 39 L (42-52) % MCV 95 H (80-94) fL MCH 33 H (27-31) pg MCHC 35 (31-36) g/dL RDW 13 (10-15) % Plt Count 298 (150-450) 10^3/uL MPV 7.4 (7.4-10.4) fL Neut % (Auto) 84.6 % Lymph % (Auto) 5.6 % [place] % (Auto) 7.0 % Eos % (Auto) 2.5 % Baso % (Auto) 0.3 % Absolute Neuts (auto) 8.3 H (1.5-7.7) 10^3/ul Absolute Lymphs (auto) 0.6 L (1.0-4.8) 10^3/ul Absolute Monos (auto) 0.7 (0-0.8) 10^3/ul Absolute Eos (auto) 0.2 (0-0.6) 10^3/ul Absolute Basos (auto) 0.0 (0-0.2) 10^3/ul Absolute Nucleated RBC 0.0 10^3/ul Nucleated RBC % 0.0 Result Diagrams: 01/01/20 08:27 01/01/20 08:27 Lab Statement: Any lab studies that have been ordered have been reviewed, and results considered in the medical decision making process. - Radiology CXR Radiology Interpretation Completed By: Radiologist Summary of Radiographic Findings: No acute cardiopulmonary changes - EKG No standard instances Cardiac Rate: Bradycardia EKG Rhythm: Atrial Fibrillation ST Segment: Non-Specific - T wave flattening - lateral leads EKG Comparison: Other - changes from 01/25/19 Chest Pain Course/Dx - Course Course Of Treatment: Pt evaluated for L sided anterior chest pressure. Not reproducible. Pt developed this pain following N/V at around 6am. 1 aspirin and sxs resolved. Initial trop 0.00. CXR normal. EKG shows new T wave flattening in the lateral leads new since 01/25/10. HEART SCORE = 5. Labs WNL. Pt remains chest pain free. Discussed with Dr. Poe and will be admitted to hospitalist service. - Chest Pain Differential Diagnosis/HQI/PQRI: Acute TX, Angina, Chest Wall - Diagnoses Provider Diagnoses: Chest pain - Provider Notifications Discussed Care Of Patient With: Andrew Poe Instructed by Provider To: Admit As Inpatient Discharge ED - Sign-Out/Discharge Documenting (check all that apply): Patient Departure - Discharge Plan Condition: Fair Disposition: ADMITTED TO [facility] - Billing Disposition and Condition Condition: FAIR Disposition: Admitted to [facility] - Attestation Statements Provider Attestation: I was available for consult. This patient was seen by the KIERRA. The patient was not presented to, seen by, or examined by me. Kofi Wilson MD
[2020-01-01 08:47] LABS: Activated Partial Thrombo Time 37.3 seconds (26.0-38.0); INR 1.24 (0.82-1.09)
[2020-01-01 08:54] LABS: Albumin 3.9 g/dL (3.2-5.2); Albumin/Globulin Ratio 1.1 (1-3); BUN/Creatinine Ratio 13.9 (8-20); EGFR African American 86.9 (>60); EGFR Non-African American 71.8 (>60); Globulin 3.7 g/dL (2-4); Magnesium 1.8 mg/dL (1.9-2.7); Total Bilirubin 0.9 mg/dL (0.2-1.0); Total Protein 7.6 g/dL (6.4-8.9)
[2020-01-01] MEDS ORDERED: Ondansetron INJ* 2 MG/ML VIAL IV PRN (10:25)
[2020-01-01] MEDS ORDERED: Nitroglycerin TAB 0.4 MG* 0.4 MG TAB SL PRN (10:25)
[2020-01-01] MEDS ORDERED: Acetaminophen TAB* 325 MG PO PRN (10:25)
[2020-01-01] MEDS ORDERED: Apixaban* 5 MG TAB PO SCH (10:29)
[2020-01-01] MEDS ORDERED: Magnesium Sulfate 1 GM IV* 1 GM/100 ML BAG IV ONE (10:38)
[2020-01-01] MEDS ORDERED: Albuterol 2.5 MG/3 ML NEB.SOL* (0.083%) INH PRN (10:43)
--- NOTE | 2020-01-01 12:30 | CONS ---
CC: Dr. Childress; Dr. Borges * CARDIOLOGY CONSULTATION: DATE OF CONSULT: 01/01/20 INDICATION FOR CONSULTATION: Atrial fibrillation, bradycardia, near syncope. HISTORY OF PRESENT ILLNESS: The patient is a 74-year-old gentleman with a history of chronic atrial fibrillation, peripheral vascular disease, known coronary artery disease, who came to the emergency room after having a near syncopal episode. The patient states he was at home. He had a sudden onset of nausea and near syncope. He felt like he was going to pass out. His said he was very white and pale. After that, he started having some chest pain. He went to [facility] where an EKG showed atrial fibrillation, but no ST-T wave abnormalities. He was transported to [facility]. In the emergency room, he was being interviewed by one of the PAs and started feeling lightheaded and dizzy. His monitor showed a heart rate down to 30 beats per minute. The patient does report that on 12/27/19 he did have an episode of feeling lightheaded and dizzy, but no true syncopal episodes. The patient recently had an echocardiogram, which showed normal LV size and systolic function, [id number] aortic stenosis, no other significant valvular abnormalities. The patient recently had blood work on 12/27/19, which was essentially unremarkable. PAST MEDICAL HISTORY: Significant for peripheral vascular disease, status post carotid endarterectomy on the left; history of coronary artery disease; history of chronic atrial fibrillation; hematuria; hypertension; hyperlipidemia; asthma. PAST SURGICAL HISTORY: Carotid endarterectomy, knee surgery, prostate surgery, trauma to his left hand secondary to a table saw accident, cataract surgery. OUTPATIENT MEDICATIONS: 1. Amlodipine 10 mg a day. 2. Eliquis 5 mg b.i.d. 3. Crestor 5 mg a day. 4. Nitroglycerin patch to the chest wall. 5. Aspirin 81 mg a day. 6. Ventolin inhaler. ALLERGIES: To ATORVASTATIN and GEMFIBROZIL. FAMILY HISTORY: Breast cancer and diabetes. Father of a brain aneurysm. SOCIAL HISTORY: He is retired. He is . He denies tobacco or alcohol use. REVIEW OF SYSTEMS: Negative for fevers or chills. Negative for changes in bowel or bladder habits. Negative for change in weight. PHYSICAL EXAM: Height is 5 feet 7 inches, weight is 170 pounds, temperature 97.2, heart rate is 48, blood pressure 138/86, respiratory rate is 16, oxygen saturation 97% on room air. Sclerae anicteric. Oropharynx is pink without erythema. Carotids are 2+ without bruits. JVD is normal. Thyroid is normal. Cardiac Exam: S1, S2 with a 2/6 systolic ejection murmur heard best at the right upper sternal border. PMI is normal. Lungs are clear to auscultation. There is no dullness to percussion. There are no rhonchi or rales. Abdomen is soft, nontender, nondistended with normoactive bowel sounds. Extremities show no edema. He has 2+ pulses throughout. The patient is awake, alert, and oriented. He moves all 4 extremities equally. DIAGNOSTIC STUDIES/LAB DATA: CBC within normal limits. Chemistries within normal limits. BUN 14, creatinine 1. AST and ALT are normal. Troponin level 0.00. EKG shows atrial fibrillation, but otherwise unchanged from previous. IMPRESSION AND PLAN: This is a 74-year-old gentleman with a history of peripheral vascular disease, history of chronic atrial flutter, who came to the emergency room with a near syncopal episode. He had a documented heart rate down to 30 beats per minute. The patient does have ongoing bradycardia. The patient is not on any rate control agents. For now, my recommendation is the patient undergo a single-chamber pacemaker implantation. The risks and benefits of this were described in great detail. The patient is willing to proceed. The patient just recently had an echocardiogram, so I do not think any other cardiac workup is necessary. [id number]/[facility] #: [id number] [facility]
--- NOTE | 2020-01-01 12:38 | HP ---
CC: Dr. Ronna Borges; Dr. Fili Childress; Dr. Andrew Poe.* ADMISSION HISTORY AND PHYSICAL: DATE OF ADMISSION: 01/01/20 PRIMARY CARE PROVIDER: Dr. Ronna Borges. MY ATTENDING WHILE IN THE HOSPITAL: Dr. Libra Schrader.* (DICTATED BY GABRIEL RICHARDSON) The patient is an outpatient. PHYSICIAN PRACTICE MARKET MANAGER: Dr. Fili Childress. CONSULTING PHYSICIAN PRACTICE MARKET MANAGER: Dr. Andrew Poe. CHIEF COMPLAINT: Chest pain x10 minutes. HISTORY OF PRESENT ILLNESS: Mr. Ortega is a 74-year-old male with a past medical history significant for coronary artery disease, atrial fibrillation, likely asbestosis who presents to the emergency department after this morning. He woke up feeling a little nauseated, vomited nonbloody, nonbilious emesis with relief of his nausea, but after he vomited he had approximately 10 minutes of left-sided chest pressure without diaphoresis, associated with shortness of breath which resolved with him resting. The patient had a pneumonia for which he just completed treatment. The patient denies fevers, chills, ongoing productive cough, and feels like he is generally back to his baseline. On 12/27, the patient was seen by his primary for an episode of dizziness, where it came on suddenly while he was standing at his sink and at that time he had to lie down for this to resolve. The patient did not lose consciousness at that time. In the emergency department, the patient no longer has any chest pain, does not have any ongoing vomiting. The patient has not had any recent weight loss or weight gain. No recent abdominal pain or diarrhea. No shortness of breath on exertion. No chest pain on exertion. The patient was able to walk in from his car to the emergency department without issue. In the emergency department, the patient was found to have several episodes of profound bradycardia including one where the patient had a 2 second pause followed by a 2 second pause followed by a 3.2 second pause. Due to concern for chest pain and bradycardia, we were asked to evaluate the patient for admission to the hospital. 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 PAST SURGICAL HISTORY: Right knee surgery, right shoulder surgery, cataract surgery, carotid endarterectomy. MEDICATIONS: 1. Eliquis 5 mg p.o. b.i.d. 2. Amlodipine 10 mg p.o. daily. 3. Crestor 5 mg p.o. at bedtime. 4. Citalopram 10 mg p.o. daily. 5. Nitroglycerin patch 2 mg per hour daily 6. Folic acid 800 mg p.o. daily. 7. Aspirin 81 mg p.o. daily. ALLERGIES: LIPITOR, GEMFIBROZIL both cause muscle aches. FAMILY HISTORY: The patient's mother of a CVA at 85. She also had a history of lymphoma and breast cancer. The patient at 47 of cerebral artery aneurysm. The patient has 2 sisters, one who of an WI, another one who had breast cancer and of aspiration. The patient has a brother who had open heart surgery several years ago and 2 other brothers who are alive and well. SOCIAL HISTORY: The patient smokes tobacco approximately 15-pack years from the age of 13 to 28 while he was in the . The patient drinks beer occasionally, but has not in over a month. He says this is usually more in the summer. The patient denies illicit drug use. 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 The patient is , has 1 child. The patient's surrogate decision maker will be his , Rosalie Ortega. REVIEW OF SYSTEMS: A 10-point review of systems reviewed is negative except as above in the HPI. PHYSICAL EXAMINATION GENERAL: The patient is a 74-year-old male, who appears stated age, sitting in the bed, in no acute distress. VITAL SIGNS: At the time of evaluation; temperature 97.3, pulse 61, respiratory rate 12, oxygen saturation 99% on room air, blood pressure 134/70. HEENT: Head normocephalic and atraumatic. Sclerae anicteric. No conjunctival injection. Nasal mucosa moist. Oral mucosa moist. No oropharyngeal erythema, discharge, or exudate. NECK: Supple and nontender. No lymphadenopathy. No carotid bruits auscultated. No JVD. RESPIRATORY: Clear to auscultation bilaterally. No wheezes, rales, or rhonchi. Good air exchange bilaterally. CARDIAC: Irregularly irregular. No clicks, murmurs, gallops, or rubs. Pulses 2+ in the dorsalis pedis, posterior tibialis, and radial areas. No bilateral lower extremity edema noted. No bilateral calf tenderness. ABDOMEN: Soft, nontender, and nondistended. Bowel sounds positive and normoactive in all 4 quadrants. No hepatosplenomegaly. No abdominal bruits auscultated. No hepatojugular reflux. GENITOURINARY: No suprapubic or CVA tenderness. SKIN: Grossly intact. No rashes. NEUROLOGIC: Cranial nerves II through XII intact. No focal deficits. Alert and oriented x3. PSYCHIATRIC: Pleasant and cooperative. LABORATORY DATA: White blood cell count 9.8, hemoglobin 13.8, platelet count 298, INR 1.24, AST of 37.3. Sodium 133, potassium 4.0, chloride 99, carbon- dioxide 27, anion gap 7, BUN 14, creatinine 1.01, glucose 115, lactic acid 1.4, calcium 9.0, magnesium 1.8. Bilirubin 0.9, AST 36, ALT 55, alkaline phosphatase 92. Troponin I 0.00. Protein 7.6, albumin 3.9, globulin 3.7. Studies: EKG shows lateral T-wave inversions. No ST segment elevation or depression. No hypertrophy or enlargement. Normal R-wave progression. Normal axis. Compared to previous exam, there are no significant changes. Rate of 60 , QTc of 459. Chest x-ray read as no acute cardiopulmonary disease, COPD. ASSESSMENT AND PLAN: Impression: Mr. Ortega is a 74-year-old male with the past medical history significant for coronary artery disease, atrial fibrillation, asthma, and likely asbestosis who presents to the emergency department with 10 minutes of chest pain, which was preceded by an episode of vomiting, found to be profoundly bradycardic and admitted for evaluation of his bradycardia and likely pacemaker implantation. 1. Profound bradycardia, chest pain, presyncope. The patient has had over the past several days several events that may be attributable to low heart rate. The patient has been monitored through his primary care provider for chronotropic insufficiency for a significant period of time. It is likely that the patient's chest pain was provoked due to his known coronary artery disease from an episode of profound bradycardia brought on by the vagal action of vomiting; however, in the emergency department the patient has also been having profound bradycardia with long pauses from which he is mildly symptomatic while lying in the stretcher. This is likely related to sick sinus syndrome. The patient has been seen by Cardiology and will be planned for a permanent pacemaker implantation on 01/02/20. The patient will be n.p.o. after midnight. The patient's Eliquis will be held at the request of Cardiology. The patient' s aspirin will also be held given that it is the middle of winter and this has been a chronic problem for the patient. Lyme testing will not be sent out. The patient has no other signs of systemic illness that will be causing his bradycardia. The patient has not been symptomatic from this and will not go to the ICU; however, he is monitored closely for his heart rate, negative chronotropes will be evidently avoided. 2. Chest pain. As above, this is likely related to the patient's chronotropic insufficiency and the patient had a normal stress test in May of 2019. This will not be repeated at this time. The patient had an echocardiogram on , which was stable from his previous and again will not be repeated. The patient will have troponins trended. There are no signs the patient's bradycardia is related to an inferior myocardial infarction, though this may be reassessed if the patient has elevated troponins. 3. Atrial fibrillation. Hold the patient's Eliquis as above. The patient's heart rate is low at this point. 4. Coronary artery disease. Continue the patient's rosuvastatin. Hold the patient's aspirin for his procedure. 5. Asthma. The patient will have albuterol nebulizers available as needed, though he is not currently in exacerbation. Takes no chronic medications for this. 6. Hypertension. The patient is currently normotensive. Continue the patient' s amlodipine and nitroglycerin patch. 7. Hyperlipidemia. Continue the patient's rosuvastatin. 8. Anxiety and depression. Continue the patient's citalopram. 9. Macrocytic anemia. Continue the patient's folic acid supplementation. The patient had vitamin B12 level which was borderline low in 2016. This will be repeated at this time. 10. DVT prophylaxis. The patient will have 2 doses of heparin subcu periprocedurally. The patient will likely restart on his Eliquis after that. 11. Disposition. The patient admitted inpatient to the hospital. Estimated length stay greater than 2 midnights. 12. FEN. The patient will have a heart-healthy diet. Caffeine okay. Be n.p.o. after midnight. Fluids are not indicated for the patient at this time. TIME SPENT: Approximately 60 minutes were spent on the admission of this patient, 30 of which was spent [id number] with the patient obtaining history and physical and discussing treatment plan. Plan was discussed with my attending Dr. Libra Schrader, she is in agreement. GABRIEL RICHARDSON [id number]/[facility] #: [id number] [facility]
[2020-01-01] MEDS: amLODIPine TAB* 5 MG PO SCH (15:51)
[2020-01-01] MEDS: Folic Acid TAB* 1 MG PO SCH (15:51)
[2020-01-01] MEDS: Heparin VIAL(*) 5000 UNITS/ML VIAL (FIVE THOUSAND) SUBCUT SCH ×2 (15:51→21:32)
[2020-01-01] MEDS: CMCS:Rosuvastatin (NF) 5 MG TAB PO SCH (21:44)
[2020-01-02 05:27] LABS: ABS Basophils 0.1 10^3/ul (0-0.2); ABS Eosinophils 0.7 10^3/ul (0-0.6); ABS Lymphocytes 1.1 10^3/ul (1.0-4.8); ABS Monocytes 0.8 10^3/ul (0-0.8); ABS Neutrophils 6.7 10^3/ul (1.5-7.7); Eosinophil % 7.8 %; Hematocrit 36 % (42-52); Hemoglobin 12.6 g/dL (14.0-18.0); Lymphocyte % 12.1 %; Mean Corpuscular HGB Conc 35 g/dL (31-36); Mean Corpuscular Hemoglobin 33 pg (27-31); Mean Corpuscular Volume 94 fL (80-94); Mean Platelet Volume 7.3 fL (7.4-10.4); Platelet Count 274 10^3/uL (150-450); Red Blood Count 3.87 10^6 /uL (4.18-5.48); Red Cell Distribution Width 14 % (10-15); White Blood Count 9.4 10^3/uL (3.5-10.8)
[2020-01-02 05:46] LABS: BUN/Creatinine Ratio 16.9 (8-20); Calcium 8.3 mg/dL (8.6-10.3); EGFR African American 118.9 (>60); EGFR Non-African American 98.2 (>60); HDL Cholesterol 21.1 mg/dL; Magnesium 1.9 mg/dL (1.9-2.7); Potassium 3.9 mmol/L (3.5-5.0)
[2020-01-02] MEDS: NS 0.9% 1000 ML** 1,000 ML IV SCH ×2 (07:58→17:26)
[2020-01-02] MEDS ORDERED: ceFAZolin 2 GM PREMIX in ORs 2 GM/50 ML BAG IVPB ONE (08:00)
[2020-01-02] MEDS ORDERED: ceFAZolin 2 GM in NS 100 ml - ONCE (Pharmacy Admix) IVPB ONE (08:00)
[2020-01-02] MEDS ORDERED: Diazepam TAB(*) 5 MG PO ONE (08:00)
[2020-01-02] MEDS ORDERED: ceFAZolin VIAL 1 GM in NS *SYRINGE * * 10 ML ONE (08:00)
[2020-01-02] MEDS ORDERED: ceFAZolin 1 GM/10 ML flush(*) SYRINGE for pocket flush (cardiology) FLUSH ONE (08:00)
[2020-01-02] MEDS: Citalopram TAB* 10 MG PO SCH (08:14)
[2020-01-02] MEDS: Folic Acid TAB* 1 MG PO SCH (08:14)
[2020-01-02] MEDS: Cholecalciferol TAB* 1000 UNITS PO SCH (08:14)
[2020-01-02] MEDS: amLODIPine TAB* 5 MG PO SCH (08:14)
--- NOTE | 2020-01-02 08:52 | PN ---
Progress Note - Progress Note Date of Service: 01/02/20 Note: Progress Note -- Critical Care 24 hour events/significant events: - 5 second pause on floor. - No further events - Patient offers no complaints other than he is sleep deprived. No further episodes of chest pain ROS: negative except for pertinent positives mentioned above Tele: Sinus betito Vitals: Vital Signs 01/01/20 01/01/20 01/01/20 09:00 09:10 09:41 Temperature Pulse Rate 57 61 58 Respiratory 14 17 24 Rate Blood Pressure 137/71 155/72 (mmHg) O2 Sat by Pulse 98 99 96 Oximetry 01/01/20 01/01/20 01/01/20 10:01 10:10 10:40 Temperature Pulse Rate 59 64 57 Respiratory 21 12 14 Rate Blood Pressure 134/70 129/68 (mmHg) O2 Sat by Pulse 97 99 99 Oximetry 01/01/20 01/01/20 01/01/20 10:50 11:01 11:10 Temperature Pulse Rate 61 43 49 Respiratory 19 14 16 Rate Blood Pressure 135/78 138/68 (mmHg) O2 Sat by Pulse 98 88 98 Oximetry 01/01/20 01/01/20 01/01/20 11:43 11:55 12:56 Temperature 97.2 F 97.7 F Pulse Rate 48 36 52 Respiratory 15 20 16 Rate Blood Pressure 138/68 137/58 140/76 (mmHg) O2 Sat by Pulse 97 100 95 Oximetry 01/01/20 01/01/20 01/01/20 13:00 13:01 13:15 Temperature Pulse Rate 54 51 55 Respiratory 20 17 20 Rate Blood Pressure 127/68 130/82 (mmHg) O2 Sat by Pulse 97 96 96 Oximetry 01/01/20 01/01/20 01/01/20 13:30 13:45 13:55 Temperature Pulse Rate 54 69 53 Respiratory 21 16 19 Rate Blood Pressure 138/82 143/81 141/71 (mmHg) O2 Sat by Pulse 96 96 96 Oximetry 01/01/20 01/01/20 01/01/20 14:00 14:35 14:38 Temperature 97.6 F Pulse Rate 56 52 56 Respiratory 21 18 20 Rate Blood Pressure 137/58 135/67 (mmHg) O2 Sat by Pulse 96 96 95 Oximetry 01/01/20 01/01/20 01/01/20 15:00 15:01 16:00 Temperature Pulse Rate 62 62 53 Respiratory 17 19 19 Rate Blood Pressure 142/66 (mmHg) O2 Sat by Pulse 96 97 95 Oximetry 01/01/20 01/01/20 01/01/20 16:01 17:00 17:01 Temperature Pulse Rate 50 62 53 Respiratory 20 19 19 Rate Blood Pressure 149/79 119/68 (mmHg) O2 Sat by Pulse 95 94 94 Oximetry 01/01/20 01/01/20 01/01/20 18:00 18:07 19:00 Temperature Pulse Rate 78 73 55 Respiratory 16 22 26 Rate Blood Pressure 122/69 (mmHg) O2 Sat by Pulse 80 96 95 Oximetry 01/01/20 01/01/20 01/01/20 19:01 20:00 20:05 Temperature 98.5 F Pulse Rate 58 52 49 Respiratory 18 20 17 Rate Blood Pressure 124/53 111/70 (mmHg) O2 Sat by Pulse 95 95 95 Oximetry 01/01/20 01/01/20 01/01/20 21:00 21:01 21:03 Temperature Pulse Rate 59 54 53 Respiratory 20 20 19 Rate Blood Pressure 78/62 121/58 (mmHg) O2 Sat by Pulse 94 94 94 Oximetry 01/01/20 01/01/20 01/01/20 22:00 22:01 23:00 Temperature Pulse Rate 50 59 56 Respiratory 19 17 27 Rate Blood Pressure 125/84 (mmHg) O2 Sat by Pulse 96 96 95 Oximetry 01/01/20 01/01/20 01/02/20 23:01 23:46 00:00 Temperature 98.6 F Pulse Rate 54 58 52 Respiratory 29 32 23 Rate Blood Pressure 125/73 124/66 (mmHg) O2 Sat by Pulse 95 93 95 Oximetry 01/02/20 01/02/20 01/02/20 01:00 02:00 02:01 Temperature Pulse Rate 56 75 65 Respiratory 34 22 34 Rate Blood Pressure 134/68 144/78 (mmHg) O2 Sat by Pulse 93 95 95 Oximetry 01/02/20 01/02/20 01/02/20 02:02 03:00 03:01 Temperature Pulse Rate 73 56 62 Respiratory 18 18 18 Rate Blood Pressure 144/78 121/57 (mmHg) O2 Sat by Pulse 95 93 93 Oximetry 01/02/20 01/02/20 01/02/20 04:00 04:01 05:00 Temperature 98.5 F Pulse Rate 63 64 71 Respiratory 16 18 17 Rate Blood Pressure 117/56 (mmHg) O2 Sat by Pulse 93 95 97 Oximetry 01/02/20 01/02/20 01/02/20 05:01 06:00 07:00 Temperature Pulse Rate 71 62 58 Respiratory 16 18 24 Rate Blood Pressure 135/70 137/70 129/80 (mmHg) O2 Sat by Pulse 97 95 95 Oximetry 01/02/20 08:00 Temperature Pulse Rate 61 Respiratory 23 Rate Blood Pressure 132/65 (mmHg) O2 Sat by Pulse 94 Oximetry Intake and Output Last 24 Hours 12/31/19 01/01/20 01/02/20 01/03/20 06:59 06:59 06:59 06:59 Intake Total 400 Output Total 550 Balance -150 Weight 158 lb 1.143 oz Intake: Oral 400 Output: Urine 550 Other: # Bowel Movements 1 # Voids 1 O2: RA Infusions: NS @ 100 Medications: Acetaminophen (Tylenol Tab*) 650 mg PO Q6H PRN PRN Reason: MILD PAIN or TEMP > 100.4 Albuterol (Ventolin 2.5 Mg/3 Ml Neb.Peri*) 2.5 mg INH Q2H PRN PRN Reason: SOB/WHEEZING Amlodipine Besylate (Norvasc Tab*) 10 mg PO DAILY [facility] Last Admin: 01/02/20 08:14 Dose: 10 mg Cholecalciferol (Vitamin D Tab*) 2,000 units PO DAILY [facility] Last Admin: 01/02/20 08:14 Dose: 2,000 units Citalopram Hydrobromide (Celexa Tab*) 10 mg PO DAILY [facility] Last Admin: 01/02/20 08:14 Dose: 10 mg Folic Acid (Folvite Tab*) 1 mg PO DAILY [facility] Last Admin: 01/02/20 08:14 Dose: 1 mg Sodium Chloride (Ns 0.9% 1000 Ml) 1,000 mls @ 100 mls/hr IV PER RATE [facility] Last Admin: 01/02/20 07:58 Dose: 100 mls/hr Nitroglycerin (Nitroglycerin 5 Mg Patch*) 1 patch TRANSDERM QAM [facility] Nitroglycerin (Nitroglycerin Tab 0.4 Mg*) 0.4 mg SL Q5M PRN PRN Reason: ANGINA Ondansetron HCl (Zofran Inj*) 4 mg IV Q6H PRN PRN Reason: NAUSEA Pharmacy Profile Note (Nitro Patch/Oint Remove*) 1 note PATCH OFF 2099 [facility] Rosuvastatin Calcium (Crestor (Nf)) 5 mg PO BEDTIME [facility]; Protocol Last Admin: 01/01/20 21:44 Dose: 5 mg Physical Exam: Constitutional: awake, alert, no distress, no diaphoresis Head: normocephalic, atraumatic Eyes: no pallor, no icterus ENT: moist mucous membranes Neck: soft, supple, no jvd, no stridor CVS: betito, regular, no murmur Chest/Resp: bilateral air entry, no rhales, no wheeze, no rhonchi, no acc muscle use Abdomen/GI: soft, nontender, nondistended, BS+ Ext/Msk: warm, pulses+, no edema Skin: intact, warm Neuro: awake, alert, orientedx3, moving all extremities, no gross focal deficit Psych: normal affect Labs: Laboratory Results - last 24 hr 01/01/20 01/01/20 01/01/20 08:27 08:27 08:27 WBC RBC Hgb Hct MCV MCH MCHC RDW Plt Count MPV Neut % (Auto) Lymph % (Auto) Hyde % (Auto) Eos % (Auto) Baso % (Auto) Absolute Neuts (auto) Absolute Lymphs (auto) Absolute Monos (auto) Absolute Eos (auto) Absolute Basos (auto) Absolute Nucleated RBC Nucleated RBC % INR (Anticoag Therapy) 1.24 H APTT 37.3 Sodium 133 L Potassium 4.0 Chloride 99 L Carbon Dioxide 27 Anion Gap 7 BUN 14 Creatinine 1.01 Est GFR ( Amer) 86.9 Est GFR (Non-Af Amer) 71.8 BUN/Creatinine Ratio 13.9 Glucose 115 H Lactic Acid 1.4 Calcium 9.0 Magnesium 1.8 L Total Bilirubin 0.90 AST 36 ALT 55 H Alkaline Phosphatase 92 Troponin I 0.00 Total Protein 7.6 Albumin 3.9 Globulin 3.7 Albumin/Globulin Ratio 1.1 Triglycerides Cholesterol LDL Cholesterol HDL Cholesterol Vitamin B12 877 01/01/20 01/02/20 01/02/20 11:26 05:18 05:18 WBC 9.4 RBC 3.87 L Hgb 12.6 L Hct 36 L MCV 94 MCH 33 H MCHC 35 RDW 14 Plt Count 274 MPV 7.3 L Neut % (Auto) 71.2 Lymph % (Auto) 12.1 Hyde % (Auto) 8.3 Eos % (Auto) 7.8 Baso % (Auto) 0.6 Absolute Neuts (auto) 6.7 Absolute Lymphs (auto) 1.1 Absolute Monos (auto) 0.8 Absolute Eos (auto) 0.7 H Absolute Basos (auto) 0.1 Absolute Nucleated RBC 0.0 Nucleated RBC % 0.0 INR (Anticoag Therapy) APTT Sodium 132 L Potassium 3.9 Chloride 103 Carbon Dioxide 24 Anion Gap 5 BUN 13 Creatinine 0.77 Est GFR ( Amer) 118.9 Est GFR (Non-Af Amer) 98.2 BUN/Creatinine Ratio 16.9 Glucose 97 Lactic Acid Calcium 8.3 L Magnesium 1.9 Total Bilirubin AST ALT Alkaline Phosphatase Troponin I 0.00 Total Protein Albumin Globulin Albumin/Globulin Ratio Triglycerides 101 Cholesterol 86 LDL Cholesterol 45 HDL Cholesterol 21.1 Vitamin B12 Imaging: Chest xray 01/01: COPD, cardiomegal Assessment: 74M with known medical history of afib, PVD, CAD, left carotid endarterectomy, HTN, HLD, 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 He was recently seen outpatient for an episode of dizziness. In the ED he was found to have profound bradycardia with multiple pauses. He was initially admitted to floor but had a 5-second pause so was transferred to ICU. - Profound bradycardia - Chest pain Plan: Neuro- - No active issues -Delirium prec; avoid BDZ CVS- - Bradycardia with pauses: acute. Currently NPO for pacemaker this AM. - Afib: chronic. Eliquis is being held for pacer. To be restarted when cleared by cardiology - HTN: chronic. Continue home medications -Maintain MAP>65 as long as SBP<160 Resp- -COPD: chronic -Keep sat>92% -Bronchodilators PRN, Aspiration prec, Pulmonary Toilet ID- - No active issues - Goal temp<101 GI- -Nutrition: NPO for procedure -GI prophylaxis not indicated Renal- -strict I/O, replete to keep K>4, Mg>2 -Voiding Heme- - No active issues - SCDs for DVT prophylaxis Endo-Maintain BG<200, insulin protocol as needed Musculsk- pressure ulcer prophylaxis. OOB. Wounds- none Nutrition-NPO DVT prophylaxis:SCDs GI prophylaxis:none Disposition: Patient pacemaker placement is pending. If procedure goes well and crisis intervention counselor agrees, patient can go to floor after procedure Patient clinical status: stable Code Status: Full
[2020-01-02] MEDS ORDERED: Aspirin EC TAB* 81 MG TAB.EC PO SCH (09:00)
[2020-01-02] MEDS ORDERED: Midazolam* 1 MG/ML 5 ML VIAL (5 MG) ONE (10:16)
[2020-01-02] MEDS ORDERED: fentaNYL* 50 MCG/ML 2 ML VIAL (100 MCG VIAL) ONE (10:16)
[2020-01-02] MEDS ORDERED: Lidocaine 1% INJ* 10 MG/ML 30 ML SDV ONE (10:18)
[2020-01-02] MEDS: Nitroglycerin 0.2 MG/HR PATCH* (5 MG) TRANSDERM SCH (11:30)
[2020-01-02] MEDS: ceFAZolin VIAL(*) 1 GM in NS 0.9% 50 ML* 50 ML IVPB SCH (17:26)
[2020-01-02] MEDS ORDERED: Nitro Patch/OINT Remove PATCH OFF SCH (21:00)
[2020-01-02] MEDS: CMCS:Rosuvastatin (NF) 5 MG TAB PO SCH (21:21)
--- NOTE | 2020-01-02 23:56 | PRO ---
DATE OF OPERATION: 01/02/20 - ROOM #444 DATE OF : 41. SURGEON: Andrew Poe MD. ANESTHESIA: Local anesthesia with conscious sedation. PRE-OP DIAGNOSES: 1. Atrial fibrillation. 2. Bradycardia. 3. Syncope. POST-OP DIAGNOSES: 1. Atrial fibrillation. 2. Bradycardia. 3. Syncope. OPERATIVE PROCEDURE: Single-chamber pacemaker implantation. INDICATIONS: The patient is a 74-year-old gentleman with a history of coronary artery disease, history of chronic atrial fibrillation, who has been having episodes of lightheadedness and dizziness. Ultimately, he had a syncopal episode. While he was in the emergency room, the patient had heart rates down to 30 beats per minute. He also had a 6-second pass. A single chamber pacemaker was recommended. ESTIMATED BLOOD LOSS: Nil. COMPLICATIONS: None. DESCRIPTION OF PROCEDURE: The patient was in a fasting state. Informed consent had been obtained prior to the procedure. All labs reviewed. The patient had been off his Eliquis for greater than 36 hours. The patient was placed supine on the procedure table. His left pectoral area was cleaned and draped in the usual fashion. 1% lidocaine was used for local anesthesia. The axillary vein was entered via Seldinger technique and a guidewire was placed. A 3-cm incision was made in the pectoral area. Blunt dissection was carried down to the pectoral fascia and a pocket was fashioned for the pacemaker. Over the guidewire, a 7- [place] sheath introducer was placed, through which a right ventricular lead was advanced to the septum. The right ventricular lead is a Medtronic model 5076, serial number [id number]. It had an R-wave sensitivity of 13, impedance 1092 ohms, threshold 0.7 volts at 0.5 milliseconds. The ventricular lead was sutured to the pectoral fascia. A generator was attached to the ventricular lead. The generator is a Medtronic, model W3SR01, serial number [id number]. The device was placed into the pocket. The surgical incision was closed in 3 layers. [id number]/[facility] #: [id number] MTDJimbo
[2020-01-03] MEDS: ceFAZolin VIAL(*) 1 GM in NS 0.9% 50 ML* 50 ML IVPB SCH ×2 (02:17→11:12)
[2020-01-03] MEDS: amLODIPine TAB* 5 MG PO SCH (08:40)
[2020-01-03] MEDS: Folic Acid TAB* 1 MG PO SCH (08:40)
[2020-01-03] MEDS: Cholecalciferol TAB* 1000 UNITS PO SCH (08:40)
[2020-01-03] MEDS: Nitroglycerin 0.2 MG/HR PATCH* (5 MG) TRANSDERM SCH (08:41)
[2020-01-03] MEDS: Citalopram TAB* 10 MG PO SCH (08:41)
--- NOTE | 2020-01-03 10:59 | PN ---
Subjective Date of Service: 01/03/20 - symptomatic bradycardia. Interval History: Patient is s/p single chamber PPM 01/02/2020. No events last night, patient offers no complaints. Denies chest pain, sob, dizziness, palpitations. He states he has been up and ambulating with no difficulty. His is at his bedside and offers no complaints Medications Active Medications: Acetaminophen (Tylenol Tab*) 650 mg PO Q6H PRN PRN Reason: MILD PAIN or TEMP > 100.4 Albuterol (Ventolin 2.5 Mg/3 Ml Neb.Peri*) 2.5 mg INH Q2H PRN PRN Reason: SOB/WHEEZING Amlodipine Besylate (Norvasc Tab*) 10 mg PO DAILY [facility] Last Admin: 01/03/20 08:40 Dose: 10 mg Cephalexin HCl (Keflex Cap*) 250 mg PO TID [facility] Stop: 01/06/20 13:59 Cholecalciferol (Vitamin D Tab*) 2,000 units PO DAILY [facility] Last Admin: 01/03/20 08:40 Dose: 2,000 units Citalopram Hydrobromide (Celexa Tab*) 10 mg PO DAILY [facility] Last Admin: 01/03/20 08:41 Dose: 10 mg Folic Acid (Folvite Tab*) 1 mg PO DAILY [facility] Last Admin: 01/03/20 08:40 Dose: 1 mg Sodium Chloride (Ns 0.9% 1000 Ml) 1,000 mls @ 100 mls/hr IV PER RATE [facility] Last Admin: 01/02/20 17:26 Dose: 100 mls/hr Nitroglycerin (Nitroglycerin 5 Mg Patch*) 1 patch TRANSDERM QAM [facility] Last Admin: 01/03/20 08:41 Dose: 1 patch Nitroglycerin (Nitroglycerin Tab 0.4 Mg*) 0.4 mg SL Q5M PRN PRN Reason: ANGINA Ondansetron HCl (Zofran Inj*) 4 mg IV Q6H PRN PRN Reason: NAUSEA Pharmacy Profile Note (Nitro Patch/Oint Remove*) 1 note PATCH OFF 2100 [facility] Last Admin: 01/02/20 21:22 Dose: 1 note Rosuvastatin Calcium (Crestor (Nf)) 5 mg PO BEDTIME [facility]; Protocol Last Admin: 01/02/20 21:21 Dose: 5 mg Objective Vital Signs: Temp Pulse Resp BP Pulse Ox 97.7 F 62 18 128/63 97 01/03/20 07:29 01/03/20 07:29 01/03/20 07:41 01/03/20 07:29 01/03/20 07:29 Oxygen Devices in Use Now: None Appearance: Sitting on edge of bed, offers no complaints, NAD, well nourished. Ears/Nose/Mouth/Throat: NL Teeth, Lips, Gums, Mucous Membranes Moist Neck: NL Appearance and Movements; NL JVP Respiratory: Symmetrical Chest Expansion and Respiratory Effort, Clear to Auscultation Cardiovascular: - - Normal S1, S2, irregular rate. + 2/6 early systolic av murmur Extremities: No Edema Skin: - - Left anterior chest device site examined. No evidence of pocket hematoma. scant oozing noted from staple incision. non tender to palpation. no erythema. Neurological: Alert and Oriented x 3 Lines/Tubes/Other Access: Clean, Dry and Intact Peripheral IV Laboratory Results: 01/02/20 05:18 01/02/20 05:18 INR (Anticoag Therapy) 1.24 (0.82-1.09) H 01/01/20 08:27 APTT 37.3 seconds (26.0-38.0) 01/01/20 08:27 Total Bilirubin 0.90 mg/dL (0.2-1.0) 01/01/20 08:27 AST 36 U/L (13-39) 01/01/20 08:27 ALT 55 U/L (7-52) H 01/01/20 08:27 Alkaline Phosphatase 92 U/L (34-104) 01/01/20 08:27 Total Protein 7.6 g/dL (6.4-8.9) 01/01/20 08:27 Albumin 3.9 g/dL (3.2-5.2) 01/01/20 08:27 Globulin 3.7 g/dL (2-4) 01/01/20 08:27 Albumin/Globulin Ratio 1.1 (1-3) 01/01/20 08:27 Triglycerides 101 mg/dL 01/02/20 05:18 Cholesterol 86 mg/dL 01/02/20 05:18 LDL Cholesterol 45 mg/dL 01/02/20 05:18 HDL Cholesterol 21.1 mg/dL 01/02/20 05:18 01/01/20 01/01/20 08:27 11:26 Troponin I 0.00 0.00 Diagnostic Imaging: Patient Name: LEO STAFFORD Medical Record#: [id number] Ordering Physician: Andrew Poe MD Acct.#: [id number] : 1945 Age: 74 Sex: M Location: [address] [place] [address] MEDICAL/TELEMETRY Exam Date: 01/03/20 08 ADM Status: ADM IN Order Information: CHEST PA & LAT 2 VWS Accession Number: [id number] CPT: 97539 Indication: Status post device implant. 2 views of the chest including dual energy PA views demonstrate no mediastinal shift. Pacemaker leads are in place. No pneumothorax is noted. IMPRESSION: No pneumothorax is noted. Lung reeder are clear. <Electronically signed by Judit Aguilar MD in OV> 01/03/20850 Dictated By: Judit Aguilar MD Dictated Date/Time: 01/03/20845 Transcribed Date/Time: 01/03/20845 Copy to: CC:Libra Schrader MD; Andrew Poe MD; Ronna Borges MD Imaging - [facility] Imaging - [place] [facility] [address] [address] ph [phone]) ph ([phone]) ph ([phone]) This report is only to be considered final once signed by the Provider(s) as displayed in the "<Electronically Signed by >" field (s). Absence of a signature indicates the report is in a draft status and still needs to be finalized. In the event this document was created by someone other than the signing Provider, the individual initiating the document will be listed in the "Entered by:" or "Dictated by:" reeder. 1 of 1 EKG Data: 01/03/2020 [employer] rate 87 with underlying Afib/flutter Assessment/Plan #1 symptomatic bradycardia presenting with near syncope not on AVN agents s/p single chamber PPM implant 01/02/2020. today's device check revealed RV pacing threshold .500V@.40ms. [employer] 62.4%. CXR was negative for pneumothorax. He will need to go home on Keflex 250mg PO TID x3 days then stop. He is to follow up next week for wound check ( placed in DC plan). I personally reviewed wound care with patient and his in addition to LUE restrictions( placed in DC plan). will sign off. #2 h/o carotid artery disease with prior CEA; please ensure he resumes home ASA 81/day for secondary prevention. #3 h/o Persistent AF; Rates appear controlled .On Eliquis 5mg PO BID ( may resume tonight). #4 h/o HTN; On norvasc therapy. BP controlled #5 disposition pending course will sign off. Case d/w Dr. Poe. Attending: Andrew Poe
[2020-01-03 11:07] VITALS: BP 127/63
[2020-01-03] MEDS ORDERED: Cephalexin CAP* 250 MG PO SCH (14:00)
--- NOTE | 2020-01-03 22:09 | DS ---
CC: Dr. Ronna Borges; Dr. Poe; Lian Escobar NP * DISCHARGE SUMMARY: DATE OF ADMISSION: 01/01/20 DATE OF DISCHARGE: 01/03/20 PRIMARY CARE PROVIDER: Dr. Ronna Borges. DISCHARGE DIAGNOSIS: Symptomatic bradycardia, status post pacemaker placement. SECONDARY DIAGNOSES: 1. Atrial fibrillation. 2. Coronary artery disease. 3. Carotid artery stenosis, status post endarterectomy. 4. Moderate aortic stenosis. 5. Asthma 6. Likely asbestosis. 7. Hypertension. 8. Hyperlipidemia. 9. Anxiety/depression. MEDICATIONS AT DISCHARGE: Include: 1. Norvasc 10 mg daily. 2. Apixaban 5 mg b.i.d. 3. Aspirin 81 mg daily. 4. Vitamin D3 2000 units daily. 5. Celexa 10 mg daily. 6. Folic acid 800 mcg daily. 7. Nitroglycerin patch 0.2 mg/hour daily. 8. Rosuvastatin 5 mg at bedtime. 9. Cephalexin 250 mg 3 times a day for a total of 3 days, then stop. CONSULTATIONS DURING THE HOSPITAL STAY: Dr. Poe from Cardiology. PROCEDURES PERFORMED: Included pacemaker placement performed on 01/02/[address] Poe, which was a single chamber pacemaker. The right ventricular lead is Medtronic model 5076 and serial number [id number]. The generator is [employer], model of W3SR01, serial number [id number]. Portable chest x-ray performed a day after the placement of the patient's pacemaker showed impression: "No pneumothorax is noted. Lung spaces are clear. " LABORATORY DATA PERFORMED DURING THE HOSPITAL STAY: Included: On 01/02/20, sodium of 132, potassium 3.9, chloride 103, carbon dioxide 24, BUN 13, creatinine 0.77. The patient's cholesterol profile showed triglycerides of 101 , cholesterol of 86, LDL of 45, HDL of 21. The vitamin B12 was 877. CBC on showed white blood cell count of 9.4, hemoglobin of 12.6, hematocrit of 36 , and platelets of 274. HOSPITALIZATION COURSE: Karson Ortega is a 74-year-old male, who presented to the hospital with symptomatic bradycardia. For further details of the patient' s presentation, please see history of present illness dictated at admission. Shortly, the patient underwent single chamber pacemaker implantation by Dr. Poe on 01/02/20. He did well postoperatively and on 01/03/20, he is ready to go home. He is going to be discharged home. Recommendation to follow with his primary care provider in 4 to 7 days and with Lian Escobar, nurse practitioner , from Cardiology on 01/12/20 at 3 p.m. The patient also was given printed instructions in regards of specific activity restrictions post pacemaker placement. The patient also was given specific instructions in regards of wound care after pacemaker placement. PHYSICAL EXAMINATION: At the time of discharge, blood pressure 127/63, heart rate of 62 and regular, respiratory rate 15, oxygen saturation 98% on room air, temperature 97.2. General: The patient is a very pleasant 74-year-old male, who is in no acute distress. The patient is alert and oriented x3. HEENT: Head: Atraumatic, normocephalic. Eyes: Pupils equal and reactive to light and accommodation. Oropharynx clear. Mucosa moist. Neck: Supple. No JVD. No bruits bilaterally. Cardiovascular: Regular rate and rhythm. No murmurs. Respiratory: Clear to auscultation bilaterally. Abdomen: Soft, nontender. Bowel sounds present in all 4 quadrants. Extremities: There is no edema. Pulses are +2 bilaterally. No clubbing or cyanosis. On evaluation of the skin, the patient's left subclavian area of pacemaker site is covered with DuoDERM, which was not uncovered for evaluation. DIET AT DISCHARGE: Regular. DISPOSITION AT DISCHARGE: Home. CONDITION AT DISCHARGE: Stable. Please note that this is a short summary of the patient's hospital stay. Please refer to further medical record for details. [id number]/[facility] #: [id number] [facility]
== END 2020-01-03 13:15 | disposition home or self-care (01) | DRG 244 ==
LOC: ED 08:17 → MEDTELE 10:25 → ICU 12:17 → MEDTELE 01-02 11:19
PROVIDERS: ADMIT Internal Medicine; ATTEND Internal Medicine
PROC: 02HK3JZ Insertion of Pacemaker Lead into Right Ventricle, Percutaneous Approach (ICD-10-PCS; 2020-01-02)
PROC: 0JH604Z Insertion of Pacemaker, Single Chamber into Chest Subcutaneous Tissue and Fascia, Open Approach (ICD-10-PCS; principal; 2020-01-02 08:00)
DX: R00.1 Bradycardia, unspecified (principal); R55 Syncope and collapse; I73.9 Peripheral vascular disease, unspecified; I25.10 Atherosclerotic heart disease of native coronary artery without angina pectoris; I48.92 Unspecified atrial flutter; I35.0 Nonrheumatic aortic (valve) stenosis; I10 Essential (primary) hypertension; K21.9 Gastro-esophageal reflux disease without esophagitis; F41.9 Anxiety disorder, unspecified; F32.9 Major depressive disorder, single episode, unspecified; I49.5 Sick sinus syndrome; J44.9 Chronic obstructive pulmonary disease, unspecified; I48.19 Other persistent atrial fibrillation; E78.00 Pure hypercholesterolemia, unspecified; Z96.651 Presence of right artificial knee joint; J45.909 Unspecified asthma, uncomplicated; E78.5 Hyperlipidemia, unspecified; Z79.82 Long term (current) use of aspirin; Z79.01 Long term (current) use of anticoagulants; Z79.899 Other long term (current) drug therapy; Z88.8 Allergy status to other drugs, medicaments and biological substances; Z28.21 Immunization not carried out because of patient refusal; Z87.891 Personal history of nicotine dependence; Z89.022 Acquired absence of left finger(s); M19.90 Unspecified osteoarthritis, unspecified site; R07.9 Chest pain, unspecified; D53.9 Nutritional anemia, unspecified; I65.29 Occlusion and stenosis of unspecified carotid artery; J61 Pneumoconiosis due to asbestos and other mineral fibers
CPT/HCPCS: 33207; 36415; 71045; 71046; 80048; 80053; 80061; 82607; 83036; 83605; 83735; 84484; 85025; 85610; 85730; 87641; 93005; 99156; 99157; 99285; A9270-GY; C1786; C1892; C1898; J0690; J1644; J2250; J3010; J3475

== ENCOUNTER 2024-09-28 10:30 | Inpatient (IN) ==
[2024-09-28] MEDS ORDERED: Senna TAB 8.6 mg TAB PO PRN (13:09)
[2024-09-28] MEDS ORDERED: Magnesium Hydroxide LIQ 30 ML UDC PO PRN (13:09)
[2024-09-28] MEDS ORDERED: Levalbuterol 0.63MG/3ML NEB UNIT OF USE INH PRN (13:18)
[2024-09-29] MEDS: SPIRIVA Respimat (tiotropium) 2.5 mcg/inh Inhaler INH SCH (08:43)
[2024-09-29] MEDS: Cholecalciferol (VIT D3) 1,000 unit TAB PO SCH (08:47)
[2024-09-29] MEDS: Aspirin EC 81 mg TAB.EC (enteric coated) PO SCH (08:48)
[2024-09-30 06:57] LABS: ABS Basophils 0.1 10^3/uL (0.0-0.1); ABS Eosinophils 0.1 10^3/uL (0.0-0.5); ABS Lymphocytes 1.1 10^3/uL (1.0-4.8); ABS Neutrophils 8.7 10^3/uL (1.5-7.6); ABS Nucleated RBC 0.02 10^3/ul; Eosinophil % 0.9 %; Hematocrit 41.4 % (38-53); Hemoglobin 14.4 g/dL (13.2-16.3); Lymphocyte % 10.2 %; Mean Corpuscular Hemoglobin 32.8 pg (27-33); Mean Corpuscular Hgb Conc 34.8 g/dL (31-36); Mean Corpuscular Volume 94.2 fL (80-97); Nucleated Red Blood Cells % 0.2 %/100WBC (0.0-0.8); Platelet Count 151 10^3/uL (150-450); Red Cell Distribution Width 14.7 % (12-17); White Blood Count 10.9 10^3/uL (3.6-10.2)
[2024-09-30 07:50] LABS: Albumin 4.1 g/dL (3.2-5.2); Albumin/Globulin Ratio 1.4 (1-3); Calcium 9.2 mg/dL (8.6-10.3); Creatinine, Serum 0.81 mg/dL (0.67-1.17); Globulin 2.9 g/dL (2-4); Total Bilirubin 1.5 mg/dL (0.2-1.0); eGFR CKD-EPI 88.6 (>60)
[2024-10-01 05:43] LABS: ABS Basophils 0.1 10^3/uL (0.0-0.1); ABS Eosinophils 0.1 10^3/uL (0.0-0.5); ABS Lymphocytes 1.2 10^3/uL (1.0-4.8); ABS Monocytes 1.2 10^3/uL (0.0-1.1); Eosinophil % 1.2 %; Hematocrit 39.9 % (38-53); Hemoglobin 13.7 g/dL (13.2-16.3); Lymphocyte % 10.7 %; Mean Corpuscular Hemoglobin 32.3 pg (27-33); Mean Corpuscular Hgb Conc 34.3 g/dL (31-36); Mean Corpuscular Volume 94.2 fL (80-97); Mean Platelet Volume 7.9 fL (7.5-11.2); Platelet Count 149 10^3/uL (150-450); Red Blood Count 4.24 10^6/uL (4.06-5.63); Red Cell Distribution Width 14.4 % (12-17); White Blood Count 11.6 10^3/uL (3.6-10.2)
[2024-10-02 09:53] LABS: Urine Appearance Clear; Urine Bilirubin Negative (Negative); Urine Blood Negative (Negative); Urine Color Yellow; Urine Glucose Negative (Negative); Urine Ketones Negative (Negative); Urine Nitrite Negative (Negative); Urine Protein Trace (Negative); Urine Specific Gravity 1.022 (1.002-1.030); Urine Urobilinogen Negative (Negative)
[2024-10-03 06:28] LABS: ABS Basophils 0.1 10^3/uL (0.0-0.1); ABS Eosinophils 0.1 10^3/uL (0.0-0.5); ABS Lymphocytes 1.3 10^3/uL (1.0-4.8); ABS Monocytes 1.3 10^3/uL (0.0-1.1); ABS Nucleated RBC 0.02 10^3/ul; Eosinophil % 0.5 %; Hematocrit 44.3 % (38-53); Hemoglobin 15.2 g/dL (13.2-16.3); Lymphocyte % 7.2 %; Mean Corpuscular Hemoglobin 32.1 pg (27-33); Mean Corpuscular Hgb Conc 34.3 g/dL (31-36); Mean Corpuscular Volume 93.6 fL (80-97); Mean Platelet Volume 8.1 fL (7.5-11.2); Nucleated Red Blood Cells % 0.1 %/100WBC (0.0-0.8); Platelet Count 194 10^3/uL (150-450); Red Blood Count 4.73 10^6/uL (4.06-5.63); White Blood Count 17.8 10^3/uL (3.6-10.2)
[2024-10-04 06:23] LABS: ABS Basophils 0.1 10^3/uL (0.0-0.1); ABS Lymphocytes 1.1 10^3/uL (1.0-4.8); ABS Monocytes 1.3 10^3/uL (0.0-1.1); ABS Neutrophils 12.9 10^3/uL (1.5-7.6); ABS Nucleated RBC 0.02 10^3/ul; Eosinophil % 0.3 %; Hematocrit 47.4 % (38-53); Hemoglobin 16.4 g/dL (13.2-16.3); Lymphocyte % 7.3 %; Mean Corpuscular Hemoglobin 32.2 pg (27-33); Mean Corpuscular Hgb Conc 34.5 g/dL (31-36); Mean Corpuscular Volume 93.3 fL (80-97); Nucleated Red Blood Cells % 0.1 %/100WBC (0.0-0.8); Platelet Count 208 10^3/uL (150-450); Red Blood Count 5.08 10^6/uL (4.06-5.63); Red Cell Distribution Width 14.6 % (12-17); White Blood Count 15.4 10^3/uL (3.6-10.2)
[2024-10-04 07:14] VITALS: BP 130/91
== END 2024-10-04 06:50 | disposition short-term general hospital (02) | DRG 292 ==
LOC: PMRU 11:07
PROVIDERS: ADMIT Physical Medicine & Rehabilitation; ATTEND Physical Medicine & Rehabilitation